=== PATIENT | male | born 1930 | race Caucasian/White ===

== ENCOUNTER 2017-03-29 06:07 | Inpatient (IN) | payer OTHER ==
--- NOTE | 2017-03-29 06:37 | PDOC ---
History of Present Illness - General History Source: Patient Exam Limitations: No Limitations - History of Present Illness Initial Comments: 03/29/17 06:44 The patient is an 87 year old male, with a significant past medical history of chest pain, coronary artery disease, hypertension, and hyperlipidemia, who presents to the emergency department with, intermittent chest pain that began yesterday morning. Patient reports the chest pain had mostly resolved on its own. However, patient reports the chest pain returned at approx. 8 pm last night and again two hours prior to presentation. Patient reports that currently he is experiencing chest pain but describes the chest pain as more of a discomfort. Patient reports the chest pain radiates down the left arm. Patient reports associated symptoms of slight shortness of breath. Patient reports he takes 81 mg of aspirin daily and is compliant with his medications. He denies any recent fevers, chills, headache or dizziness. He denies any recent nausea, vomit, diarrhea or constipation. Allergies: NKA Primary Care Physician: Dr. Olea Doorperson Or Luggage Porter: Dr. Handley <Fortino Jean - Last Filed: 03/29/17 06:50> - General History Source: Patient <AntoniToney william - Last Filed: 03/29/17 19:21> - General Chief Complaint: Chest Pain Stated Complaint: PAIN,LT ARM/CHEST PRESSURE Time Seen by Provider: 03/29/17 06:37 Past History <Fortino Jean - Last Filed: 03/29/17 06:50> - Past Medical History Cardiac Disorders: Yes - Surgical History Cardiac Surgery: Yes - Suicide/Smoking/Psychosocial Hx Smoking History: Never smoked Have you smoked in the past 12 months: No Information on smoking cessation initiated: No Hx Alcohol Use: No Drug/Substance Use Hx: No Substance Use Type: None <Toney Chaudhry - Last Filed: 03/29/17 19:21> - Past Medical History Allergies/Adverse Reactions: Allergies Allergy/AdvReac Type Severity Reaction Status Date / Time No Known Allergies Allergy Verified 03/29/17 06:24 Home Medications: Ambulatory Orders Fenofibrate 150 mg PO DAILY 03/29/17 Isosorbide Mononitrate [Isosorbide Mononitrate ER] 60 mg PO DAILY 03/29/17 Metoprolol Tartrate 100 mg PO DAILY 03/29/17 Rosuvastatin [Crestor -] 10 mg PO DAILY 03/29/17 Review of Systems - Review of Systems Comments:: 03/29/17 06:45 CONSTITUTIONAL: Absent: fever, no chills, no fatigue EYES: Absent: visual changes ENT: Absent: ear pain, no sore throat CARDIOVASCULAR: Present: +Chest pain Absent: no palpitations RESPIRATORY: Present: +Shortness of breath Absent: cough, GI: Absent: abdominal pain, no nausea, no vomiting, no constipation, no diarrhea GENITOURINARY: Absent: dysuria, no frequency, no hematuria MUSKULOSKELETAL: Absent: back pain, no arthralgia, no myalgia SKIN: Absent: rash NEURO: Absent: headache <Charanjit Jeanian - Last Filed: 03/29/17 06:50> *Physical Exam - Vital Signs Last Vital Signs Temp Pulse Resp BP Pulse Ox 86 14 158/70 95 03/29/17 06:24 03/29/17 06:24 03/29/17 06:24 03/29/17 06:24 - Physical Exam Comments: 03/29/17 06:46 GENERAL: Well developed, well nourished. Awake and alert. No acute distress. HEENT: Normocephalic, atraumatic. PERRLA, EOMI. No conjunctival pallor. Sclera are non- icteric. Moist mucous membranes. Oropharynx is clear. NECK: Supple. Full ROM. No JVD. Carotid pulses 2+ and symmetric, without bruits. No thyromegaly. No lymphadenopathy. CARDIOVASCULAR: Regular rate and rhythm. No murmurs, rubs, or gallops. Distal pulses are 2+ and symmetric. PULMONARY: No evidence of respiratory distress. Lungs clear to auscultation bilaterally. No wheezing, rales or rhonchi. ABDOMINAL: Soft. Non-tender. Non-distended. No rebound or guarding. No organomegaly. Normoactive bowel sounds. MUSCULOSKELETAL Normal range of motion at all joints. No bony deformities or tenderness. No CVA tenderness. EXTREMITIES: No cyanosis. No clubbing. No edema. No calf tenderness. SKIN: Warm and dry. Normal capillary refill. No rashes. No jaundice. NEUROLOGICAL: Alert, awake, appropriate. Cranial nerves 2-12 intact. No deficits to light touch and temperature in face, upper extremities and lower extremities. No motor deficits in the in face, upper extremities and lower extremities. Normoreflexic in the upper and lower extremities. Normal speech. Toes are down- going bilaterally. PSYCHIATRIC: Cooperative. Good eye contact. Appropriate mood and affect. <Fortino Jean - Last Filed: 03/29/17 06:50> - Vital Signs Last Vital Signs Temp Pulse Resp BP Pulse Ox 86 14 158/70 95 03/29/17 06:24 03/29/17 06:24 03/29/17 06:24 03/29/17 06:24 <Toney Chaudhry - Last Filed: 03/29/17 19:21> Heart Score/ECG Review #1 03/29/17 06:46 Normal Sinus Rhythm at 80 bpm QT/QTc 352/405 ms <Fortino Jean - Last Filed: 03/29/17 06:50> ED Treatment Course - Medications Given in the ED: ED Medications Discontinued Medications Generic Name Dose Route Start Last Admin Trade Name Freq PRN Reason Stop Dose Admin Aspirin 81 mg 03/29/17 06:38 03/29/17 06:42 Asa - PO 03/29/17 06:39 81 mg ONCE ONE Administration <Fortino Jean - Last Filed: 03/29/17 06:50> - LABORATORY CBC & Chemistry Diagram: 03/29/17 07:00 03/29/17 07:00 <Toney Chaudhry - Last Filed: 03/29/17 19:21> Medical Decision Making - Medical Decision Making 03/29/17 19:21 Dr. Chaudhry: The scribe's documentation has been prepared under my direction and personally reviewed by me in its entirery. I confirm that the note above accurately reflects all work, treatment, procedures, and medical decision making performed by me. <Toney Chaudhry - Last Filed: 03/29/17 19:21> *DC/Admit/Observation/Transfer - Attestations Scribe Attestion: 03/29/17 06:47 Documentation prepared by Fortino Jean, acting as certified medical transcriptionist for Toney Chaudhry MD. <Fortino Jean - Last Filed: 03/29/17 06:50> <Toney Chaudhry - Last Filed: 03/29/17 19:21> Diagnosis at time of Disposition: Urinary tract infection Qualifiers: Urinary tract infection type: acute cystitis Hematuria presence: without hematuria Qualified Code(s): N30.00 - Acute cystitis without hematuria Chest pain Qualifiers: Chest pain type: unspecified Qualified Code(s): R07.9 - Chest pain, unspecified - Discharge Dispostion Condition at time of disposition: Fair
[2017-03-29] MEDS ORDERED: ASPIRIN 81 MG CHEWABLE TABLETS PO ONE (06:38)
[2017-03-29] MEDS ORDERED: ASPIRIN 81 MG CHEWABLE TABLETS ONE (06:42)
[2017-03-29 07:16] LABS: BASO % 0.4 % (0-2.0); EOS % 0.2 % (0-4.5); HEMATOCRIT 47.4 % (35.4-49); HEMOGLOBIN 15.7 GM/dL (11.7-16.9); LYMPH % 15.7 % (8-40); MCH 31.1 pg (25.7-33.7); MEAN CELL VOLUME 94.2 fl (80-96); MEAN PLT VOLUME 9.3 fl (7.5-11.1); MONO % 10.2 % (3.8-10.2); NEUT % 73.5 % (42.8-82.8); PLATELET COUNT 203 K/MM3 (134-434); RBC 5.03 M/mm3 (4.00-5.60); RDW 14.6 % (11.9-15.9)
[2017-03-29 07:29] LABS: INR 1.17 (0.82-1.09); PROTHROMBIN TIME (PATIENT) 13.2 SEC (9.98-11.88)
[2017-03-29 07:48] LABS: ALBUMIN 3.4 g/dl (3.4-5.0); ANION GAP 9 (8-16); BILIRUBIN,TOTAL 0.8 mg/dL (0.2-1.0); BLOOD UREA NITROGEN 22 mg/dL (7-18); CALCIUM 9.2 mg/dL (8.5-10.1); CHLORIDE 106 mmol/L (98-107); CO2 23 mmol/L (21-32); CREATININE 1.6 mg/dL (0.7-1.3); GLUCOSE,RANDOM 121 mg/dL (74-106); SGPT/ALT 24 U/L (12-78); SODIUM 138 mmol/L (136-145); TOT PROT 6.7 g/dl (6.4-8.2)
[2017-03-29 07:51] LABS: ALK PHOS 57 U/L (45-117)
[2017-03-29 07:55] LABS: POTASSIUM 4.3 mmol/L (3.5-5.1)
[2017-03-29 07:56] LABS: MAGNESIUM 1.9 mg/dL (1.8-2.4); SGOT/AST 29 U/L (15-37)
[2017-03-29] MEDS ORDERED: ACETAMINOPHEN 325 MG TABLET (FP) PO ONE (09:13)
[2017-03-29] MEDS ORDERED: ACETAMINOPHEN 325 MG TABLET (FP) ONE (09:31)
--- NOTE | 2017-03-29 09:37 | EKG ---
Test Reason : Blood Pressure : / mmHG Vent. Rate : 080 BPM Atrial Rate : 080 BPM P-R Int : 182 ms QRS Dur : 090 ms QT Int : 352 ms P-R-T Axes : 036 015 038 degrees QTc Int : 405 ms NORMAL SINUS RHYTHM NORMAL ECG WHEN COMPARED WITH ECG OF 19-JUN-2015 10:13, NO SIGNIFICANT CHANGE WAS FOUND Confirmed by KALI GRAVES MD ([id number]) on 03/29/2017 9:37:28 AM Referred By: Confirmed By:KALI GRAVES MD
[2017-03-29 10:12] LABS: URINE APPEARANCE CLOUDY; URINE BILIRUBIN NEGATIVE (NEGATIVE); URINE BLOOD 2+ (NEGATIVE); URINE COLOR YELLOW; URINE GLUCOSE (UA) NEGATIVE (NEGATIVE); URINE KETONE NEGATIVE (NEGATIVE); URINE NITRITE POSITIVE (NEGATIVE); URINE UROBILINOGEN NEGATIVE mg/dL (0.2-1.0)
[2017-03-29 10:18] LABS: URINE LEUK ESTERASE 2+ (NEGATIVE); URINE PROTEIN 1+ (NEGATIVE)
[2017-03-29 10:46] LABS: URINE BACTERIA MANY /hpf (NONE SEEN)
[2017-03-29] MEDS ORDERED: CEFTRIAXONE 1 GM in DEXTROSE 5%-WATER - 50 ML IVPB ONE (11:08)
[2017-03-29] MEDS ORDERED: CEFTRIAXONE 1 GM/50 ML BAG ONE (12:12)
[2017-03-29] MEDS ORDERED: ACETAMINOPHEN 325 MG TABLET (FP) PO PRN (15:31)
--- NOTE | 2017-03-29 15:31 | PDOC ---
*Physical Exam - Vital Signs Last Vital Signs Temp Pulse Resp BP Pulse Ox 98.6 F 66 20 165/86 96 03/29/17 15:26 03/29/17 15:26 03/29/17 15:26 03/29/17 15:26 03/29/17 15:26 - Physical Exam Comments: 03/29/17 15:29 Patient is an 87-year-old male who presented with atraumatic left-sided chest pain. Patient reported shaking chills, lower abdominal pain and dysuria. Urinalysis reveals numerous WBCs per high-power field, CT that and pelvis reveals no evidence of acute pathology, blood and urine cultures were obtained patient was found to be febrile to 101 Fahrenheit rectally. Tylenol as well as ceftriaxone as well as IV fluids were administered. Will admit to telemetry for cardiac evaluation and continuous IV antibiotic therapy. ED Treatment Course - LABORATORY CBC & Chemistry Diagram: 03/29/17 07:00 03/29/17 07:00 - ADDITIONAL ORDERS Additional order review: Laboratory Results 03/29/17 03/29/17 03/29/17 09:56 07:00 07:00 PT with INR 13.20 H INR 1.17 H Sodium 138 Potassium 4.3 Chloride 106 Carbon Dioxide 23 Anion Gap 9 BUN 22 H Creatinine 1.6 H Creat Clearance w eGFR 40.90 Random Glucose 121 H D Calcium 9.2 Magnesium 1.9 Total Bilirubin 0.8 D AST 29 ALT 24 D Alkaline Phosphatase 57 Creatine Kinase 81 Troponin I < 0.02 Total Protein 6.7 Albumin 3.4 Urine Color Yellow Urine Appearance Cloudy Urine pH 5.0 Ur Specific [place] 1.013 Urine Protein 1+ H Urine Glucose (UA) Negative Urine Ketones Negative Urine Blood 2+ H Urine Nitrite Positive Urine Bilirubin Negative Urine Urobilinogen Negative Ur Leukocyte Esterase 2+ H Urine WBC (Auto) 748 Urine RBC (Auto) 9 Urine Bacteria Many 03/29/17 09:46 Influenza Types A,B Antigen (MICHELLE) - Final Nasopharyngeal Swab - Final 03/29/17 07:00 RBC 5.03 MCV 94.2 MCHC 33.0 RDW 14.6 MPV 9.3 Neutrophils % 73.5 D Lymphocytes % 15.7 D Monocytes % 10.2 Eosinophils % 0.2 D Basophils % 0.4 - RADIOLOGY Radiology Studies Ordered: Category Date Time Status ABDOMEN & PELVIS CT W/O CONTR [CT] Stat CT Scan 03/29/17 09:13 Completed - Medications Given in the ED: ED Medications Discontinued Medications Generic Name Dose Route Start Last Admin Trade Name Nicole PRN Reason Stop Dose Admin Acetaminophen 650 mg 03/29/17 09:13 03/29/17 09:40 Tylenol - PO 03/29/17 09:14 650 mg ONCE ONE Administration Aspirin 81 mg 03/29/17 06:38 03/29/17 06:42 Asa - PO 03/29/17 06:39 81 mg ONCE ONE Administration Ceftriaxone Sodium 1 gm/ 50 mls @ 100 mls/hr 03/29/17 11:08 03/29/17 12:12 Dextrose IVPB 03/29/17 11:37 100 mls/hr ONCE ONE Administration *DC/Admit/Observation/Transfer Diagnosis at time of Disposition: Chest pain Qualifiers: Chest pain type: unspecified Qualified Code(s): R07.9 - Chest pain, unspecified Urinary tract infection Qualifiers: Urinary tract infection type: acute cystitis Hematuria presence: without hematuria Qualified Code(s): N30.00 - Acute cystitis without hematuria - Discharge Dispostion Condition at time of disposition: Fair Admit: Yes - Referrals Referrals: Edgar Loza MD [Primary Care Provider] - - Patient Instructions - Post Discharge Activity
--- NOTE | 2017-03-29 15:32 | HP ---
CHIEF COMPLAINT: left sided chest pain, suprapubic pain, difficulty urinating PCP: Dr. Loza HISTORY OF PRESENT ILLNESS: This is an 87 year old male with PMHx of HTN, CAD, dyslipidemia, CKD stage 3, gout, osteoarthritis, CABG, who presented to the ED with suprapubic pain, difficulty urinating, and left chest pain radiating to his left shoulder. The patient reports he has had pain with urination for months now and it has worsened over the past 1.5 days. He also reports it takes him longer to urinate recently. He also reports left sided chest pain that began this morning and radiated to his left arm. He reports the chest pain has subsided. He does state that yesterday he experienced chills. He denies any shortness of breath, diarrhea, nausea, vomiting, dizziness, syncope, lower extremity swelling, hematuria. Off note: cardiac cath 02/05/15: 3 vessel CAD with mid LAD ISR SUPERVISOR/PORT DIRECTOR, LCx OM SUPERVISOR/PORT DIRECTOR and 80-90% ostial RPDA distal vessel medium size ER course was notable for: (1) Temp 101, HR 68, BP 115/62, resp 18, O2 96% on RA (2) WBC 15, Cr 1.6 (3) Chest X-ray with no acute pathology (4) CTAP: colonic diverticulosis is noted without definite evidence of acute diverticulitis. 6mm nonobstructing right renal calculus. Probable diffuse hepatic steatosis Recent Travel: denies PAST MEDICAL HISTORY: as above PAST SURGICAL HISTORY: as above Social History: Smoking: denies Alcohol: occasion glass of wine, not daily Drugs: denies Family History: Allergies No Known Allergies Allergy (Verified 03/29/17 06:24) HOME MEDICATIONS: Home Medications Medication Instructions Recorded Fenofibrate 150 mg PO DAILY 03/29/17 Isosorbide Mononitrate [Isosorbide 60 mg PO DAILY 03/29/17 Mononitrate ER] Metoprolol Tartrate 100 mg PO DAILY 03/29/17 Rosuvastatin [Crestor -] 10 mg PO DAILY 03/29/17 REVIEW OF SYSTEMS CONSTITUTIONAL: Chills that began yesterday. Absent: fever, diaphoresis, generalized weakness, malaise, loss of appetite, weight change HEENT: Absent: rhinorrhea, nasal congestion, throat pain, throat swelling, difficulty swallowing, mouth swelling, ear pain, eye pain, visual changes CARDIOVASCULAR: Left chest pain radiating to the left shoulder which has resolved since coming to the ED. Absent: syncope, palpitations, irregular heart rate, lightheadedness, peripheral edema RESPIRATORY: Absent: cough, shortness of breath, dyspnea with exertion, orthopnea, wheezing, stridor, hemoptysis GASTROINTESTINAL:Absent: abdominal distension, nausea, vomiting, diarrhea, constipation, melena, hematochezia GENITOURINARY: Suprapubic pain, painful urination, hesitancy that began 2 months ago and worsened over the past 1.5 days. Absent: frequency, hematuria, flank pain, genital pain MUSCULOSKELETAL: Absent: myalgia, arthralgia, joint swelling, back pain, neck pain SKIN: Absent: rash, itching, pallor HEMATOLOGIC/IMMUNOLOGIC: Absent: easy bleeding, easy bruising, lymphadenopathy, frequent infections ENDOCRINE:Absent: unexplained weight gain, unexplained weight loss, heat intolerance, cold intolerance NEUROLOGIC: Absent: headache, focal weakness or paresthesias, dizziness, unsteady gait, seizure, mental status changes, bladder or bowel incontinence PSYCHIATRIC: Absent: anxiety, depression, suicidal or homicidal ideation, hallucinations. PHYSICAL EXAMINATION Vital Signs - 24 hr 03/29/17 03/29/17 03/29/17 06:24 08:50 09:13 Temperature 101 F H Pulse Rate 86 Pulse Rate [ Right] Respiratory 14 Rate Blood Pressure 158/70 Blood Pressure [Right Arm] O2 Sat by Pulse 95 99 Oximetry (%) 03/29/17 03/29/17 10:58 15:26 Temperature 98.4 F 98.6 F Pulse Rate Pulse Rate [ 68 66 Right] Respiratory 18 20 Rate Blood Pressure Blood Pressure 115/62 165/86 [Right Arm] O2 Sat by Pulse 96 96 Oximetry (%) GENERAL: Awake, alert, and fully oriented, in no acute distress. HEAD: Normal with no signs of trauma. EYES: Pupils equal, round and reactive to light, extraocular movements intact, sclera anicteric, conjunctiva clear. No lid lag. EARS, NOSE, THROAT: Ears normal, nares patent, oropharynx clear without exudates. Moist mucous membranes. NECK: Normal range of motion, supple without lymphadenopathy, JVD, or masses. LUNGS: Breath sounds equal, clear to auscultation bilaterally. No wheezes, and no crackles. No accessory muscle use. HEART: Regular rate and rhythm, normal S1 and S2 without murmur, rub or gallop. ABDOMEN: Soft, nontender, not distended, normoactive bowel sounds, no guarding, no rebound, no masses. No hepatomegaly or splenomegaly. MUSCULOSKELETAL: Normal range of motion at all joints. No bony deformities or tenderness. No CVA tenderness. UPPER EXTREMITIES: 2+ pulses, warm, well-perfused. No cyanosis. No clubbing. No peripheral edema. LOWER EXTREMITIES: 2+ pulses, warm, well-perfused. No calf tenderness. No peripheral edema. NEUROLOGICAL: Cranial nerves II-XII intact. Normal speech. Normal gait. PSYCHIATRIC: Cooperative. Good eye contact. Appropriate mood and affect. SKIN: Warm, dry, normal turgor, no rashes or lesions noted, normal capillary refill. Laboratory Results - last 24 hr 03/29/17 03/29/17 03/29/17 07:00 07:00 07:00 WBC 15.0 H D RBC 5.03 Hgb 15.7 Hct 47.4 MCV 94.2 MCH 31.1 MCHC 33.0 RDW 14.6 Plt Count 203 MPV 9.3 Neutrophils % 73.5 D Lymphocytes % 15.7 D Monocytes % 10.2 Eosinophils % 0.2 D Basophils % 0.4 PT with INR 13.20 H INR 1.17 H Sodium 138 Potassium 4.3 Chloride 106 Carbon Dioxide 23 Anion Gap 9 BUN 22 H Creatinine 1.6 H Creat Clearance w eGFR 40.90 Random Glucose 121 H D Calcium 9.2 Magnesium 1.9 Total Bilirubin 0.8 D AST 29 ALT 24 D Alkaline Phosphatase 57 Creatine Kinase 81 Troponin I < 0.02 Total Protein 6.7 Albumin 3.4 Urine Color Urine Appearance Urine pH Ur Specific [place] Urine Protein Urine Glucose (UA) Urine Ketones Urine Blood Urine Nitrite Urine Bilirubin Urine Urobilinogen Ur Leukocyte Esterase Urine WBC (Auto) Urine RBC (Auto) Urine Bacteria 03/29/17 09:56 WBC RBC Hgb Hct MCV MCH MCHC RDW Plt Count MPV Neutrophils % Lymphocytes % Monocytes % Eosinophils % Basophils % PT with INR INR Sodium Potassium Chloride Carbon Dioxide Anion Gap BUN Creatinine Creat Clearance w eGFR Random Glucose Calcium Magnesium Total Bilirubin AST ALT Alkaline Phosphatase Creatine Kinase Troponin I Total Protein Albumin Urine Color Yellow Urine Appearance Cloudy Urine pH 5.0 Ur Specific [place] 1.013 Urine Protein 1+ H Urine Glucose (UA) Negative Urine Ketones Negative Urine Blood 2+ H Urine Nitrite Positive Urine Bilirubin Negative Urine Urobilinogen Negative Ur Leukocyte Esterase 2+ H Urine WBC (Auto) 748 Urine RBC (Auto) 9 Urine Bacteria Many Assessment: This is an 87 year old male with PMHx of HTN, CAD, dyslipidemia, CKD stage 3, gout, osteoarthritis, CABG, who presented to the ED with suprapubic pain, difficulty urinating, and left chest pain radiating to his left shoulder. Plan: 1) Sepsis 2/2 UTI - Start Ceftriaxone - F/u urine culture - Monitor WBC - Monitor for fever - Lactic acid wnl 2) Chest pain - First trop negative, continue to trend - F/u ECHO - ASA 81mg po daily - EKG NSR - Cardiac monitoring - F/u TSH, HgbA1c, lipid profile - F/u cardiology consult 3) CAD - Hx of cardiac cath 2014 - Continue ASA - Continue statin - Continue Imdur - Continue Lopressor 4) Hypertriglyeridemia - Continue Trilipix 5) CKD stage 3 - Cr at baseline - Continue to monitor 6) F/E/N: - Sodium controlled diet - Monitor electrolytes 7) Prophylaxis: - OOB ambulating - Heparin 5,000u sq bid 8) Dispo: - Requires continued inpatient care CODE STATUS: FULL CODE Visit type - Emergency Visit Emergency Visit: Yes Care time: The patient presented to the Emergency Department on the above date and was hospitalized for further evaluation of their emergent condition. - New Patient This patient is new to me today: Yes Date on this admission: 03/29/17 - Critical Care Critical Care patient: No
--- NOTE | 2017-03-29 20:06 | CONS ---
DATE OF CONSULTATION: 03/29/2017 REQUESTING PHYSICIAN: Cody Jordan M.D. REASON FOR CONSULTATION: Cardiology consultation. CHIEF COMPLAINT: 1. Rigors and chills. 2. Chest pain. 3. Burning on micturition and poor stream. HISTORY OF PRESENT ILLNESS: The patient is an 87-year-old [place] gentleman with longstanding history of coronary artery disease, status post coronary artery bypass grafting, angina pectoris, hypertension, hypertensive cardiovascular disease, hypercholesterolemia, history of gout, and generalized osteoarthritis. Patient says that last evening he started to experience chills, rigors, and was also complaining of dysuria, poor urinary stream, and pain involving the hypogastrium. During this episode, he started to experience right anterior chest pain described as pressure with radiation to the left arm. Symptoms persisted during the night, and was unable to sleep because of ongoing chills and rigors associated with chest pain. This morning, he had recurrence of chest pain and continued to have the above mentioned symptoms and decided to come to the hospital. There is no history of dyspnea either at rest or with exertion, no paroxysmal nocturnal dyspnea or orthopnea reported. There is no history of palpitations, lightheadedness, dizziness, recent syncope. No history of diabetes mellitus. PAST HISTORY: As mentioned in the history of present illness. History of vertigo, currently in remission. SURGICAL HISTORY: History of prostate surgery. SOCIAL HISTORY: He is a , , has 2 sons and a daughter who are healthy. He is a nonsmoker and on rare occasions has a glass of wine. FAMILY HISTORY: Father at the age of 77 of sudden . He had history of gout. Mother at age 84 of unknown causes. He had 3 brothers and 1 sister, all of them are . Cause of is not known. ALLERGIES: None known. CURRENT MEDICATIONS: Are as follows: 1. Tylenol 650 mg p.o. q.6 h. p.r.n. 2. Heparin 5000 units subcutaneous b.i.d. 3. Metoprolol tartrate 100 mg p.o. daily. 4. Ceftriaxone 1 g IV daily. 5. Fenofibrate 135 mg p.o. daily. 6. Crestor 10 mg p.o. daily. 7. Isosorbide mononitrate 60 mg p.o. daily. 8. Aspirin 81 mg p.o. daily. 9. Prior to hospitalization, he was also on allopurinol 100 mg p.o. daily. 10. Vitamin D3, 2000 international units p.o. daily. 11. Losartan 50 mg p.o. daily. ALLERGIES: None reported. REVIEW OF SYSTEMS: Constitutional: History of chills, fever, no history of night sweats. No history of unintentional weight loss. HEENT: No history of headaches, diplopia, blurred vision reported. No history of epistaxis, hoarseness, denies having recent tinnitus, or deafness. Cardiovascular: See history of present illness. Respiratory: No history of cough, expectoration or hemoptysis. Gastrointestinal: No history of nausea, vomiting, melena or hematemesis. No history of abdominal pain or discomfort, no history of change in bowel habits. SLAG EXPANDER: No history of lightheadedness, dizziness, presyncope, or syncope. No history of focal weakness. No history of seizures. Genitourinary: See history of present illness. Endocrine: No history of polyuria, polydipsia. No history of intolerance to cold or warm weather. Musculoskeletal: History of generalized osteoarthritis with pain especially involving the left hip and knee. Hematological: No history of ecchymosis, bleeding, or anemia. PHYSICAL EXAMINATION: General: An 87-year-old obese gentleman was alert in no acute distress, no pallor, cyanosis, clubbing, or jaundice. Vital signs: Weight not recorded. Blood pressure 165/86 mmHg. Pulse 66 beats per minute and regular. Respirations 20 per minute. A 9:30 a.m., he was febrile at 101 degrees Fahrenheit. Current temperature is 98.6 degrees Fahrenheit. Neck: Supple. No jugulovenous distention, hepatojugular reflex was negative, carotids were 2+, upstrokes were normal, no bruits were heard, and no thyromegaly was present. Heart: PMI was in the 5th intercostal space, no heaves or thrills. S1 and S2 were normal. Ejection systolic murmur grade 2/6 was heard at the 2nd right intercostal space ending in early to mid systole. No diastolic murmur or gallops were heard. Lungs: Clear on auscultation. Abdomen: Obese, soft and nontender. No hepatosplenomegaly or palpable masses were felt. Bowel sounds were present. No bruits were heard. Extremities: No calf tenderness or dependent edema, femoral pulses were 2+, dorsalis pedis pulses were 1+. Posterior tibial pulses were not palpable. LABORATORY DATA: CBC: WBC count 15,000, hemoglobin 15.7 g/dL, platelets 203,000 with slight left shift. Chemistry: sodium 138, potassium 4.3, chloride 106, CO2 of 23 mmol/L. BUN 22, creatinine 1.6 mg/dL. Random glucose 121 mg/dL. Normal liver function test. CK 81 and 84. Troponins were less than 0.02. Urinalysis reveals 1+ protein. There was 2+ blood. Leukocyte esterase was 2+. WBC was 748. A urine revealed many bacterias. There were 9 RBCs. X-ray chest, impression: no acute pathology, no significant change since February 02, 2015. ECG: March 29, 2017, sinus rhythm with borderline first-degree AV block, intraatrial conduction abnormality, slow R wave progression V1 to V3, no unspecific ST and T wave abnormalities. IMPRESSION: 1. Coronary artery disease, status post coronary artery bypass grafting. Clinical presentation is consistent with recurrence of angina pectoris, most likely precipitated by sepsis. 2. Urinary tract infection, sepsis needs to be excluded. 3. Hypertension, hypertensive cardiovascular disease. 4. Dyslipidemia. 5. Hyperuricemia. 6. Chronic kidney disease. 7. History of vitamin D deficiency. 8. Exogenous obesity. RECOMMENDATION: 1. This patient has recurrence of chest pain, may require IV nitroglycerin. 2. Serial EKGs and enzymes. 3. Risk modification. 4. Lipid profile. 5. Further suggestion will depend upon response to therapy. Prognosis critical. Thank you for your referral. Yours Sincerely, MANDEEP ALLISON M.D. [id number]
[2017-03-29] MEDS ORDERED: HEPARIN NA (PORCINE) 5,000 UNITS/ML 1ML VIAL ONE (21:51)
[2017-03-29] MEDS: ROSUVASTATIN CA 10 MG TABLET (FP) PO SCH (22:28)
[2017-03-29] MEDS: HEPARIN NA (PORCINE) 5,000 UNITS/ML 1ML VIAL SQ SCH (22:28)
[2017-03-30 05:07] VITALS: BMI 32.1
[2017-03-30 08:20] LABS: BASO % 0.4 % (0-2.0); EOS % 0.4 % (0-4.5); HEMATOCRIT 48.9 % (35.4-49); HEMOGLOBIN 15.8 GM/dL (11.7-16.9); LYMPH % 22.8 % (8-40); MCH 30.7 pg (25.7-33.7); MCHC 32.3 g/dl (32.0-35.9); MEAN CELL VOLUME 95.3 fl (80-96); MEAN PLT VOLUME 9.5 fl (7.5-11.1); MONO % 12.1 % (3.8-10.2); NEUT % 64.3 % (42.8-82.8); PLATELET COUNT 211 K/MM3 (134-434); RBC 5.14 M/mm3 (4.00-5.60); RDW 14.8 % (11.9-15.9); WHITE BLOOD COUNT 13.1 K/mm3 (4.0-10.0)
[2017-03-30 08:45] LABS: CHLORIDE 104 mmol/L (98-107); SODIUM 138 mmol/L (136-145)
[2017-03-30 08:56] LABS: ALBUMIN 3.2 g/dl (3.4-5.0); ALK PHOS 58 U/L (45-117); ANION GAP 10 (8-16); BLOOD UREA NITROGEN 24 mg/dL (7-18); CO2 24 mmol/L (21-32); CREATININE 1.5 mg/dL (0.7-1.3); GLUCOSE,RANDOM 108 mg/dL (74-106); MAGNESIUM 2.1 mg/dL (1.8-2.4); SGOT/AST 35 U/L (15-37); SGPT/ALT 31 U/L (12-78); TOT PROT 6.7 g/dl (6.4-8.2)
[2017-03-30] MEDS: HEPARIN NA (PORCINE) 5,000 UNITS/ML 1ML VIAL SQ SCH ×2 (09:01→22:31)
[2017-03-30] MEDS: CEFTRIAXONE 1 G/50 ML PREMIX 50 ML IVPB SCH (09:01)
[2017-03-30] MEDS: ASPIRIN 81 MG CHEWABLE TABLETS PO SCH (09:01)
[2017-03-30] MEDS: FENOFIBRIC ACID 135 MG CAP PO SCH (09:01)
[2017-03-30] MEDS: ISOSORBIDE MONONITRATE 60 MG TAB.SR.24H (FP) PO SCH (09:01)
[2017-03-30 09:58] LABS: CHOLESTEROL 167 mg/dL (50-200); HDL CHOLESTEROL 26 mg/dL (40-60); LDL CHOLESTEROL (ONLY SJRH) 109 mg/dL (5-100)
[2017-03-30] MEDS ORDERED: METOPROLOL TARTRATE 50 MG TABLET (FP) PO SCH (10:00)
[2017-03-30] MEDS ORDERED: ROSUVASTATIN CA 10 MG TABLET (FP) PO SCH (10:00)
[2017-03-30] MEDS ORDERED: PATIENT'S OWN MEDICATION (NON-FORMULARY) (Metoprolol Tartrate [Metoprolol Tartrate] 100 MG PO SCH (10:00)
[2017-03-30] MEDS ORDERED: FENOFIBRATE 150 MG PO SCH (10:00)
[2017-03-30] MEDS ORDERED: CEFTRIAXONE 1 GM in DEXTROSE 5%-WATER - 50 ML IVPB SCH (10:00)
[2017-03-30 10:05] LABS: TRIGLYCERIDES 225 mg/dL (35-160)
--- NOTE | 2017-03-30 10:29 | PN ---
Progress Note (short form) - Note Progress Note: 87 year old male admitted with with chills, rigors and fever associated with recurring chest pains. Diagnosed to have aUTI, and progressive angina ppted by septic symptom. Known case of CAD,s/p CABG, angina pectoris, hypertension, gout , arthritis and hypercholestrolemia. Feels better since on antibiotics, afebrile and no further chest pain. Active Medications Generic Name Dose Route Start Last Admin Trade Name Freq PRN Reason Stop Dose Admin Acetaminophen 650 mg 03/29/17 15:31 Tylenol - PO Q6H PRN FEVER Aspirin 81 mg 03/30/17 10:00 03/30/17 09:01 Asa - PO 81 mg DAILY MERLIN Administration Fenofibric Acid 135 mg 03/30/17 10:00 03/30/17 09:01 Trilipix - PO 135 mg DAILY MERLIN Administration Heparin Sodium (Porcine) 5,000 unit 03/29/17 22:00 03/30/17 09:01 Heparin - SQ 5,000 unit BID MERLIN Administration CEFTRIAXONE 1 G/50 ML PREMIX 50 mls @ 100 mls/hr 03/30/17 10:00 03/30/17 09: 01 Ceftriaxone 1 Gm-D5w Bag IVPB 100 mls/hr DAILY MERLIN Administration Isosorbide Mononitrate 60 mg 03/30/17 10:00 03/30/17 09:01 Imdur - PO 60 mg DAILY MERLIN Administration Metoprolol Tartrate 100 mg 03/30/17 10:00 03/30/17 09:01 Lopressor - PO 100 mg DAILY MERLIN Administration Rosuvastatin Calcium 10 mg 03/29/17 22:00 03/29/17 22:28 Crestor - PO 10 mg HS MERLIN Administration O: 87 year alert humera in no distress, no pallor, cyanosis, clubbing or jaundice. Last Vital Signs Temp Pulse Resp BP Pulse Ox 98 F 89 20 150/63 97 03/30/17 09:00 03/30/17 09:00 03/30/17 09:00 03/30/17 09:00 03/30/17 09:00 NECK: Supple, carotids equal, no bruits. HEART: PMI in the 5th ICS, no heaves or thrills, S1 and S2 are normal, AKYLEY II/ , 2nd rt. ICS. No diastolic murmur or gallops heard. LUNGS: Clear on auscultation. ABDOMEN: Soft nontender, on organomegalt or palpable masses. EXTREMITIES: NO calf tenderness or deprndent edema. CBC, BMP 03/30/17 07:09 03/30/17 07:09 IMPRESSION: 1. CAD/CABG, recurrence of angina pectoris, ppted bt UTI, sepsis. 2. Hypertension. 3. Hypercholesterolemia. 4. UTI. 5.CKD. RECOMMENDATIONS: 1. Current therapy. 2. F/u EKG and enzymes.
--- NOTE | 2017-03-30 19:59 | PN ---
Physical Exam: SUBJECTIVE: Patient seen and examined at bedside. Son present. Suprapubic pain is mostly resolved. Left chest pain completely resolved. Patient reports he has had problems with his prostate and with urination for years. He was hospitalized in [facility] in September 2016 for 8 days with a UTI and difficulty urinating. PCP: Dr. Loza Cardiology: Dr. Hull OBJECTIVE: Vital Signs Period Temp Pulse Resp BP Sys/Balderas Pulse Ox Last 24 Hr 98 F-99.1 F 60-89 18-20 117-150/60-82 95-100 GENERAL: The patient is awake, alert, and fully oriented, in no acute distress. LUNGS: Breath sounds equal, clear to auscultation bilaterally, no wheezes, no crackles, no accessory muscle use. HEART: Regular rate and rhythm, S1, S2 ABDOMEN: Soft, mildly distended, diffusely tender, normoactive bowel sounds, no guarding, no rebound EXTREMITIES: 2+ pulses, warm, well-perfused, no edema. NEUROLOGICAL: Cranial nerves II through XII grossly intact. Normal speech, gait not observed. Laboratory Results - last 24 hr 03/29/17 03/29/17 03/30/17 18:45 21:30 07:09 WBC 13.1 H RBC 5.14 Hgb 15.8 Hct 48.9 MCV 95.3 MCH 30.7 MCHC 32.3 RDW 14.8 Plt Count 211 MPV 9.5 Neutrophils % 64.3 Lymphocytes % 22.8 D Monocytes % 12.1 H Eosinophils % 0.4 D Basophils % 0.4 Sodium Potassium Chloride Carbon Dioxide Anion Gap BUN Creatinine Creat Clearance w eGFR Random Glucose Hemoglobin A1c % 6.3 H Calcium Magnesium Total Bilirubin AST ALT Alkaline Phosphatase Creatine Kinase 89 Troponin I 0.02 Total Protein Albumin Triglycerides Cholesterol Total LDL Cholesterol HDL Cholesterol TSH 03/30/17 03/30/17 07:09 09:27 WBC RBC Hgb Hct MCV MCH MCHC RDW Plt Count MPV Neutrophils % Lymphocytes % Monocytes % Eosinophils % Basophils % Sodium 138 Potassium 4.0 Chloride 104 Carbon Dioxide 24 Anion Gap 10 BUN 24 H Creatinine 1.5 H Creat Clearance w eGFR 44.07 Random Glucose 108 H Hemoglobin A1c % Calcium 9.0 Magnesium 2.1 Total Bilirubin 1.0 D AST 35 D ALT 31 D Alkaline Phosphatase 58 Creatine Kinase Troponin I Total Protein 6.7 Albumin 3.2 L Triglycerides 225 H Cancelled Cholesterol 167 Cancelled Total LDL Cholesterol 109 H Cancelled HDL Cholesterol 26 L Cancelled TSH 1.84 D Cancelled Active Medications Generic Name Dose Route Start Last Admin Trade Name Nicole PRN Reason Stop Dose Admin Acetaminophen 650 mg 03/29/17 15:31 Tylenol - PO Q6H PRN FEVER Aspirin 81 mg 03/30/17 10:00 03/30/17 09:01 Asa - PO 81 mg DAILY MERLIN Administration Fenofibric Acid 135 mg 03/30/17 10:00 03/30/17 09:01 Trilipix - PO 135 mg DAILY MERLIN Administration Heparin Sodium (Porcine) 5,000 unit 03/29/17 22:00 03/30/17 09:01 Heparin - SQ 5,000 unit BID MERLIN Administration CEFTRIAXONE 1 G/50 ML PREMIX 50 mls @ 100 mls/hr 03/30/17 10:00 03/30/17 09: 01 Ceftriaxone 1 Gm-D5w Bag IVPB 100 mls/hr DAILY MERLIN Administration Isosorbide Mononitrate 60 mg 03/30/17 10:00 03/30/17 09:01 Imdur - PO 60 mg DAILY MERLIN Administration Metoprolol Tartrate 100 mg 03/30/17 10:00 03/30/17 09:01 Lopressor - PO 100 mg DAILY MERLIN Administration Rosuvastatin Calcium 10 mg 03/29/17 22:00 03/29/17 22:28 Crestor - PO 10 mg HS MERLIN Administration Tamsulosin HCl 0.4 mg 03/31/17 08:30 Flomax - PO DAILY@0830 [facility] ASSESSMENT/PLAN 87 year-old male with a PMH significant for HTN, HLD, CAD s/p CABG, CKD, OA, and gout. Admitted for suprapubic pain, difficulty urinating, and left-sided chest pain. Sepsis secondary to gram negative UTI --febrile to 101, WBC 15.0k on admission --pyuria: 748 WBCs --NLFGNB --empiric ceftriaxone (day #2); await sensitivities BPH --patient reports symptoms of hesitancy, poor stream, incomplete emptying --no hydronephrosis, no significant post void residual seen on US --start flomax Left-sided chest pain --troponins negative x 3 --ECG not suggestive of ischemic event --CXR unremarkable --03/30 Echo: LV mildly dilated, LV function normal; RV normal; mild MR; mild TR; mild AI; trace PI --no events on telemetry --seen and evaluated by cardiology, no further testing ordered Hypertension --continue metoprolol Hyperlipidemia --continue Crestor Coronary artery disease s/p CABG --continue metoprolol, Crestor, ASA, isosorbide Chronic kidney disease --Cr 1.5 which is baseline Osteoarthritis --no acute issues Gout --no acute issues FEN Fluids: PO intake adequate Electrolytes: replete as indicated Nutrition: low sodium DVT prophylaxis: subq heparin Physical therapy evaluation Dispo: continues to require inpatient care. Full code. Visit type - Emergency Visit Emergency Visit: Yes ED Registration Date: 03/29/17 Care time: The patient presented to the Emergency Department on the above date and was hospitalized for further evaluation of their emergent condition. - New Patient This patient is new to me today: Yes Date on this admission: 03/31/17 - Critical Care Critical Care patient: No
[2017-03-30] MEDS: ROSUVASTATIN CA 10 MG TABLET (FP) PO SCH (22:31)
[2017-03-31 06:26] VITALS: TEMP 97.8
--- NOTE | 2017-03-31 07:51 | PN ---
Physical Exam: SUBJECTIVE: Patient seen and examined OBJECTIVE: Vital Signs Period Temp Pulse Resp BP Sys/Balderas Pulse Ox Last 24 Hr 97.8 F-98.9 F 55-89 18-20 117-150/59-72 94-97 GENERAL: The patient is awake, alert, and fully oriented, in no acute distress. LUNGS: Breath sounds equal, clear to auscultation bilaterally, no wheezes, no crackles, no accessory muscle use. HEART: Regular rate and rhythm, S1, S2 ABDOMEN: Soft, mildly distended, diffusely tender, normoactive bowel sounds, no guarding, no rebound EXTREMITIES: 2+ pulses, warm, well-perfused, no edema. NEUROLOGICAL: Cranial nerves II through XII grossly intact. Normal speech, gait not observed. Laboratory Results - last 24 hr 03/29/17 03/30/17 03/30/17 18:45 07:09 07:09 WBC 13.1 H RBC 5.14 Hgb 15.8 Hct 48.9 MCV 95.3 MCH 30.7 MCHC 32.3 RDW 14.8 Plt Count 211 MPV 9.5 Neutrophils % 64.3 Lymphocytes % 22.8 D Monocytes % 12.1 H Eosinophils % 0.4 D Basophils % 0.4 Sodium 138 Potassium 4.0 Chloride 104 Carbon Dioxide 24 Anion Gap 10 BUN 24 H Creatinine 1.5 H Creat Clearance w eGFR 44.07 Random Glucose 108 H Hemoglobin A1c % 6.3 H Calcium 9.0 Magnesium 2.1 Total Bilirubin 1.0 D AST 35 D ALT 31 D Alkaline Phosphatase 58 Total Protein 6.7 Albumin 3.2 L Triglycerides 225 H Cholesterol 167 Total LDL Cholesterol 109 H HDL Cholesterol 26 L TSH 1.84 D 03/30/17 09:27 WBC RBC Hgb Hct MCV MCH MCHC RDW Plt Count MPV Neutrophils % Lymphocytes % Monocytes % Eosinophils % Basophils % Sodium Potassium Chloride Carbon Dioxide Anion Gap BUN Creatinine Creat Clearance w eGFR Random Glucose Hemoglobin A1c % Calcium Magnesium Total Bilirubin AST ALT Alkaline Phosphatase Total Protein Albumin Triglycerides Cancelled Cholesterol Cancelled Total LDL Cholesterol Cancelled HDL Cholesterol Cancelled TSH Cancelled Active Medications Generic Name Dose Route Start Last Admin Trade Name Freq PRN Reason Stop Dose Admin Acetaminophen 650 mg 03/29/17 15:31 Tylenol - PO Q6H PRN FEVER Aspirin 81 mg 03/30/17 10:00 03/30/17 09:01 Asa - PO 81 mg DAILY MERLIN Administration Fenofibric Acid 135 mg 03/30/17 10:00 03/30/17 09:01 Trilipix - PO 135 mg DAILY MERLIN Administration Heparin Sodium (Porcine) 5,000 unit 03/29/17 22:00 03/30/17 22:31 Heparin - SQ 5,000 unit BID MERLIN Administration CEFTRIAXONE 1 G/50 ML PREMIX 50 mls @ 100 mls/hr 03/30/17 10:00 03/30/17 09: 01 Ceftriaxone 1 Gm-D5w Bag IVPB 100 mls/hr DAILY MERLIN Administration Isosorbide Mononitrate 60 mg 03/30/17 10:00 03/30/17 09:01 Imdur - PO 60 mg DAILY MERLIN Administration Metoprolol Tartrate 100 mg 03/30/17 10:00 03/30/17 09:01 Lopressor - PO 100 mg DAILY MERLIN Administration Rosuvastatin Calcium 10 mg 03/29/17 22:00 03/30/17 22:31 Crestor - PO 10 mg HS MERLIN Administration Tamsulosin HCl 0.4 mg 03/31/17 08:30 03/31/17 07:49 Flomax - PO 0.4 mg DAILY@0830 MERLIN Administration ASSESSMENT/PLAN: 87 year-old male with a PMH significant for HTN, HLD, CAD s/p CABG, CKD, OA, and gout. Admitted for suprapubic pain, difficulty urinating, and left-sided chest pain. Sepsis secondary to gram negative UTI --febrile to 101, WBC 15.0k on admission --pyuria: 748 WBCs --NLFGNB --empiric ceftriaxone (day #2); await sensitivities BPH --patient reports symptoms of hesitancy, poor stream, incomplete emptying --no hydronephrosis, no significant post void residual seen on US --continue flomax Left-sided chest pain --troponins negative x 3 --ECG not suggestive of ischemic event --CXR unremarkable --03/30 Echo: LV mildly dilated, LV function normal; RV normal; mild MR; mild TR; mild AI; trace PI --no events on telemetry --seen and evaluated by cardiology, no further testing ordered Hypertension --HR in 50's; change metoprolol 100mg daily to Toprol XL 50mg daily Hyperlipidemia --continue Crestor Coronary artery disease s/p CABG --continue metoprolol, Crestor, ASA, isosorbide Chronic kidney disease --Cr 1.5 which is baseline Osteoarthritis --no acute issues Gout --no acute issues FEN Fluids: PO intake adequate Electrolytes: replete as indicated Nutrition: low sodium DVT prophylaxis: subq heparin Physical therapy evaluation Dispo: continues to require inpatient care. Full code.
[2017-03-31] MEDS ORDERED: METOPROLOL SUCCINATE 50 MG TAB.SR.24H (FP) PO ONE (08:30)
[2017-03-31] MEDS ORDERED: TAMSULOSIN HCL 0.4 MG CAP.ER.24H (FP) PO SCH (08:30)
[2017-03-31 08:38] VITALS: BP 139/68; PULSE 54
[2017-03-31 08:47] LABS: BASO % 0.8 % (0-2.0); HEMATOCRIT 47.5 % (35.4-49); HEMOGLOBIN 15.7 GM/dL (11.7-16.9); MCH 31.3 pg (25.7-33.7); MEAN CELL VOLUME 94.9 fl (80-96); MEAN PLT VOLUME 9.3 fl (7.5-11.1); NEUT % 54.2 % (42.8-82.8); PLATELET COUNT 226 K/MM3 (134-434); RBC 5.01 M/mm3 (4.00-5.60); RDW 14.9 % (11.9-15.9); WHITE BLOOD COUNT 9.7 K/mm3 (4.0-10.0)
[2017-03-31 09:12] LABS: ALBUMIN 3.2 g/dl (3.4-5.0); ALK PHOS 57 U/L (45-117); ANION GAP 8 (8-16); BILIRUBIN,TOTAL 0.5 mg/dL (0.2-1.0); BLOOD UREA NITROGEN 30 mg/dL (7-18); CHLORIDE 105 mmol/L (98-107); CO2 26 mmol/L (21-32); CREATININE 1.5 mg/dL (0.7-1.3); GLUCOSE,RANDOM 145 mg/dL (74-106); MAGNESIUM 2.2 mg/dL (1.8-2.4); PHOSPHOROUS 2.8 mg/dL (2.5-4.9); POTASSIUM 4.1 mmol/L (3.5-5.1); SGOT/AST 39 U/L (15-37); SGPT/ALT 37 U/L (12-78); SODIUM 139 mmol/L (136-145); TOT PROT 6.8 g/dl (6.4-8.2)
[2017-03-31] MEDS ORDERED: METOPROLOL SUCCINATE 50 MG TAB.SR.24H (FP) ONE (09:13)
[2017-03-31] MEDS: ASPIRIN 81 MG CHEWABLE TABLETS PO SCH (09:15)
[2017-03-31] MEDS: ISOSORBIDE MONONITRATE 60 MG TAB.SR.24H (FP) PO SCH (09:15)
[2017-03-31] MEDS: HEPARIN NA (PORCINE) 5,000 UNITS/ML 1ML VIAL SQ SCH (09:15)
[2017-03-31] MEDS: FENOFIBRIC ACID 135 MG CAP PO SCH (09:16)
[2017-03-31] MEDS: CEFTRIAXONE 1 G/50 ML PREMIX 50 ML IVPB SCH (09:16)
--- NOTE | 2017-03-31 12:18 | DS ---
Physical Exam: SUBJECTIVE: Patient seen and examined OBJECTIVE: Vital Signs Period Temp Pulse Resp BP Sys/Balderas Pulse Ox Last 24 Hr 97.8 F-98.9 F 54-64 18-20 117-139/59-72 94 PHYSICAL EXAM GENERAL: The patient is awake, alert, and fully oriented, in no acute distress. HEAD: Normal with no signs of trauma. EYES: PERRL, extraocular movements intact, sclera anicteric, conjunctiva clear. ENT: Ears normal, nares patent, oropharynx clear without exudates, moist mucous membranes. NECK: Trachea midline, full range of motion, supple. LUNGS: Breath sounds equal, clear to auscultation bilaterally, no wheezes, no crackles, no accessory muscle use. HEART: Regular rate and rhythm, S1, S2 without murmur, rub or gallop. ABDOMEN: Soft, nontender, nondistended, normoactive bowel sounds, no guarding, no rebound, no hepatosplenomegaly, no masses. EXTREMITIES: 2+ pulses, warm, well-perfused, no edema. NEUROLOGICAL: Cranial nerves II through XII grossly intact. Normal speech, gait not observed. PSYCH: Normal mood, normal affect. SKIN: Warm, dry, normal turgor, no rashes or lesions noted. LABS Laboratory Results - last 24 hr 03/29/17 03/31/17 03/31/17 18:45 08:39 08:39 WBC 9.7 RBC 5.01 Hgb 15.7 Hct 47.5 MCV 94.9 MCH 31.3 MCHC 33.0 RDW 14.9 Plt Count 226 MPV 9.3 Neutrophils % 54.2 Lymphocytes % 33.0 D Monocytes % 10.0 Eosinophils % 2.0 D Basophils % 0.8 Sodium 139 Potassium 4.1 Chloride 105 Carbon Dioxide 26 Anion Gap 8 BUN 30 H D Creatinine 1.5 H Creat Clearance w eGFR 44.07 Random Glucose 145 H D Hemoglobin A1c % 6.3 H Calcium 9.0 Phosphorus 2.8 Magnesium 2.2 Total Bilirubin 0.5 D AST 39 H ALT 37 Alkaline Phosphatase 57 Total Protein 6.8 Albumin 3.2 L HOSPITAL COURSE: Date of Admission:03/29/17 Date of Discharge: 03/31/17 Discharge Summary Reason For Visit: CHEST PAIN, UTI Current Active Problems Chest pain (Acute) Urinary tract infection (Acute) Condition: Improved - Instructions Referrals: Edgar Loza MD [Primary Care Provider] - 1 Week Disposition: HOME - Home Medications Comprehensive Discharge Medication List: Ambulatory Orders Fenofibrate 150 mg PO DAILY 03/29/17 Isosorbide Mononitrate [Isosorbide Mononitrate ER] 60 mg PO DAILY 03/29/17 Metoprolol Tartrate 100 mg PO DAILY 03/29/17 Rosuvastatin [Crestor -] 10 mg PO DAILY 03/29/17
== END 2017-03-31 14:06 | disposition home or self-care (01) | DRG 872 ==
LOC: JER 06:07 → JERBED 16:41 → J4W 03-30 04:23
PROVIDERS: ADMIT Internal Medicine; ATTEND Nurse Practitioner Acute Care
DX: A41.51 Sepsis due to Escherichia coli [E. coli] (principal); N39.0 Urinary tract infection, site not specified; R07.9 Chest pain, unspecified; I12.9 Hypertensive chronic kidney disease with stage 1 through stage 4 chronic kidney disease, or unspecified chronic kidney disease; N18.3 Chronic kidney disease, stage 3 (moderate); I25.119 Atherosclerotic heart disease of native coronary artery with unspecified angina pectoris; M10.9 Gout, unspecified; K57.30 Diverticulosis of large intestine without perforation or abscess without bleeding; N20.0 Calculus of kidney; Z95.1 Presence of aortocoronary bypass graft; M19.90 Unspecified osteoarthritis, unspecified site; E78.1 Pure hyperglyceridemia; N40.0 Benign prostatic hyperplasia without lower urinary tract symptoms
CPT/HCPCS: 36415; 71045-TC; 74176-TC; 76775-TC; 76856-TC; 80048; 80053; 80061; 81003; 81015; 82550; 83036; 83605; 83721; 83735; 84100; 84443; 84484; 85025; 85610; 87040; 87086; 87186; 87804; 93005; 93010; 93306-TC; 97116-GP; 97161-GP; 99285-25; J1644

== ENCOUNTER 2017-09-06 16:35 | Inpatient (IN) | payer OTHER ==
[2017-09-06] MEDS ORDERED: SODIUM CHLORIDE 1,000 ML IV STA ×2 (16:49→19:20)
[2017-09-06] MEDS ORDERED: ACETAMINOPHEN 1000 MG/100 ML VIAL (NON FORMULARY) IVPB ONE (16:50)
--- NOTE | 2017-09-06 16:50 | PDOC ---
Rapid Medical Evaluation Chief Complaint: SIRS, Suspected/Possible Time Seen by Provider: 09/06/17 16:47 Medical Evaluation: Allergies Allergy/AdvReac Type Severity Reaction Status Date / Time No Known Allergies Allergy Verified 09/06/17 16:45 I have performed a brief in-person evaluation of this patient. The patient presents with a chief complaint of: shaking chills, decreased urination since Monday. Pertinent physical exam findings: febrile, rigors I have ordered the following: sepsis work up, 975mg tylenol The patient will proceed to the ED for further evaluation. Discharge Disposition - Diagnosis Fever - Referrals Referrals: Edgar Loza MD [Primary Care Provider] - - Patient Instructions - Post Discharge Activity
[2017-09-06] MEDS ORDERED: ACETAMINOPHEN 325 MG TABLET (FP) PO ONE (16:53)
[2017-09-06 17:33] LABS: BASO % 0.4 % (0-2.0); EOS % 0.6 % (0-4.5); HEMATOCRIT 48.5 % (35.4-49); HEMOGLOBIN 16.2 GM/dL (11.7-16.9); MCH 31.7 pg (25.7-33.7); MCHC 33.5 g/dl (32.0-35.9); MEAN CELL VOLUME 94.5 fl (80-96); MEAN PLT VOLUME 9.6 fl (7.5-11.1); MONO % 8.6 % (3.8-10.2); NEUT % 73.4 % (42.8-82.8); PLATELET COUNT 181 K/MM3 (134-434); RBC 5.13 M/mm3 (4.00-5.60); RDW 15.2 % (11.9-15.9); WHITE BLOOD COUNT 9.6 K/mm3 (4.0-10.0)
[2017-09-06 17:57] LABS: ALBUMIN 3.8 g/dl (3.4-5.0); ALK PHOS 53 U/L (45-117); ANION GAP 10 (8-16); BILIRUBIN,TOTAL 0.5 mg/dL (0.2-1.0); BLOOD UREA NITROGEN 19 mg/dL (7-18); CALCIUM 9.2 mg/dL (8.5-10.1); CHLORIDE 108 mmol/L (98-107); CO2 22 mmol/L (21-32); GLUCOSE,RANDOM 147 mg/dL (74-106); POTASSIUM 4.3 mmol/L (3.5-5.1); SGOT/AST 47 U/L (15-37); SGPT/ALT 30 U/L (12-78); SODIUM 140 mmol/L (136-145); TOT PROT 7.2 g/dl (6.4-8.2)
[2017-09-06 18:03] LABS: INR 1.09 (0.82-1.09); PROTHROMBIN TIME (PATIENT) 12.3 SEC (9.7-13.0)
[2017-09-06 18:05] LABS: ACTIVATED PTT 25.4 SECONDS (25.2-36.5)
[2017-09-06 19:05] LABS: URINE APPEARANCE CLEAR; URINE BILIRUBIN NEGATIVE (<2.0 mg/dL); URINE COLOR YELLOW; URINE GLUCOSE (UA) 1+ (NEGATIVE); URINE KETONE NEGATIVE (NEGATIVE); URINE LEUK ESTERASE NEGATIVE (NEGATIVE); URINE NITRITE NEGATIVE (NEGATIVE); URINE PROTEIN NEGATIVE (NEGATIVE); URINE UROBILINOGEN 4.0 E.U/dl mg/dL (0.2-1.0)
--- NOTE | 2017-09-06 19:42 | PDOC ---
Attending Attestation - Resident Resident Name: Ulysses Oh - ED Attending Attestation I have performed the following: I have examined & evaluated the patient, The case was reviewed & discussed with the resident, I agree w/resident's findings & plan, Exceptions are as noted <Toney Chaudhry - Last Filed: 09/06/17 19:42> - HPI HPI: 09/06/17 19:53 The patient is an 87 year old male with a past medical history of hypertension, hyperlipidemia, and CAD s/p CABG who presents to the Emergency Department with urinary retention for 3 days. The patient reports that he has a cystoscopy on Monday but symptoms persisted. He reports associated fever, left flank pain and abdominal pain. - Physicial Exam PE: 09/06/17 19:54 GENERAL: Well-appearing, well-nourished. No apparent distress. HEENT: Normocephalic, atraumatic. PERRL, EOM intact. CARDIOVASCULAR: Normal S1, S2. Regular rate and rhythm. PULMONARY: Clear to auscultation bilaterally. ABDOMEN: (+) Right lower quadrant and suprapubic pain on palpation. Soft, non- distended. EXTREMITIES: Normal ROM in all four extremities. No gross deformities. SKIN: Warm, dry. No rash NEUROLOGICAL: No focal neurological deficits. - Medical Decision Making 09/06/17 19:54 Documentation prepared by Sebastián Stanford, acting as medical charge entry specialist for Toney Chaudhry DO. <Sebastián Stanford - Last Filed: 09/06/17 19:54>
[2017-09-06] MEDS ORDERED: AZITHROMYCIN IVPB 500 MG in DEXTROSE 5%-WATER - 250 ML IVPB ONE (19:52)
[2017-09-06] MEDS ORDERED: CEFTRIAXONE 1,000 MG in DEXTROSE 5%-WATER - 50 ML IVPB ONE (19:52)
[2017-09-06] MEDS ORDERED: oxyCODONE HCL 5 MG TABLET PO ONE (20:06)
--- NOTE | 2017-09-06 20:27 | PDOC ---
History of Present Illness - General Chief Complaint: SIRS, Suspected/Possible Stated Complaint: Tremors Time Seen by Provider: 09/06/17 16:47 History Source: Patient - History of Present Illness Initial Comments: 09/06/17 20:22 Patient is an 87M with history of BPH, HLD, HTN, CABG ~15 years ago here today complaining of rigors and urinary retention. Patient states that he has not been able to urinate since having cystoscopy done 2 days ago. Endorses fever, chills, rigors. Denies cough and shortness of breath, but does complain of some pain in his left flank. Denies nausea, vomiting. Denies pain with urination. Patient complains of chronic pain in hips secondary to arthritis. Son: Brennan Flores - [phone] PCP: Lefty Urologist: Korin Past History - Past Medical History Allergies/Adverse Reactions: Allergies Allergy/AdvReac Type Severity Reaction Status Date / Time No Known Allergies Allergy Verified 09/06/17 16:45 Home Medications: Ambulatory Orders Fenofibrate 150 mg PO DAILY 03/29/17 Isosorbide Mononitrate [Isosorbide Mononitrate ER] 60 mg PO DAILY 03/29/17 Metoprolol Tartrate 100 mg PO DAILY 03/29/17 Rosuvastatin [Crestor -] 10 mg PO DAILY 03/29/17 Ciprofloxacin [Cipro -] 500 mg PO BID #20 tablet 03/31/17 Cardiac Disorders: Yes COPD: No HTN: Yes Hypercholesterolemia: Yes - Surgical History Cardiac Surgery: Yes (CABG, CARD STENTS) Orthopedic Surgery: Yes (KNEE) - Immunization History Immunization Up to Date: Yes - Suicide/Smoking/Psychosocial Hx Smoking History: Never smoked Have you smoked in the past 12 months: No Information on smoking cessation initiated: No Hx Alcohol Use: No Drug/Substance Use Hx: No Substance Use Type: None Hx Substance Use Treatment: No Review of Systems - Review of Systems Able to Perform ROS?: Yes Comments:: 09/06/17 20:25 GENERAL/CONSTITUTIONAL: Positive for fever and chills. +weakness. HEAD, EYES, EARS, NOSE AND THROAT: No change in vision. No sore throat. CARDIOVASCULAR: No chest pain or shortness of breath RESPIRATORY: No cough, wheezing, or hemoptysis. GASTROINTESTINAL: No nausea, vomiting, diarrhea or constipation. GENITOURINARY: Positive for dysuria and retention MUSCULOSKELETAL: No joint or muscle swelling or pain. No neck or back pain. SKIN: No rash NEUROLOGIC: No headache, vertigo, loss of consciousness, or change in strength/ sensation. HEMATOLOGIC/LYMPHATIC: No anemia, easy bleeding, or history of blood clots. ALLERGIC/IMMUNOLOGIC: No hives or skin allergy. *Physical Exam - Vital Signs Last Vital Signs Temp Pulse Resp BP Pulse Ox 100.2 F H 80 18 182/97 100 09/06/17 16:47 09/06/17 16:47 09/06/17 16:47 09/06/17 16:47 09/06/17 16:47 - Physical Exam Comments: 09/06/17 20:26 GENERAL: Awake, alert, and fully oriented, in no acute distress HEAD: No signs of trauma, normocephalic, atraumatic EYES: PERRLA, EOMI, sclera anicteric, conjunctiva clear ENT: Auricles normal inspection, hearing grossly normal, nares patent, oropharynx clear without exudates. Moist mucosa NECK: Normal ROM, supple, no lymphadenopathy, JVD, or masses LUNGS: No distress, speaks full sentences, clear to auscultation bilaterally HEART: Regular rate and rhythm, normal S1 and S2, no murmurs, rubs or gallops, peripheral pulses normal and equal bilaterally. ABDOMEN: Tender in RLQ, no guarding, no rebound. No CVA tenderness, no suprapubic tenderness. EXTREMITIES: Normal inspection, Normal range of motion, no edema. No clubbing or cyanosis. NEUROLOGICAL: Cranial nerves II through XII grossly intact. Normal speech, normal gait, no focal sensorimotor deficits SKIN: Warm, Dry, normal turgor, no rashes or lesions noted. ED Treatment Course - LABORATORY CBC & Chemistry Diagram: 09/06/17 17:20 09/06/17 17:20 - ADDITIONAL ORDERS Additional order review: Laboratory Results 09/06/17 09/06/17 09/06/17 18:51 17:20 17:20 PT with INR INR PTT (Actin FS) Sodium Potassium Chloride Carbon Dioxide Anion Gap BUN Creatinine Creat Clearance w eGFR Random Glucose Lactic Acid 2.3 H* Calcium Total Bilirubin AST ALT Alkaline Phosphatase Troponin I < 0.02 Total Protein Albumin Urine Color Yellow Urine Appearance Clear Urine pH 6.0 Ur Specific [place] 1.014 Urine Protein Negative Urine Glucose (UA) 1+ H Urine Ketones Negative Urine Blood 2+ H Urine Nitrite Negative Urine Bilirubin Negative Urine Urobilinogen 4.0 e.u/dl Ur Leukocyte Esterase Negative Urine WBC (Auto) 6 Urine RBC (Auto) 10 09/06/17 09/06/17 17:20 17:20 PT with INR 12.30 INR 1.09 PTT (Actin FS) 25.4 L Sodium 140 Potassium 4.3 Chloride 108 H Carbon Dioxide 22 Anion Gap 10 BUN 19 H D Creatinine 2.0 H D Creat Clearance w eGFR 31.62 Random Glucose 147 H Lactic Acid Calcium 9.2 Total Bilirubin 0.5 AST 47 H D ALT 30 Alkaline Phosphatase 53 Troponin I Total Protein 7.2 Albumin 3.8 Urine Color Urine Appearance Urine pH Ur Specific [place] Urine Protein Urine Glucose (UA) Urine Ketones Urine Blood Urine Nitrite Urine Bilirubin Urine Urobilinogen Ur Leukocyte Esterase Urine WBC (Auto) Urine RBC (Auto) 09/06/17 17:20 RBC 5.13 MCV 94.5 MCHC 33.5 RDW 15.2 MPV 9.6 Neutrophils % 73.4 D Lymphocytes % 17.0 D Monocytes % 8.6 Eosinophils % 0.6 Basophils % 0.4 - RADIOLOGY Radiology Studies Ordered: Category Date Time Status ABDOMEN & PELVIS CT W/O CONTR [CT] Stat CT Scan 09/06/17 19:24 Ordered - Medications Given in the ED: ED Medications Discontinued Medications Generic Name Dose Route Start Last Admin Trade Name Freq PRN Reason Stop Dose Admin Acetaminophen 975 mg 09/06/17 16:53 09/06/17 16:53 Tylenol - PO 09/06/17 16:54 975 mg ONCE ONE Administration Medical Decision Making - Medical Decision Making 09/06/17 20:26 Patient is 87M with history of BPH, arthritis, HLD, HTN and CABG here today complaining of rigors. Vital signs notable for temp of 100.2 orally. Septic workup initiated by RME, but patient does not meet SIRS criteria. Cortez placed for retention. 300mL noted at bedside. DDx weighted towards UTI, PNA, intra- abdominal source. Added CT abd/pelvis due to abdominal pain on exam. 09/06/17 20:30 Laboratory Tests 09/06/17 09/06/17 09/06/17 17:20 17:20 17:20 WBC 9.6 Hgb 16.2 Plt Count 181 BUN 19 H D Creatinine 2.0 H D Lactic Acid 2.3 H* Troponin I Urine Nitrite Ur Leukocyte Esterase Urine WBC (Auto) 09/06/17 09/06/17 17:20 18:51 WBC Hgb Plt Count BUN Creatinine Lactic Acid Troponin I < 0.02 Urine Nitrite Negative Ur Leukocyte Esterase Negative Urine WBC (Auto) 6 CBC normal. CMP shows CALE. Lactic acid indeterminant. UA shows no clear infection. Troponin negative. CXR shows LLL pneumonia with effusion. Given 1L fluids, ceftriaxone, azithromycin. Given oxycodone for hip pain. Patient give 975 tylenol by E for fever. Will admit after CT and EKG. 09/06/17 23:59 EKG shows normal sinus rhythm with rate of 72. No st elevations/depressions. Normal intervals. Normal axis. 09/07/17 01:54 Admitted to hospitalist. *DC/Admit/Observation/Transfer Diagnosis at time of Disposition: Pneumonia - Discharge Dispostion Condition at time of disposition: Stable Decision to Admit order: Yes - Referrals Referrals: Edgar Loza MD [Primary Care Provider] - - Patient Instructions - Post Discharge Activity
[2017-09-06] MEDS ORDERED: oxyCODONE HCL 5 MG TABLET ONE (20:29)
[2017-09-06] MEDS ORDERED: ACETAMINOPHEN INJECTION 100 ML IVPB ONE (20:29)
[2017-09-06] MEDS ORDERED: AZITHROMYCIN IVPB 250 ML IVPB ONE (20:30)
[2017-09-06] MEDS ORDERED: CEFTRIAXONE 1 GM/50 ML BAG ONE (20:30)
[2017-09-07] MEDS ORDERED: oxyCODONE HCL 5 MG TABLET PO ONE (00:02)
[2017-09-07] MEDS ORDERED: oxyCODONE HCL 5 MG TABLET ONE ×2 (00:46→07:46)
[2017-09-07] MEDS ORDERED: SODIUM CHLORIDE 1,000 ML IV SCH (04:00)
--- NOTE | 2017-09-07 04:23 | HP ---
CHIEF COMPLAINT: weakness, chills PCP: Lefty HISTORY OF PRESENT ILLNESS: The patient is 87 year old male with a significant PMH of CABG 15 years ago, HTN , BPH, CKD, OA that presented to the hospital complaining of weakness, chills and dysuria. History is taken partially from medical records and from the patient. When I saw him, he was in severe pain localized to his left hip, 12/27 that is present for long time but worse tonight. In the past he was told that he needs hip replacement but is not a surgical candidate. The patient also reports chills and weakness. He had cystoscopy 2 days ago and since then he has been complaining of difficulty urinating. He also reports chills but doesn't know how long. He denies cough, chest pain, SOB, recent trauma, fall. He denies nausea, vomiting, diarrhea, hematuria. ER course was notable for: (1)temp; 100.2, LA 2.3 (2)CXR, CT abdomen (3)Ceftriaxone, AZT, NS PAST MEDICAL HISTORY: as above PAST SURGICAL HISTORY: CABG, stents, knee surgery Social History: Smoking:denies, never smoker Alcohol:denies Drugs: denies Lives with his son, has 5 children, worked as [employer], uses cane to ambulate. Family History: Mother; N/A Father: gout, smoker Allergies No Known Allergies Allergy (Verified 09/06/17 16:45) HOME MEDICATIONS: Home Medications Medication Instructions Recorded Fenofibrate 150 mg PO DAILY 03/29/17 Isosorbide Mononitrate [Isosorbide 60 mg PO DAILY 03/29/17 Mononitrate ER] Metoprolol Tartrate 100 mg PO DAILY 03/29/17 Rosuvastatin [Crestor -] 10 mg PO DAILY 03/29/17 Ciprofloxacin [Cipro -] 500 mg PO BID #20 tablet 03/31/17 REVIEW OF SYSTEMS CONSTITUTIONAL: generalized weakness, chills, Absent: fever, diaphoresis,, malaise, loss of appetite, weight change HEENT: Absent: rhinorrhea, nasal congestion, throat pain, throat swelling, difficulty swallowing, mouth swelling, visual changes CARDIOVASCULAR: Absent: chest pain, syncope, palpitations, irregular heart rate, lightheadedness , peripheral edema RESPIRATORY: Absent: cough, shortness of breath, dyspnea with exertion, orthopnea, wheezing, stridor, hemoptysis GASTROINTESTINAL: Absent: abdominal pain, abdominal distension, nausea, vomiting, diarrhea, constipation, melena, hematochezia GENITOURINARY: dysuria, Absent: frequency, urgency, hesitancy, hematuria, flank pain, genital pain MUSCULOSKELETAL: left hip pain Absent: myalgia, joint swelling, back pain, neck pain SKIN: Absent: rash, itching, pallor HEMATOLOGIC/IMMUNOLOGIC: Absent: easy bleeding, easy bruising, lymphadenopathy, frequent infections ENDOCRINE: Absent: unexplained weight gain, unexplained weight loss, heat intolerance, cold intolerance NEUROLOGIC: Absent: headache, focal weakness or paresthesias, dizziness, unsteady gait, seizure, mental status changes, bladder or bowel incontinence PSYCHIATRIC: Absent: anxiety, depression PHYSICAL EXAMINATION Vital Signs - 24 hr 09/06/17 09/07/17 16:47 03:53 Temperature 100.2 F H 100.0 F H Pulse Rate 80 Pulse Rate [ 86 Apical] Respiratory 18 18 Rate Blood Pressure 182/97 Blood Pressure 144/64 [Left Arm] O2 Sat by Pulse 100 98 Oximetry (%) GENERAL: Awake, alert, and fully oriented, in moderate distress, lying on left side. HEAD: Normal with no signs of trauma. EYES: Pupils equal, round and reactive to light, extraocular movements intact, sclera anicteric, conjunctiva clear. EARS, NOSE, THROAT: Ears normal, nares patent, oropharynx clear without exudates. Moist mucous membranes. NECK: Normal range of motion, supple without lymphadenopathy, JVD, or masses. LUNGS: Breath sounds equal, clear to auscultation bilaterally. No wheezes, and no crackles. No accessory muscle use. HEART: Regular rate and rhythm, normal S1 and S2 without murmur, rub or gallop. ABDOMEN: Obese, soft, nontender, not distended, normoactive bowel sounds, no guarding, no rebound, no masses. MUSCULOSKELETAL: Normal range of motion at all joints. No bony deformities or tenderness. UPPER EXTREMITIES: No peripheral edema. LOWER EXTREMITIES: 2+ pulses, warm, well-perfused. No calf tenderness. No peripheral edema. not able to assess ROM due to pain, pint tenderness in left buttock. NEUROLOGICAL: No facial asymmetr, no slurred speech, gait not observed, motor in upper extemities 5/5, not able to check in LEs. PSYCHIATRIC: Cooperative. Good eye contact. Appropriate mood and affect. SKIN: Warm, dry, normal turgor, no rashes or lesions noted. Laboratory Results - last 24 hr 09/06/1718 18 17:20 17:20 17:20 WBC 9.6 RBC 5.13 Hgb 16.2 Hct 48.5 MCV 94.5 MCH 31.7 MCHC 33.5 RDW 15.2 Plt Count 181 MPV 9.6 Absolute Neuts (auto) 7.0 Neutrophils % 73.4 D Lymphocytes % 17.0 D Monocytes % 8.6 Eosinophils % 0.6 Basophils % 0.4 Nucleated RBC % 0 PT with INR 12.30 INR 1.09 PTT (Actin FS) 25.4 L Sodium 140 Potassium 4.3 Chloride 108 H Carbon Dioxide 22 Anion Gap 10 BUN 19 H D Creatinine 2.0 H D Creat Clearance w eGFR 31.62 Random Glucose 147 H Lactic Acid Calcium 9.2 Total Bilirubin 0.5 AST 47 H D ALT 30 Alkaline Phosphatase 53 Troponin I Total Protein 7.2 Albumin 3.8 Urine Color Urine Appearance Urine pH Ur Specific [place] Urine Protein Urine Glucose (UA) Urine Ketones Urine Blood Urine Nitrite Urine Bilirubin Urine Urobilinogen Ur Leukocyte Esterase Urine WBC (Auto) Urine RBC (Auto) 09/06/17 09/06/17 09/06/17 17:20 17:20 18:51 WBC RBC Hgb Hct MCV MCH MCHC RDW Plt Count MPV Absolute Neuts (auto) Neutrophils % Lymphocytes % Monocytes % Eosinophils % Basophils % Nucleated RBC % PT with INR INR PTT (Actin FS) Sodium Potassium Chloride Carbon Dioxide Anion Gap BUN Creatinine Creat Clearance w eGFR Random Glucose Lactic Acid 2.3 H* Calcium Total Bilirubin AST ALT Alkaline Phosphatase Troponin I < 0.02 Total Protein Albumin Urine Color Yellow Urine Appearance Clear Urine pH 6.0 Ur Specific [place] 1.014 Urine Protein Negative Urine Glucose (UA) 1+ H Urine Ketones Negative Urine Blood 2+ H Urine Nitrite Negative Urine Bilirubin Negative Urine Urobilinogen 4.0 e.u/dl Ur Leukocyte Esterase Negative Urine WBC (Auto) 6 Urine RBC (Auto) 10 ASSESSMENT/PLAN: The patient is 87 year old male with a significant PMH of CABG 15 years ago, HTN , BPH, CKD, OA that presented to the hospital complaining of weakness, chills and dysuria. He is admitted for pneumonia. Community acquired pneumonia: -the patient presented with weakness, fever, chills, found to have infiltrate on CXR -started on IV Ceftriaxone and Azithromycin, will continue the same -LA 2.3 on admission, will repeat in AM -continue gentle hydration -legionella urine ag -Tylenol for fever Left hip pain: -the patient states that it is chronic but worse today, possibly OA -will continue pain control Oxycodone 5 mg q6h -CT hip -ortho consultation Dyruria/urinary retention: -the patient has cystoscopy done 2 days ago for unknown reason -Cortez inserted in ED with 300 ml output -UA neg for infection 1+glu, 2+blood -urology consulted HTN: -resume home medications, Metoprolol 100 mg qd -elevated BP in ED possibly related to pain CKD: -Cr today 2.0, baseline 1.5, BUN elevated to 19 -continue gentle hydration -avoid nephrotoxins -UA negative for infection CAD: -continue isosorbite mononitrate HLD: continue Crestor 10 mg continue Fenofibrate 60 mg DVT PPX: Heparin sq scds F/E/N: NS/no changes/Low Na Disposition: med surg Discussed with Dr Venegas Problem List - Problem (1) Pneumonia Code(s): J18.9 - PNEUMONIA, UNSPECIFIED ORGANISM (2) Pneumonia Code(s): J18.9 - PNEUMONIA, UNSPECIFIED ORGANISM (3) CAD (coronary artery disease) Code(s): I25.10 - ATHSCL HEART DISEASE OF [place] CORONARY ARTERY W/O ANG PCTRS Qualifiers: Coronary Disease-Associated Artery/Lesion type: [place] artery [place] vs. transplanted heart: [place] heart Associated angina: angina presence unspecified Qualified Code(s): I25.10 - Atherosclerotic heart disease of [place] coronary artery without angina pectoris (4) History of coronary artery bypass graft Code(s): Z95.1 - PRESENCE OF AORTOCORONARY BYPASS GRAFT (5) Hypercholesteremia Code(s): E78.0 - PURE HYPERCHOLESTEROLEMIA * DO NOT USE * (6) Hypertension Code(s): I10 - ESSENTIAL (PRIMARY) HYPERTENSION Qualifiers: Hypertension type: essential hypertension Qualified Code(s): I10 - Essential (primary) hypertension (7) Stage III chronic kidney disease Code(s): N18.3 - CHRONIC KIDNEY DISEASE, STAGE 3 (MODERATE) Visit type - Emergency Visit Emergency Visit: Yes ED Registration Date: 09/07/17 Care time: The patient presented to the Emergency Department on the above date and was hospitalized for further evaluation of their emergent condition. - New Patient This patient is new to me today: Yes Date on this admission: 09/07/17 - Critical Care Critical Care patient: No Hospitalist Screening - Colonoscopy Questionnaire Colonoscopy Questionnaire: Colonoscopy Questionnaire - Patient: 50 - 75 years old and never had a screening colonoscopy: Unknown History of colon or rectal polyps, or CA: Unknown History of IBD, Crohn's disease or UC: Unknown History of abdominal radiation therapy as a child: Unknown - Relative: 1 with colon or rectal CA, or polyps at age 60 or younger: Unknown Colon or rectal CA diagnosed at age 45 or younger: Unknown Multiple relatives with colon or rectal CA: Unknown - Outcome: Screening Result: Negative Screen
--- NOTE | 2017-09-07 04:49 | PN ---
Teaching Attending Note Name of Resident: Rosa Blair ATTENDING PHYSICIAN STATEMENT I saw and evaluated the patient. I reviewed the resident's note and discussed the case with the resident. I agree with the resident's findings and plan as documented. SUBJECTIVE: Patient is an 87 year old man with history of BPH, HLD, HTN, CABG ~15 years ago here today complaining of rigors and urinary retention. Patient states that he has not been able to urinate since having cystoscopy done 2 days ago. He had fever, chills, rigors. Denies cough and shortness of breath, but does complain of some pain in his left flank and worsening of left hip pain. Denies nausea, vomiting or dysuria. Says he has chronic pain in hips secondary to arthritis. CXR shows evidence of possible LLL pneumonia. OBJECTIVE: Alert but distressed due to left hip pain. Vital Signs Period Temp Pulse Resp BP Sys/Balderas Pulse Ox Last 24 Hr 100.0 F-100.2 F 80-86 18-18 144-182/64-97 98-100 HEENT: No Jaundice, eye redness or discharge, PERRLA, EOMI. Normocephalic, atraumatic. External ears are normal and hearing is grossly intact. No nasal discharge. Neck: Supple, nontender. No palpable adenopathy or thyromegaly. No JVD Chest: Good effort. Diminished breath sounds in left base. Heart: Regular. No S3, rub or murmur Abdomen: Not distended, soft, nontender and no HSM. No rebound or guarding. Normoactive bowel sounds. Ext: Peripheral pulses intact. No leg edema. Cortez in place. Skin: Warm and dry. No petechiae, rash or ecchymosis. Neuro: Alert. Oriented to person and place. CN 2-12 grossly intact. Sensation grossly intact in all four extremities and DTR are symmetric. Current Medications Generic Name Dose Route Start Last Admin Trade Name Freq PRN Reason Stop Dose Admin Acetaminophen 650 mg 09/07/17 03:52 Tylenol - PO Q6H PRN FEVER Fenofibric Acid 135 mg 09/07/17 10:00 Trilipix - PO DAILY [facility]LIN Heparin Sodium (Porcine) 5,000 unit 09/07/17 06:00 Heparin - SQ TID [facility]LIN Sodium Chloride 1,000 mls @ 42 mls/hr 09/07/17 04:00 Normal Saline - IV ASDIR [facility] Azithromycin 250 mg/ Dextrose 250 mls @ 250 mls/hr 09/07/17 10:00 IVPB DAILY [facility] Ceftriaxone Sodium 1 gm/ 50 mls @ 100 mls/hr 09/07/17 10:00 Dextrose IVPB DAILY [facility] Isosorbide Mononitrate 60 mg 09/07/17 10:00 Imdur - PO DAILY [facility] Metoprolol Tartrate 100 mg 09/07/17 10:00 Lopressor - PO DAILY [facility] Oxycodone HCl 5 mg 09/07/17 03:51 Roxicodone - PO Q6H PRN PAIN LEVEL 6-10 Rosuvastatin Calcium 10 mg 09/07/17 10:00 Crestor - PO DAILY [facility] Home Medications Medication Instructions Recorded Fenofibrate 150 mg PO DAILY 03/29/17 Isosorbide Mononitrate [Isosorbide 60 mg PO DAILY 03/29/17 Mononitrate ER] Metoprolol Tartrate 100 mg PO DAILY 03/29/17 Rosuvastatin [Crestor -] 10 mg PO DAILY 03/29/17 Ciprofloxacin [Cipro -] 500 mg PO BID #20 tablet 03/31/17 Abnormal Lab Results 09/06/17 09/06/17 09/06/17 17:20 17:20 17:20 PTT (Actin FS) 25.4 L Chloride 108 H BUN 19 H D Creatinine 2.0 H D Random Glucose 147 H Lactic Acid 2.3 H* AST 47 H D Urine Glucose (UA) Urine Blood 09/06/17 18:51 PTT (Actin FS) Chloride BUN Creatinine Random Glucose Lactic Acid AST Urine Glucose (UA) 1+ H Urine Blood 2+ H ASSESSMENT AND PLAN: 1. Pneumonia - LLL infiltrate on CXR. Will continue IV rocephin and azithromycin. Got bolus NS and will continue maintenance at 75 cc/hour and repeat lactic acid level. 2. Urinary retention - Abdominal/pelvic CT is unrevealing except for nonobstructing stone. CALE likely due to obstruction. Will repeat BMP in am. Avoid nephrotoxins. No evidence of UTI. Will consult urology and treat with flomax. 3. Left hip pain - Likely due to chronic arthritis, but will get CT scan to rule out acute pathology. Pain control with oxycodone and senna for constipation prophylaxis. 4. Uncontrolled hypertension - May be due to acute pain. Will repeat once pain control improves and treat accordingly. restart his home medications. 5. DVT prophylaxis - Heparin 5000u sq tid. 6. Advance directives - Full code
[2017-09-07] MEDS ORDERED: HEPARIN NA (PORCINE) 5,000 UNITS/ML 1ML VIAL ONE (06:32)
[2017-09-07] MEDS: HEPARIN NA (PORCINE) 5,000 UNITS/ML 1ML VIAL SQ SCH ×3 (06:39→21:32)
[2017-09-07 07:06] LABS: HEMATOCRIT 48.6 % (35.4-49); HEMOGLOBIN 16.6 GM/dL (11.7-16.9); MCHC 34.1 g/dl (32.0-35.9); MEAN CELL VOLUME 93.9 fl (80-96); MEAN PLT VOLUME 9.8 fl (7.5-11.1); PLATELET COUNT 165 K/MM3 (134-434); RBC 5.18 M/mm3 (4.00-5.60); WHITE BLOOD COUNT 21.6 K/mm3 (4.0-10.0)
[2017-09-07 07:38] LABS: ALBUMIN 3.6 g/dl (3.4-5.0); ANION GAP 15 (8-16); BLOOD UREA NITROGEN 17 mg/dL (7-18); CALCIUM 9.1 mg/dL (8.5-10.1); CHLORIDE 107 mmol/L (98-107); CO2 21 mmol/L (21-32); CREATININE 1.6 mg/dL (0.7-1.3); GLUCOSE,RANDOM 102 mg/dL (74-106); POTASSIUM 3.5 mmol/L (3.5-5.1); SGOT/AST 38 U/L (15-37); SGPT/ALT 28 U/L (12-78); SODIUM 143 mmol/L (136-145)
[2017-09-07 07:39] LABS: ALK PHOS 52 U/L (45-117)
[2017-09-07] MEDS: oxyCODONE HCL 5 MG TABLET PO PRN ×3 (07:49→16:38)
[2017-09-07] MEDS ORDERED: ACETAMINOPHEN 325 MG TABLET (FP) ONE (07:56)
[2017-09-07] MEDS: ACETAMINOPHEN 325 MG TABLET (FP) PO PRN ×2 (07:56→13:40)
[2017-09-07] MEDS ORDERED: AZITHROMYCIN IVPB 250 MG in DEXTROSE 5%-WATER - 250 ML IVPB SCH (10:00)
[2017-09-07] MEDS ORDERED: CEFTRIAXONE 1 GM in DEXTROSE 5%-WATER - 50 ML IVPB SCH (10:00)
[2017-09-07] MEDS ORDERED: CEFTRIAXONE 1 GM in DEXTROSE 5%-WATER - 50 ML IVPB ONE (10:03)
[2017-09-07] MEDS: FENOFIBRIC ACID 135 MG CAP PO SCH (10:06)
[2017-09-07] MEDS: METOPROLOL TARTRATE 50 MG TABLET (FP) PO SCH (10:06)
[2017-09-07] MEDS: ISOSORBIDE MONONITRATE 60 MG TAB.SR.24H (FP) PO SCH (10:06)
[2017-09-07] MEDS: ROSUVASTATIN CA 10 MG TABLET (FP) PO SCH (10:06)
--- NOTE | 2017-09-07 11:53 | EKG ---
Test Reason : Blood Pressure : / mmHG Vent. Rate : 072 BPM Atrial Rate : 072 BPM P-R Int : 184 ms QRS Dur : 098 ms QT Int : 396 ms P-R-T Axes : 045 -02 020 degrees QTc Int : 433 ms NORMAL SINUS RHYTHM NORMAL ECG WHEN COMPARED WITH ECG OF 29-MAR-2017 06:21, NO SIGNIFICANT CHANGE WAS FOUND Confirmed by HELENA TREVIÑO MD ([id number]) on 09/07/2017 11:53:00 AM Referred By: Confirmed By:HELENA TREVIÑO MD
[2017-09-07 13:00] LABS: HEMATOCRIT 48.5 % (35.4-49); HEMOGLOBIN 16.2 GM/dL (11.7-16.9); MCH 31.6 pg (25.7-33.7); MCHC 33.4 g/dl (32.0-35.9); MEAN CELL VOLUME 94.6 fl (80-96); MEAN PLT VOLUME 9.5 fl (7.5-11.1); PLATELET COUNT 177 K/MM3 (134-434); RBC 5.12 M/mm3 (4.00-5.60); RDW 14.6 % (11.9-15.9); WHITE BLOOD COUNT 25.1 K/mm3 (4.0-10.0)
--- NOTE | 2017-09-07 14:33 | PN ---
<Beau Herrera - Last Filed: 09/07/17 18:22> Physical Exam: SUBJECTIVE: Briefly, 87yo American M who presented due to fevers, chills, and overall malaise. Pt was brought in by [id number] who reported the pt has been retaining urine for the past couple of days. The pt and family members report the pt received a cystoscopy about 2 days ago and now recently developing increased LLExt pain within the past 2 days. Pt denies any shortness of breath, cough (productive and nonproductive), CP/discomfort, abdominal pain, diarrhea, n/v. Pt endorses constipation and reportedly hasn't defecated in the past 6-7 days. OBJECTIVE: Vital Signs Period Temp Pulse Resp BP Sys/Balderas Pulse Ox Last 24 Hr 98 F-100.8 F 63-89 16-18 132-182/59-97 96-100 GENERAL: NAD, awake, alert, and orientedx3 HEENT: NC/AT, RICCO, sclera anicteric, moist-mucosa NECK: No JVD, no lymphadenopathy LUNGS: Diminished L sided compared to R sided breath sounds. No overt rhonchi appreciated. No accessory muscle use. 97% RA HEART: RRR, S1, S2 without murmur ABDOMEN: Soft, obese, nontender, nondistended, normoactive bowel sounds, no guarding, no rebound, no hepatosplenomegaly, negative Rao's sign, no suprapubic tenderness EXTREMITIES: 2+ DP pulses, warm, well-perfused, no edema. MSK: L trochanteric leg pain with palpation. Pt cannot move limb due to pain with both passive and active movement. No erythema of overlying skin. No joint effusion appreciated. PSYCH: Normal mood, normal affect. SKIN: Warm, dry, no rashes or lesions noted Laboratory Results - last 24 hr 09/06/17 09/06/17 09/06/17 17:20 17:20 17:20 WBC 9.6 RBC 5.13 Hgb 16.2 Hct 48.5 MCV 94.5 MCH 31.7 MCHC 33.5 RDW 15.2 Plt Count 181 MPV 9.6 Absolute Neuts (auto) 7.0 Neutrophils % 73.4 D Lymphocytes % 17.0 D Monocytes % 8.6 Eosinophils % 0.6 Basophils % 0.4 Nucleated RBC % 0 PT with INR 12.30 INR 1.09 PTT (Actin FS) 25.4 L Sodium 140 Potassium 4.3 Chloride 108 H Carbon Dioxide 22 Anion Gap 10 BUN 19 H D Creatinine 2.0 H D Creat Clearance w eGFR 31.62 Random Glucose 147 H Lactic Acid Calcium 9.2 Total Bilirubin 0.5 AST 47 H D ALT 30 Alkaline Phosphatase 53 Troponin I Total Protein 7.2 Albumin 3.8 Urine Color Urine Appearance Urine pH Ur Specific [place] Urine Protein Urine Glucose (UA) Urine Ketones Urine Blood Urine Nitrite Urine Bilirubin Urine Urobilinogen Ur Leukocyte Esterase Urine WBC (Auto) Urine RBC (Auto) 09/06/17 09/06/17 09/06/17 17:20 17:20 18:51 WBC RBC Hgb Hct MCV MCH MCHC RDW Plt Count MPV Absolute Neuts (auto) Neutrophils % Lymphocytes % Monocytes % Eosinophils % Basophils % Nucleated RBC % PT with INR INR PTT (Actin FS) Sodium Potassium Chloride Carbon Dioxide Anion Gap BUN Creatinine Creat Clearance w eGFR Random Glucose Lactic Acid 2.3 H* Calcium Total Bilirubin AST ALT Alkaline Phosphatase Troponin I < 0.02 Total Protein Albumin Urine Color Yellow Urine Appearance Clear Urine pH 6.0 Ur Specific [place] 1.014 Urine Protein Negative Urine Glucose (UA) 1+ H Urine Ketones Negative Urine Blood 2+ H Urine Nitrite Negative Urine Bilirubin Negative Urine Urobilinogen 4.0 e.u/dl Ur Leukocyte Esterase Negative Urine WBC (Auto) 6 Urine RBC (Auto) 10 09/07/17 09/07/17 09/07/17 06:00 06:00 06:00 WBC 21.6 H D RBC 5.18 Hgb 16.6 Hct 48.6 MCV 93.9 MCH 32.0 MCHC 34.1 RDW 15.0 Plt Count 165 MPV 9.8 Absolute Neuts (auto) Neutrophils % Lymphocytes % Monocytes % Eosinophils % Basophils % Nucleated RBC % PT with INR INR PTT (Actin FS) Sodium 143 Potassium 3.5 Chloride 107 Carbon Dioxide 21 Anion Gap 15 BUN 17 Creatinine 1.6 H Creat Clearance w eGFR 40.90 Random Glucose 102 D Lactic Acid 1.6 Calcium 9.1 Total Bilirubin 1.0 D AST 38 H ALT 28 Alkaline Phosphatase 52 Troponin I Total Protein 7.0 Albumin 3.6 Urine Color Urine Appearance Urine pH Ur Specific [place] Urine Protein Urine Glucose (UA) Urine Ketones Urine Blood Urine Nitrite Urine Bilirubin Urine Urobilinogen Ur Leukocyte Esterase Urine WBC (Auto) Urine RBC (Auto) 09/07/17 12:44 WBC 25.1 H RBC 5.12 Hgb 16.2 Hct 48.5 MCV 94.6 MCH 31.6 MCHC 33.4 RDW 14.6 Plt Count 177 MPV 9.5 Absolute Neuts (auto) Neutrophils % Lymphocytes % Monocytes % Eosinophils % Basophils % Nucleated RBC % PT with INR INR PTT (Actin FS) Sodium Potassium Chloride Carbon Dioxide Anion Gap BUN Creatinine Creat Clearance w eGFR Random Glucose Lactic Acid Calcium Total Bilirubin AST ALT Alkaline Phosphatase Troponin I Total Protein Albumin Urine Color Urine Appearance Urine pH Ur Specific [place] Urine Protein Urine Glucose (UA) Urine Ketones Urine Blood Urine Nitrite Urine Bilirubin Urine Urobilinogen Ur Leukocyte Esterase Urine WBC (Auto) Urine RBC (Auto) Active Medications Generic Name Dose Route Start Last Admin Trade Name Freq PRN Reason Stop Dose Admin Acetaminophen 650 mg 09/07/17 03:52 09/07/17 13:40 Tylenol - PO 650 mg Q6H PRN Administration FEVER Fenofibric Acid 135 mg 09/07/17 10:00 09/07/17 10:06 Trilipix - PO 135 mg DAILY [facility]LIN Administration Heparin Sodium (Porcine) 5,000 unit 09/07/17 06:00 09/07/17 06:39 Heparin - SQ 5,000 unit TID [facility]LIN Administration Sodium Chloride 1,000 mls @ 42 mls/hr 09/07/17 04:00 09/07/17 06:39 Normal Saline - IV 42 mls/hr ASDIR [facility] Administration Azithromycin 250 mg/ Dextrose 250 mls @ 250 mls/hr 09/07/17 10:00 09/07/17 11 :06 IVPB 250 mls/hr DAILY [facility] Administration Ceftriaxone Sodium 2 gm/ 100 mls @ 200 mls/hr 09/08/17 10:00 Dextrose IVPB DAILY [facility] Isosorbide Mononitrate 60 mg 09/07/17 10:00 09/07/17 10:06 Imdur - PO 60 mg DAILY [facility] Administration Metoprolol Tartrate 100 mg 09/07/17 10:00 09/07/17 10:06 Lopressor - PO 100 mg DAILY [facility] Administration Oxycodone HCl 5 mg 09/07/17 03:51 09/07/17 13:40 Roxicodone - PO 5 mg Q6H PRN Administration PAIN LEVEL 6-10 Rosuvastatin Calcium 10 mg 09/07/17 10:00 09/07/17 10:06 Crestor - PO 10 mg DAILY [facility] Administration Senna 1 tab 09/07/17 22:00 Senna - PO HS [facility] ASSESSMENT/PLAN: 1) Leukocytosis: --WBC 25,000 on repeat --Low grade fever this morning --Infectious symptology however NO PNEUMONIA --> Please see CT scan --CXR most likely shadowing from atelectasis and cardiac silhouetted --UA without evidence of UTI --UCx pending --BCx negative 24hrs --Could be due to recent procedure vs. pyelonephritis w/o urethritis and cystitis? --Continue Rocephin 2gm IVPB qDaily --Might discontinue Zithromax in future --If worsens will consult ID to offer recommendations 2) Lactic Acidosis --Downtrending --No need to trend further 3) L Hip Pain --Most likely osteoarthritis --Discussed with Dr. Fox who upon his examination pt's pain was posteriorly radiating like a sciatica picture --Possible trial of Gabapentin TID 4) Constipation --Senna increased to 2tabs HS --Lactulose VT once --Glycerin suppository ordered 5) CALE on CKD --2/2 to retention possibly from recent procedure --Monitor Cr --Continue chino mgmt --Urology consulted 6) Renal Cysts --Incidentally found on CT scan of abdomen --Most likely benign, however would recommend outpt f/u 7) Distended GB --Incidentally found on CT scan --No cholelithiasis --No evidence of cholecystitis seen --Liver enzymes WNL FEN: Fluids: Increase NS to 100cc/hr Electrolyte abnormalities: None currently Nutrition: PPX: DVT - Heparin SQ Dispo: continue monitoring; awaiting UCx Case discussed with Dr. Case Herrera, DO - IM PGY-1 Visit type - Emergency Visit Emergency Visit: No - New Patient This patient is new to me today: Yes Date on this admission: 09/07/17 - Critical Care Critical Care patient: No <Gricelda Willoughby - Last Filed: 09/07/17 19:23> Physical Exam: Agree with the resident's note. continue current treatment.
[2017-09-07 14:45] LABS: ERYTHROCYTE SEDIMENTATION RATE 3 mm/hr (0-20)
[2017-09-07] MEDS ORDERED: LACTULOSE 20 GM/30 ML UDC (FOR ORAL USE ONLY) PO PRN (16:12)
[2017-09-07] MEDS ORDERED: oxyCODONE HCL 5 MG TABLET PO PRN (16:12)
--- NOTE | 2017-09-07 16:21 | CON.GU ---
Consult Consult Specialty:: Referred by:: Rubi Reason for Consultation:: urinary retention - History of Present Illness History of Present Illness: 87 year old male with a significant PMH of CABG 15 years ago, HTN, BPH, CKD, OA that presented to the hospital complaining of weakness, chills and dysuria. History is taken partially from medical records and from the patient. When I saw him, he was in severe pain localized to his left hip, 12/27 that is present for long time but worse tonight. In the past he was told that he needs hip replacement but is not a surgical candidate. The patient also reports chills and weakness. He had cystoscopy 2 days ago and since then he has been complaining of difficulty urinating. He also reports chills but doesn't know how long. He denies cough, chest pain, SOB, recent trauma, fall. He denies nausea, vomiting, diarrhea, hematuria. He was found to have distended bladder and cons req. ER course was notable for: (1)temp; 100.2, LA 2.3 (2)CXR, CT abdomen (3)Ceftriaxone, AZT, NS - History Source History Provided By: Medical Record - Past Medical History Cardio/Vascular: Yes: CAD, HTN, Hyperlipdemia Renal/: Yes: Renal Inusuff (Stage 3), BPH Musculoskeletal: Yes: Osteoarthritis Rheumatology: Yes: Gout - Past Surgical History Past Surgical History: Yes: CABG - Alcohol/Substance Use Hx Alcohol Use: No History of Substance Use: reports: None - Smoking History Smoking history: Never smoked Have you smoked in the past 12 months: No - Social History ADL: Independent History of Recent Travel: No Home Medications - Allergies Allergies/Adverse Reactions: Allergies Allergy/AdvReac Type Severity Reaction Status Date / Time No Known Allergies Allergy Verified 09/06/17 16:45 - Home Medications Home Medications: Ambulatory Orders Fenofibrate 150 mg PO DAILY 03/29/17 Isosorbide Mononitrate [Isosorbide Mononitrate ER] 60 mg PO DAILY 03/29/17 Metoprolol Tartrate 100 mg PO DAILY 03/29/17 Rosuvastatin [Crestor -] 10 mg PO DAILY 03/29/17 Ciprofloxacin [Cipro -] 500 mg PO BID #20 tablet 03/31/17 Review of Systems - Review of Systems Genitourinary: reports: Dysuria Physical Exam- Vital Signs: Vital Signs Temperature 98.8 F 09/07/17 15:34 Pulse Rate 68 09/07/17 15:34 Respiratory Rate 18 09/07/17 15:34 Blood Pressure 148/68 09/07/17 15:34 O2 Sat by Pulse Oximetry (%) 96 09/07/17 06:36 Renal/: Yes: [place] Present Prostate Exam: Yes: Swollen Labs: CBC, BMP 09/07/17 12:44 09/07/17 06:00 Imaging - Results Cat Scan: Report Reviewed Problem List - Problems (1) Urinary retention Assessment/Plan: cont chino, abxs and flomax, await urine cx. Code(s): R33.9 - RETENTION OF URINE, UNSPECIFIED (2) Pneumonia Code(s): J18.9 - PNEUMONIA, UNSPECIFIED ORGANISM (3) Stage III chronic kidney disease Code(s): N18.3 - CHRONIC KIDNEY DISEASE, STAGE 3 (MODERATE) (4) Renal calculi Assessment/Plan: F/U after disch for ESWL Code(s): N20.0 - CALCULUS OF KIDNEY
[2017-09-07] MEDS ORDERED: GLYCERIN 1 RECTAL SUPPOSITORY, ADULT RC ONE (16:30)
[2017-09-07] MEDS: SODIUM CHLORIDE 1,000 ML IV SCH (16:35)
[2017-09-07] MEDS: LIDOCAINE 5% TOPICAL PATCH TP SCH (16:39)
[2017-09-07] MEDS: LACTULOSE 20 GM/30 ML UDC (FOR ORAL USE ONLY) PO SCH ×2 (18:41→21:06)
--- NOTE | 2017-09-07 19:06 | CON.ORTH ---
Consult Consult Specialty:: ortho - History of Present Illness History of Present Illness: 87y M with LLE pain -initially pain was anterior -now reports pain is mostly posterior -starts in the buttock and shoots down the leg to the calf -no numbness or tingling -still has some pain in the groin -cannot find a comfortable position -notes pain is different from his usual - Past Medical History Cardio/Vascular: Yes: CAD, HTN, Hyperlipdemia Renal/: Yes: Renal Inusuff (Stage 3), BPH Musculoskeletal: Yes: Osteoarthritis Rheumatology: Yes: Gout - Past Surgical History Past Surgical History: Yes: CABG - Alcohol/Substance Use Hx Alcohol Use: No History of Substance Use: reports: None - Smoking History Smoking history: Never smoked Have you smoked in the past 12 months: No - Social History ADL: Independent History of Recent Travel: No Home Medications - Allergies Allergies/Adverse Reactions: Allergies Allergy/AdvReac Type Severity Reaction Status Date / Time No Known Allergies Allergy Verified 09/06/17 16:45 - Home Medications Home Medications: Ambulatory Orders Fenofibrate 150 mg PO DAILY 03/29/17 Isosorbide Mononitrate [Isosorbide Mononitrate ER] 60 mg PO DAILY 03/29/17 Metoprolol Tartrate 100 mg PO DAILY 03/29/17 Rosuvastatin [Crestor -] 10 mg PO DAILY 03/29/17 Ciprofloxacin [Cipro -] 500 mg PO BID #20 tablet 03/31/17 Physical Exam for Ortho Vital Signs: Vital Signs Temperature 98.5 F 09/07/17 18:37 Pulse Rate 62 09/07/17 18:37 Respiratory Rate 18 09/07/17 18:37 Blood Pressure 120/57 09/07/17 18:37 O2 Sat by Pulse Oximetry (%) 96 09/07/17 06:36 Constitutional: Yes: Well Nourished, Calm Extremities: Yes: Other (L spine shows mild left sided tenderness. Nontender greater trochanter. Pain with IR/ER of hip and significant limitation to motion. SLR not possible due to pt pain. Distal sensation intact to LT. 2+ DP. EHL FHL TA G S intact.) Labs: CBC, BMP 09/07/17 12:44 09/07/17 06:00 INR, PTT INR 1.09 (0.82-1.09) 09/06/17 17:20 Imaging - Results Cat Scan: Report Reviewed, Image Reviewed (CT shows diffuse moderate severe lumbar DJD. Also severe L hip DJD.) Problem List - Problems (1) Left hip pain Assessment/Plan: I reviewed today's findings with Aniket and also spoke with Dr. Herrera from the medical team. Aniket is having symptoms which are both customer engagement representative of hip osteoarthritis as well as some customer engagement representative of sciatica. Given his lack of other infectious symptoms, the chance of septic hip is quite low. CT scan also shows no effusion which is inconsistent with infection of the hip joint. For treatment, I'm recommending some type of anti-inflammatory agent. While steroids would probably be the most effective, it is not clear whether this is appropriate in the setting of his other medical issues. Using a nerve directed medication such as Neurontin could be helpful. If not improving, we could consider pain management consultation. I recommend PT to help mobilize and he may WBAT. Please reconsult if any further concerns. Code(s): M25.552 - PAIN IN LEFT HIP
[2017-09-07] MEDS: SENNOSIDES 8.6MG TABLET (FP) PO SCH (21:30)
[2017-09-07] MEDS: LIDOCAINE PATCH REMOVAL MC SCH (21:32)
[2017-09-07] MEDS ORDERED: SENNOSIDES 8.6MG TABLET (FP) PO SCH (22:00)
[2017-09-08] MEDS: ACETAMINOPHEN 325 MG TABLET (FP) PO PRN ×4 (01:19→21:42)
[2017-09-08] MEDS: SODIUM CHLORIDE 1,000 ML IV SCH ×2 (05:10→18:32)
[2017-09-08] MEDS: HEPARIN NA (PORCINE) 5,000 UNITS/ML 1ML VIAL SQ SCH ×3 (05:55→21:54)
[2017-09-08] MEDS: LACTULOSE 20 GM/30 ML UDC (FOR ORAL USE ONLY) PO SCH ×3 (05:55→21:35)
[2017-09-08] MEDS: oxyCODONE HCL 5 MG TABLET PO PRN ×3 (05:58→21:42)
[2017-09-08 07:13] LABS: HEMATOCRIT 48.2 % (35.4-49); HEMOGLOBIN 16.3 GM/dL (11.7-16.9); MCH 31.9 pg (25.7-33.7); MCHC 33.7 g/dl (32.0-35.9); MEAN CELL VOLUME 94.5 fl (80-96); MEAN PLT VOLUME 10.3 fl (7.5-11.1); PLATELET COUNT 156 K/MM3 (134-434); RDW 15.5 % (11.9-15.9); WHITE BLOOD COUNT 20.4 K/mm3 (4.0-10.0)
[2017-09-08 07:28] LABS: ANION GAP 10 (8-16); BLOOD UREA NITROGEN 16 mg/dL (7-18); CALCIUM 8.5 mg/dL (8.5-10.1); CHLORIDE 105 mmol/L (98-107); CO2 24 mmol/L (21-32); CREATININE 1.5 mg/dL (0.7-1.3); GLUCOSE,RANDOM 108 mg/dL (74-106); MAGNESIUM 1.5 mg/dL (1.8-2.4); PHOSPHOROUS 2.6 mg/dL (2.5-4.9); POTASSIUM 3.8 mmol/L (3.5-5.1); SGOT/AST 33 U/L (15-37); SGPT/ALT 25 U/L (12-78); SODIUM 139 mmol/L (136-145)
[2017-09-08 07:30] LABS: ALK PHOS 50 U/L (45-117); BILIRUBIN,TOTAL 1.1 mg/dL (0.2-1.0); TOT PROT 6.2 g/dl (6.4-8.2)
[2017-09-08] MEDS ORDERED: MAGNESIUM OXIDE 400 MG TABLET (FP) PO ONE ×2 (09:30→12:45)
[2017-09-08] MEDS ORDERED: CEFTRIAXONE 2 GM-D5W BAG 2 GM/50 ML BAG IVPB SCH (10:00)
[2017-09-08] MEDS ORDERED: GLYCERIN 1 RECTAL SUPPOSITORY, ADULT PR PRN (10:12)
[2017-09-08] MEDS ORDERED: DEXTROSE 5%-WATER 100 ML IVPB ONE (11:58)
[2017-09-08] MEDS: CEFTRIAXONE 2 GM in DEXTROSE 5%-WATER 100 ML IVPB SCH (12:04)
[2017-09-08] MEDS: LIDOCAINE 5% TOPICAL PATCH TP SCH (12:05)
[2017-09-08] MEDS: ISOSORBIDE MONONITRATE 60 MG TAB.SR.24H (FP) PO SCH (12:05)
[2017-09-08] MEDS: METOPROLOL TARTRATE 50 MG TABLET (FP) PO SCH (12:05)
[2017-09-08] MEDS: ROSUVASTATIN CA 10 MG TABLET (FP) PO SCH (12:05)
[2017-09-08] MEDS ORDERED: PT OWN MED DRAWER 7, Y5N ONE (12:19)
[2017-09-08] MEDS: FENOFIBRIC ACID 135 MG CAP PO SCH (15:33)
[2017-09-08] MEDS: DOCUSATE SODIUM 100 MG CAPSULE (FP) PO SCH ×2 (15:34→21:35)
--- NOTE | 2017-09-08 19:51 | PN ---
Teaching Attending Note Name of Resident: Beau Herrera ATTENDING PHYSICIAN STATEMENT I saw and evaluated the patient. I reviewed the resident's note and discussed the case with the resident. I agree with the resident's findings and plan as documented. SUBJECTIVE: Patient is comfortable with no acute distress. No nausea or vomiting. OBJECTIVE: Vital Signs Temperature 98.4 F 09/08/17 17:08 Pulse Rate 66 09/08/17 17:08 Respiratory Rate 20 09/08/17 17:08 Blood Pressure 110/53 09/08/17 17:08 O2 Sat by Pulse Oximetry (%) 94 L 09/07/17 21:00 GENERAL: NAD, awake, alert, and orientedx3 HEENT: NC/AT, PERRLA, sclera anicteric, MMM NECK: No JVD, no lymphadenopathy LUNGS: Diminished L sided compared to R sided breath sounds. 97% RA HEART: RRR, S1, S2 without murmur ABDOMEN: Soft, obese, nontender, nondistended, normoactive bowel sounds, no guarding, no rebound, no suprapubic tenderness EXTREMITIES: 2+ DP pulses, warm, well-perfused, no edema. MSK: L trochanteric leg pain with palpation. Pt cannot move limb due to pain with both passive and active movement. No erythema or effusion noted. PSYCH: Normal mood, normal affect. SKIN: Warm, dry, no rashes or lesions noted CBCD WBC 20.4 K/mm3 (4.0-10.0) H 09/08/17 06:40 RBC 5.10 M/mm3 (4.00-5.60) 09/08/17 06:40 Hgb 16.3 GM/dL (11.7-16.9) 09/08/17 06:40 Hct 48.2 % (35.4-49) 09/08/17 06:40 MCV 94.5 fl (80-96) 09/08/17 06:40 MCHC 33.7 g/dl (32.0-35.9) 09/08/17 06:40 RDW 15.5 % (11.9-15.9) 09/08/17 06:40 Plt Count 156 K/MM3 (134-434) 09/08/17 06:40 MPV 10.3 fl (7.5-11.1) 09/08/17 06:40 CMP Sodium 139 mmol/L (136-145) 09/08/17 06:30 Potassium 3.8 mmol/L (3.5-5.1) 09/08/17 06:30 Chloride 105 mmol/L (98-107) 09/08/17 06:30 Carbon Dioxide 24 mmol/L (21-32) 09/08/17 06:30 Anion Gap 10 (8-16) 09/08/17 06:30 BUN 16 mg/dL (7-18) 09/08/17 06:30 Creatinine 1.5 mg/dL (0.7-1.3) H 09/08/17 06:30 Creat Clearance w eGFR 44.07 (>60) 09/08/17 06:30 Random Glucose 108 mg/dL (74-106) H 09/08/17 06:30 Calcium 8.5 mg/dL (8.5-10.1) 09/08/17 06:30 Total Bilirubin 1.1 mg/dL (0.2-1.0) H 09/08/17 06:30 AST 33 U/L (15-37) 09/08/17 06:30 ALT 25 U/L (12-78) 09/08/17 06:30 Alkaline Phosphatase 50 U/L (45-117) 09/08/17 06:30 Total Protein 6.2 g/dl (6.4-8.2) L 09/08/17 06:30 Albumin 3.0 g/dl (3.4-5.0) L 09/08/17 06:30 CARDIAC ENZYMES Troponin I < 0.02 ng/ml (0.00-0.05) 09/06/17 17:20 Current Medications Generic Name Dose Route Start Last Admin Trade Name Freq PRN Reason Stop Dose Admin Acetaminophen 650 mg 09/07/17 03:52 09/08/17 12:58 Tylenol - PO 650 mg Q6H PRN Administration FEVER Docusate Sodium 100 mg 09/08/17 14:00 09/08/17 15:34 Colace - PO 100 mg TID MERLIN Administration Fenofibric Acid 135 mg 09/07/17 10:00 09/08/17 15:33 Trilipix - PO 135 mg DAILY MERLIN Administration Glycerin 1 each 09/08/17 10:12 09/08/17 18:34 Glycerin Suppository Adult - [place] 1 each DAILY PRN Administration CONSTIPATION Heparin Sodium (Porcine) 5,000 unit 09/07/17 06:00 09/08/17 15:35 Heparin - SQ 5,000 unit TID MERLIN Administration Ceftriaxone Sodium 2 gm/ 100 mls @ 200 mls/hr 09/08/17 10:00 09/08/17 12:04 Dextrose IVPB 200 mls/hr DAILY MERLIN Administration Sodium Chloride 1,000 mls @ 100 mls/hr 09/07/17 16:30 09/08/17 18:32 Normal Saline - IV 100 mls/hr ASDIR MERLIN Administration Isosorbide Mononitrate 60 mg 09/07/17 10:00 09/08/17 12:05 Imdur - PO 60 mg DAILY MERLIN Administration Lactulose 20 gm 09/07/17 18:15 09/08/17 15:34 Cephulac (Oral Use) PO 20 gm TID MERLIN Administration Lidocaine 1 patch 09/07/17 16:15 09/08/17 12:05 Lidoderm Patch - TP 1 patch DAILY MERLIN Administration Metoprolol Tartrate 100 mg 09/07/17 10:00 09/08/17 12:05 Lopressor - PO 100 mg DAILY MERLIN Administration Miscellaneous 1 each 09/07/17 22:00 09/07/17 21:32 Lidoderm Patch Removal MC 1 each DAILY@2200 MERLIN Administration Oxycodone HCl 5 mg 09/07/17 16:09 09/08/17 12:59 Roxicodone - PO 5 mg Q6H PRN Administration Pain 4-6 Oxycodone HCl 10 mg 09/07/17 16:12 09/07/17 21:31 Roxicodone - PO 10 mg Q6H PRN Administration PAIN LEVEL 6-10 Rosuvastatin Calcium 10 mg 09/07/17 10:00 09/08/17 12:05 Crestor - PO 10 mg DAILY MERLIN Administration Senna 2 tab 09/07/17 22:00 09/07/17 21:30 Senna - PO 2 tab HS MERLIN Administration Home Medications Medication Instructions Recorded Fenofibrate 150 mg PO DAILY 03/29/17 Isosorbide Mononitrate [Isosorbide 60 mg PO DAILY 03/29/17 Mononitrate ER] Metoprolol Tartrate 100 mg PO DAILY 03/29/17 Rosuvastatin [Crestor -] 10 mg PO DAILY 03/29/17 Ciprofloxacin [Cipro -] 500 mg PO BID #20 tablet 03/31/17 ASSESSMENT AND PLAN: Patient is a 87yo Armenian Male who presented with fevers, chills, and overall malaise. And was found to have Pylonephritis/UTI. # Acute UTI/ pyelonephritis , Skinner culture started on Rocephin 2gm IV, Panculture was ordered. #Lactic Acidosis downtrending # L Hip Pain due to OA , consult appreciated , added trial of Gabapentin TID # Acute Constipation on Senna/Lactulose and glycerin supp. # CALE on CKD continue chino, since patient is retaining Urine # Incidental finding of Renal Cysts on CT abdomen outpt f/u # Distended GB incidentally found on CT scan, LFTs WNL DVT Px: Heparin SQ
[2017-09-08] MEDS: SENNOSIDES 8.6MG TABLET (FP) PO SCH (21:35)
[2017-09-08] MEDS: LIDOCAINE PATCH REMOVAL MC SCH (21:35)
[2017-09-09] MEDS: oxyCODONE HCL 5 MG TABLET PO PRN ×3 (03:48→18:23)
[2017-09-09] MEDS: ACETAMINOPHEN 325 MG TABLET (FP) PO PRN ×2 (03:49→14:17)
[2017-09-09] MEDS: SODIUM CHLORIDE 1,000 ML IV SCH ×2 (05:17→16:38)
[2017-09-09] MEDS: LACTULOSE 20 GM/30 ML UDC (FOR ORAL USE ONLY) PO SCH ×3 (05:18→22:37)
[2017-09-09] MEDS: HEPARIN NA (PORCINE) 5,000 UNITS/ML 1ML VIAL SQ SCH ×3 (05:19→22:37)
[2017-09-09] MEDS: DOCUSATE SODIUM 100 MG CAPSULE (FP) PO SCH ×3 (05:19→22:37)
[2017-09-09 07:39] LABS: BASO % 0.4 % (0-2.0); EOS % 0.3 % (0-4.5); HEMATOCRIT 44.3 % (35.4-49); HEMOGLOBIN 14.9 GM/dL (11.7-16.9); LYMPH % 14.2 % (8-40); MCH 31.9 pg (25.7-33.7); MCHC 33.7 g/dl (32.0-35.9); MEAN CELL VOLUME 94.8 fl (80-96); MEAN PLT VOLUME 10.4 fl (7.5-11.1); MONO % 7.8 % (3.8-10.2); NEUT % 77.3 % (42.8-82.8); PLATELET COUNT 171 K/MM3 (134-434); RBC 4.68 M/mm3 (4.00-5.60); RDW 15.3 % (11.9-15.9); WHITE BLOOD COUNT 16.9 K/mm3 (4.0-10.0)
[2017-09-09 08:11] LABS: CHLORIDE 106 mmol/L (98-107); POTASSIUM 3.8 mmol/L (3.5-5.1); SODIUM 139 mmol/L (136-145)
[2017-09-09 08:20] LABS: ALBUMIN 2.5 g/dl (3.4-5.0); ALK PHOS 60 U/L (45-117); ANION GAP 9 (8-16); BILIRUBIN,TOTAL 0.8 mg/dL (0.2-1.0); BLOOD UREA NITROGEN 18 mg/dL (7-18); CALCIUM 8.4 mg/dL (8.5-10.1); CO2 24 mmol/L (21-32); CREATININE 1.4 mg/dL (0.7-1.3); GLUCOSE,RANDOM 107 mg/dL (74-106); MAGNESIUM 1.8 mg/dL (1.8-2.4); PHOSPHOROUS 1.8 mg/dL (2.5-4.9); SGOT/AST 36 U/L (15-37); SGPT/ALT 26 U/L (12-78); TOT PROT 5.7 g/dl (6.4-8.2)
[2017-09-09] MEDS ORDERED: DEXTROSE 5%-WATER 100 ML IVPB ONE (09:29)
[2017-09-09] MEDS: ROSUVASTATIN CA 10 MG TABLET (FP) PO SCH (09:50)
[2017-09-09] MEDS: CEFTRIAXONE 2 GM in DEXTROSE 5%-WATER 100 ML IVPB SCH (09:51)
[2017-09-09] MEDS: ISOSORBIDE MONONITRATE 60 MG TAB.SR.24H (FP) PO SCH (09:51)
[2017-09-09] MEDS: METOPROLOL TARTRATE 50 MG TABLET (FP) PO SCH (09:51)
[2017-09-09] MEDS: LIDOCAINE 5% TOPICAL PATCH TP SCH (09:52)
[2017-09-09] MEDS: FENOFIBRIC ACID 135 MG CAP PO SCH (09:57)
--- NOTE | 2017-09-09 10:29 | PN ---
Physical Exam: SUBJECTIVE: Patient seen and examined Patient continues to complain LLE pain on ROM. OBJECTIVE: Vital Signs Temperature 98.7 F 09/09/17 06:29 Pulse Rate 71 09/09/17 06:29 Respiratory Rate 20 09/09/17 06:29 Blood Pressure 144/74 09/09/17 06:29 O2 Sat by Pulse Oximetry (%) 94 L 09/08/17 20:19 GENERAL: NAD, awake, alert, and orientedx3 HEENT: NC/AT, PERRLA, sclera anicteric, MMM NECK: No JVD, no lymphadenopathy LUNGS: Diminished L sided compared to R sided breath sounds. HEART: RRR, S1, S2 without murmur ABDOMEN: Soft, obese, nontender, nondistended, normoactive bowel sounds, no guarding, no rebound, no suprapubic tenderness EXTREMITIES: 2+ DP pulses, warm, well perfused, no edema. MSK: L trochanteric leg pain with palpation. with decreased ROM of LLE . No erythema or effusion noted. PSYCH: Normal mood, normal affect. SKIN: Warm, dry, no rashes or lesions noted WBC 16.9 K/mm3 (4.0-10.0) H 09/09/17 06:00 RBC 4.68 M/mm3 (4.00-5.60) 09/09/17 06:00 Hgb 14.9 GM/dL (11.7-16.9) 09/09/17 06:00 Hct 44.3 % (35.4-49) 09/09/17 06:00 MCV 94.8 fl (80-96) 09/09/17 06:00 MCHC 33.7 g/dl (32.0-35.9) 09/09/17 06:00 RDW 15.3 % (11.9-15.9) 09/09/17 06:00 Plt Count 171 K/MM3 (134-434) 09/09/17 06:00 MPV 10.4 fl (7.5-11.1) 09/09/17 06:00 CMP Sodium 139 mmol/L (136-145) 09/09/17 06:00 Potassium 3.8 mmol/L (3.5-5.1) 09/09/17 06:00 Chloride 106 mmol/L (98-107) 09/09/17 06:00 Carbon Dioxide 24 mmol/L (21-32) 09/09/17 06:00 Anion Gap 9 (8-16) 09/09/17 06:00 BUN 18 mg/dL (7-18) 09/09/17 06:00 Creatinine 1.4 mg/dL (0.7-1.3) H 09/09/17 06:00 Creat Clearance w eGFR 47.72 (>60) 09/09/17 06:00 Random Glucose 107 mg/dL (74-106) H 09/09/17 06:00 Calcium 8.4 mg/dL (8.5-10.1) L 09/09/17 06:00 Total Bilirubin 0.8 mg/dL (0.2-1.0) 09/09/17 06:00 AST 36 U/L (15-37) 09/09/17 06:00 ALT 26 U/L (12-78) 09/09/17 06:00 Alkaline Phosphatase 60 U/L (45-117) D 09/09/17 06:00 Total Protein 5.7 g/dl (6.4-8.2) L 09/09/17 06:00 Albumin 2.5 g/dl (3.4-5.0) L 09/09/17 06:00 CARDIAC ENZYMES Troponin I < 0.02 ng/ml (0.00-0.05) 09/06/17 17:20 Current Medications Generic Name Dose Route Start Last Admin Trade Name Freq PRN Reason Stop Dose Admin Acetaminophen 650 mg 09/07/17 03:52 09/09/17 03:49 Tylenol - PO 650 mg Q6H PRN Administration FEVER Docusate Sodium 100 mg 09/08/17 14:00 09/09/17 05:19 Colace - PO 100 mg TID MERLIN Administration Fenofibric Acid 135 mg 09/07/17 10:00 09/09/17 09:57 Trilipix - PO 135 mg DAILY MERLIN Administration Glycerin 1 each 09/08/17 10:12 09/08/17 18:34 Glycerin Suppository Adult - CT 1 each DAILY PRN Administration CONSTIPATION Heparin Sodium (Porcine) 5,000 unit 09/07/17 06:00 09/09/17 05:19 Heparin - SQ 5,000 unit TID MERLIN Administration Ceftriaxone Sodium 2 gm/ 100 mls @ 200 mls/hr 09/08/17 10:00 09/09/17 09:51 Dextrose IVPB 200 mls/hr DAILY MERLIN Administration Sodium Chloride 1,000 mls @ 100 mls/hr 09/07/17 16:30 09/09/17 05:17 Normal Saline - IV 100 mls/hr ASDIR MERLIN Administration Isosorbide Mononitrate 60 mg 09/07/17 10:00 09/09/17 09:51 Imdur - PO 60 mg DAILY MERLIN Administration Lactulose 20 gm 09/07/17 18:15 09/09/17 05:18 Cephulac (Oral Use) PO 20 gm TID MERLIN Administration Lidocaine 1 patch 09/07/17 16:15 09/09/17 09:52 Lidoderm Patch - TP 1 patch DAILY MERLIN Administration Metoprolol Tartrate 100 mg 09/07/17 10:00 09/09/17 09:51 Lopressor - PO 100 mg DAILY MERLIN Administration Miscellaneous 1 each 09/07/17 22:00 09/08/17 21:35 Lidoderm Patch Removal MC 1 each DAILY@2200 MERLIN Administration Oxycodone HCl 5 mg 09/07/17 16:09 09/09/17 09:49 Roxicodone - PO 5 mg Q6H PRN Administration Pain 4-6 Oxycodone HCl 10 mg 09/07/17 16:12 09/07/17 21:31 Roxicodone - PO 10 mg Q6H PRN Administration PAIN LEVEL 6-10 Rosuvastatin Calcium 10 mg 09/07/17 10:00 09/09/17 09:50 Crestor - PO 10 mg DAILY MERLIN Administration Senna 2 tab 09/07/17 22:00 09/08/17 21:35 Senna - PO 2 tab HS MERLIN Administration Home Medications Medication Instructions Recorded Fenofibrate 150 mg PO DAILY 03/29/17 Isosorbide Mononitrate [Isosorbide 60 mg PO DAILY 03/29/17 Mononitrate ER] Metoprolol Tartrate 100 mg PO DAILY 03/29/17 Rosuvastatin [Crestor -] 10 mg PO DAILY 03/29/17 Microbiology 09/09/17 17:45 Blood Culture - Preliminary Blood - Peripheral Venous Group D Strep Or Entero Coccus 09/09/17 17:35 Blood Culture - Preliminary Blood - Peripheral Venous Group D Strep Or Entero Coccus 09/10/17 10:55 Urine Culture - Final Urine - Urine Chino NO GROWTH OBTAINED 09/10/17 00:10 Urine Culture - Final Urine - Urine Clean Catch NO GROWTH OBTAINED 09/06/17 17:10 Blood Culture - Preliminary Blood - Peripheral Venous NO GROWTH OBTAINED AFTER 96 HOURS, INCUBATION TO CONTINUE FOR 1 DAYS. 09/06/17 17:20 Blood Culture - Preliminary Blood - Peripheral Venous NO GROWTH OBTAINED AFTER 96 HOURS, INCUBATION TO CONTINUE FOR 1 DAYS. A/P: Patient is a 87yo Kuwaiti Male who presented with fevers, chills, and lethargy and was found to have Pylonephritis/UTI. # Acute Leukocytosis due to acute pylenephritis improving 25K-->16K on IV antibiotic 2gm Rocephin continue # Acute UTI/ pyelonephritis , Skinner culture started on Rocephin 2gm IV, Panculture was ordered. # Acute L Hip Pain/ trochanteric bursitis ; consult appreciated, added Gabapentin # Acute Constipation on Senna/Lactulose and glycerin supp. # CALE on CKD continue chino, since patient is retaining Urine improving # Incidental finding of Renal Cysts on CT abdomen outpt f/u # Distended GB incidentally found on CT scan, LFTs WNL DVT Px: Heparin SQ Visit type - Emergency Visit Emergency Visit: Yes ED Registration Date: 09/07/17 Care time: The patient presented to the Emergency Department on the above date and was hospitalized for further evaluation of their emergent condition. - New Patient This patient is new to me today: No - Critical Care Critical Care patient: No - Discharge Referral Referred to [facility] Med P.C.: No
[2017-09-09] MEDS ORDERED: ACETAMINOPHEN 325 MG TABLET (FP) PO ONE (16:45)
[2017-09-09] MEDS: LIDOCAINE PATCH REMOVAL MC SCH (22:37)
[2017-09-09] MEDS: SENNOSIDES 8.6MG TABLET (FP) PO SCH (22:37)
[2017-09-10] MEDS: oxyCODONE HCL 5 MG TABLET PO PRN ×2 (00:06→15:24)
[2017-09-10] MEDS: ACETAMINOPHEN 325 MG TABLET (FP) PO PRN ×2 (00:06→15:24)
[2017-09-10] MEDS ORDERED: METOPROLOL TARTRATE 50 MG TABLET (FP) PO ONE (01:11)
[2017-09-10 01:22] LABS: URINE APPEARANCE CLEAR; URINE BILIRUBIN NEGATIVE (<2.0 mg/dL); URINE COLOR YELLOW; URINE GLUCOSE (UA) NEGATIVE (NEGATIVE); URINE KETONE NEGATIVE (NEGATIVE); URINE LEUK ESTERASE NEGATIVE (NEGATIVE); URINE NITRITE NEGATIVE (NEGATIVE); URINE UROBILINOGEN NEGATIVE mg/dL (0.2-1.0)
[2017-09-10 01:31] LABS: URINE PROTEIN 1+ (NEGATIVE)
[2017-09-10 02:00] LABS: URINE MUCUS RARE
[2017-09-10] MEDS: SODIUM CHLORIDE 1,000 ML IV SCH ×3 (02:10→16:57)
[2017-09-10] MEDS: LACTULOSE 20 GM/30 ML UDC (FOR ORAL USE ONLY) PO SCH ×4 (07:01→22:57)
[2017-09-10] MEDS: DOCUSATE SODIUM 100 MG CAPSULE (FP) PO SCH ×3 (07:01→22:56)
[2017-09-10] MEDS: HEPARIN NA (PORCINE) 5,000 UNITS/ML 1ML VIAL SQ SCH ×3 (07:01→22:57)
[2017-09-10] MEDS ORDERED: DEXTROSE 5%-WATER 100 ML IVPB ONE (09:11)
[2017-09-10] MEDS: LIDOCAINE 5% TOPICAL PATCH TP SCH (09:30)
[2017-09-10] MEDS: METOPROLOL TARTRATE 50 MG TABLET (FP) PO SCH (09:30)
[2017-09-10] MEDS: ISOSORBIDE MONONITRATE 60 MG TAB.SR.24H (FP) PO SCH (09:30)
[2017-09-10] MEDS: CEFTRIAXONE 2 GM in DEXTROSE 5%-WATER 100 ML IVPB SCH (09:30)
[2017-09-10] MEDS: ROSUVASTATIN CA 10 MG TABLET (FP) PO SCH (09:31)
[2017-09-10] MEDS: FENOFIBRIC ACID 135 MG CAP PO SCH (09:31)
--- NOTE | 2017-09-10 10:38 | PN ---
Progress Note (short form) - Note Progress Note: ID Consult dictated Enterococcal UTI ? Pyelonephritis Substitute ampicillin 2gm q6h
[2017-09-10] MEDS ORDERED: amLODIPine BESYLATE 5 MG TABLET (FP) PO SCH ×3 (10:43→14:00)
[2017-09-10] MEDS ORDERED: ALBUTEROL SO4 2.5/IPRATROPIUM 0.5 INH SOL 3 ML VIAL.NEB. NEB ONE (11:00)
[2017-09-10] MEDS ORDERED: GABAPENTIN 100 MG CAPSULE (FP) PO SCH ×2 (11:00→22:00)
[2017-09-10] MEDS: amLODIPine BESYLATE 5 MG TABLET (FP) PO SCH (11:09)
--- NOTE | 2017-09-10 12:10 | CONS ---
DATE OF CONSULTATION: DATE OF DICTATION: 09/10/2017 The patient is an 87-year-old male who is evaluated for urinary tract infection, possible pyelonephritis. He was admitted to the hospital on September 06, 2017, with complaints of urinary retention, fever and chills. He had undergone a cystoscopy as an outpatient on September 04, 2017. Post procedure, his course was complicated by acute urinary retention, fever, and chills. He presented to the emergency room, where a chest x-ray showed a left lower lobe infiltrate. He was empirically treated with Zithromax and ceftriaxone for possible pneumonia. His course was complicated by a white blood cell count of 25,000, and pyuria. Urine culture grew enterococcus. The patient is awake and alert. He complains of left flank pain as well as bilateral hip and knee pain. He denies any recurrent fever or chills. PAST MEDICAL HISTORY: Positive for BPH, hypertension, hyperlipidemia, coronary artery disease. PAST SURGICAL HISTORY: Status post coronary artery bypass. No known allergies. Medications include Lidoderm patch, lactulose, Tylenol, heparin, ceftriaxone, Lidoderm, Lopressor, Norvasc, Crestor, Imdur. SOCIAL HISTORY: He resides at home in the community. He is a nonsmoker, normal sinus rhythm. SYSTEMS REVIEW: Neurologic: No loss of consciousness, seizure activity, or focal weakness. Cardiac: Negative chest pain or palpitations. Respiratory: Negative cough or sputum production. Gastrointestinal: Negative vomiting or diarrhea. Genitourinary: As per HPI. LABORATORY DATA: White count on admission 25,000, presently 16,000. Hematocrit 44.3, platelet count 171. BUN 18, creatinine 1.4. Urinalysis: 62 white cells. Urine culture: Enterococcus. Blood cultures are negative. PHYSICAL EXAMINATION: General: He is awake and alert, he is in no acute distress. Vital Signs: Temperature 100.0. Blood pressure 171/82. Pulse 81, regular. Respirations 20 per minute. Eyes: Sclerae anicteric. Heart Sounds: S1, S2. Lungs: Clear. Abdomen: Soft. No tenderness elicited. Obese. No suprapubic tenderness. Extremities: Positive for edema. Genitourinary: Cortez catheter is in place. Urine is concentrated, not grossly purulent. IMPRESSION: 1. Enterococcal urinary tract infection. 2. Possible pyelonephritis. 3. Leukocytosis, improved. 4. Fever. Repeat blood cultures have been obtained for persistent fever. Will substitute ampicillin 2 g IV piggyback every 6 hours for treatment of enterococcal urinary tract infection and possible pyelonephritis. Await culture results. Will follow. Thank you for the kind referral. PORTIA ARREAGA M.D. [id number]
[2017-09-10] MEDS ORDERED: INSULIN (NOVOLOG) ASPART 100 UNITS/ML 10ML VIAL ONE (12:11)
[2017-09-10 12:28] LABS: BASO % 0.5 % (0-2.0); EOS % 0.4 % (0-4.5); HEMATOCRIT 42.9 % (35.4-49); HEMOGLOBIN 14.3 GM/dL (11.7-16.9); LYMPH % 16.1 % (8-40); MCH 31.2 pg (25.7-33.7); MCHC 33.3 g/dl (32.0-35.9); MEAN CELL VOLUME 93.8 fl (80-96); MEAN PLT VOLUME 9.6 fl (7.5-11.1); MONO % 8.1 % (3.8-10.2); NEUT % 74.9 % (42.8-82.8); PLATELET COUNT 199 K/MM3 (134-434); RBC 4.57 M/mm3 (4.00-5.60); RDW 15.5 % (11.9-15.9); WHITE BLOOD COUNT 12.4 K/mm3 (4.0-10.0)
[2017-09-10 13:21] LABS: ANION GAP 8 (8-16); BLOOD UREA NITROGEN 15 mg/dL (7-18); CALCIUM 8.2 mg/dL (8.5-10.1); CHLORIDE 109 mmol/L (98-107); CO2 25 mmol/L (21-32); CREATININE 1.2 mg/dL (0.7-1.3); GLUCOSE,RANDOM 116 mg/dL (74-106); POTASSIUM 3.7 mmol/L (3.5-5.1); SODIUM 142 mmol/L (136-145)
--- NOTE | 2017-09-10 14:47 | PN ---
Teaching Attending Note Name of Resident: Obdulio Ward ATTENDING PHYSICIAN STATEMENT I saw and evaluated the patient. I reviewed the resident's note and discussed the case with the resident. I agree with the resident's findings and plan as documented. SUBJECTIVE: OBJECTIVE: Vital Signs Temperature 99.5 F 09/10/17 14:08 Pulse Rate 71 09/10/17 14:08 Respiratory Rate 20 09/10/17 14:08 Blood Pressure 154/81 09/10/17 14:08 O2 Sat by Pulse Oximetry (%) 93 L 09/10/17 09:00 CBCD WBC 12.4 K/mm3 (4.0-10.0) H 09/10/17 12:15 RBC 4.57 M/mm3 (4.00-5.60) 09/10/17 12:15 Hgb 14.3 GM/dL (11.7-16.9) 09/10/17 12:15 Hct 42.9 % (35.4-49) 09/10/17 12:15 MCV 93.8 fl (80-96) 09/10/17 12:15 MCHC 33.3 g/dl (32.0-35.9) 09/10/17 12:15 RDW 15.5 % (11.9-15.9) 09/10/17 12:15 Plt Count 199 K/MM3 (134-434) 09/10/17 12:15 MPV 9.6 fl (7.5-11.1) 09/10/17 12:15 CMP Sodium 142 mmol/L (136-145) 09/10/17 12:15 Potassium 3.7 mmol/L (3.5-5.1) 09/10/17 12:15 Chloride 109 mmol/L (98-107) H 09/10/17 12:15 Carbon Dioxide 25 mmol/L (21-32) 09/10/17 12:15 Anion Gap 8 (8-16) 09/10/17 12:15 BUN 15 mg/dL (7-18) 09/10/17 12:15 Creatinine 1.2 mg/dL (0.7-1.3) 09/10/17 12:15 Creat Clearance w eGFR 57.01 (>60) 09/10/17 12:15 Random Glucose 116 mg/dL (74-106) H 09/10/17 12:15 Calcium 8.2 mg/dL (8.5-10.1) L 09/10/17 12:15 Total Bilirubin 0.8 mg/dL (0.2-1.0) 09/09/17 06:00 AST 36 U/L (15-37) 09/09/17 06:00 ALT 26 U/L (12-78) 09/09/17 06:00 Alkaline Phosphatase 60 U/L (45-117) D 09/09/17 06:00 Total Protein 5.7 g/dl (6.4-8.2) L 09/09/17 06:00 Albumin 2.5 g/dl (3.4-5.0) L 09/09/17 06:00 CARDIAC ENZYMES Troponin I < 0.02 ng/ml (0.00-0.05) 09/06/17 17:20 Current Medications Generic Name Dose Route Start Last Admin Trade Name Freq PRN Reason Stop Dose Admin Acetaminophen 650 mg 09/07/17 03:52 09/10/17 00:06 Tylenol - PO 650 mg Q6H PRN Administration FEVER Amlodipine Besylate 5 mg 09/10/17 11:04 09/10/17 11:09 Norvasc - PO 5 mg DAILY MERLIN Administration Docusate Sodium 100 mg 09/08/17 14:00 09/10/17 14:09 Colace - PO 100 mg TID MERLIN Administration Fenofibric Acid 135 mg 09/07/17 10:00 09/10/17 09:31 Trilipix - PO 135 mg DAILY MERLIN Administration Gabapentin 100 mg 09/10/17 11:00 09/10/17 11:09 Neurontin - PO 100 mg DAILY MERLIN Administration Heparin Sodium (Porcine) 5,000 unit 09/07/17 06:00 09/10/17 14:08 Heparin - SQ 5,000 unit TID MERLIN Administration Sodium Chloride 1,000 mls @ 100 mls/hr 09/07/17 16:30 09/10/17 02:10 Normal Saline - IV 100 mls/hr ASDIR MERLIN Administration Ampicillin Sodium 2 gm/ Sodium 100 mls @ 200 mls/hr 09/10/17 10:45 Chloride IVPB Q6H-IV MERLIN Protocol Isosorbide Mononitrate 60 mg 09/07/17 10:00 09/10/17 09:30 Imdur - PO 60 mg DAILY MERLIN Administration Lactulose 20 gm 09/07/17 18:15 09/10/17 14:08 Cephulac (Oral Use) PO 20 gm TID MERLIN Administration Lidocaine 1 patch 09/07/17 16:15 09/10/17 09:30 Lidoderm Patch - TP 1 patch DAILY MERLIN Administration Metoprolol Tartrate 100 mg 09/07/17 10:00 09/10/17 09:30 Lopressor - PO 100 mg DAILY MERLIN Administration Miscellaneous 1 each 09/07/17 22:00 09/09/17 22:37 Lidoderm Patch Removal MC 1 each DAILY@2200 MERLIN Administration Oxycodone HCl 5 mg 09/07/17 16:09 09/10/17 00:06 Roxicodone - PO 5 mg Q6H PRN Administration Pain 4-6 Rosuvastatin Calcium 10 mg 09/07/17 10:00 09/10/17 09:31 Crestor - PO 10 mg DAILY MERLIN Administration Senna 2 tab 09/07/17 22:00 09/09/17 22:37 Senna - PO 2 tab HS MERLIN Administration Home Medications Medication Instructions Recorded Fenofibrate 150 mg PO DAILY 03/29/17 Isosorbide Mononitrate [Isosorbide 60 mg PO DAILY 03/29/17 Mononitrate ER] Metoprolol Tartrate 100 mg PO DAILY 03/29/17 Rosuvastatin [Crestor -] 10 mg PO DAILY 03/29/17 ASSESSMENT AND PLAN: # Acute Leukocytosis due to acute pylenephritis improving 25K-->16K on IV antibiotic 2gm Rocephin continue # Acute UTI?PYlenephritis continue iV antibiotic # Lactic Acidosis trending down # Acute L Hip Pain/ trochanteric bursitis ; consult appreciated # Constipation : continue meds #CALE on CKD improving #Renal Cysts incidental findings # Distended GB incidental finding on CT DVT Px: Heparin SQ
--- NOTE | 2017-09-10 14:50 | PN ---
<Ward,Obdulio - Last Filed: 09/10/17 18:24> Physical Exam: SUBJECTIVE: Patient seen and examined complaing of pain in leg. had one episode of fever 100.6 in night. get new urine culture, culture from last night was sent from urinal. OBJECTIVE: Vital Signs Period Temp Pulse Resp BP Sys/Balderas Pulse Ox Last 24 Hr 98.9 F-101 F 65-86 20-22 132-188/71-99 93-94 GENERAL: awake, alert, and orientedx3 HEENT: moist-mucosa LUNGS: b/l air entry present, mild wheezing b/l no crackels, HEART: RRR, S1, S2 without murmur ABDOMEN: Soft, obese, nontender, nondistended, normoactive bowel sounds, no guarding, no rebound, no cva tenderness, mild suprapubic tenderness on deep palpation EXTREMITIES: warm, well-perfused, no edema. MSK:. Pt cannot move limb due to pain with both passive and active movement.. PSYCH: Normal mood, normal affect. SKIN: Warm, dry, Laboratory Results - last 24 hr 09/10/17 09/10/17 09/10/17 00:10 12:15 12:15 WBC 12.4 H RBC 4.57 Hgb 14.3 Hct 42.9 MCV 93.8 MCH 31.2 MCHC 33.3 RDW 15.5 Plt Count 199 MPV 9.6 Absolute Neuts (auto) 9.3 Neutrophils % 74.9 Lymphocytes % 16.1 Monocytes % 8.1 Eosinophils % 0.4 Basophils % 0.5 Nucleated RBC % 0 Sodium 142 Potassium 3.7 Chloride 109 H Carbon Dioxide 25 Anion Gap 8 BUN 15 Creatinine 1.2 Creat Clearance w eGFR 57.01 Random Glucose 116 H Calcium 8.2 L Urine Color Yellow Urine Appearance Clear Urine pH 5.0 Ur Specific [place] 1.012 Urine Protein 1+ H Urine Glucose (UA) Negative Urine Ketones Negative Urine Blood 3+ H Urine Nitrite Negative Urine Bilirubin Negative Urine Urobilinogen Negative Ur Leukocyte Esterase Negative Urine WBC (Auto) 62 Urine RBC (Auto) 407 Urine Mucus Rare Active Medications Generic Name Dose Route Start Last Admin Trade Name Freq PRN Reason Stop Dose Admin Acetaminophen 650 mg 09/07/17 03:52 09/10/17 00:06 Tylenol - PO 650 mg Q6H PRN Administration FEVER Amlodipine Besylate 5 mg 09/10/17 11:04 09/10/17 11:09 Norvasc - PO 5 mg DAILY [facility] Administration Docusate Sodium 100 mg 09/08/17 14:00 09/10/17 14:09 Colace - PO 100 mg TID [facility] Administration Fenofibric Acid 135 mg 09/07/17 10:00 09/10/17 09:31 Trilipix - PO 135 mg DAILY [facility] Administration Gabapentin 100 mg 09/10/17 11:00 09/10/17 11:09 Neurontin - PO 100 mg DAILY [facility] Administration Heparin Sodium (Porcine) 5,000 unit 09/07/17 06:00 09/10/17 14:08 Heparin - SQ 5,000 unit TID [facility] Administration Sodium Chloride 1,000 mls @ 100 mls/hr 09/07/17 16:30 09/10/17 02:10 Normal Saline - IV 100 mls/hr ASDIR [facility] Administration Ampicillin Sodium 2 gm/ Sodium 100 mls @ 200 mls/hr 09/10/17 10:45 Chloride IVPB Q6H-IV [facility] Protocol Isosorbide Mononitrate 60 mg 09/07/17 10:00 09/10/17 09:30 Imdur - PO 60 mg DAILY [facility] Administration Lactulose 20 gm 09/07/17 18:15 09/10/17 14:08 Cephulac (Oral Use) PO 20 gm TID [facility] Administration Lidocaine 1 patch 09/07/17 16:15 09/10/17 09:30 Lidoderm Patch - TP 1 patch DAILY [facility] Administration Metoprolol Tartrate 100 mg 09/07/17 10:00 09/10/17 09:30 Lopressor - PO 100 mg DAILY [facility] Administration Miscellaneous 1 each 09/07/17 22:00 09/09/17 22:37 Lidoderm Patch Removal MC 1 each DAILY@2200 [facility] Administration Oxycodone HCl 5 mg 09/07/17 16:09 09/10/17 00:06 Roxicodone - PO 5 mg Q6H PRN Administration Pain 4-6 Rosuvastatin Calcium 10 mg 09/07/17 10:00 09/10/17 09:31 Crestor - PO 10 mg DAILY [facility] Administration Senna 2 tab 09/07/17 22:00 09/09/17 22:37 Senna - PO 2 tab HS [facility] Administration ASSESSMENT/PLAN: 1) Pyelonephritis wbc improving, has mild fever in night. antibiotic as per ID changed to ampicillin follow urine cx monitor vitals 2) L Hip Pain -- patient has recent h/o cystoscopy which is done in lithotomy position, which can affect sciatic nerve. Likely patient have sciatic nerve pain. --started on gabapentin 3) CALE on CKD -- cr 1.2 --2/2 to retention possibly from recent procedure --Monitor Cr --Continue chino mgmt --Urology consulted 4) Renal Cysts --Incidentally found on CT scan of abdomen --Most likely benign, however would recommend outpt f/u 5) Distended GB --Incidentally found on CT scan --No cholelithiasis --No evidence of cholecystitis seen --Liver enzymes WNL 6) Constipation continue with meds. FEN: Fluids: Increase NS to 100cc/hr Electrolyte abnormalities: None currently Nutrition: PPX: DVT - Heparin SQ Dispo: continue monitoring; awaiting UCx Case discussed with Dr. Case Herrera, DO - IM PGY-1 Visit type - Emergency Visit Emergency Visit: Yes ED Registration Date: 09/07/17 Care time: The patient presented to the Emergency Department on the above date and was hospitalized for further evaluation of their emergent condition. - New Patient This patient is new to me today: No - Critical Care Critical Care patient: No <Gricelda Willoughby - Last Filed: 09/10/17 19:32> Physical Exam: Continue current management. agree with the resident' s note.
[2017-09-10] MEDS ORDERED: PT OWN MED DRAWER 7, Y5N ONE (15:15)
[2017-09-10] MEDS: AMPICILLIN - 2 GM in SODIUM CHLORIDE 100 ML IVPB SCH ×2 (15:17→15:18)
--- NOTE | 2017-09-10 18:22 | PN ---
Progress Note (short form) - Note Progress Note: milagros complains of swelling of tongue. Patient received two new meds today ampicillin and gabapentin. Denies difficulty is swallowing and breathing. Finished his dinner in front of me without difficulty. on exam tongue is slightly swollen and mild swelling of uvula present no elnogation of uvula B/l air entry present. no stridor cvs s1s2 normal BP 125/62 plan stop ampicillin and gabapentin IV benadryl 25mg stat. and pepcid re access after 30 min if swelling increases will give him solumedrol and epi.
[2017-09-10] MEDS ORDERED: FAMOTIDINE 20 MG/50 ML IVPB 20 MG/50 ML MG IVPB ONE (19:15)
[2017-09-10] MEDS: SENNOSIDES 8.6MG TABLET (FP) PO SCH (22:56)
[2017-09-10] MEDS: LIDOCAINE PATCH REMOVAL MC SCH (23:02)
[2017-09-11] MEDS: ACETAMINOPHEN 325 MG TABLET (FP) PO PRN ×2 (01:36→16:20)
[2017-09-11] MEDS: SODIUM CHLORIDE 1,000 ML IV SCH (05:10)
[2017-09-11] MEDS: LACTULOSE 20 GM/30 ML UDC (FOR ORAL USE ONLY) PO SCH ×2 (05:43→17:12)
[2017-09-11] MEDS: HEPARIN NA (PORCINE) 5,000 UNITS/ML 1ML VIAL SQ SCH ×3 (05:43→23:08)
[2017-09-11] MEDS: amLODIPine BESYLATE 5 MG TABLET (FP) PO SCH ×2 (05:43→11:08)
[2017-09-11] MEDS: DOCUSATE SODIUM 100 MG CAPSULE (FP) PO SCH ×3 (05:43→23:08)
[2017-09-11] MEDS ORDERED: ACETAMINOPHEN 325 MG TABLET (FP) PO ONE (06:15)
[2017-09-11 06:21] LABS: HEMATOCRIT 42.2 % (35.4-49); HEMOGLOBIN 14.4 GM/dL (11.7-16.9); MCH 31.8 pg (25.7-33.7); MEAN CELL VOLUME 93.5 fl (80-96); MEAN PLT VOLUME 9.1 fl (7.5-11.1); PLATELET COUNT 214 K/MM3 (134-434); RBC 4.52 M/mm3 (4.00-5.60); RDW 15.2 % (11.9-15.9); WHITE BLOOD COUNT 11.6 K/mm3 (4.0-10.0)
[2017-09-11 06:52] LABS: CHLORIDE 107 mmol/L (98-107); POTASSIUM 3.4 mmol/L (3.5-5.1); SODIUM 142 mmol/L (136-145)
[2017-09-11 06:59] LABS: ANION GAP 7 (8-16); BLOOD UREA NITROGEN 16 mg/dL (7-18); CALCIUM 8.2 mg/dL (8.5-10.1); CO2 28 mmol/L (21-32); CREATININE 1.2 mg/dL (0.7-1.3); GLUCOSE,RANDOM 102 mg/dL (74-106); MAGNESIUM 1.7 mg/dL (1.8-2.4); PHOSPHOROUS 1.4 mg/dL (2.5-4.9)
[2017-09-11] MEDS ORDERED: POTASSIUM CHLORIDE TABS 20 MEQ TABLET.ER (FP) PO ONE ×2 (07:30→09:00)
[2017-09-11] MEDS: oxyCODONE HCL 5 MG TABLET PO PRN ×3 (08:18→23:07)
[2017-09-11] MEDS ORDERED: MAGNESIUM OXIDE 400 MG TABLET (FP) PO ONE ×2 (09:00→15:45)
[2017-09-11] MEDS ORDERED: NAPH,MB-DB/K PH,MBDB POWDER PACKET PO ONE (09:00)
[2017-09-11] MEDS ORDERED: VANCOMYCIN 1,500 MG in DEXTROSE 5%-WATER - 250 ML IVPB ONE (09:25)
[2017-09-11 09:59] LABS: ACANTHOCYTES 0; ANISOCYTOSIS 0; HELMET CELLS 0; HOWELL-JOLLY BODIES 0; MACROCYTOSIS 0; OVALOCYTE 0; PLATELET ESTIMATE NORMAL; ROULEAU 0; SICKELED CELLS 0; TARGET CELLS 0; TEAR DROP CELLS 0; TOXIC GRANULATION 0
[2017-09-11] MEDS ORDERED: PT OWN MED DRAWER 7, Y5N ONE ×2 (10:45→11:11)
[2017-09-11] MEDS: METOPROLOL TARTRATE 50 MG TABLET (FP) PO SCH (11:07)
[2017-09-11] MEDS: ROSUVASTATIN CA 10 MG TABLET (FP) PO SCH (11:08)
[2017-09-11] MEDS: ISOSORBIDE MONONITRATE 60 MG TAB.SR.24H (FP) PO SCH (11:08)
[2017-09-11] MEDS: FENOFIBRIC ACID 135 MG CAP PO SCH (11:15)
[2017-09-11] MEDS: LIDOCAINE 5% TOPICAL PATCH TP SCH (11:18)
--- NOTE | 2017-09-11 13:07 | PN ---
Progress Note, Physician History of Present Illness: BC + Enterococcus Remains febrile Developed tongue swelling after ampicillin yesterday. C/O L abdo/flank/LE pain Repeat BC pending - Current Medication List Current Medications: Active Medications Acetaminophen (Tylenol -) 650 mg PO Q6H PRN PRN Reason: FEVER Last Admin: 09/11/17 01:36 Dose: 650 mg Amlodipine Besylate (Norvasc -) 5 mg PO DAILY [facility] Last Admin: 09/11/17 11:08 Dose: 5 mg Docusate Sodium (Colace -) 100 mg PO TID [facility] Last Admin: 09/11/17 05:43 Dose: 100 mg Fenofibric Acid (Trilipix -) 135 mg PO DAILY [facility] Last Admin: 09/11/17 11:15 Dose: 135 mg Heparin Sodium (Porcine) (Heparin -) 5,000 unit SQ TID [facility] Last Admin: 09/11/17 05:43 Dose: 5,000 unit Vancomycin HCl (Vancomycin 1 Gm Premix -) 1 gm in 200 mls @ 166.667 mls/hr IVPB BID@0000,1200 [facility]; Protocol Isosorbide Mononitrate (Imdur -) 60 mg PO DAILY [facility] Last Admin: 09/11/17 11:08 Dose: 60 mg Lactulose (Cephulac (Oral Use)) 20 gm PO TID [facility] Last Admin: 09/11/17 05:43 Dose: 20 gm Lidocaine (Lidoderm Patch -) 1 patch TP DAILY [facility] Last Admin: 09/11/17 11:18 Dose: 1 patch Metoprolol Tartrate (Lopressor -) 100 mg PO DAILY [facility] Last Admin: 09/11/17 11:07 Dose: 100 mg Miscellaneous (Lidoderm Patch Removal) 1 each MC DAILY@2200 [facility] Last Admin: 09/10/17 23:02 Dose: 1 each Oxycodone HCl (Roxicodone -) 5 mg PO Q6H PRN PRN Reason: Pain 4-6 Last Admin: 09/11/17 08:18 Dose: 5 mg Rosuvastatin Calcium (Crestor -) 10 mg PO DAILY [facility] Last Admin: 09/11/17 11:08 Dose: 10 mg Senna (Senna -) 2 tab PO HS [facility] Last Admin: 09/10/17 22:56 Dose: 2 tab - Objective Vital Signs: Vital Signs Temperature 100.1 F H 09/11/17 06:59 Pulse Rate 79 09/11/17 06:59 Respiratory Rate 18 09/11/17 06:59 Blood Pressure 155/78 09/11/17 06:59 O2 Sat by Pulse Oximetry (%) 95 09/10/17 21:00 Constitutional: Yes: No Distress Cardiovascular: Yes: Regular Rate and Rhythm, S1, S2 Respiratory: Yes: CTA Bilaterally Gastrointestinal: Yes: Normal Bowel Sounds, Soft, Other (no tenderness) Edema: Yes Labs: CBC, BMP 09/11/17 06:00 09/11/17 06:00 INR, PTT INR 1.09 (0.82-1.09) 09/06/17 17:20 Assessment/Plan Enterococcal bacteremia/ sepsis secondary to UTI Major PCN allergy Vancomycin started Await final identification of blood isolate Repeat BC Echo
--- NOTE | 2017-09-11 13:34 | PN ---
ANNETTE Duran Note History of Present Illness: pt w/o c/o, failed trial of void and now has chino again and + blood cx - Objective Vital Signs: Vital Signs Temperature 99.8 F H 09/11/17 13:20 Pulse Rate 64 09/11/17 13:20 Respiratory Rate 18 09/11/17 13:20 Blood Pressure 157/81 09/11/17 13:20 O2 Sat by Pulse Oximetry (%) 95 09/10/17 21:00 Labs/Additional Data: CBC, BMP 09/11/17 06:00 09/11/17 06:00 INR, PTT INR 1.09 (0.82-1.09) 09/06/17 17:20 Problem List - Problems (1) Urinary retention Assessment/Plan: cont chino, he will need cystoscopy, possible turp after uti resolved Code(s): R33.9 - RETENTION OF URINE, UNSPECIFIED (2) Pneumonia Code(s): J18.9 - PNEUMONIA, UNSPECIFIED ORGANISM (3) Stage III chronic kidney disease Code(s): N18.3 - CHRONIC KIDNEY DISEASE, STAGE 3 (MODERATE) (4) Renal calculi Code(s): N20.0 - CALCULUS OF KIDNEY
--- NOTE | 2017-09-11 14:51 | PN ---
Physical Exam: SUBJECTIVE: Over the weekend pt had a reaction to a pencillin with resulting tongue swelling. Pt had antibiotic discontinued and benadryl administered with improvement (allergies updated on EMR). Today pt had fevers with max of 102.5 orally overnight and with continued breakthrough low-grade fevers. Pt reports feeling warm. In addition he endorses his chronic leg pain, however he reports it is improved. He remains with limited mobility, however he can move his R leg when he could not on admission. Pt denies any chills, nausea, vomiting, shortness of breath, CP/discomfort, diarrhea, constipation, and abdominal pain. OBJECTIVE: Vital Signs Period Temp Pulse Resp BP Sys/Balderas Pulse Ox Last 24 Hr 98.8 F-102.5 F 64-83 18-22 125-176/62-88 95-95 GENERAL: NAD, awake, alert, and fully oriented, laying on back HEENT: NC/AT, RICCO, sclera anicteric, moist-mucosa, no tongue, tonsillar, or uvular edema noted NECK: No JVD, no lymphadenopathy LUNGS: CTA b/l. No overt rhonchi appreciated. No accessory muscle use. 97% RA HEART: RRR, S1, S2 without murmur ABDOMEN: Soft, obese, nontender, nondistended, normoactive bowel sounds, no guarding, no suprapubic tenderness BACK: No CVA tenderness EXTREMITIES: 2+ DP pulses, warm, well-perfused, no edema. MSK: L posteriorly radiating leg pain with passive and active movement. R leg mobile w/o pain PSYCH: Normal mood, normal affect. SKIN: Warm, dry, no rashes or lesions noted Laboratory Results - last 24 hr 09/11/17 09/11/17 06:00 06:00 WBC 11.6 H RBC 4.52 Hgb 14.4 Hct 42.2 MCV 93.5 MCH 31.8 MCHC 34.0 RDW 15.2 Plt Count 214 MPV 9.1 Absolute Neuts (auto) 7.9 Neutrophils % 68.0 Neutrophils % (Manual) 73.5 Band Neutrophils % 0.0 Lymphocytes % 20.0 D Lymphocytes % (Manual) 20.4 Monocytes % 9.0 Monocytes % (Manual) 5 Eosinophils % 2.0 D Eosinophils % (Manual) 1.0 Basophils % 1.0 Basophils % (Manual) 0.0 Myelocytes % (Man) 0 Promyelocytes % (Man) 0 Blast Cells % (Manual) 0 Nucleated RBC % 0 Metamyelocytes 0 Hypochromia 0 Toxic Granulation 0 Dohle Bodies 0 Platelet Estimate Normal Polychromasia 0 Poikilocytosis 0 Basophilic Stippling 0 Anisocytosis 0 Microcytosis 0 Macrocytosis 0 Spherocytes 0 Sickle Cells 0 Target Cells 0 Tear Drop Cells 0 Ovalocytes 0 Stomatocytes 0 Helmet Cells [address] [place] Bodies 0 [place] Rings 0 Colleen Cells 0 Acanthocytes (Spur) 0 Rouleaux 0 Fragmented RBCs 0 Schistocytes 0 Sodium 142 Potassium 3.4 L Chloride 107 Carbon Dioxide 28 Anion Gap 7 L BUN 16 Creatinine 1.2 Creat Clearance w eGFR 57.01 Random Glucose 102 Calcium 8.2 L Phosphorus 1.4 L D Magnesium 1.7 L Active Medications Generic Name Dose Route Start Last Admin Trade Name Freq PRN Reason Stop Dose Admin Acetaminophen 650 mg 09/07/17 03:52 09/11/17 01:36 Tylenol - PO 650 mg Q6H PRN Administration FEVER Amlodipine Besylate 5 mg 09/10/17 11:04 09/11/17 11:08 Norvasc - PO 5 mg DAILY [facility] Administration Docusate Sodium 100 mg 09/08/17 14:00 09/11/17 05:43 Colace - PO 100 mg TID [facility] Administration Fenofibric Acid 135 mg 09/07/17 10:00 09/11/17 11:15 Trilipix - PO 135 mg DAILY [facility] Administration Heparin Sodium (Porcine) 5,000 unit 09/07/17 06:00 09/11/17 05:43 Heparin - SQ 5,000 unit TID [facility] Administration Vancomycin HCl 1 gm in 200 mls @ 166.667 mls/hr 09/11/17 12:00 Vancomycin 1 Gm Premix - IVPB BID@0000,1200 [facility] Protocol Isosorbide Mononitrate 60 mg 09/07/17 10:00 09/11/17 11:08 Imdur - PO 60 mg DAILY [facility] Administration Lactulose 20 gm 09/07/17 18:15 09/11/17 05:43 Cephulac (Oral Use) PO 20 gm TID [facility] Administration Lidocaine 1 patch 09/07/17 16:15 09/11/17 11:18 Lidoderm Patch - TP 1 patch DAILY [facility] Administration Metoprolol Tartrate 100 mg 09/07/17 10:00 09/11/17 11:07 Lopressor - PO 100 mg DAILY [facility] Administration Miscellaneous 1 each 09/07/17 22:00 09/10/17 23:02 Lidoderm Patch Removal MC 1 each DAILY@2200 [facility] Administration Oxycodone HCl 5 mg 09/07/17 16:09 09/11/17 08:18 Roxicodone - PO 5 mg Q6H PRN Administration Pain 4-6 Rosuvastatin Calcium 10 mg 09/07/17 10:00 09/11/17 11:08 Crestor - PO 10 mg DAILY [facility] Administration Senna 2 tab 09/07/17 22:00 09/10/17 22:56 Senna - PO 2 tab HS [facility] Administration ASSESSMENT/PLAN: 1)Bacteremia: --WBC 11k --Continued spiking fevers --Blood cultures with resolving enterococcus x2 bottles --ID on board --Echocardiogram --Discontinue pencillin products --Start Vancomycin (1-time order Vancomycin 1500mg ordered until seen by ID; GFR 60.9) --Continue chino --F/u Urine cultures --Could be due to recent procedure vs. pyelonephritis w/o urethritis and cystitis? 2) L Hip Pain --Most likely osteoarthritis vs. sciatica --Dr. Fox previously seen --Due to lack of improvement will trial Gabapentin 300mg TID\ --Continue Lidoderm patch --OXycodone 5mg PRN pain 7-10 breakthrough 3) Urinary Retention --Urology on board --Maintain chino currently --Will trial off catheter once infection resolved --Will need Cystoscopy and possible TURP on outpatient basis once UTI/ infection resolved 4) CALE on CKD --2/2 to retention --Resolved --Back at baseline 1.2 5) Lactic Acidosis --Resolved 6) Renal Cysts --Incidentally found on CT scan of abdomen --Most likely benign, however would recommend outpt f/u FEN: Fluids: Discontinue fluids; euvolemic and tolerating PO Electrolyte abnormalities: Hypokalemia, hypoMg, hypoPhos (repleted with MagOx 800mg x1, KDur 40 x1, and Na-K Phos packet x1) Nutrition: Sodium controlled PPX: DVT - Heparin SQ Dispo: Continue M/S Case discussed with Dr. Case Herrera, DO - IM PGY-1 Visit type - Emergency Visit Emergency Visit: No - New Patient This patient is new to me today: No - Critical Care Critical Care patient: No
[2017-09-11] MEDS: GABAPENTIN 300 MG CAPSULE (FP) PO SCH ×2 (15:32→23:08)
--- NOTE | 2017-09-11 15:57 | PN ---
Teaching Attending Note Name of Resident: Beau Herrera ATTENDING PHYSICIAN STATEMENT I saw and evaluated the patient. I reviewed the resident's note and discussed the case with the resident. I agree with the resident's findings and plan as documented. SUBJECTIVE: Patient is feeling better, had fever earlier. OBJECTIVE: Vital Signs Temperature 99.8 F H 09/11/17 13:20 Pulse Rate 64 09/11/17 13:20 Respiratory Rate 18 09/11/17 13:20 Blood Pressure 157/81 09/11/17 13:20 O2 Sat by Pulse Oximetry (%) 95 09/11/17 09:00 CBCD WBC 11.6 K/mm3 (4.0-10.0) H 09/11/17 06:00 RBC 4.52 M/mm3 (4.00-5.60) 09/11/17 06:00 Hgb 14.4 GM/dL (11.7-16.9) 09/11/17 06:00 Hct 42.2 % (35.4-49) 09/11/17 06:00 MCV 93.5 fl (80-96) 09/11/17 06:00 MCHC 34.0 g/dl (32.0-35.9) 09/11/17 06:00 RDW 15.2 % (11.9-15.9) 09/11/17 06:00 Plt Count 214 K/MM3 (134-434) 09/11/17 06:00 MPV 9.1 fl (7.5-11.1) 09/11/17 06:00 CMP Sodium 142 mmol/L (136-145) 09/11/17 06:00 Potassium 3.4 mmol/L (3.5-5.1) L 09/11/17 06:00 Chloride 107 mmol/L (98-107) 09/11/17 06:00 Carbon Dioxide 28 mmol/L (21-32) 09/11/17 06:00 Anion Gap 7 (8-16) L 09/11/17 06:00 BUN 16 mg/dL (7-18) 09/11/17 06:00 Creatinine 1.2 mg/dL (0.7-1.3) 09/11/17 06:00 Creat Clearance w eGFR 57.01 (>60) 09/11/17 06:00 Random Glucose 102 mg/dL (74-106) 09/11/17 06:00 Calcium 8.2 mg/dL (8.5-10.1) L 09/11/17 06:00 Total Bilirubin 0.8 mg/dL (0.2-1.0) 09/09/17 06:00 AST 36 U/L (15-37) 09/09/17 06:00 ALT 26 U/L (12-78) 09/09/17 06:00 Alkaline Phosphatase 60 U/L (45-117) D 09/09/17 06:00 Total Protein 5.7 g/dl (6.4-8.2) L 09/09/17 06:00 Albumin 2.5 g/dl (3.4-5.0) L 09/09/17 06:00 CARDIAC ENZYMES Troponin I < 0.02 ng/ml (0.00-0.05) 09/06/17 17:20 Current Medications Generic Name Dose Route Start Last Admin Trade Name Freq PRN Reason Stop Dose Admin Acetaminophen 650 mg 09/07/17 03:52 09/11/17 01:36 Tylenol - PO 650 mg Q6H PRN Administration FEVER Amlodipine Besylate 5 mg 09/10/17 11:04 09/11/17 11:08 Norvasc - PO 5 mg DAILY [facility] Administration Docusate Sodium 100 mg 09/08/17 14:00 09/11/17 15:32 Colace - PO 100 mg TID [facility] Administration Fenofibric Acid 135 mg 09/07/17 10:00 09/11/17 11:15 Trilipix - PO 135 mg DAILY [facility] Administration Gabapentin 300 mg 09/11/17 15:15 09/11/17 15:32 Neurontin - PO 300 mg TID [facility] Administration Heparin Sodium (Porcine) 5,000 unit 09/07/17 06:00 09/11/17 15:32 Heparin - SQ 5,000 unit TID [facility] Administration Vancomycin HCl 1 gm in 200 mls @ 166.667 mls/hr 09/11/17 12:00 Vancomycin 1 Gm Premix - IVPB BID@0000,1200 [facility] Protocol Isosorbide Mononitrate 60 mg 09/07/17 10:00 09/11/17 11:08 Imdur - PO 60 mg DAILY [facility] Administration Lidocaine 1 patch 09/07/17 16:15 09/11/17 11:18 Lidoderm Patch - TP 1 patch DAILY [facility] Administration Metoprolol Tartrate 100 mg 09/07/17 10:00 09/11/17 11:07 Lopressor - PO 100 mg DAILY [facility] Administration Miscellaneous 1 each 09/07/17 22:00 09/10/17 23:02 Lidoderm Patch Removal MC 1 each DAILY@2200 [facility] Administration Oxycodone HCl 5 mg 09/11/17 15:19 09/11/17 15:32 Roxicodone - PO 5 mg Q6H PRN Administration Pain 6-10 Rosuvastatin Calcium 10 mg 09/07/17 10:00 09/11/17 11:08 Crestor - PO 10 mg DAILY [facility] Administration Senna 2 tab 09/07/17 22:00 09/10/17 22:56 Senna - PO 2 tab HS [facility] Administration Home Medications Medication Instructions Recorded Fenofibrate 150 mg PO DAILY 03/29/17 Isosorbide Mononitrate [Isosorbide 60 mg PO DAILY 03/29/17 Mononitrate ER] Metoprolol Tartrate 100 mg PO DAILY 03/29/17 Rosuvastatin [Crestor -] 10 mg PO DAILY 03/29/17 Microbiology 09/09/17 17:45 Blood - Peripheral Venous Blood Culture - Preliminary Group D Strep Or Entero Coccus 09/09/17 17:35 Blood - Peripheral Venous Blood Culture - Preliminary Group D Strep Or Entero Coccus 09/10/17 10:55 Urine - Urine Chino Urine Culture - Final NO GROWTH OBTAINED 09/10/17 00:10 Urine - Urine Clean Catch Urine Culture - Final NO GROWTH OBTAINED 09/06/17 17:10 Blood - Peripheral Venous Blood Culture - Preliminary NO GROWTH OBTAINED AFTER 96 HOURS, INCUBATION TO CONTINUE FOR 1 DAYS. 09/06/17 17:20 Blood - Peripheral Venous Blood Culture - Preliminary NO GROWTH OBTAINED AFTER 96 HOURS, INCUBATION TO CONTINUE FOR 1 DAYS. ASSESSMENT AND PLAN: Patient is a 87yo Syri[place] Male who presented with fevers, chills, and lethargy and was found to have Pylonephritis/UTI. # Enterococcal bacteremia/ sepsis secondary to UTI ; Patient was given Ampicillin developed swelling of the tongue without any compromise, stopped ampicillin and started on Vancomycin , echo ordered follow the result # Acute Leukocytosis due to acute pylonephritis improving 25K-->16K on IV antibiotic 2gm Rocephin continue # Acute UTI/ pyelonephritis , Skinner culture started on Rocephin 2gm IV, Panculture was ordered. # Acute L Hip Pain/ trochanteric bursitis ; consult appreciated, added Gabapentin # Acute Constipation on Senna/Lactulose and glycerin supp. # CALE on CKD continue chino, since patient is retaining Urine improving # Incidental finding of Renal Cysts on CT abdomen outpt f/u # Distended GB incidentally found on CT scan, LFTs WNL DVT Px: Heparin SQ
[2017-09-11] MEDS: VANCOMYCIN 1 GM PREMIX - 1 GM/200 ML BAG IVPB SCH (16:26)
--- NOTE | 2017-09-11 21:29 | PN ---
Physical Exam: SUBJECTIVE: Patient seen and examined OBJECTIVE: Vital Signs Period Temp Pulse Resp BP Sys/Balderas Pulse Ox Last 24 Hr 98.8 F-103 F 64-83 18-20 146-176/74-88 95 GENERAL: The patient is awake, alert, and fully oriented, in no acute distress. HEAD: Normal with no signs of trauma. EYES: PERRL, extraocular movements intact, sclera anicteric, conjunctiva clear. No ptosis. ENT: Ears normal, nares patent, oropharynx clear without exudates, moist mucous membranes. NECK: Trachea midline, full range of motion, supple. LUNGS: Breath sounds equal, clear to auscultation bilaterally, no wheezes, no crackles, no accessory muscle use. HEART: Regular rate and rhythm, S1, S2 without murmur, rub or gallop. ABDOMEN: Soft, nontender, nondistended, normoactive bowel sounds, no guarding, no rebound, no hepatosplenomegaly, no masses. EXTREMITIES: 2+ pulses, warm, well-perfused, no edema. NEUROLOGICAL: Cranial nerves II through XII grossly intact. Normal speech, gait not observed. PSYCH: Normal mood, normal affect. SKIN: Warm, dry, normal turgor, no rashes or lesions noted Laboratory Results - last 24 hr WBC 20.4 K/mm3 (4.0-10.0) H 09/08/17 06:40 RBC 5.10 M/mm3 (4.00-5.60) 09/08/17 06:40 Hgb 16.3 GM/dL (11.7-16.9) 09/08/17 06:40 Hct 48.2 % (35.4-49) 09/08/17 06:40 MCV 94.5 fl (80-96) 09/08/17 06:40 MCHC 33.7 g/dl (32.0-35.9) 09/08/17 06:40 RDW 15.5 % (11.9-15.9) 09/08/17 06:40 Plt Count 156 K/MM3 (134-434) 09/08/17 06:40 MPV 10.3 fl (7.5-11.1) 09/08/17 06:40 CMP Sodium 139 mmol/L (136-145) 09/08/17 06:30 Potassium 3.8 mmol/L (3.5-5.1) 09/08/17 06:30 Chloride 105 mmol/L (98-107) 09/08/17 06:30 Carbon Dioxide 24 mmol/L (21-32) 09/08/17 06:30 Anion Gap 10 (8-16) 09/08/17 06:30 BUN 16 mg/dL (7-18) 09/08/17 06:30 Creatinine 1.5 mg/dL (0.7-1.3) H 09/08/17 06:30 Creat Clearance w eGFR 44.07 (>60) 09/08/17 06:30 Random Glucose 108 mg/dL (74-106) H 09/08/17 06:30 Calcium 8.5 mg/dL (8.5-10.1) 09/08/17 06:30 Total Bilirubin 1.1 mg/dL (0.2-1.0) H 09/08/17 06:30 AST 33 U/L (15-37) 09/08/17 06:30 ALT 25 U/L (12-78) 09/08/17 06:30 Alkaline Phosphatase 50 U/L (45-117) 09/08/17 06:30 Total Protein 6.2 g/dl (6.4-8.2) L 09/08/17 06:30 Albumin 3.0 g/dl (3.4-5.0) L 09/08/17 06:30 CARDIAC ENZYMES Troponin I < 0.02 ng/ml (0.00-0.05) 09/06/17 17:20 ASSESSMENT/PLAN: 1) UTI/Pyelonephritis: --WBC 20,400 (downtrending) --Continues to spike fevers --Infectious symptology however NO PNEUMONIA --> Please see CT scan --UCx with pending organism --BCx negative 24hrs --Could be due to recent procedure vs. pyelonephritis w/o urethritis and cystitis? --Continue Rocephin 2gm IVPB qDaily --D/C Zithromax --ID consulted 2) Lactic Acidosis --Downtrending --No need to trend further 3) L Hip Pain --Most likely osteoarthritis --Discussed with Dr. Fox who upon his examination pt's pain was posteriorly radiating like a sciatica picture --Possible trial of Gabapentin TID --Lidoderm patch --Oxy 5mg for pain 4-6 --Oxycodone 10mg for pain 7-10 4) Constipation --Senna increased to 2tabs HS --Lactulose 20gm TID --Glycerin suppository ordered again --Possible enema if no efficacy on this regiment 5) CALE on CKD --2/2 to retention possibly from recent procedure --Monitor Cr --Continue chino mgmt --Urology consulted 6) Renal Cysts --Incidentally found on CT scan of abdomen --Most likely benign, however would recommend outpt f/u 7) Distended GB --Incidentally found on CT scan --No cholelithiasis --No evidence of cholecystitis seen --Liver enzymes WNL FEN: Fluids: NS to 100cc/hr Electrolyte abnormalities: None currently Nutrition: PPX: DVT - Heparin SQ Dispo: continue monitoring Case discussed with Dr. Case Herrera, DO - IM PGY-1 Visit type - Emergency Visit Emergency Visit: No - New Patient This patient is new to me today: No - Critical Care Critical Care patient: No
[2017-09-11] MEDS: LIDOCAINE PATCH REMOVAL MC SCH (23:09)
[2017-09-11] MEDS: SENNOSIDES 8.6MG TABLET (FP) PO SCH (23:09)
[2017-09-12] MEDS: VANCOMYCIN 1 GM PREMIX - 1 GM/200 ML BAG IVPB SCH ×3 (01:05→16:08)
[2017-09-12] MEDS: ACETAMINOPHEN 325 MG TABLET (FP) PO PRN ×2 (01:22→13:31)
[2017-09-12] MEDS: HEPARIN NA (PORCINE) 5,000 UNITS/ML 1ML VIAL SQ SCH ×3 (05:58→21:23)
[2017-09-12] MEDS: DOCUSATE SODIUM 100 MG CAPSULE (FP) PO SCH ×3 (05:58→21:24)
[2017-09-12] MEDS: GABAPENTIN 300 MG CAPSULE (FP) PO SCH ×3 (05:59→21:24)
[2017-09-12 07:44] LABS: HEMATOCRIT 43.1 % (35.4-49); MCH 32.4 pg (25.7-33.7); MCHC 34.7 g/dl (32.0-35.9); MEAN CELL VOLUME 93.4 fl (80-96); MEAN PLT VOLUME 8.9 fl (7.5-11.1); PLATELET COUNT 249 K/MM3 (134-434); RBC 4.62 M/mm3 (4.00-5.60); RDW 15.4 % (11.9-15.9); WHITE BLOOD COUNT 12.7 K/mm3 (4.0-10.0)
[2017-09-12] MEDS: oxyCODONE HCL 5 MG TABLET PO PRN ×2 (08:03→18:20)
[2017-09-12 08:05] LABS: ANION GAP 5 (8-16); BLOOD UREA NITROGEN 21 mg/dL (7-18); CALCIUM 8.7 mg/dL (8.5-10.1); CHLORIDE 105 mmol/L (98-107); CO2 31 mmol/L (21-32); CREATININE 1.3 mg/dL (0.7-1.3); GLUCOSE,RANDOM 106 mg/dL (74-106); MAGNESIUM 1.9 mg/dL (1.8-2.4); PHOSPHOROUS 1.6 mg/dL (2.5-4.9); POTASSIUM 4.3 mmol/L (3.5-5.1); SODIUM 141 mmol/L (136-145)
[2017-09-12] MEDS: ISOSORBIDE MONONITRATE 60 MG TAB.SR.24H (FP) PO SCH (09:27)
[2017-09-12] MEDS: ROSUVASTATIN CA 10 MG TABLET (FP) PO SCH (09:28)
[2017-09-12] MEDS: amLODIPine BESYLATE 5 MG TABLET (FP) PO SCH (09:29)
[2017-09-12] MEDS: METOPROLOL TARTRATE 50 MG TABLET (FP) PO SCH (09:29)
[2017-09-12] MEDS: LIDOCAINE 5% TOPICAL PATCH TP SCH (09:29)
[2017-09-12] MEDS: NAPH,MB-DB/K PH,MBDB POWDER PACKET PO SCH ×2 (09:29→21:23)
[2017-09-12] MEDS: FENOFIBRIC ACID 135 MG CAP PO SCH (09:30)
--- NOTE | 2017-09-12 20:25 | PN ---
Teaching Attending Note Name of Resident: Beau Herrera ATTENDING PHYSICIAN STATEMENT I saw and evaluated the patient. I reviewed the resident's note and discussed the case with the resident. I agree with the resident's findings and plan as documented. SUBJECTIVE: Patient keeps having fever, continues to c/o having left hip pain. OBJECTIVE: Vital Signs Temperature 99.7 F H 09/12/17 17:35 Pulse Rate 69 09/12/17 17:35 Respiratory Rate 18 09/12/17 17:35 Blood Pressure 128/64 09/12/17 17:35 O2 Sat by Pulse Oximetry (%) 95 09/12/17 09:00 CBCD WBC 12.7 K/mm3 (4.0-10.0) H 09/12/17 06:00 RBC 4.62 M/mm3 (4.00-5.60) 09/12/17 06:00 Hgb 15.0 GM/dL (11.7-16.9) 09/12/17 06:00 Hct 43.1 % (35.4-49) 09/12/17 06:00 MCV 93.4 fl (80-96) 09/12/17 06:00 MCHC 34.7 g/dl (32.0-35.9) 09/12/17 06:00 RDW 15.4 % (11.9-15.9) 09/12/17 06:00 Plt Count 249 K/MM3 (134-434) 09/12/17 06:00 MPV 8.9 fl (7.5-11.1) 09/12/17 06:00 CMP Sodium 141 mmol/L (136-145) 09/12/17 06:00 Potassium 4.3 mmol/L (3.5-5.1) D 09/12/17 06:00 Chloride 105 mmol/L (98-107) 09/12/17 06:00 Carbon Dioxide 31 mmol/L (21-32) 09/12/17 06:00 Anion Gap 5 (8-16) L 09/12/17 06:00 BUN 21 mg/dL (7-18) H 09/12/17 06:00 Creatinine 1.3 mg/dL (0.7-1.3) 09/12/17 06:00 Creat Clearance w eGFR 51.98 (>60) 09/12/17 06:00 Random Glucose 106 mg/dL (74-106) 09/12/17 06:00 Calcium 8.7 mg/dL (8.5-10.1) 09/12/17 06:00 Total Bilirubin 0.8 mg/dL (0.2-1.0) 09/09/17 06:00 AST 36 U/L (15-37) 09/09/17 06:00 ALT 26 U/L (12-78) 09/09/17 06:00 Alkaline Phosphatase 60 U/L (45-117) D 09/09/17 06:00 Total Protein 5.7 g/dl (6.4-8.2) L 09/09/17 06:00 Albumin 2.5 g/dl (3.4-5.0) L 09/09/17 06:00 CARDIAC ENZYMES Troponin I < 0.02 ng/ml (0.00-0.05) 09/06/17 17:20 Current Medications Generic Name Dose Route Start Last Admin Trade Name Freq PRN Reason Stop Dose Admin Acetaminophen 650 mg 09/07/17 03:52 09/12/17 13:31 Tylenol - PO 650 mg Q6H PRN Administration FEVER Amlodipine Besylate 5 mg 09/10/17 11:04 09/12/17 09:29 Norvasc - PO 5 mg DAILY [facility] Administration Docusate Sodium 100 mg 09/08/17 14:00 09/12/17 13:26 Colace - PO 100 mg TID [facility] Administration Fenofibric Acid 135 mg 09/07/17 10:00 09/12/17 09:30 Trilipix - PO 135 mg DAILY [facility] Administration Gabapentin 300 mg 09/11/17 15:15 09/12/17 13:27 Neurontin - PO 300 mg TID [facility] Administration Heparin Sodium (Porcine) 5,000 unit 09/07/17 06:00 09/12/17 13:26 Heparin - SQ 5,000 unit TID [facility] Administration Vancomycin HCl 1 gm in 200 mls @ 166.667 mls/hr 09/12/17 04:30 09/12/17 16:08 Vancomycin 1 Gm Premix - IVPB 166.667 mls/hr BID@0430,1630 [facility] Administration Protocol Isosorbide Mononitrate 60 mg 09/07/17 10:00 09/12/17 09:27 Imdur - PO 60 mg DAILY [facility] Administration Lidocaine 1 patch 09/07/17 16:15 09/12/17 09:29 Lidoderm Patch - TP 1 patch DAILY [facility] Administration Metoprolol Tartrate 100 mg 09/07/17 10:00 09/12/17 09:29 Lopressor - PO 100 mg DAILY [facility] Administration Miscellaneous 1 each 09/07/17 22:00 09/11/17 23:09 Lidoderm Patch Removal MC 1 each DAILY@2200 [facility] Administration Oxycodone HCl 5 mg 09/11/17 15:19 09/12/17 18:20 Roxicodone - PO 5 mg Q6H PRN Administration Pain 6-10 Potassium Phos/Sodium Phos 1 packet 09/12/17 10:00 09/12/17 09:29 Phos-Nak Packet - PO 09/12/17 22:01 1 packet BID [facility] Administration Rosuvastatin Calcium 10 mg 09/07/17 10:00 09/12/17 09:28 Crestor - PO 10 mg DAILY [facility] Administration Senna 2 tab 09/07/17 22:00 09/11/17 23:09 Senna - PO 2 tab HS [facility] Administration Home Medications Medication Instructions Recorded Fenofibrate 150 mg PO DAILY 03/29/17 Isosorbide Mononitrate [Isosorbide 60 mg PO DAILY 03/29/17 Mononitrate ER] Metoprolol Tartrate 100 mg PO DAILY 03/29/17 Rosuvastatin [Crestor -] 10 mg PO DAILY 03/29/17 Microbiology 09/09/17 17:45 Blood - Peripheral Venous Blood Culture - Final Group D Strep Or Entero Coccus 09/11/17 11:26 Blood - Peripheral Venous Blood Culture - Preliminary Pending Organism 09/11/17 10:30 Blood - Peripheral Venous Blood Culture - Preliminary Pending Organism 09/09/17 17:35 Blood - Peripheral Venous Blood Culture - Final Enterococcus Faecalis 09/06/17 17:10 Blood - Peripheral Venous Blood Culture - Final NO GROWTH AFTER 5 DAYS INCUBATION 09/06/17 17:20 Blood - Peripheral Venous Blood Culture - Final NO GROWTH AFTER 5 DAYS INCUBATION 09/10/17 10:55 Urine - Urine [place] Urine Culture - Final NO GROWTH OBTAINED 09/10/17 00:10 Urine - Urine Clean Catch Urine Culture - Final NO GROWTH OBTAINED 09/06/17 18:51 Urine - Urine Clean Catch Urine Culture - Final Enterococcus Faecalis 09/07/17 15:00 Urine For Antigen Detection Legionella Antigen - Final 09/07/17 15:00 Urine For Antigen Detection Streptococcus pneumoniae Antigen (M - Final PE: per chiarant's note ASSESSMENT AND PLAN: Patient is a 87yo [place] Male who presented with fevers, chills, and lethargy and was found to have Pylonephritis/UTI. # Enterococcal bacteremia/ sepsis secondary to UTI ; Patient was given Ampicillin developed swelling of the tongue without any compromise, stopped ampicillin and started on Vancomycin , echo ordered follow the result. ID on the case # Acute Leukocytosis due to acute pylonephritis improving 25K-->16K -->12.7K today on IV antibiotic continue # Acute UTI/ pyelonephritis , s/p Rocephin 2gm IV, Panculture was ordered ; with Enterococcus Faecalis urine sensitive to IV Vanco. # Acute L Hip Pain/ trochanteric bursitis ; consult appreciated, added Gabapentin, reconsult if needed # Acute Constipation on Senna/Lactulose and glycerin supp. # CALE on CKD continue chino, since patient is retaining Urine improving # Incidental finding of Renal Cysts on CT abdomen outpt f/u # Distended GB incidentally found on CT scan, LFTs WNL DVT Px: Heparin SQ
[2017-09-12] MEDS: SENNOSIDES 8.6MG TABLET (FP) PO SCH (21:24)
[2017-09-12] MEDS: LIDOCAINE PATCH REMOVAL MC SCH (21:24)
--- NOTE | 2017-09-12 22:18 | PN ---
Physical Exam: SUBJECTIVE: Pt continues to have fevers overnight with good response to tylenol. Pt remains with same chronic pain without any change noted. No other complaints OBJECTIVE: Vital Signs Period Temp Pulse Resp BP Sys/Balderas Pulse Ox Last 24 Hr 98.6 F-102.1 F 65-74 18-20 125-168/56-77 95 GENERAL: NAD, awake, alert, and fully oriented, laying on back HEENT: NC/AT, RICCO, sclera anicteric, moist-mucosa, NECK: No JVD, no lymphadenopathy LUNGS: CTA b/l. No overt rhonchi appreciated. No accessory muscle use. 97% RA HEART: RRR, S1, S2 without murmur ABDOMEN: Soft, obese, nontender, nondistended, normoactive bowel sounds, no guarding, no suprapubic tenderness BACK: No CVA tenderness EXTREMITIES: 2+ DP pulses, warm, well-perfused, no edema. Knees symmetrical in size, w/o erythema, no TTP, L knee scar noted MSK: L posteriorly radiating leg pain with passive and active movement. L ankle with more ROM compared to yesterday. R leg mobile w/o pain PSYCH: Normal mood, normal affect. SKIN: Warm, dry, no rashes or lesions noted Laboratory Results - last 24 hr 09/12/17 09/12/17 06:00 06:00 WBC 12.7 H RBC 4.62 Hgb 15.0 Hct 43.1 MCV 93.4 MCH 32.4 MCHC 34.7 RDW 15.4 Plt Count 249 MPV 8.9 Sodium 141 Potassium 4.3 D Chloride 105 Carbon Dioxide 31 Anion Gap 5 L BUN 21 H Creatinine 1.3 Creat Clearance w eGFR 51.98 Random Glucose 106 Calcium 8.7 Phosphorus 1.6 L Magnesium 1.9 Active Medications Generic Name Dose Route Start Last Admin Trade Name Freq PRN Reason Stop Dose Admin Acetaminophen 650 mg 09/07/17 03:52 09/12/17 13:31 Tylenol - PO 650 mg Q6H PRN Administration FEVER Amlodipine Besylate 5 mg 09/10/17 11:04 09/12/17 09:29 Norvasc - PO 5 mg DAILY [facility] Administration Docusate Sodium 100 mg 09/08/17 14:00 09/12/17 21:24 Colace - PO 100 mg TID [facility] Administration Fenofibric Acid 135 mg 09/07/17 10:00 09/12/17 09:30 Trilipix - PO 135 mg DAILY [facility] Administration Gabapentin 300 mg 09/11/17 15:15 09/12/17 21:24 Neurontin - PO 300 mg TID [facility] Administration Heparin Sodium (Porcine) 5,000 unit 09/07/17 06:00 09/12/17 21:23 Heparin - SQ 5,000 unit TID [facility] Administration Vancomycin HCl 1 gm in 200 mls @ 166.667 mls/hr 09/12/17 04:30 09/12/17 16:08 Vancomycin 1 Gm Premix - IVPB 166.667 mls/hr BID@0430,1630 [facility] Administration Protocol Isosorbide Mononitrate 60 mg 09/07/17 10:00 09/12/17 09:27 Imdur - PO 60 mg DAILY [facility] Administration Lidocaine 1 patch 09/07/17 16:15 09/12/17 09:29 Lidoderm Patch - TP 1 patch DAILY [facility] Administration Metoprolol Tartrate 100 mg 09/07/17 10:00 09/12/17 09:29 Lopressor - PO 100 mg DAILY [facility] Administration Miscellaneous 1 each 09/07/17 22:00 09/12/17 21:24 Lidoderm Patch Removal MC 1 each DAILY@2200 [facility] Administration Oxycodone HCl 5 mg 09/11/17 15:19 09/12/17 18:20 Roxicodone - PO 5 mg Q6H PRN Administration Pain 6-10 Rosuvastatin Calcium 10 mg 09/07/17 10:00 09/12/17 09:28 Crestor - PO 10 mg DAILY [facility] Administration Senna 2 tab 09/07/17 22:00 09/12/17 21:24 Senna - PO 2 tab HS [facility] Administration ASSESSMENT/PLAN: 1)Sepsis 2/2 to G+ bacteremia: --Most recent set of Blood cultures growing G+ cocci in chains --Will reculture tomorrow and discuss with ID about new antibiotic tactics --ID on board --Continue Vancomycin --Vanc trough before 4th dose --Echocardiogram revealing no significant thickening or vegetations of valves ; Mild MR --Continue chino --F/u Urine cultures --Concern over L knee replacement; educated pt on warning signs with prosthesis infection 2) L Hip Pain --Continue Gabapentin 300mg TID\ --Continue Lidoderm patch --OXycodone 5mg PRN pain 7-10 breakthrough 3) Urinary Retention --Urology on board --Maintain chino currently --Will trial off catheter once infection resolved --Will need Cystoscopy and possible TURP on outpatient basis once UTI/ infection resolved 4) CALE on CKD --2/2 to retention --Resolved --Back at baseline 5) Lactic Acidosis --Resolved 6) Renal Cysts --Incidentally found on CT scan of abdomen --Most likely benign, however would recommend outpt f/u FEN: Fluids: None indicated; euvolemic and tolerating PO Electrolyte abnormalities: Hypophos (replete Na-K Phos packet) Nutrition: Sodium controlled PPX: DVT - Heparin SQ Dispo: Continue M/S Case discussed with Dr. Case Herrera, DO - IM PGY-1 Visit type - Emergency Visit Emergency Visit: No - New Patient This patient is new to me today: No - Critical Care Critical Care patient: No
[2017-09-13] MEDS: VANCOMYCIN 1 GM PREMIX - 1 GM/200 ML BAG IVPB SCH (05:01)
[2017-09-13] MEDS: DOCUSATE SODIUM 100 MG CAPSULE (FP) PO SCH ×3 (06:47→23:52)
[2017-09-13] MEDS: GABAPENTIN 300 MG CAPSULE (FP) PO SCH ×3 (06:47→23:52)
[2017-09-13] MEDS: HEPARIN NA (PORCINE) 5,000 UNITS/ML 1ML VIAL SQ SCH ×3 (06:47→23:52)
[2017-09-13 07:17] LABS: HEMATOCRIT 41.5 % (35.4-49); HEMOGLOBIN 14.2 GM/dL (11.7-16.9); MCH 31.5 pg (25.7-33.7); MCHC 34.2 g/dl (32.0-35.9); MEAN CELL VOLUME 91.9 fl (80-96); MEAN PLT VOLUME 8.9 fl (7.5-11.1); PLATELET COUNT 284 K/MM3 (134-434); RBC 4.52 M/mm3 (4.00-5.60); RDW 15.3 % (11.9-15.9); WHITE BLOOD COUNT 14.5 K/mm3 (4.0-10.0)
[2017-09-13 08:06] LABS: CHLORIDE 101 mmol/L (98-107); POTASSIUM 3.7 mmol/L (3.5-5.1); SODIUM 139 mmol/L (136-145)
[2017-09-13 08:22] LABS: ANION GAP 10 (8-16); BLOOD UREA NITROGEN 20 mg/dL (7-18); CALCIUM 8.3 mg/dL (8.5-10.1); CO2 28 mmol/L (21-32); GLUCOSE,RANDOM 121 mg/dL (74-106); MAGNESIUM 1.8 mg/dL (1.8-2.4)
[2017-09-13] MEDS: ACETAMINOPHEN 325 MG TABLET (FP) PO PRN ×2 (09:16→16:46)
[2017-09-13] MEDS: ROSUVASTATIN CA 10 MG TABLET (FP) PO SCH (09:17)
[2017-09-13] MEDS: LIDOCAINE 5% TOPICAL PATCH TP SCH (09:17)
[2017-09-13] MEDS: ISOSORBIDE MONONITRATE 60 MG TAB.SR.24H (FP) PO SCH (09:17)
[2017-09-13] MEDS: METOPROLOL TARTRATE 50 MG TABLET (FP) PO SCH (09:17)
[2017-09-13] MEDS: amLODIPine BESYLATE 5 MG TABLET (FP) PO SCH (09:17)
[2017-09-13] MEDS: FENOFIBRIC ACID 135 MG CAP PO SCH (09:19)
[2017-09-13] MEDS: oxyCODONE HCL 5 MG TABLET PO PRN (11:31)
--- NOTE | 2017-09-13 11:44 | PN ---
Progress Note, Physician History of Present Illness: Complains of L groin and LE pain Remains febrile Repeat BC (09/11) + TTE no vegetations - Current Medication List Current Medications: Active Medications Acetaminophen (Tylenol -) 650 mg PO Q6H PRN PRN Reason: FEVER Last Admin: 09/13/17 09:16 Dose: 650 mg Amlodipine Besylate (Norvasc -) 5 mg PO DAILY [facility] Last Admin: 09/13/17 09:17 Dose: 5 mg Docusate Sodium (Colace -) 100 mg PO TID [facility] Last Admin: 09/13/17 06:47 Dose: 100 mg Fenofibric Acid (Trilipix -) 135 mg PO DAILY [facility] Last Admin: 09/13/17 09:19 Dose: 135 mg Gabapentin (Neurontin -) 300 mg PO TID [facility] Last Admin: 09/13/17 06:47 Dose: 300 mg Heparin Sodium (Porcine) (Heparin -) 5,000 unit SQ TID [facility] Last Admin: 09/13/17 06:47 Dose: 5,000 unit Vancomycin HCl (Vancomycin 1 Gm Premix -) 1 gm in 200 mls @ 166.667 mls/hr IVPB BID@0430,1630 [facility]; Protocol Last Admin: 09/13/17 05:01 Dose: 166.667 mls/hr Isosorbide Mononitrate (Imdur -) 60 mg PO DAILY [facility] Last Admin: 09/13/17 09:17 Dose: 60 mg Lidocaine (Lidoderm Patch -) 1 patch TP DAILY [facility] Last Admin: 09/13/17 09:17 Dose: 1 patch Metoprolol Tartrate (Lopressor -) 100 mg PO DAILY [facility] Last Admin: 09/13/17 09:17 Dose: 100 mg Miscellaneous (Lidoderm Patch Removal) 1 each MC DAILY@2200 [facility] Last Admin: 09/12/17 21:24 Dose: 1 each Oxycodone HCl (Roxicodone -) 5 mg PO Q6H PRN PRN Reason: Pain 6-10 Last Admin: 09/13/17 11:31 Dose: 5 mg Rosuvastatin Calcium (Crestor -) 10 mg PO DAILY [facility] Last Admin: 09/13/17 09:17 Dose: 10 mg Senna (Senna -) 2 tab PO HS [facility] Last Admin: 09/12/17 21:24 Dose: 2 tab - Objective Vital Signs: Vital Signs Temperature 102 F H 09/13/17 09:00 Pulse Rate 76 09/13/17 09:00 Respiratory Rate 20 09/13/17 09:00 Blood Pressure 140/71 09/13/17 09:00 O2 Sat by Pulse Oximetry (%) 94 L 09/13/17 09:00 Constitutional: Yes: No Distress Eyes: Yes: Conjunctiva Clear Cardiovascular: Yes: Regular Rate and Rhythm, S1, S2 Respiratory: Yes: CTA Bilaterally Gastrointestinal: Yes: Normal Bowel Sounds, Soft, Abdomen, Obese. No: Tenderness Edema: Yes Labs: CBC, BMP 09/13/17 06:30 09/13/17 06:30 INR, PTT INR 1.09 (0.82-1.09) 09/06/17 17:20 Assessment/Plan Enterococcal bacteremia/ sepsis secondary to UTI Persistant bacteremia ? endocarditis ? L hip septic arthritis ? psoas abscess Major PCN allergy Repeat BC Switch to Daptomycin Re-image L lower abdo/ LE ?MRI ( s/p TKR ) Cardiology consult for DUSTIN
[2017-09-13] MEDS: DAPTOMYCIN 750 MG in SODIUM CHLORIDE 100 ML IVPB SCH (14:35)
--- NOTE | 2017-09-13 14:57 | CON.CARD ---
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 Also severe left hip pain. No chest pain, sob, diaph, orthopnea, pnd or edema. He has been found with persistent enterococcus bacteremia. On Abx. TTE 09/12/17 nlef calcified Aortic valve trace to mild AI, trace MR/TR no veg. - Past Medical History Cardio/Vascular: Yes: CAD, HTN, Hyperlipdemia Renal/: Yes: Renal Inusuff (Stage 3), BPH Musculoskeletal: Yes: Osteoarthritis Rheumatology: Yes: Gout - Past Surgical History Past Surgical History: Yes: CABG - Alcohol/Substance Use Hx Alcohol Use: No History of Substance Use: reports: None - Smoking History Smoking history: Never smoked Have you smoked in the past 12 months: No - Social History ADL: Independent History of Recent Travel: No Home Medications - Allergies Allergies/Adverse Reactions: Allergies Allergy/AdvReac Type Severity Reaction Status Date / Time Penicillins AdvReac Intermediate Swelling Verified 09/11/17 09:29 - Home Medications Home Medications: Ambulatory Orders Fenofibrate 150 mg PO DAILY 03/29/17 Isosorbide Mononitrate [Isosorbide Mononitrate ER] 60 mg PO DAILY 03/29/17 Metoprolol Tartrate 100 mg PO DAILY 03/29/17 Rosuvastatin [Crestor -] 10 mg PO DAILY 03/29/17 Vital Signs: Vital Signs Temperature 99 F 09/13/17 13:40 Pulse Rate 56 L 09/13/17 13:40 Respiratory Rate 20 09/13/17 13:40 Blood Pressure 115/59 09/13/17 13:40 O2 Sat by Pulse Oximetry (%) 94 L 09/13/17 09:00 Constitutional: Yes: No Distress, Calm Eyes: Yes: Conjunctiva Clear, EOM Intact HENT: Yes: Normocephalic Neck: Yes: Supple, Trachea Midline Respiratory: Yes: Regular, CTA Bilaterally Gastrointestinal: Yes: Normal Bowel Sounds, Soft Cardiovascular: Yes: Regular Rate and Rhythm JVD: No Carotid Bruit: No PMI: Non-Displaced Heart Sounds: Yes: S1, S2 Edema: No Peripheral Pulses WNL: Yes - Other Data Labs, Other Data: CBC, BMP 09/13/17 06:30 09/13/17 06:30 INR, PTT INR 1.09 (0.82-1.09) 09/06/17 17:20 Imaging - Results Chest X-ray: Report Reviewed (neal) EKG: Report Reviewed (normal ecg) Problem List - Problems (1) Bacteremia due to Enterococcus Assessment/Plan: I have reviewed the echo and have a low suspicion for endocarditis.However, the sensitivity of TTE is lower than DUSTIN but would not pursue DUSTIN at this time as given the mild valvular abnormalities that were seen it would not bladder changer. He will likely require a prolonged antibiotics course. would continue aggressive abx and ID workup (HIP, psoas and ). He is a poor candidate for valve intervention due to age and comorbidity. Please call us if the clinical situation changes. Code(s): R78.81 - BACTEREMIA; B95.2 - ENTEROCOCCUS THE CAUSE OF DISEASES CLASSIFIED ELSEWHERE
[2017-09-13] MEDS: POLYETHYLENE GLYCOL 3350 119 GM BTL PO SCH (17:33)
[2017-09-13] MEDS: SODIUM CHLORIDE 1,000 ML IV SCH (18:00)
--- NOTE | 2017-09-13 19:24 | PN ---
Teaching Attending Note Name of Resident: Beau Herrera ATTENDING PHYSICIAN STATEMENT I saw and evaluated the patient. I reviewed the resident's note and discussed the case with the resident. I agree with the resident's findings and plan as documented. SUBJECTIVE: No fever or chills . has pain form L hip to L knee. no abd pain . No SOB OBJECTIVE: NAD Cv : RRR Lungs; CTAB Abd: sfot, NT, ND < NL BS MS: TTP in L groin and over lateral trochanter. no erythema or edema over hip joint. no erythema over knees. No effusion felt . surgical scar over L knee. refused to flex the L hip and L knee due to pain. nl range of motion in R hip and R knee ASSESSMENT AND PLAN: 87 y/o man with h/o CAD s/p CABG, HTN, BPH, CKD, OA, and other medical problems who presented with dysuria and chills . he was found to have urinary retention and UTI with bacteremia 1- Complicated UTi /pyelonephritis with E. faecalis bacteremia : did not clear on vanco - appreciate ID help. switched to dapto today - repeat imaging of pelvis / L hip pending. - try to obtain more info about L knee prosthesis. ? MRI compatible - follow repeat cx form today - No DUSTIN indicated by cArd 2- CALE : resolved 3- L hip pain: could be due to OA. - follow repeat imaging to detect any possible effusion 4- renal cysts: f/u as out pt 5- constipation : bowel regimen dispo : HLOC
--- NOTE | 2017-09-13 21:24 | PN ---
Physical Exam: SUBJECTIVE: No temperature spikes overnight. Pt still complaining of pain in L hip without much improvement from yesterday. Pt reports feeling diaphoretic and warm at times. OBJECTIVE: Vital Signs Period Temp Pulse Resp BP Sys/Balderas Pulse Ox Last 24 Hr 98.1 F-102.7 F 56-79 18-20 115-154/59-78 94 GENERAL: Mild distress, diaphoretic, awake, alert, and fully oriented, laying on R side HEENT: NC/AT, RICCO, sclera anicteric, moist-mucosa, NECK: No JVD, no lymphadenopathy LUNGS: CTA b/l. No overt rhonchi appreciated. No accessory muscle use. 97% RA HEART: RRR, S1, S2 without murmur ABDOMEN: Soft, obese, nontender, nondistended, normoactive bowel sounds, no guarding, no suprapubic tenderness BACK: No CVA tenderness EXTREMITIES: 2+ DP pulses, warm, well-perfused, no edema. Knees symmetrical in size, w/o erythema, no TTP, L knee scar noted MSK: L posteriorly radiating leg pain with passive and active movement preventing any ROM testing. R leg mobile w/o pain PSYCH: Normal mood, normal affect. SKIN: Warm, dry, no rashes or lesions noted Laboratory Results - last 24 hr 09/13/17 09/13/17 06:30 06:30 WBC 14.5 H RBC 4.52 Hgb 14.2 Hct 41.5 MCV 91.9 MCH 31.5 MCHC 34.2 RDW 15.3 Plt Count 284 MPV 8.9 Sodium 139 Potassium 3.7 Chloride 101 Carbon Dioxide 28 Anion Gap 10 BUN 20 H Creatinine 1.0 Creat Clearance w eGFR > 60 Random Glucose 121 H Calcium 8.3 L Phosphorus 2.0 L D Magnesium 1.8 Active Medications Generic Name Dose Route Start Last Admin Trade Name Freq PRN Reason Stop Dose Admin Acetaminophen 1,000 mg 09/13/17 17:44 Tylenol - PO Q6H PRN PAIN LEVEL 1 - 3 Amlodipine Besylate 5 mg 09/10/17 11:04 09/13/17 09:17 Norvasc - PO 5 mg DAILY [facility] Administration Docusate Sodium 100 mg 09/08/17 14:00 09/13/17 14:35 Colace - PO 100 mg TID [facility] Administration Fenofibric Acid 135 mg 09/07/17 10:00 09/13/17 09:19 Trilipix - PO 135 mg DAILY [facility] Administration Gabapentin 300 mg 09/11/17 15:15 09/13/17 14:35 Neurontin - PO 300 mg TID [facility] Administration Heparin Sodium (Porcine) 5,000 unit 09/07/17 06:00 09/13/17 14:35 Heparin - SQ 5,000 unit TID [facility] Administration Daptomycin 750 mg/ Sodium 100 mls @ 200 mls/hr 09/13/17 14:00 09/13/17 14:35 Chloride IVPB 200 mls/hr Q24H [facility] Administration Protocol Sodium Chloride 1,000 mls @ 75 mls/hr 09/13/17 18:00 09/13/17 18:00 Normal Saline - IV 75 mls/hr ASDIR [facility] Administration Ibuprofen 600 mg 09/13/17 17:36 Motrin - PO Q6H PRN FEVER Isosorbide Mononitrate 60 mg 09/07/17 10:00 09/13/17 09:17 Imdur - PO 60 mg DAILY [facility] Administration Lidocaine 1 patch 09/07/17 16:15 09/13/17 09:17 Lidoderm Patch - TP 1 patch DAILY [facility] Administration Metoprolol Tartrate 100 mg 09/07/17 10:00 09/13/17 09:17 Lopressor - PO 100 mg DAILY [facility] Administration Miscellaneous 1 each 09/07/17 22:00 09/12/17 21:24 Lidoderm Patch Removal MC 1 each DAILY@2200 [facility] Administration Oxycodone HCl 5 mg 09/11/17 15:19 09/13/17 11:31 Roxicodone - PO 5 mg Q6H PRN Administration Pain 6-10 Polyethylene Glycol 17 gm 09/13/17 14:15 09/13/17 17:33 Miralax (For Daily Use) - PO 17 gm DAILY [facility] Administration Rosuvastatin Calcium 10 mg 09/07/17 10:00 09/13/17 09:17 Crestor - PO 10 mg DAILY [facility] Administration Senna 2 tab 09/07/17 22:00 09/12/17 21:24 Senna - PO 2 tab HS [facility] Administration ASSESSMENT/PLAN: 1)Sepsis 2/2 to enterococcus bacteremia: --Most recent set of Blood cultures growing Enterococcus --ID on board --Switch to Daptomycin for hopefully better effect --Reculture today --Very concerned about possibility of seeding; ddx: Psoas abscess, unseen heart valve vegetations, seeding on L prosthesis --Doubt prosthesis seeding due to physical exam --CT AP w/ contrast to r/o psoas abscess; cannot due MR due to unknown metal type of prosthesis (no previous records in system here re: TKR) --Consult Cardiology for possibility of DUSTIN --Pt temperature taken at bedside during exam and is 102 --Adding Motrin q6h for alternating Tylenol for control of fevers --Tylenol increased to 1000mg PRN (do not exceed 4gm in 24h period) --TTE revealing no significant thickening or vegetations of valves; Mild MR 2) L Hip Pain --Continue Gabapentin 300mg TID --Continue Lidoderm patch --OXycodone 5mg PRN pain 7-10 breakthrough 3) Urinary Retention --Urology on board --Maintain chino currently --Will trial off catheter once infection resolved --Will need Cystoscopy and possible TURP on outpatient basis once UTI/ infection resolved 4) CALE on CKD --2/2 to retention --Resolved --Back at baseline 5) Lactic Acidosis --Resolved 6) Renal Cysts --Incidentally found on CT scan of abdomen --Most likely benign, however would recommend outpt f/u FEN: Fluids: None indicated; euvolemic and tolerating PO Electrolyte abnormalities: Hypophos (replete Na-K Phos packet) Nutrition: Sodium controlled PPX: DVT - Heparin SQ Dispo: Continue M/S Case discussed with Dr. Hu Herrera, DO - IM PGY-1 Visit type - Emergency Visit Emergency Visit: No - New Patient This patient is new to me today: No - Critical Care Critical Care patient: No
[2017-09-13] MEDS: SENNOSIDES 8.6MG TABLET (FP) PO SCH (23:52)
[2017-09-13] MEDS: LIDOCAINE PATCH REMOVAL MC SCH (23:52)
[2017-09-13] MEDS: IBUPROFEN 600 MG TABLET (FP) PO PRN (23:53)
[2017-09-14] MEDS ORDERED: ACETAMINOPHEN 1000 MG/100 ML VIAL (NON FORMULARY) IVPB ONE (02:11)
[2017-09-14] MEDS: HEPARIN NA (PORCINE) 5,000 UNITS/ML 1ML VIAL SQ SCH ×3 (06:25→21:04)
[2017-09-14] MEDS: GABAPENTIN 300 MG CAPSULE (FP) PO SCH ×3 (06:26→21:04)
[2017-09-14] MEDS: DOCUSATE SODIUM 100 MG CAPSULE (FP) PO SCH ×3 (06:26→21:04)
[2017-09-14 07:27] LABS: CHLORIDE 104 mmol/L (98-107); POTASSIUM 3.7 mmol/L (3.5-5.1); SODIUM 142 mmol/L (136-145)
[2017-09-14 07:28] LABS: BASO % 0.6 % (0-2.0); EOS % 1.9 % (0-4.5); HEMATOCRIT 39.6 % (35.4-49); HEMOGLOBIN 13.4 GM/dL (11.7-16.9); LYMPH % 20.1 % (8-40); MCH 31.4 pg (25.7-33.7); MCHC 33.8 g/dl (32.0-35.9); MEAN CELL VOLUME 92.9 fl (80-96); MEAN PLT VOLUME 8.8 fl (7.5-11.1); MONO % 6.2 % (3.8-10.2); NEUT % 71.2 % (42.8-82.8); PLATELET COUNT 313 K/MM3 (134-434); RBC 4.26 M/mm3 (4.00-5.60); RDW 15.6 % (11.9-15.9); WHITE BLOOD COUNT 14.5 K/mm3 (4.0-10.0)
[2017-09-14 07:35] LABS: ANION GAP 7 (8-16); BLOOD UREA NITROGEN 20 mg/dL (7-18); CALCIUM 8.3 mg/dL (8.5-10.1); CO2 31 mmol/L (21-32); GLUCOSE,RANDOM 102 mg/dL (74-106); MAGNESIUM 2.1 mg/dL (1.8-2.4); PHOSPHOROUS 3.2 mg/dL (2.5-4.9)
[2017-09-14] MEDS ORDERED: PT OWN MED DRAWER 7, Y5N ONE ×3 (09:12→18:34)
[2017-09-14] MEDS: LIDOCAINE 5% TOPICAL PATCH TP SCH (09:24)
[2017-09-14] MEDS: ISOSORBIDE MONONITRATE 60 MG TAB.SR.24H (FP) PO SCH (09:25)
[2017-09-14] MEDS: POLYETHYLENE GLYCOL 3350 119 GM BTL PO SCH (09:25)
[2017-09-14] MEDS: ROSUVASTATIN CA 10 MG TABLET (FP) PO SCH (09:25)
[2017-09-14] MEDS: FENOFIBRIC ACID 135 MG CAP PO SCH (09:25)
[2017-09-14] MEDS: METOPROLOL TARTRATE 50 MG TABLET (FP) PO SCH (09:29)
[2017-09-14] MEDS: amLODIPine BESYLATE 5 MG TABLET (FP) PO SCH (09:29)
[2017-09-14] MEDS: SODIUM CHLORIDE 1,000 ML IV SCH ×2 (10:06→21:03)
[2017-09-14 10:38] LABS: ACANTHOCYTES 0; ANISOCYTOSIS 0; HELMET CELLS 0; HOWELL-JOLLY BODIES 0; MACROCYTOSIS 0; OVALOCYTE 0; PLATELET ESTIMATE NORMAL; ROULEAU 0; SICKELED CELLS 0; TARGET CELLS 0; TEAR DROP CELLS 0; TOXIC GRANULATION 0
--- NOTE | 2017-09-14 12:46 | PN ---
Progress Note, Physician History of Present Illness: Complains of L groin and LE pain, but better past 24h Temps down today Repeat BC 09/13 prelim no growth TTE no vegetations - Current Medication List Current Medications: Active Medications Acetaminophen (Tylenol -) 1,000 mg PO Q6H PRN PRN Reason: PAIN LEVEL 1 - 3 Amlodipine Besylate (Norvasc -) 5 mg PO DAILY [facility] Last Admin: 09/14/17 09:29 Dose: 5 mg Aspirin (Ecotrin -) 81 mg PO DAILY [facility] Docusate Sodium (Colace -) 100 mg PO TID [facility] Last Admin: 09/14/17 06:26 Dose: 100 mg Fenofibric Acid (Trilipix -) 135 mg PO DAILY [facility] Last Admin: 09/14/17 09:25 Dose: 135 mg Gabapentin (Neurontin -) 300 mg PO TID [facility] Last Admin: 09/14/17 06:26 Dose: 300 mg Heparin Sodium (Porcine) (Heparin -) 5,000 unit SQ TID [facility] Last Admin: 09/14/17 06:25 Dose: 5,000 unit Daptomycin 750 mg/ Sodium (Chloride) 100 mls @ 200 mls/hr IVPB Q24H [facility]; Protocol Last Admin: 09/13/17 14:35 Dose: 200 mls/hr Sodium Chloride (Normal Saline -) 1,000 mls @ 75 mls/hr IV ASDIR [facility] Last Admin: 09/14/17 10:06 Dose: 75 mls/hr Ibuprofen (Motrin -) 600 mg PO Q6H PRN PRN Reason: FEVER Last Admin: 09/13/17 23:53 Dose: 600 mg Isosorbide Mononitrate (Imdur -) 60 mg PO DAILY [facility] Last Admin: 09/14/17 09:25 Dose: 60 mg Lidocaine (Lidoderm Patch -) 1 patch TP DAILY [facility] Last Admin: 09/14/17 09:24 Dose: 1 patch Metoprolol Tartrate (Lopressor -) 100 mg PO DAILY [facility] Last Admin: 09/14/17 09:29 Dose: 100 mg Miscellaneous (Lidoderm Patch Removal) 1 each MC DAILY@2200 [facility] Last Admin: 09/13/17 23:52 Dose: 1 each Oxycodone HCl (Roxicodone -) 5 mg PO Q6H PRN PRN Reason: Pain 6-10 Last Admin: 09/13/17 11:31 Dose: 5 mg Polyethylene Glycol (Miralax (For Daily Use) -) 17 gm PO DAILY [facility] Last Admin: 09/14/17 09:25 Dose: 17 gm Rosuvastatin Calcium (Crestor -) 10 mg PO DAILY [facility] Last Admin: 09/14/17 09:25 Dose: 10 mg Senna (Senna -) 2 tab PO HS [facility] Last Admin: 09/13/17 23:52 Dose: 2 tab - Objective Vital Signs: Vital Signs Temperature 98.8 F 09/14/17 09:22 Pulse Rate 71 09/14/17 09:22 Respiratory Rate 20 09/14/17 09:22 Blood Pressure 151/69 09/14/17 09:22 O2 Sat by Pulse Oximetry (%) 92 L 09/14/17 09:00 Constitutional: Yes: No Distress Eyes: Yes: Conjunctiva Clear Cardiovascular: Yes: Regular Rate and Rhythm, S1, S2 Respiratory: Yes: CTA Bilaterally Gastrointestinal: Yes: Normal Bowel Sounds, Soft Edema: No Labs: CBC, BMP 09/14/17 06:00 09/14/17 06:00 INR, PTT INR 1.09 (0.82-1.09) 09/06/17 17:20 Assessment/Plan Enterococcal bacteremia/ sepsis secondary to UTI Persistant bacteremia ? endocarditis ? L hip septic arthritis ? psoas abscess Major PCN allergy Repeat BC pending Continue Daptomycin Will review CT
[2017-09-14] MEDS: oxyCODONE HCL 5 MG TABLET PO PRN (13:37)
[2017-09-14] MEDS: ASPIRIN COATED 81 MG TABLET.EC PO SCH (13:38)
[2017-09-14 13:39] VITALS: BMI 34.1
[2017-09-14] MEDS: DAPTOMYCIN 750 MG in SODIUM CHLORIDE 100 ML IVPB SCH (14:29)
[2017-09-14] MEDS ORDERED: SODIUM PHOSPHATE/NA BIPHOS 133 ML ENEMA PR ONE (14:45)
--- NOTE | 2017-09-14 15:39 | PN ---
Teaching Attending Note Name of Resident: Beau Herrera ATTENDING PHYSICIAN STATEMENT I saw and evaluated the patient. I reviewed the resident's note and discussed the case with the resident. I agree with the resident's findings and plan as documented. SUBJECTIVE: No fever or chills . No abd pain . has L hip pain and to a lesser extent in L knee which is chronic , and he reports improvement today OBJECTIVE: NAD Cv : RRR Lungs; CTAB Abd: soft, NT, ND ,NL BS MS: TTP in L groin and over lateral trochanter. no erythema or edema over hip joint. no erythema over knees. No effusion felt on L , has minimla effusionon R knee . surgical scar over L knee. able to lift L leg 20 degrees off the bed ASSESSMENT AND PLAN: 87 y/o man with h/o CAD s/p CABG, HTN, BPH, CKD, OA, cystoscopy 2 days prior to admission , and other medical problems who presented with dysuria and chills . he was found to have urinary retention and UTI with bacteremia 1- Complicated UTI /pyelonephritis with E. Faecalis bacteremia: - Cont dapto day 2 . - CT of abd /pelvis with no abscess - follow repeat blood cx 2- CALE: resolved 3- L hip pain: could be due to OA. 4- Renal cysts: f/u as out pt 5- constipation : bowel regimen dispo : HLOC
[2017-09-14] MEDS: ACETAMINOPHEN 500 MG TABLET (FP) PO PRN (17:52)
--- NOTE | 2017-09-14 19:14 | PN ---
Physical Exam: SUBJECTIVE: Pt reports not feeling well, but states it's only because of his pain and feeling warm with his fever spikes. OBJECTIVE: Vital Signs Period Temp Pulse Resp BP Sys/Balderas Pulse Ox Last 24 Hr 98 F-102.9 F 57-85 18-20 134-159/66-82 92-92 GENERAL:NAD, awake, alert, and fully oriented, laying on back HEENT: NC/AT, RICCO, sclera anicteric, moist-mucosa, NECK: No JVD, no lymphadenopathy LUNGS: Diminished breath sounds at bases L>R?. No overt rhonchi appreciated. No accessory muscle use. HEART: RRR, S1, S2 without murmur ABDOMEN: Soft, obese, nontender, nondistended, normoactive bowel sounds, no guarding, no suprapubic tenderness BACK: No CVA tenderness EXTREMITIES: 2+ DP pulses, warm, well-perfused, no edema. Knees symmetrical in size, w/o erythema, no TTP, L knee scar noted MSK: L leg ROM improved with passive movement. Continues to be limited by pain, but hip flexion improving PSYCH: Normal mood, normal affect. SKIN: Warm, dry, no rashes or lesions noted Laboratory Results - last 24 hr 09/14/17 09/14/17 09/14/17 06:00 06:00 06:00 WBC RBC Hgb Hct MCV MCH MCHC RDW Plt Count MPV Absolute Neuts (auto) Neutrophils % Neutrophils % (Manual) Band Neutrophils % Lymphocytes % Lymphocytes % (Manual) Monocytes % Monocytes % (Manual) Eosinophils % Eosinophils % (Manual) Basophils % Basophils % (Manual) Myelocytes % (Man) Promyelocytes % (Man) Blast Cells % (Manual) Nucleated RBC % Metamyelocytes Hypochromia Toxic Granulation Dohle Bodies Platelet Estimate Polychromasia Poikilocytosis Basophilic Stippling Anisocytosis Microcytosis Macrocytosis Spherocytes Sickle Cells Target Cells Tear Drop Cells Ovalocytes Stomatocytes Helmet Cells Robledo-Bigelow Bodies Vill[place]va Rings Colleen Cells Acanthocytes (Spur) Rouleaux Fragmented RBCs Schistocytes ESR 74 H Sodium 142 Potassium 3.7 Chloride 104 Carbon Dioxide 31 Anion Gap 7 L BUN 20 H Creatinine 1.0 Creat Clearance w eGFR > 60 Random Glucose 102 Calcium 8.3 L Phosphorus 3.2 D Magnesium 2.1 Creatine Kinase 54 C-Reactive Protein Cancelled 17.0 H 09/14/17 06:00 WBC 14.5 H RBC 4.26 Hgb 13.4 Hct 39.6 MCV 92.9 MCH 31.4 MCHC 33.8 RDW 15.6 Plt Count 313 MPV 8.8 Absolute Neuts (auto) 10.3 Neutrophils % 71.2 Neutrophils % (Manual) 68.7 Band Neutrophils % 0.0 Lymphocytes % 20.1 Lymphocytes % (Manual) 12.1 D Monocytes % 6.2 Monocytes % (Manual) 6 Eosinophils % 1.9 Eosinophils % (Manual) 2.0 D Basophils % 0.6 Basophils % (Manual) 0.0 Myelocytes % (Man) 1 D Promyelocytes % (Man) 0 Blast Cells % (Manual) 0 Nucleated RBC % 0 Metamyelocytes 1 D Hypochromia 0 Toxic Granulation 0 Dohle Bodies 0 Platelet Estimate Normal Polychromasia 0 Poikilocytosis 0 Basophilic Stippling 0 Anisocytosis 0 Microcytosis 0 Macrocytosis 0 Spherocytes 0 Sickle Cells 0 Target Cells 0 Tear Drop Cells 0 Ovalocytes 0 Stomatocytes 0 Helmet Cells 0 Robledo-Bigelow Bodies 0 [place] Rings 0 [place] Cells 0 Acanthocytes (Spur) 0 Rouleaux 0 Fragmented RBCs 0 Schistocytes 0 ESR Sodium Potassium Chloride Carbon Dioxide Anion Gap BUN Creatinine Creat Clearance w eGFR Random Glucose Calcium Phosphorus Magnesium Creatine Kinase C-Reactive Protein Active Medications Generic Name Dose Route Start Last Admin Trade Name Freq PRN Reason Stop Dose Admin Acetaminophen 1,000 mg 09/13/17 17:44 09/14/17 17:52 Tylenol - PO 1,000 mg Q6H PRN Administration PAIN LEVEL 1 - 3 Amlodipine Besylate 5 mg 09/10/17 11:04 09/14/17 09:29 Norvasc - PO 5 mg DAILY [facility] Administration Aspirin 81 mg 09/14/17 10:00 09/14/17 13:38 Ecotrin - PO 81 mg DAILY [facility] Administration Docusate Sodium 100 mg 09/08/17 14:00 09/14/17 13:37 Colace - PO 100 mg TID [facility] Administration Fenofibric Acid 135 mg 09/07/17 10:00 09/14/17 09:25 Trilipix - PO 135 mg DAILY [facility] Administration Gabapentin 300 mg 09/11/17 15:15 09/14/17 13:37 Neurontin - PO 300 mg TID [facility] Administration Heparin Sodium (Porcine) 5,000 unit 09/07/17 06:00 09/14/17 13:38 Heparin - SQ 5,000 unit TID [facility] Administration Daptomycin 750 mg/ Sodium 100 mls @ 200 mls/hr 09/13/17 14:00 09/14/17 14:29 Chloride IVPB 200 mls/hr Q24H [facility] Administration Protocol Sodium Chloride 1,000 mls @ 75 mls/hr 09/13/17 18:00 09/14/17 10:06 Normal Saline - IV 75 mls/hr ASDIR [facility] Administration Ibuprofen 600 mg 09/13/17 17:36 09/13/17 23:53 Motrin - PO 600 mg Q6H PRN Administration FEVER Isosorbide Mononitrate 60 mg 09/07/17 10:00 09/14/17 09:25 Imdur - PO 60 mg DAILY [facility] Administration Lidocaine 1 patch 09/07/17 16:15 09/14/17 09:24 Lidoderm Patch - TP 1 patch DAILY [facility] Administration Metoprolol Tartrate 100 mg 09/07/17 10:00 09/14/17 09:29 Lopressor - PO 100 mg DAILY [facility] Administration Miscellaneous 1 each 09/07/17 22:00 09/13/17 23:52 Lidoderm Patch Removal MC 1 each DAILY@2200 [facility] Administration Oxycodone HCl 5 mg 09/11/17 15:19 09/14/17 13:37 Roxicodone - PO 5 mg Q6H PRN Administration Pain 6-10 Polyethylene Glycol 17 gm 09/13/17 14:15 09/14/17 09:25 Miralax (For Daily Use) - PO 17 gm DAILY [facility] Administration Rosuvastatin Calcium 10 mg 09/07/17 10:00 09/14/17 09:25 Crestor - PO 10 mg DAILY [facility] Administration Senna 2 tab 09/07/17 22:00 09/13/17 23:52 Senna - PO 2 tab HS [facility] Administration ASSESSMENT/PLAN: 1)Sepsis 2/2 to enterococcus bacteremia: --Most recent set of Blood cultures cleared!! 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 --CT pelvis with rectal contrast --Discussed with son about cystoscopy results and reportedly was "normal" --Doubt prosthesis seeding due to physical exam --Cardiology recs appreciated: --TTE revealing no significant thickening or vegetations of valves; Mild MR --Not a candidate at the moment for DUSTIN --Motrin 600mg q6h alternating with Tylenol 1000mg q6h for fever control (do not exceed 4gm of Tylenol in 24h period) --Adding Motrin q6h for alternating Tylenol for control of fevers 2) L Hip Pain --Continue Gabapentin 300mg TID --Continue Lidoderm patch apply to L hip please --Oxycodone 5mg PRN pain 7-10 breakthrough 3) Urinary Retention --Urology on board --Maintain chino currently --Will trial off catheter once infection controlled --Will need Cystoscopy and possible TURP on outpatient basis once UTI/ infection resolved 4) CALE on CKD --2/2 to retention --Resolved --Back at baseline 5) Lactic Acidosis --Resolved 6) Renal Cysts --Incidentally found on CT scan of abdomen --Most likely benign, however would recommend outpt f/u FEN: Fluids: None indicated; euvolemic and tolerating PO Electrolyte abnormalities: None today Nutrition: Sodium controlled PPX: DVT - Heparin SQ Dispo: Continue M/S Case discussed with Dr. Hu Herrera, DO - IM PGY-1 Visit type - Emergency Visit Emergency Visit: No - New Patient This patient is new to me today: No - Critical Care Critical Care patient: No
[2017-09-14] MEDS: LIDOCAINE PATCH REMOVAL MC SCH (21:04)
[2017-09-14] MEDS: SENNOSIDES 8.6MG TABLET (FP) PO SCH (21:04)
[2017-09-15] MEDS: ACETAMINOPHEN 500 MG TABLET (FP) PO PRN ×2 (01:43→16:38)
[2017-09-15] MEDS: SODIUM CHLORIDE 1,000 ML IV SCH ×2 (03:34→23:09)
[2017-09-15] MEDS: GABAPENTIN 300 MG CAPSULE (FP) PO SCH ×3 (05:56→23:07)
[2017-09-15] MEDS: DOCUSATE SODIUM 100 MG CAPSULE (FP) PO SCH ×3 (05:56→23:07)
[2017-09-15] MEDS: HEPARIN NA (PORCINE) 5,000 UNITS/ML 1ML VIAL SQ SCH ×3 (05:56→23:07)
[2017-09-15 07:54] LABS: HEMATOCRIT 41.2 % (35.4-49); HEMOGLOBIN 13.8 GM/dL (11.7-16.9); MCH 31.2 pg (25.7-33.7); MCHC 33.5 g/dl (32.0-35.9); MEAN CELL VOLUME 93.2 fl (80-96); MEAN PLT VOLUME 8.7 fl (7.5-11.1); PLATELET COUNT 360 K/MM3 (134-434); RBC 4.42 M/mm3 (4.00-5.60); RDW 15.3 % (11.9-15.9); WHITE BLOOD COUNT 13.6 K/mm3 (4.0-10.0)
[2017-09-15 08:10] LABS: CHLORIDE 104 mmol/L (98-107); POTASSIUM 3.8 mmol/L (3.5-5.1); SODIUM 142 mmol/L (136-145)
[2017-09-15 08:20] LABS: ANION GAP 9 (8-16); BLOOD UREA NITROGEN 18 mg/dL (7-18); CALCIUM 8.4 mg/dL (8.5-10.1); CO2 29 mmol/L (21-32); CREATININE 0.9 mg/dL (0.7-1.3); GLUCOSE,RANDOM 94 mg/dL (74-106); PHOSPHOROUS 2.9 mg/dL (2.5-4.9)
--- NOTE | 2017-09-15 09:25 | PN ---
Progress Note, Physician Chief Complaint: ID Daptomycin for Enterococcal bacteremia ( PCN allergic) with "synergy" screen neg Complains of left ant and medial thigh pain The fact that is is still spiking fevers is indeed concerning - Current Medication List Current Medications: Active Medications Acetaminophen (Tylenol -) 1,000 mg PO Q6H PRN PRN Reason: PAIN LEVEL 1 - 3 Last Admin: 09/15/17 01:43 Dose: 1,000 mg Amlodipine Besylate (Norvasc -) 5 mg PO DAILY [facility] Last Admin: 09/14/17 09:29 Dose: 5 mg Aspirin (Ecotrin -) 81 mg PO DAILY [facility] Last Admin: 09/14/17 13:38 Dose: 81 mg Docusate Sodium (Colace -) 100 mg PO TID [facility] Last Admin: 09/15/17 05:56 Dose: 100 mg Fenofibric Acid (Trilipix -) 135 mg PO DAILY [facility] Last Admin: 09/14/17 09:25 Dose: 135 mg Gabapentin (Neurontin -) 300 mg PO TID [facility] Last Admin: 09/15/17 05:56 Dose: 300 mg Heparin Sodium (Porcine) (Heparin -) 5,000 unit SQ TID [facility] Last Admin: 09/15/17 05:56 Dose: 5,000 unit Daptomycin 750 mg/ Sodium (Chloride) 100 mls @ 200 mls/hr IVPB Q24H [facility]; Protocol Last Admin: 09/14/17 14:29 Dose: 200 mls/hr Sodium Chloride (Normal Saline -) 1,000 mls @ 75 mls/hr IV ASDIR [facility] Last Admin: 09/15/17 03:34 Dose: 75 mls/hr Ibuprofen (Motrin -) 600 mg PO Q6H PRN PRN Reason: FEVER Last Admin: 09/13/17 23:53 Dose: 600 mg Isosorbide Mononitrate (Imdur -) 60 mg PO DAILY [facility] Last Admin: 09/14/17 09:25 Dose: 60 mg Lidocaine (Lidoderm Patch -) 1 patch TP DAILY [facility] Metoprolol Tartrate (Lopressor -) 100 mg PO DAILY [facility] Last Admin: 09/14/17 09:29 Dose: 100 mg Miscellaneous (Lidoderm Patch Removal) 1 each MC DAILY@2200 [facility] Last Admin: 09/14/17 21:04 Dose: 1 each Oxycodone HCl (Roxicodone -) 5 mg PO Q6H PRN PRN Reason: Pain 6-10 Last Admin: 09/14/17 13:37 Dose: 5 mg Polyethylene Glycol (Miralax (For Daily Use) -) 17 gm PO DAILY [facility] Last Admin: 09/14/17 09:25 Dose: 17 gm Rosuvastatin Calcium (Crestor -) 10 mg PO DAILY [facility] Last Admin: 09/14/17 09:25 Dose: 10 mg Senna (Senna -) 2 tab PO HS [facility] Last Admin: 09/14/17 21:04 Dose: 2 tab - Objective Vital Signs: Vital Signs Temperature 99.5 F 09/15/17 05:42 Pulse Rate 70 09/15/17 05:42 Respiratory Rate 20 09/15/17 05:42 Blood Pressure 156/81 09/15/17 05:42 O2 Sat by Pulse Oximetry (%) 97 09/14/17 21:00 Constitutional: Yes: Well Nourished, No Distress HENT: Yes: WNL, Atraumatic Neck: Yes: WNL, Supple Cardiovascular: Yes: Regular Rate and Rhythm, S2 Respiratory: Yes: WNL, Regular, CTA Bilaterally Gastrointestinal: Yes: WNL, Normal Bowel Sounds, Soft. No: Tenderness, Tenderness, Epigastrium Edema: No Labs: CBC, BMP 09/15/17 06:00 09/15/17 06:00 INR, PTT INR 1.09 (0.82-1.09) 09/06/17 17:20 Assessment/Plan Microbiology 09/11/17 11:26 Blood - Peripheral Venous Blood Culture - Final Group D Strep Or Entero Coccus 09/11/17 10:30 Blood - Peripheral Venous Blood Culture - Final Enterococcus Faecalis 09/09/17 17:45 Blood - Peripheral Venous Blood Culture - Final Group D Strep Or Entero Coccus 09/09/17 17:35 Blood - Peripheral Venous Blood Culture - Final Enterococcus Faecalis 09/06/17 18:51 Urine - Urine Clean Catch Urine Culture - Final Enterococcus Faecalis 09/06/17 17:10 Blood - Peripheral Venous Blood Culture - Final NO GROWTH AFTER 5 DAYS INCUBATION 09/13/17 12:55 Blood - Peripheral Venous Blood Culture - Preliminary NO GROWTH OBTAINED AFTER 24 HOURS, INCUBATION TO CONTINUE FOR 4 DAYS. 09/13/17 12:40 Blood - Peripheral Venous Blood Culture - Preliminary NO GROWTH OBTAINED AFTER 24 HOURS, INCUBATION TO CONTINUE FOR 4 DAYS. Laboratory Tests 09/06/17 09/10/17 09/14/17 18:51 00:10 06:00 WBC Hgb Plt Count ESR 74 H Creatinine C-Reactive Protein Ur Leukocyte Esterase Negative Urine WBC (Auto) 6 Urine RBC (Auto) 10 407 09/14/17 09/15/17 09/15/17 06:00 06:00 06:00 WBC 13.6 H Hgb 13.8 Plt Count 360 ESR Creatinine 0.9 C-Reactive Protein 17.0 H Ur Leukocyte Esterase Urine WBC (Auto) Urine RBC (Auto) Assessment Enterococcal bactermia urinary source. 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 Though this does not explain pesistance of fever. Still should consider another as yet unidentified focus ? hip spine ESR and CRP both high Plan LSS CT Check spinal abscess psoas? Await final blood cultures Continue Daptomycin Whole body bone scan Urology f/.u Discussed with ANGIE Camejo MD
[2017-09-15] MEDS: LIDOCAINE 5% TOPICAL PATCH TP SCH (10:28)
[2017-09-15] MEDS: ISOSORBIDE MONONITRATE 60 MG TAB.SR.24H (FP) PO SCH (10:28)
[2017-09-15] MEDS: METOPROLOL TARTRATE 50 MG TABLET (FP) PO SCH (10:29)
[2017-09-15] MEDS: FENOFIBRIC ACID 135 MG CAP PO SCH (10:29)
[2017-09-15] MEDS: POLYETHYLENE GLYCOL 3350 119 GM BTL PO SCH (10:29)
[2017-09-15] MEDS: ROSUVASTATIN CA 10 MG TABLET (FP) PO SCH (10:29)
[2017-09-15] MEDS: ASPIRIN COATED 81 MG TABLET.EC PO SCH (10:29)
[2017-09-15] MEDS: amLODIPine BESYLATE 5 MG TABLET (FP) PO SCH (10:29)
[2017-09-15] MEDS: oxyCODONE HCL 5 MG TABLET PO PRN ×2 (10:49→20:24)
--- NOTE | 2017-09-15 11:55 | CONSULT ---
Consult Consult Specialty:: general surgery Referred by:: Abelardo Reason for Consultation:: Colovesicular fistual - History of Present Illness Chief Complaint: colovesicular fistula History of Present Illness: 87 yo male PMH CABG 15 years ago, HTN, BPH, obesity, CKD, OA that presented to the hospital complaining of weakness, chills and dysuria. History is taken partially from medical records and from the patient. When I saw him, he was in severe pain localized to his left hip, 12/27 that is present for long time but worse tonight. In the past he was told that he needs hip replacement but is not a surgical candidate. The patient also reports chills and weakness. He had cystoscopy 2 days ago and since then he has been complaining of difficulty urinating. He also reports chills but doesn't know how long. He denies cough, chest pain, SOB, recent trauma, fall. He denies nausea, vomiting, diarrhea, hematuria. - History Source History Provided By: Patient, Medical Record Limitations to Obtaining History: No Limitations - Past Medical History Cardio/Vascular: Yes: CAD, HTN, Hyperlipdemia Renal/: Yes: Renal Inusuff (Stage 3), BPH Musculoskeletal: Yes: Osteoarthritis Rheumatology: Yes: Gout - Past Surgical History Past Surgical History: Yes: CABG - Alcohol/Substance Use Hx Alcohol Use: No History of Substance Use: reports: None - Smoking History Smoking history: Never smoked Have you smoked in the past 12 months: No - Social History ADL: Independent History of Recent Travel: No Home Medications - Allergies Allergies/Adverse Reactions: Allergies Allergy/AdvReac Type Severity Reaction Status Date / Time Penicillins AdvReac Intermediate Swelling Verified 09/11/17 09:29 - Home Medications Home Medications: Ambulatory Orders Fenofibrate 150 mg PO DAILY 03/29/17 Isosorbide Mononitrate [Isosorbide Mononitrate ER] 60 mg PO DAILY 03/29/17 Metoprolol Tartrate 100 mg PO DAILY 03/29/17 Rosuvastatin [Crestor -] 10 mg PO DAILY 03/29/17 Review of Systems - Review of Systems Constitutional: reports: Chills Physical Exam Vital Signs: Vital Signs Temperature 98.4 F 09/15/17 09:00 Pulse Rate 83 09/15/17 09:00 Respiratory Rate 20 09/15/17 09:00 Blood Pressure 140/71 09/15/17 09:00 O2 Sat by Pulse Oximetry (%) 97 09/14/17 21:00 Labs: CBC, BMP 09/15/17 06:00 09/15/17 06:00 Problem List - Problems (1) CAD (coronary artery disease) Code(s): I25.10 - ATHSCL HEART DISEASE OF [place] CORONARY ARTERY W/O ANG PCTRS Qualifiers: Coronary Disease-Associated Artery/Lesion type: [place] artery [place] vs. transplanted heart: [place] heart Associated angina: angina presence unspecified Qualified Code(s): I25.10 - Atherosclerotic heart disease of [place] coronary artery without angina pectoris (2) Hypercholesteremia Code(s): E78.0 - PURE HYPERCHOLESTEROLEMIA * DO NOT USE * (3) Hypertension Code(s): I10 - ESSENTIAL (PRIMARY) HYPERTENSION Qualifiers: Hypertension type: essential hypertension Qualified Code(s): I10 - Essential (primary) hypertension (4) Stage III chronic kidney disease Code(s): N18.3 - CHRONIC KIDNEY DISEASE, STAGE 3 (MODERATE) (5) Urinary tract infection Code(s): N39.0 - URINARY TRACT INFECTION, SITE NOT SPECIFIED Qualifiers: Urinary tract infection type: acute cystitis Hematuria presence: without hematuria Qualified Code(s): N30.00 - Acute cystitis without hematuria
[2017-09-15] MEDS: fentaNYL 12mcg/hr PATCH.TD72 TD SCH (14:18)
[2017-09-15] MEDS: DAPTOMYCIN 750 MG in SODIUM CHLORIDE 100 ML IVPB SCH (14:18)
[2017-09-15] MEDS: IBUPROFEN 600 MG TABLET (FP) PO PRN (14:18)
--- NOTE | 2017-09-15 18:17 | PN ---
Teaching Attending Note Name of Resident: Beau Herrera ATTENDING PHYSICIAN STATEMENT I saw and evaluated the patient. I reviewed the resident's note and discussed the case with the resident. I agree with the resident's findings and plan as documented. SUBJECTIVE: No fever or chills . No abd pain. cont to have L hip pain OBJECTIVE: NAD Cv : RRR Lungs; CTAB Abd: soft, NT, ND ,NL BS MS: TTP in L groin and over lateral trochanter. no erythema or edema over hip joint. no erythema over knees. No effusion felt on L , has minimal effusion on R knee . surgical scar over L knee. No TTP over L spine ASSESSMENT AND PLAN: 87 y/o man with h/o CAD s/p CABG, HTN, BPH, CKD, OA, cystoscopy 2 days prior to admission , and other medical problems who presented with dysuria and chills . he was found to have urinary retention and UTI with bacteremia 1- Complicated UTI /pyelonephritis with E. 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 - Cont dapto day 3 . - blood cx neg x 48 hrs - surgery consult for colovesicular fistula. cystogram - D/w ID , CT of L spine and Bone scan 2- CALE: resolved 3- L hip pain: could be due to OA. Bone scan to evaluate add low dose fentanyl patch to pain regimen 4- Renal cysts: f/u as out pt 5- constipation : bowel regimen dispo : HLOC
--- NOTE | 2017-09-15 21:15 | PN ---
Physical Exam: SUBJECTIVE: Pt feels unchanged from yesterday. OBJECTIVE: Vital Signs Period Temp Pulse Resp BP Sys/Balderas Pulse Ox Last 24 Hr 98.4 F-100.5 F 70-83 18-20 116-172/54-81 96 GENERAL:NAD, awake, alert, and fully oriented, laying on back HEENT: NC/AT, RICCO, sclera anicteric, moist-mucosa, NECK: No JVD, no lymphadenopathy LUNGS: Diminished breath sounds at bases. No overt rhonchi appreciated. No accessory muscle use. HEART: RRR, S1, S2 without murmur ABDOMEN: Soft, obese, nontender, nondistended, normoactive bowel sounds, no guarding, no suprapubic tenderness BACK: No CVA tenderness EXTREMITIES: 2+ DP pulses, warm, well-perfused, no edema. Knees symmetrical in size, w/o erythema, no TTP, L knee scar noted MSK: L leg ROM improved with passive movement. Continues to be limited by pain, but hip flexion improving PSYCH: Normal mood, normal affect. SKIN: Warm, dry, no rashes or lesions noted Laboratory Results - last 24 hr 09/15/17 09/15/17 06:00 06:00 WBC 13.6 H RBC 4.42 Hgb 13.8 Hct 41.2 MCV 93.2 MCH 31.2 MCHC 33.5 RDW 15.3 Plt Count 360 MPV 8.7 Sodium 142 Potassium 3.8 Chloride 104 Carbon Dioxide 29 Anion Gap 9 BUN 18 Creatinine 0.9 Creat Clearance w eGFR > 60 Random Glucose 94 Calcium 8.4 L Phosphorus 2.9 Magnesium 2.0 Active Medications Generic Name Dose Route Start Last Admin Trade Name Freq PRN Reason Stop Dose Admin Acetaminophen 1,000 mg 09/13/17 17:44 09/15/17 16:38 Tylenol - PO 1,000 mg Q6H PRN Administration PAIN LEVEL 1 - 3 Amlodipine Besylate 5 mg 09/10/17 11:04 09/15/17 10:29 Norvasc - PO 5 mg DAILY [facility] Administration Aspirin 81 mg 09/14/17 10:00 09/15/17 10:29 Ecotrin - PO 81 mg DAILY [facility] Administration Docusate Sodium 100 mg 09/08/17 14:00 09/15/17 14:18 Colace - PO 100 mg TID [facility] Administration Fenofibric Acid 135 mg 09/07/17 10:00 09/15/17 10:29 Trilipix - PO 135 mg DAILY [facility] Administration Fentanyl 1 patch 09/15/17 12:15 09/15/17 14:18 Duragesic 12mcg Patch - TD 09/22/17 12:04 1 patch Q72H [facility] Administration Gabapentin 300 mg 09/11/17 15:15 09/15/17 14:17 Neurontin - PO 300 mg TID [facility] Administration Heparin Sodium (Porcine) 5,000 unit 09/07/17 06:00 09/15/17 14:18 Heparin - SQ 5,000 unit TID [facility] Administration Daptomycin 750 mg/ Sodium 100 mls @ 200 mls/hr 09/13/17 14:00 09/15/17 14:18 Chloride IVPB 200 mls/hr Q24H [facility] Administration Protocol Sodium Chloride 1,000 mls @ 75 mls/hr 09/13/17 18:00 09/15/17 03:34 Normal Saline - IV 75 mls/hr ASDIR [facility] Administration Ibuprofen 600 mg 09/13/17 17:36 09/15/17 14:18 Motrin - PO 600 mg Q6H PRN Administration FEVER Isosorbide Mononitrate 60 mg 09/07/17 10:00 09/15/17 10:28 Imdur - PO 60 mg DAILY [facility] Administration Lidocaine 1 patch 09/14/17 19:21 09/15/17 10:28 Lidoderm Patch - TP 1 patch DAILY [facility] Administration Metoprolol Tartrate 100 mg 09/07/17 10:00 09/15/17 10:29 Lopressor - PO 100 mg DAILY [facility] Administration Miscellaneous 1 each 09/07/17 22:00 09/14/17 21:04 Lidoderm Patch Removal MC 1 each DAILY@2200 [facility] Administration Miscellaneous 1 each 09/15/17 12:03 Duragesic Patch Waste MC PRN PRN PAIN Oxycodone HCl 5 mg 09/11/17 15:19 09/15/17 20:24 Roxicodone - PO 5 mg Q6H PRN Administration Pain 6-10 Polyethylene Glycol 17 gm 09/13/17 14:15 09/15/17 10:29 Miralax (For Daily Use) - PO 17 gm DAILY [facility] Administration Rosuvastatin Calcium 10 mg 09/07/17 10:00 09/15/17 10:29 Crestor - PO 10 mg DAILY [facility] Administration Senna 2 tab 09/07/17 22:00 09/14/17 21:04 Senna - PO 2 tab HS [facility] Administration ASSESSMENT/PLAN: 1)Sepsis 2/2 to enterococcus bacteremia: --Most recent set of Blood cultures cleared!! 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 Bolanos of Gen surgery --Cardiology recs appreciated: --TTE revealing no significant thickening or vegetations of valves; Mild MR --Not a candidate at the moment for DUSTIN --Motrin 600mg q6h alternating with Tylenol 1000mg q6h for fever control (do not exceed 4gm of Tylenol in 24h period) --Adding Motrin q6h for alternating Tylenol for control of fevers 2) L Hip Pain --Continue Gabapentin 300mg TID --Continue Lidoderm patch apply to L hip please --Oxycodone 5mg PRN pain 7-10 breakthrough --Start fentanyl patch today due to unbearable 3) Urinary Retention --Urology on board --Maintain chino currently --Will trial off catheter once infection controlled --Will need Cystoscopy and possible TURP on outpatient basis once UTI/ infection resolved 4) CALE on CKD --2/2 to retention --Resolved --Back at baseline 5) Lactic Acidosis --Resolved 6) Renal Cysts --Incidentally found on CT scan of abdomen --Most likely benign, however would recommend outpt f/u FEN: Fluids: None indicated; euvolemic and tolerating PO Electrolyte abnormalities: None today Nutrition: Sodium controlled PPX: DVT - Heparin SQ Dispo: Continue M/S Case discussed with Dr. Hu Herrera, DO - IM PGY-1 Visit type - Emergency Visit Emergency Visit: No - New Patient This patient is new to me today: No - Critical Care Critical Care patient: No
[2017-09-15] MEDS: LIDOCAINE PATCH REMOVAL MC SCH (23:07)
[2017-09-15] MEDS: SENNOSIDES 8.6MG TABLET (FP) PO SCH (23:07)
[2017-09-16] MEDS: GABAPENTIN 300 MG CAPSULE (FP) PO SCH ×3 (05:57→22:13)
[2017-09-16] MEDS: HEPARIN NA (PORCINE) 5,000 UNITS/ML 1ML VIAL SQ SCH ×3 (05:57→22:14)
[2017-09-16] MEDS: DOCUSATE SODIUM 100 MG CAPSULE (FP) PO SCH ×3 (05:57→22:13)
--- NOTE | 2017-09-16 07:56 | PN ---
Physical Exam: SUBJECTIVE: Yesterday changed pain control with fentanyl patch add-on. Pt today is sitting in bed smiling because his pain is much better controlled. Pt has no other complaints at this time. He continues to spike fevers overnight, however overall fever trend is towards more normal temperatures. OBJECTIVE: Vital Signs Period Temp Pulse Resp BP Sys/Balderas Pulse Ox Last 24 Hr 98.4 F-101.5 F 66-83 18-20 134-153/55-75 96-97 GENERAL:NAD, awake, alert, and fully oriented, laying on back HEENT: NC/AT, RICCO, sclera anicteric, moist-mucosa, NECK: No JVD, no lymphadenopathy LUNGS: Diminished breath sounds at bases. No overt rhonchi appreciated. No accessory muscle use. HEART: RRR, S1, S2 without murmur ABDOMEN: Soft, obese, nontender, nondistended, normoactive bowel sounds, no guarding, no suprapubic tenderness BACK: No CVA tenderness EXTREMITIES: 2+ DP pulses, warm, well-perfused, no edema. Knees symmetrical in size, w/o erythema, no TTP, L knee scar noted MSK: L leg ROM improved with passive movement (no can flex L knee and hip about 5-8 more degrees). Continues to be limited by pain PSYCH: Normal mood, normal affect. SKIN: Warm, dry, no rashes or lesions noted Laboratory Results - last 24 hr 09/15/17 09/15/17 06:00 06:00 WBC 13.6 H RBC 4.42 Hgb 13.8 Hct 41.2 MCV 93.2 MCH 31.2 MCHC 33.5 RDW 15.3 Plt Count 360 MPV 8.7 Sodium 142 Potassium 3.8 Chloride 104 Carbon Dioxide 29 Anion Gap 9 BUN 18 Creatinine 0.9 Creat Clearance w eGFR > 60 Random Glucose 94 Calcium 8.4 L Phosphorus 2.9 Magnesium 2.0 Active Medications Generic Name Dose Route Start Last Admin Trade Name Freq PRN Reason Stop Dose Admin Acetaminophen 1,000 mg 09/13/17 17:44 09/15/17 16:38 Tylenol - PO 1,000 mg Q6H PRN Administration PAIN LEVEL 1 - 3 Amlodipine Besylate 5 mg 09/10/17 11:04 09/15/17 10:29 Norvasc - PO 5 mg DAILY [facility] Administration Aspirin 81 mg 09/14/17 10:00 09/15/17 10:29 Ecotrin - PO 81 mg DAILY [facility] Administration Docusate Sodium 100 mg 09/08/17 14:00 09/16/17 05:57 Colace - PO 100 mg TID [facility] Administration Fenofibric Acid 135 mg 09/07/17 10:00 09/15/17 10:29 Trilipix - PO 135 mg DAILY [facility] Administration Fentanyl 1 patch 09/15/17 12:15 09/15/17 14:18 Duragesic 12mcg Patch - TD 09/22/17 12:04 1 patch Q72H [facility] Administration Gabapentin 300 mg 09/11/17 15:15 09/16/17 05:57 Neurontin - PO 300 mg TID [facility] Administration Heparin Sodium (Porcine) 5,000 unit 09/07/17 06:00 09/16/17 05:57 Heparin - SQ 5,000 unit TID [facility] Administration Daptomycin 750 mg/ Sodium 100 mls @ 200 mls/hr 09/13/17 14:00 09/15/17 14:18 Chloride IVPB 200 mls/hr Q24H [facility] Administration Protocol Sodium Chloride 1,000 mls @ 75 mls/hr 09/13/17 18:00 09/15/17 23:09 Normal Saline - IV 75 mls/hr ASDIR [facility] Administration Ibuprofen 600 mg 09/13/17 17:36 09/15/17 14:18 Motrin - PO 600 mg Q6H PRN Administration FEVER Isosorbide Mononitrate 60 mg 09/07/17 10:00 09/15/17 10:28 Imdur - PO 60 mg DAILY [facility] Administration Lidocaine 1 patch 09/14/17 19:21 09/15/17 10:28 Lidoderm Patch - TP 1 patch DAILY [facility] Administration Metoprolol Tartrate 100 mg 09/07/17 10:00 09/15/17 10:29 Lopressor - PO 100 mg DAILY [facility] Administration Miscellaneous 1 each 09/07/17 22:00 09/15/17 23:07 Lidoderm Patch Removal MC 1 each DAILY@2200 [facility] Administration Miscellaneous 1 each 09/15/17 12:03 Duragesic Patch Waste MC PRN PRN PAIN Oxycodone HCl 5 mg 09/11/17 15:19 09/15/17 20:24 Roxicodone - PO 5 mg Q6H PRN Administration Pain 6-10 Polyethylene Glycol 17 gm 09/13/17 14:15 09/15/17 10:29 Miralax (For Daily Use) - PO 17 gm DAILY [facility] Administration Rosuvastatin Calcium 10 mg 09/07/17 10:00 09/15/17 10:29 Crestor - PO 10 mg DAILY [facility] Administration Senna 2 tab 09/07/17 22:00 09/15/17 23:07 Senna - PO 2 tab HS [facility] Administration ASSESSMENT/PLAN: 1)Sepsis 2/2 to enterococcus bacteremia: --Most recent set of Blood cultures cleared!! 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 Hu Herrera, DO - IM PGY-1 Visit type - Emergency Visit Emergency Visit: No - New Patient This patient is new to me today: No - Critical Care Critical Care patient: No
[2017-09-16 08:31] LABS: HEMOGLOBIN 14.1 GM/dL (11.7-16.9); MCH 31.4 pg (25.7-33.7); MCHC 33.7 g/dl (32.0-35.9); MEAN CELL VOLUME 93.1 fl (80-96); MEAN PLT VOLUME 8.6 fl (7.5-11.1); PLATELET COUNT 401 K/MM3 (134-434); RBC 4.51 M/mm3 (4.00-5.60); RDW 15.4 % (11.9-15.9); WHITE BLOOD COUNT 13.2 K/mm3 (4.0-10.0)
--- NOTE | 2017-09-16 10:06 | PN ---
Progress Note, Physician Chief Complaint: urinary retention/ UTI/ colovesical fistula? History of Present Illness: 87 yo male PMH CABG 15 years ago, HTN, BPH, obesity, CKD, OA that presented to the hospital complaining of weakness, chills and dysuria. no acute events, chino in place and draining. - Current Medication List Current Medications: Active Medications Acetaminophen (Tylenol -) 1,000 mg PO Q6H PRN PRN Reason: PAIN LEVEL 1 - 3 Last Admin: 09/15/17 16:38 Dose: 1,000 mg Amlodipine Besylate (Norvasc -) 5 mg PO DAILY [facility] Last Admin: 09/15/17 10:29 Dose: 5 mg Aspirin (Ecotrin -) 81 mg PO DAILY [facility] Last Admin: 09/15/17 10:29 Dose: 81 mg Docusate Sodium (Colace -) 100 mg PO TID [facility] Last Admin: 09/16/17 05:57 Dose: 100 mg Fenofibric Acid (Trilipix -) 135 mg PO DAILY [facility] Last Admin: 09/15/17 10:29 Dose: 135 mg Fentanyl (Duragesic 12mcg Patch -) 1 patch TD Q72H [facility] Stop: 09/22/17 12:04 Last Admin: 09/15/17 14:18 Dose: 1 patch Gabapentin (Neurontin -) 300 mg PO TID [facility] Last Admin: 09/16/17 05:57 Dose: 300 mg Heparin Sodium (Porcine) (Heparin -) 5,000 unit SQ TID [facility] Last Admin: 09/16/17 05:57 Dose: 5,000 unit Daptomycin 750 mg/ Sodium (Chloride) 100 mls @ 200 mls/hr IVPB Q24H [facility]; Protocol Last Admin: 09/15/17 14:18 Dose: 200 mls/hr Sodium Chloride (Normal Saline -) 1,000 mls @ 75 mls/hr IV ASDIR [facility] Last Admin: 09/15/17 23:09 Dose: 75 mls/hr Ibuprofen (Motrin -) 600 mg PO Q6H PRN PRN Reason: FEVER Last Admin: 09/15/17 14:18 Dose: 600 mg Isosorbide Mononitrate (Imdur -) 60 mg PO DAILY [facility] Last Admin: 09/15/17 10:28 Dose: 60 mg Lidocaine (Lidoderm Patch -) 1 patch TP DAILY [facility] Last Admin: 09/15/17 10:28 Dose: 1 patch Metoprolol Tartrate (Lopressor -) 100 mg PO DAILY [facility] Last Admin: 09/15/17 10:29 Dose: 100 mg Miscellaneous (Lidoderm Patch Removal) 1 each MC DAILY@2200 [facility] Last Admin: 09/15/17 23:07 Dose: 1 each Miscellaneous (Duragesic Patch Waste) 1 each MC PRN PRN PRN Reason: PAIN Oxycodone HCl (Roxicodone -) 5 mg PO Q6H PRN PRN Reason: Pain 6-10 Last Admin: 09/15/17 20:24 Dose: 5 mg Polyethylene Glycol (Miralax (For Daily Use) -) 17 gm PO DAILY [facility] Last Admin: 09/15/17 10:29 Dose: 17 gm Rosuvastatin Calcium (Crestor -) 10 mg PO DAILY [facility] Last Admin: 09/15/17 10:29 Dose: 10 mg Senna (Senna -) 2 tab PO HS [facility] Last Admin: 09/15/17 23:07 Dose: 2 tab - Objective Vital Signs: Vital Signs Temperature 99.8 F H 09/16/17 06:13 Pulse Rate 70 09/16/17 06:13 Respiratory Rate 20 09/16/17 06:13 Blood Pressure 137/63 09/16/17 06:13 O2 Sat by Pulse Oximetry (%) 97 09/15/17 21:00 Constitutional: Yes: No Distress, Calm, Obese Eyes: Yes: Conjunctiva Clear, EOM Intact HENT: Yes: Atraumatic, Normocephalic Neck: Yes: Supple, Trachea Midline Respiratory: Yes: Regular, CTA Bilaterally Gastrointestinal: Yes: Normal Bowel Sounds, Soft. No: Tenderness ...Rectal Exam: Yes: Deferred Genitourinary: Yes: Ch[place] Present. 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 transplanted heart: [place] heart Associated angina: angina presence unspecified Qualified Code(s): I25.10 - Atherosclerotic heart disease of [place] coronary artery without angina pectoris (3) Hypercholesteremia Code(s): E78.0 - PURE HYPERCHOLESTEROLEMIA * DO NOT USE * (4) Hypertension Code(s): I10 - ESSENTIAL (PRIMARY) HYPERTENSION Qualifiers: Hypertension type: essential hypertension Qualified Code(s): I10 - Essential (primary) hypertension (5) Stage III chronic kidney disease Code(s): N18.3 - CHRONIC KIDNEY DISEASE, STAGE 3 (MODERATE) (6) Urinary tract infection Code(s): N39.0 - URINARY TRACT INFECTION, SITE NOT SPECIFIED Qualifiers: Urinary tract infection type: acute cystitis Hematuria presence: without hematuria Qualified Code(s): N30.00 - Acute cystitis without hematuria
[2017-09-16] MEDS: IBUPROFEN 600 MG TABLET (FP) PO PRN ×2 (10:26→17:48)
[2017-09-16] MEDS: METOPROLOL TARTRATE 50 MG TABLET (FP) PO SCH (10:27)
[2017-09-16] MEDS: ROSUVASTATIN CA 10 MG TABLET (FP) PO SCH (10:27)
[2017-09-16] MEDS: oxyCODONE HCL 5 MG TABLET PO PRN ×2 (10:28→17:48)
[2017-09-16] MEDS: ISOSORBIDE MONONITRATE 60 MG TAB.SR.24H (FP) PO SCH (10:28)
[2017-09-16] MEDS: amLODIPine BESYLATE 5 MG TABLET (FP) PO SCH (10:29)
[2017-09-16] MEDS: LIDOCAINE 5% TOPICAL PATCH TP SCH (10:29)
[2017-09-16] MEDS: ASPIRIN COATED 81 MG TABLET.EC PO SCH (10:29)
[2017-09-16] MEDS: POLYETHYLENE GLYCOL 3350 119 GM BTL PO SCH (10:30)
[2017-09-16] MEDS: FENOFIBRIC ACID 135 MG CAP PO SCH (10:30)
[2017-09-16] MEDS: SODIUM CHLORIDE 1,000 ML IV SCH ×2 (10:36→18:09)
--- NOTE | 2017-09-16 11:46 | PN ---
Progress Note (short form) - Note Progress Note: fever curve trending down still with pain left leg Vital Signs Period Temp Pulse Resp BP Sys/Balderas Pulse Ox Last 24 Hr 99.1 F-101.5 F 66-85 18-20 134-153/55-75 97 cor-rrr llungs clear abd firm, nt +chino ext trace edema CBC, BMP 09/16/17 06:00 09/15/17 06:00 Microbiology 09/13/17 12:55 Blood - Peripheral Venous Blood Culture - Preliminary NO GROWTH OBTAINED AFTER 48 HOURS, INCUBATION TO CONTINUE FOR 3 DAYS. 09/13/17 12:40 Blood - Peripheral Venous Blood Culture - Preliminary NO GROWTH OBTAINED AFTER 48 HOURS, INCUBATION TO CONTINUE FOR 3 DAYS. 09/11/17 11:26 Blood - Peripheral Venous Blood Culture - Final Group D Strep Or Entero Coccus 09/11/17 10:30 Blood - Peripheral Venous Blood Culture - Final Enterococcus Faecalis 09/09/17 17:45 Blood - Peripheral Venous Blood Culture - Final Group D Strep Or Entero Coccus 09/09/17 17:35 Blood - Peripheral Venous Blood Culture - Final Enterococcus Faecalis 09/06/17 17:10 Blood - Peripheral Venous Blood Culture - Final NO GROWTH AFTER 5 DAYS INCUBATION 09/06/17 17:20 Blood - Peripheral Venous Blood Culture - Final NO GROWTH AFTER 5 DAYS INCUBATION 09/10/17 10:55 Urine - Urine [place] Urine Culture - Final NO GROWTH OBTAINED 09/10/17 00:10 Urine - Urine Clean Catch Urine Culture - Final NO GROWTH OBTAINED 09/06/17 18:51 Urine - Urine Clean Catch Urine Culture - Final Enterococcus Faecalis 09/07/17 15:00 Urine For Antigen Detection Legionella Antigen - Final 09/07/17 15:00 Urine For Antigen Detection Streptococcus pneumoniae Antigen (M - Final a/p notes reviewed Day #4 daptomycin for enterococcal bacteremia/UTI penicillin allergy no aminoglycoside synergy for further imaging today blood cultures 09/13 negative repeat blood cultures in am ?colovesical fistula
--- NOTE | 2017-09-16 13:46 | PN ---
Teaching Attending Note Name of Resident: Beau Herrera ATTENDING PHYSICIAN STATEMENT I saw and evaluated the patient. I reviewed the resident's note and discussed the case with the resident. I agree with the resident's findings and plan as documented. SUBJECTIVE: Eating. refused interview and exam ASSESSMENT AND PLAN: 87 y/o man with h/o CAD s/p CABG, HTN, BPH, CKD, OA, cystoscopy 2 days prior to admission , and other medical problems who presented with dysuria and chills . he was found to have urinary retention and UTI with bacteremia 1- Complicated UTI /pyelonephritis with E. 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 fever improved . - Cont dapto day 4 . - blood cx neg x 72 hrs - cystogram to evaluate colovesicular fistula. - CT of L spine and Bone scan pending 2- CALE: resolved 3- L hip pain: could be due to OA. Bone scan to evaluate cont fentanyl patch to pain regimen 4- Renal cysts: f/u as out pt 5- constipation : bowel regimen dispo : HLOC
[2017-09-16] MEDS: DAPTOMYCIN 750 MG in SODIUM CHLORIDE 100 ML IVPB SCH (15:00)
[2017-09-16] MEDS: ACETAMINOPHEN 500 MG TABLET (FP) PO PRN (22:13)
[2017-09-16] MEDS: SENNOSIDES 8.6MG TABLET (FP) PO SCH (22:13)
[2017-09-16] MEDS: LIDOCAINE PATCH REMOVAL MC SCH (22:14)
[2017-09-17] MEDS: SODIUM CHLORIDE 1,000 ML IV SCH ×2 (02:40→22:11)
[2017-09-17] MEDS: HEPARIN NA (PORCINE) 5,000 UNITS/ML 1ML VIAL SQ SCH ×3 (06:55→22:12)
[2017-09-17] MEDS: DOCUSATE SODIUM 100 MG CAPSULE (FP) PO SCH ×3 (06:55→22:12)
[2017-09-17] MEDS: GABAPENTIN 300 MG CAPSULE (FP) PO SCH ×3 (06:55→22:12)
[2017-09-17 08:31] LABS: HEMATOCRIT 42.6 % (35.4-49); HEMOGLOBIN 14.3 GM/dL (11.7-16.9); MCH 31.5 pg (25.7-33.7); MCHC 33.5 g/dl (32.0-35.9); MEAN PLT VOLUME 8.6 fl (7.5-11.1); PLATELET COUNT 447 K/MM3 (134-434); RBC 4.53 M/mm3 (4.00-5.60); RDW 15.4 % (11.9-15.9); WHITE BLOOD COUNT 13.2 K/mm3 (4.0-10.0)
[2017-09-17 08:50] LABS: CHLORIDE 105 mmol/L (98-107); POTASSIUM 4.4 mmol/L (3.5-5.1); SODIUM 141 mmol/L (136-145)
[2017-09-17 09:08] LABS: ANION GAP 10 (8-16); BLOOD UREA NITROGEN 19 mg/dL (7-18); CALCIUM 8.8 mg/dL (8.5-10.1); CO2 26 mmol/L (21-32); GLUCOSE,RANDOM 90 mg/dL (74-106)
[2017-09-17] MEDS ORDERED: PT OWN MED DRAWER 7, Y5N ONE (09:40)
[2017-09-17] MEDS: LIDOCAINE 5% TOPICAL PATCH TP SCH (09:43)
[2017-09-17] MEDS: ISOSORBIDE MONONITRATE 60 MG TAB.SR.24H (FP) PO SCH (09:43)
[2017-09-17] MEDS: ASPIRIN COATED 81 MG TABLET.EC PO SCH (09:43)
[2017-09-17] MEDS: ROSUVASTATIN CA 10 MG TABLET (FP) PO SCH (09:43)
[2017-09-17] MEDS: amLODIPine BESYLATE 5 MG TABLET (FP) PO SCH (09:43)
[2017-09-17] MEDS: POLYETHYLENE GLYCOL 3350 119 GM BTL PO SCH (09:43)
[2017-09-17] MEDS: FENOFIBRIC ACID 135 MG CAP PO SCH (09:43)
[2017-09-17] MEDS: METOPROLOL TARTRATE 50 MG TABLET (FP) PO SCH (09:43)
--- NOTE | 2017-09-17 09:47 | PN ---
Progress Note (short form) - Note Progress Note: afebrile stilll with severe left hip pain Vital Signs Period Temp Pulse Resp BP Sys/Balderas Pulse Ox Last 24 Hr 98.4 F-99.4 F 59-85 20-20 110-153/58-72 97 cor-rrr lungs clear abd firm,protuberant, NT ext no edema +chino CBC, BMP 09/17/17 07:00 09/17/17 07:30 Microbiology 09/13/17 12:55 Blood - Peripheral Venous Blood Culture - Preliminary NO GROWTH OBTAINED AFTER 72 HOURS, INCUBATION TO CONTINUE FOR 2 DAYS. 09/13/17 12:40 Blood - Peripheral Venous Blood Culture - Preliminary NO GROWTH OBTAINED AFTER 72 HOURS, INCUBATION TO CONTINUE FOR 2 DAYS. 09/11/17 11:26 Blood - Peripheral Venous Blood Culture - Final Group D Strep Or Entero Coccus 09/11/17 10:30 Blood - Peripheral Venous Blood Culture - Final Enterococcus Faecalis 09/09/17 17:45 Blood - Peripheral Venous Blood Culture - Final Group D Strep Or Entero Coccus 09/09/17 17:35 Blood - Peripheral Venous Blood Culture - Final Enterococcus Faecalis 09/06/17 17:10 Blood - Peripheral Venous Blood Culture - Final NO GROWTH AFTER 5 DAYS INCUBATION 09/06/17 17:20 Blood - Peripheral Venous Blood Culture - Final NO GROWTH AFTER 5 DAYS INCUBATION 09/10/17 10:55 Urine - Urine [place] Urine Culture - Final NO GROWTH OBTAINED 09/10/17 00:10 Urine - Urine Clean Catch Urine Culture - Final NO GROWTH OBTAINED 09/06/17 18:51 Urine - Urine Clean Catch Urine Culture - Final Enterococcus Faecalis 09/07/17 15:00 Urine For Antigen Detection Legionella Antigen - Final 09/07/17 15:00 Urine For Antigen Detection Streptococcus pneumoniae Antigen (M - Final a/p notes reviewed Day #5 daptomycin for enterococcal bacteremia/UTI penicillin allergy no aminoglycoside synergy called radiology to request reading on ct scan done yesterday blood cultures 09/13 negative repeat blood cultures sne today ?colovesical fistula-urology f/u
[2017-09-17] MEDS: oxyCODONE HCL 5 MG TABLET PO PRN (11:52)
[2017-09-17] MEDS: DAPTOMYCIN 750 MG in SODIUM CHLORIDE 100 ML IVPB SCH (15:33)
--- NOTE | 2017-09-17 18:02 | PN ---
Physical Exam: SUBJECTIVE: Patient seen and examined at bedside. No acute events overnight. Patient complained of persistent L hip pain that was controlled with pain meds. Denied headaches, fever, chills, nausea/vomiting, urinary or bowel symptoms. Admits to good PO intake. OBJECTIVE: Vital Signs Period Temp Pulse Resp BP Sys/Balderas Pulse Ox Last 24 Hr 98 F-98.9 F 59-76 16-20 122-155/58-78 97-98 GENERAL: The patient is awake, alert, and fully oriented, in no acute distress. HEAD: Normal with no signs of trauma. EYES: PERRL, extraocular movements intact, sclera anicteric, conjunctiva clear. No ptosis. ENT: Ears normal, nares patent, oropharynx clear without exudates, moist mucous membranes. NECK: Supple, no lymphadenopathy. LUNGS: Breath sounds equal, clear to auscultation bilaterally, no wheezes, no crackles, no accessory muscle use. HEART: Regular rate and rhythm, S1, S2 without murmur, rub or gallop. ABDOMEN: Soft, nontender, nondistended, normoactive bowel sounds, no guarding, no rebound, no hepatosplenomegaly, no masses. EXTREMITIES: 2+ pulses, warm, well-perfused, no edema. NEUROLOGICAL: Cranial nerves II through XII grossly intact. Normal speech, gait not observed. PSYCH: Normal mood, normal affect. SKIN: Warm, dry, normal turgor, no rashes or lesions noted Laboratory Results - last 24 hr 09/17/17 09/17/17 07:00 07:30 WBC 13.2 H RBC 4.53 Hgb 14.3 Hct 42.6 MCV 94.0 MCH 31.5 MCHC 33.5 RDW 15.4 Plt Count 447 H MPV 8.6 Sodium 141 Potassium 4.4 Chloride 105 Carbon Dioxide 26 Anion Gap 10 BUN 19 H Creatinine 1.0 Creat Clearance w eGFR > 60 Random Glucose 90 Calcium 8.8 Active Medications Generic Name Dose Route Start Last Admin Trade Name Freq PRN Reason Stop Dose Admin Acetaminophen 1,000 mg 09/13/17 17:44 09/16/17 22:13 Tylenol - PO 1,000 mg Q6H PRN Administration PAIN LEVEL 1 - 3 Amlodipine Besylate 5 mg 09/10/17 11:04 09/17/17 09:43 Norvasc - PO 5 mg DAILY [facility] Administration Aspirin 81 mg 09/14/17 10:00 09/17/17 09:43 Ecotrin - PO 81 mg DAILY [facility] Administration Docusate Sodium 100 mg 09/08/17 14:00 09/17/17 13:49 Colace - PO 100 mg TID [facility] Administration Fenofibric Acid 135 mg 09/07/17 10:00 09/17/17 09:43 Trilipix - PO 135 mg DAILY [facility] Administration Fentanyl 1 patch 09/15/17 12:15 09/15/17 14:18 Duragesic 12mcg Patch - TD 09/22/17 12:04 1 patch Q72H [facility] Administration Gabapentin 300 mg 09/11/17 15:15 09/17/17 13:50 Neurontin - PO 300 mg TID [facility] Administration Heparin Sodium (Porcine) 5,000 unit 09/07/17 06:00 09/17/17 13:49 Heparin - SQ 5,000 unit TID [facility] Administration Daptomycin 750 mg/ Sodium 100 mls @ 200 mls/hr 09/13/17 14:00 09/17/17 15:33 Chloride IVPB 200 mls/hr Q24H [facility] Administration Protocol Sodium Chloride 1,000 mls @ 75 mls/hr 09/13/17 18:00 09/17/17 02:40 Normal Saline - IV 75 mls/hr ASDIR [facility] Administration Ibuprofen 600 mg 09/13/17 17:36 09/16/17 17:48 Motrin - PO 600 mg Q6H PRN Administration FEVER Isosorbide Mononitrate 60 mg 09/07/17 10:00 09/17/17 09:43 Imdur - PO 60 mg DAILY [facility] Administration Lidocaine 1 patch 09/14/17 19:21 09/17/17 09:43 Lidoderm Patch - TP 1 patch DAILY [facility] Administration Metoprolol Tartrate 100 mg 09/07/17 10:00 09/17/17 09:43 Lopressor - PO 100 mg DAILY [facility] Administration Miscellaneous 1 each 09/07/17 22:00 09/16/17 22:14 Lidoderm Patch Removal MC 1 each DAILY@2200 [facility] Administration Miscellaneous 1 each 09/15/17 12:03 Duragesic Patch Waste MC PRN PRN PAIN Oxycodone HCl 5 mg 09/11/17 15:19 09/17/17 11:52 Roxicodone - PO 5 mg Q6H PRN Administration Pain 6-10 Polyethylene Glycol 17 gm 09/13/17 14:15 09/17/17 09:43 Miralax (For Daily Use) - PO 17 gm DAILY [facility] Administration Rosuvastatin Calcium 10 mg 09/07/17 10:00 09/17/17 09:43 Crestor - PO 10 mg DAILY [facility] Administration Senna 2 tab 09/07/17 22:00 09/16/17 22:13 Senna - PO 2 tab HS [facility] Administration ASSESSMENT/PLAN: This is an 87 year old male with pmhx of HTN, BPH, CKD, OA, and s/p CABG x15 years ago who is currently being treated for UTI with pyelonephritis. #UTI w/ pyelonephritis - blood cx (+) for E. faecalis bacteremia - Cont Daptomycin 750 mg/NS 100cc @ 200cc/hr IVPB (Day 5) - CT scan: (+) for colovesicula fistula. Uro consult ordered with Dr. Narvaez for evaluation and possible cystogram. Follow up report. #CALE - resolved. #L hip pain 2/2 OA - f/u bone scan - cont Fentanyl patch 12 mcg TD q72h - cont Oxycodone 5 mg PO q6h PRN - cont Ibuprofen 600 mg PO q6h #Renal cysts - f/u outpatient #Constipation - Cont bowel regimen: Docusate 100 mg PO TID, Miralax 17 gm PO QD, Senna 2 tab PO HS #HTN - BP stable, cont to monitor. - cont Lopressor 100 mg PO QD - cont Amlodipine 5 mg PO QD #HLD - cont Rosuvastatin 10 mg PO QD - cont Fenofibrate 135 mg PO QD #CAD - cont Isosorbide mononitrate 60 mg PO QD - cont Aspirin 81 mg PO QD #DVT prophylaxis - cont Heparin 5,000U SQ TID - SCDs #FEN - NS 1000 cc @ 75cc/hr - check lytes in AM - sodium controlled diet Visit type - Emergency Visit Emergency Visit: No - New Patient This patient is new to me today: Yes Date on this admission: 09/17/17 - Critical Care Critical Care patient: No
--- NOTE | 2017-09-17 18:42 | PN ---
Teaching Attending Note Name of Resident: Vane June ATTENDING PHYSICIAN STATEMENT I saw and evaluated the patient. I reviewed the resident's note and discussed the case with the resident. I agree with the resident's findings and plan as documented. SUBJECTIVE: No fever or chills . feels better . OBJECTIVE: A/P : 87 y/o man with h/o CAD s/p CABG, HTN, BPH, CKD, OA, cystoscopy 2 days prior to admission , and other medical problems who presented with dysuria and chills. he was found to have urinary retention and UTI with bacteremia 1- Complicated UTI /pyelonephritis with E. 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 fever improved . - Cont dapto day 5. - repeat blood cx neg so far - cystogram to evaluate colovesicular fistula. -uro consult again as dr. Trinh is away for a week - CT of L spine with no psoas abscess. Bone scan pending 2- CALE: resolved 3- L hip pain: could be due to OA. Bone scan to evaluate cont fentanyl patch ( helped pain ) and lidocaine patch 4- Renal cysts: f/u as out pt 5- constipation : bowel regimen dispo : [facility]LOC
[2017-09-17] MEDS: LIDOCAINE PATCH REMOVAL MC SCH (22:12)
[2017-09-17] MEDS: SENNOSIDES 8.6MG TABLET (FP) PO SCH (22:12)
[2017-09-17] MEDS: ACETAMINOPHEN 500 MG TABLET (FP) PO PRN (22:12)
[2017-09-18] MEDS: DOCUSATE SODIUM 100 MG CAPSULE (FP) PO SCH ×3 (06:43→21:10)
[2017-09-18] MEDS: HEPARIN NA (PORCINE) 5,000 UNITS/ML 1ML VIAL SQ SCH ×3 (06:43→21:09)
[2017-09-18] MEDS: GABAPENTIN 300 MG CAPSULE (FP) PO SCH ×3 (06:43→21:10)
[2017-09-18 07:48] LABS: BASO % 0.8 % (0-2.0); EOS % 1.5 % (0-4.5); HEMATOCRIT 42.8 % (35.4-49); HEMOGLOBIN 14.4 GM/dL (11.7-16.9); LYMPH % 21.9 % (8-40); MCH 31.4 pg (25.7-33.7); MCHC 33.7 g/dl (32.0-35.9); MEAN PLT VOLUME 8.5 fl (7.5-11.1); NEUT % 70.8 % (42.8-82.8); PLATELET COUNT 510 K/MM3 (134-434); RDW 15.3 % (11.9-15.9); WHITE BLOOD COUNT 13.3 K/mm3 (4.0-10.0)
[2017-09-18 07:50] LABS: ALBUMIN 2.4 g/dl (3.4-5.0); ALK PHOS 72 U/L (45-117); ANION GAP 6 (8-16); BILIRUBIN,TOTAL 0.8 mg/dL (0.2-1.0); BLOOD UREA NITROGEN 18 mg/dL (7-18); CALCIUM 8.9 mg/dL (8.5-10.1); CHLORIDE 104 mmol/L (98-107); CO2 30 mmol/L (21-32); GLUCOSE,RANDOM 94 mg/dL (74-106); POTASSIUM 4.4 mmol/L (3.5-5.1); SGOT/AST 36 U/L (15-37); SGPT/ALT 26 U/L (12-78); SODIUM 140 mmol/L (136-145); TOT PROT 6.3 g/dl (6.4-8.2)
[2017-09-18] MEDS: SODIUM CHLORIDE 1,000 ML IV SCH ×2 (09:24→18:05)
[2017-09-18] MEDS: ISOSORBIDE MONONITRATE 60 MG TAB.SR.24H (FP) PO SCH (09:24)
[2017-09-18] MEDS: LIDOCAINE 5% TOPICAL PATCH TP SCH (09:24)
[2017-09-18] MEDS: ROSUVASTATIN CA 10 MG TABLET (FP) PO SCH (09:24)
[2017-09-18] MEDS: METOPROLOL TARTRATE 50 MG TABLET (FP) PO SCH (09:24)
[2017-09-18] MEDS: amLODIPine BESYLATE 5 MG TABLET (FP) PO SCH (09:25)
[2017-09-18] MEDS: ASPIRIN COATED 81 MG TABLET.EC PO SCH (09:25)
[2017-09-18] MEDS: POLYETHYLENE GLYCOL 3350 119 GM BTL PO SCH (09:26)
[2017-09-18] MEDS ORDERED: PT OWN MED DRAWER 7, Y5N ONE (09:28)
[2017-09-18] MEDS: FENOFIBRIC ACID 135 MG CAP PO SCH (09:29)
--- NOTE | 2017-09-18 10:12 | PN ---
Progress Note, Physician Chief Complaint: urinary retention/ UTI/ colovesical fistula? History of Present Illness: 87 yo male PMH CABG 15 years ago, HTN, BPH, obesity, CKD, OA that presented to the hospital complaining of weakness, chills and dysuria. no acute events, chino in place and draining. - Current Medication List Current Medications: Active Medications Acetaminophen (Tylenol -) 1,000 mg PO Q6H PRN PRN Reason: PAIN LEVEL 1 - 3 Last Admin: 09/17/17 22:12 Dose: 1,000 mg Amlodipine Besylate (Norvasc -) 5 mg PO DAILY [facility] Last Admin: 09/18/17 09:25 Dose: 5 mg Aspirin (Ecotrin -) 81 mg PO DAILY [facility] Last Admin: 09/18/17 09:25 Dose: 81 mg Docusate Sodium (Colace -) 100 mg PO TID [facility] Last Admin: 09/18/17 06:43 Dose: 100 mg Fenofibric Acid (Trilipix -) 135 mg PO DAILY [facility] Last Admin: 09/18/17 09:29 Dose: 135 mg Fentanyl (Duragesic 12mcg Patch -) 1 patch TD Q72H [facility] Stop: 09/22/17 12:04 Last Admin: 09/15/17 14:18 Dose: 1 patch Gabapentin (Neurontin -) 300 mg PO TID [facility] Last Admin: 09/18/17 06:43 Dose: 300 mg Heparin Sodium (Porcine) (Heparin -) 5,000 unit SQ TID [facility] Last Admin: 09/18/17 06:43 Dose: 5,000 unit Daptomycin 750 mg/ Sodium (Chloride) 100 mls @ 200 mls/hr IVPB Q24H [facility]; Protocol Last Admin: 09/17/17 15:33 Dose: 200 mls/hr Sodium Chloride (Normal Saline -) 1,000 mls @ 75 mls/hr IV ASDIR [facility] Last Admin: 09/18/17 09:24 Dose: 75 mls/hr Ibuprofen (Motrin -) 600 mg PO Q6H PRN PRN Reason: FEVER Last Admin: 09/16/17 17:48 Dose: 600 mg Isosorbide Mononitrate (Imdur -) 60 mg PO DAILY [facility] Last Admin: 09/18/17 09:24 Dose: 60 mg Lidocaine (Lidoderm Patch -) 1 patch TP DAILY [facility] Last Admin: 09/18/17 09:24 Dose: 1 patch Metoprolol Tartrate (Lopressor -) 100 mg PO DAILY [facility] Last Admin: 09/18/17 09:24 Dose: 100 mg Miscellaneous (Lidoderm Patch Removal) 1 each MC DAILY@2200 [facility] Last Admin: 09/17/17 22:12 Dose: 1 each Miscellaneous (Duragesic Patch Waste) 1 each MC PRN PRN PRN Reason: PAIN Oxycodone HCl (Roxicodone -) 5 mg PO Q6H PRN PRN Reason: Pain 6-10 Last Admin: 09/17/17 11:52 Dose: 5 mg Polyethylene Glycol (Miralax (For Daily Use) -) 17 gm PO DAILY [facility] Last Admin: 09/18/17 09:26 Dose: 17 gm Rosuvastatin Calcium (Crestor -) 10 mg PO DAILY [facility] Last Admin: 09/18/17 09:24 Dose: 10 mg Senna (Senna -) 2 tab PO HS [facility] Last Admin: 09/17/17 22:12 Dose: 2 tab - Objective Vital Signs: Vital Signs Temperature 98.8 F 09/18/17 06:00 Pulse Rate 75 09/18/17 06:00 Respiratory Rate 20 09/18/17 06:00 Blood Pressure 155/72 09/18/17 06:00 O2 Sat by Pulse Oximetry (%) 98 09/17/17 21:00 Vital Signs Period Temp Pulse Resp BP Sys/Balderas Pulse Ox Last 24 Hr 98.1 F-100.6 F 63-82 19-22 127-155/66-78 98 Constitutional: Yes: Well Nourished, No Distress, Calm Eyes: Yes: Conjunctiva Clear, EOM Intact HENT: Yes: Atraumatic, Normocephalic Neck: Yes: Supple, Trachea Midline Cardiovascular: Yes: Regular Rate and Rhythm, S1, S2 Respiratory: Yes: Regular, CTA Bilaterally Gastrointestinal: Yes: Normal Bowel Sounds, Soft, Abdomen, Obese. 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 Prado) Tuesday 09/19 Urology consult will follow Code(s): N32.1 - VESICOINTESTINAL FISTULA (2) CAD (coronary artery disease) Code(s): I25.10 - ATHSCL HEART DISEASE OF [place] CORONARY ARTERY W/O ANG PCTRS Qualifiers: Coronary Disease-Associated Artery/Lesion type: [place] artery [place] vs. transplanted heart: [place] heart Associated angina: angina presence unspecified Qualified Code(s): I25.10 - Atherosclerotic heart disease of [place] coronary artery without angina pectoris (3) Hypercholesteremia Code(s): E78.0 - PURE HYPERCHOLESTEROLEMIA * DO NOT USE * (4) Hypertension Code(s): I10 - ESSENTIAL (PRIMARY) HYPERTENSION Qualifiers: Hypertension type: essential hypertension Qualified Code(s): I10 - Essential (primary) hypertension (5) Stage III chronic kidney disease Code(s): N18.3 - CHRONIC KIDNEY DISEASE, STAGE 3 (MODERATE) (6) Urinary tract infection Code(s): N39.0 - URINARY TRACT INFECTION, SITE NOT SPECIFIED Qualifiers: Urinary tract infection type: acute cystitis Hematuria presence: without hematuria Qualified Code(s): N30.00 - Acute cystitis without hematuria
[2017-09-18] MEDS ORDERED: SODIUM PHOSPHATE/NA BIPHOS 133 ML ENEMA PR ONE (12:39)
--- NOTE | 2017-09-18 13:55 | PN ---
Progress Note, Physician History of Present Illness: Complains of L hip pain Low grade temp Repeat BC 09/13 , 09/17 no growth - Current Medication List Current Medications: Active Medications Acetaminophen (Tylenol -) 1,000 mg PO Q6H PRN PRN Reason: PAIN LEVEL 1 - 3 Last Admin: 09/17/17 22:12 Dose: 1,000 mg Amlodipine Besylate (Norvasc -) 5 mg PO DAILY [facility] Last Admin: 09/18/17 09:25 Dose: 5 mg Aspirin (Ecotrin -) 81 mg PO DAILY [facility] Last Admin: 09/18/17 09:25 Dose: 81 mg Docusate Sodium (Colace -) 100 mg PO TID [facility] Last Admin: 09/18/17 06:43 Dose: 100 mg Fenofibric Acid (Trilipix -) 135 mg PO DAILY [facility] Last Admin: 09/18/17 09:29 Dose: 135 mg Fentanyl (Duragesic 12mcg Patch -) 1 patch TD Q72H [facility] Stop: 09/22/17 12:04 Last Admin: 09/15/17 14:18 Dose: 1 patch Gabapentin (Neurontin -) 300 mg PO TID [facility] Last Admin: 09/18/17 06:43 Dose: 300 mg Heparin Sodium (Porcine) (Heparin -) 5,000 unit SQ TID [facility] Last Admin: 09/18/17 06:43 Dose: 5,000 unit Daptomycin 750 mg/ Sodium (Chloride) 100 mls @ 200 mls/hr IVPB Q24H [facility]; Protocol Last Admin: 09/17/17 15:33 Dose: 200 mls/hr Sodium Chloride (Normal Saline -) 1,000 mls @ 75 mls/hr IV ASDIR [facility] Last Admin: 09/18/17 09:24 Dose: 75 mls/hr Ibuprofen (Motrin -) 600 mg PO Q6H PRN PRN Reason: FEVER Last Admin: 09/16/17 17:48 Dose: 600 mg Isosorbide Mononitrate (Imdur -) 60 mg PO DAILY [facility] Last Admin: 09/18/17 09:24 Dose: 60 mg Lidocaine (Lidoderm Patch -) 1 patch TP DAILY [facility] Last Admin: 09/18/17 09:24 Dose: 1 patch Metoprolol Tartrate (Lopressor -) 100 mg PO DAILY [facility] Last Admin: 09/18/17 09:24 Dose: 100 mg Miscellaneous (Lidoderm Patch Removal) 1 each MC DAILY@2200 [facility] Last Admin: 09/17/17 22:12 Dose: 1 each Miscellaneous (Duragesic Patch Waste) 1 each [facility] PRN PRN PRN Reason: PAIN Oxycodone HCl (Roxicodone -) 5 mg PO Q6H PRN PRN Reason: Pain 6-10 Last Admin: 09/17/17 11:52 Dose: 5 mg Polyethylene Glycol (Miralax (For Daily Use) -) 17 gm PO DAILY [facility] Last Admin: 09/18/17 09:26 Dose: 17 gm Rosuvastatin Calcium (Crestor -) 10 mg PO DAILY [facility] Last Admin: 09/18/17 09:24 Dose: 10 mg Senna (Senna -) 2 tab PO HS [facility] Last Admin: 09/17/17 22:12 Dose: 2 tab - Objective Vital Signs: Vital Signs Temperature 98.8 F 09/18/17 06:00 Pulse Rate 75 09/18/17 06:00 Respiratory Rate 20 09/18/17 06:00 Blood Pressure 155/72 09/18/17 06:00 O2 Sat by Pulse Oximetry (%) 98 09/17/17 21:00 Constitutional: Yes: No Distress Eyes: Yes: Conjunctiva Clear Cardiovascular: Yes: Regular Rate and Rhythm, S1, S2 Respiratory: Yes: CTA Bilaterally Gastrointestinal: Yes: Normal Bowel Sounds, Soft, Abdomen, Obese. No: Tenderness Labs: CBC, BMP 09/18/17 06:00 09/18/17 06:20 INR, PTT INR 1.09 (0.82-1.09) 09/06/17 17:20 Assessment/Plan Enterococcal bacteremia/ sepsis secondary to UTI Major PCN allergy Continue L hip pain Repeat BC no growth Continue Daptomycin Ortho follow up re L hip pain
--- NOTE | 2017-09-18 14:11 | PN ---
Physical Exam: SUBJECTIVE: Patient seen and examined at bedside. Pt has no complaints overnight. As per nurse, pt had 100.6 fever overnight and was given Tylenol. Denies headaches, nausea/vomiting, bowel symptoms. OBJECTIVE: Vital Signs Period Temp Pulse Resp BP Sys/Balderas Pulse Ox Last 24 Hr 98.1 F-100.6 F 63-82 19-22 127-155/66-78 98 General: NAD, AAOx3. HEENT: AT/NC. Non-icteric sclera. Nares patent. Neck: Supple. No JVD. No LAD. Lungs: CTA B/L. Symmetric chest rise. No wheezes, rhonchi, or rales appreciated. Heart: RRR. Normal S1, S2. No murmurs, rubs, or gallops appreciated. Abd: Soft NT/ND. Normoactive bowel sounds in all 4Qs. : [place] in place. MSK: 5/5 ROM in U/L ext bilaterally. No peripheral edema noted. Neuro: CN II-XII intact. Laboratory Results - last 24 hr 09/18/17 09/18/17 06:00 06:20 WBC 13.3 H RBC 4.60 Hgb 14.4 Hct 42.8 MCV 93.0 MCH 31.4 MCHC 33.7 RDW 15.3 Plt Count 510 H MPV 8.5 Absolute Neuts (auto) 9.4 Neutrophils % 70.8 Lymphocytes % 21.9 Monocytes % 5.0 Eosinophils % 1.5 Basophils % 0.8 Nucleated RBC % 0 Sodium 140 Potassium 4.4 Chloride 104 Carbon Dioxide 30 Anion Gap 6 L BUN 18 Creatinine 1.0 Creat Clearance w eGFR > 60 Random Glucose 94 Calcium 8.9 Magnesium 2.0 Total Bilirubin 0.8 AST 36 ALT 26 Alkaline Phosphatase 72 D Total Protein 6.3 L Albumin 2.4 L Active Medications Generic Name Dose Route Start Last Admin Trade Name Freq PRN Reason Stop Dose Admin Acetaminophen 1,000 mg 09/13/17 17:44 09/17/17 22:12 Tylenol - PO 1,000 mg Q6H PRN Administration PAIN LEVEL 1 - 3 Amlodipine Besylate 5 mg 09/10/17 11:04 09/18/17 09:25 Norvasc - PO 5 mg DAILY [facility] Administration Aspirin 81 mg 09/14/17 10:00 09/18/17 09:25 Ecotrin - PO 81 mg DAILY [facility] Administration Docusate Sodium 100 mg 09/08/17 14:00 09/18/17 14:22 Colace - PO 100 mg TID [facility] Administration Fenofibric Acid 135 mg 09/07/17 10:00 09/18/17 09:29 Trilipix - PO 135 mg DAILY [facility] Administration Fentanyl 1 patch 09/15/17 12:15 09/18/17 14:25 Duragesic 12mcg Patch - TD 09/22/17 12:04 1 patch Q72H [facility] Administration Gabapentin 300 mg 09/11/17 15:15 09/18/17 14:24 Neurontin - PO 300 mg TID [facility] Administration Heparin Sodium (Porcine) 5,000 unit 09/07/17 06:00 09/18/17 14:22 Heparin - SQ 5,000 unit TID [facility] Administration Daptomycin 750 mg/ Sodium 100 mls @ 200 mls/hr 09/13/17 14:00 09/18/17 14:25 Chloride IVPB 200 mls/hr Q24H [facility] Administration Protocol Sodium Chloride 1,000 mls @ 75 mls/hr 09/13/17 18:00 09/18/17 09:24 Normal Saline - IV 75 mls/hr ASDIR [facility] Administration Ibuprofen 600 mg 09/13/17 17:36 09/16/17 17:48 Motrin - PO 600 mg Q6H PRN Administration FEVER Isosorbide Mononitrate 60 mg 09/07/17 10:00 09/18/17 09:24 Imdur - PO 60 mg DAILY [facility] Administration Lidocaine 1 patch 09/14/17 19:21 09/18/17 09:24 Lidoderm Patch - TP 1 patch DAILY [facility] Administration Metoprolol Tartrate 100 mg 09/07/17 10:00 09/18/17 09:24 Lopressor - PO 100 mg DAILY [facility] Administration Miscellaneous 1 each 09/07/17 22:00 09/17/17 22:12 Lidoderm Patch Removal MC 1 each DAILY@2200 [facility] Administration Miscellaneous 1 each 09/15/17 12:03 Duragesic Patch Waste MC PRN PRN PAIN Oxycodone HCl 5 mg 09/11/17 15:19 09/18/17 14:22 Roxicodone - PO 5 mg Q6H PRN Administration Pain 6-10 Polyethylene Glycol 17 gm 09/13/17 14:15 09/18/17 09:26 Miralax (For Daily Use) - PO 17 gm DAILY [facility] Administration Rosuvastatin Calcium 10 mg 09/07/17 10:00 09/18/17 09:24 Crestor - PO 10 mg DAILY [facility] Administration Senna 2 tab 09/07/17 22:00 09/17/17 22:12 Senna - PO 2 tab HS [facility] Administration Tamsulosin HCl 0.4 mg 09/18/17 15:00 Flomax - PO DAILY@0830 [facility] ASSESSMENT/PLAN: 87M with pmhx of HTN, BPH, CKD, OA, and s/p CABG x15 years ago who is currently being treated for UTI with pyelonephritis. #UTI w/ pyelonephritis; Patient is currently asymptomatic and clinically stable. - blood cx (+) for E. 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 Flomax 0.4 mg PO QD started. F/u voiding trial in AM. - As per surg note, gastrografin enema scheduled for 09/19/17. #CALE - resolved. #L hip pain 04/21 OA - Bone scan (09/18/17): nonspecific findings of increased blood flow, blood pool and delayed increased uptake throughout L hip joint. can be seen w/ septic arthritis or severe degenerative/inflammatory arthritis. Possible MRI? if possible w/ pt's prosthesis. - cont Fentanyl patch 12 mcg TD q72h - cont Oxycodone 5 mg PO q6h PRN - cont Ibuprofen 600 mg PO q6h - cont Gabapentin 300 mg PO TID - cont Tylenol 1000 mg PO q6h - d/w patient of rehab after discharge #Renal cysts - f/u outpatient #Constipation - Cont bowel regimen: Docusate 100 mg PO TID, Miralax 17 gm PO QD, Senna 2 tab PO HS #HTN - BP stable, cont to monitor. - cont Lopressor 100 mg PO QD - cont Amlodipine 5 mg PO QD #HLD - cont Rosuvastatin 10 mg PO QD - cont Fenofibrate 135 mg PO QD #CAD - cont Isosorbide mononitrate 60 mg PO QD - cont Aspirin 81 mg PO QD #DVT prophylaxis - cont Heparin 5,000U SQ TID - SCDs #FEN - NS 1000 cc @ 75cc/hr - check lytes in AM - sodium controlled diet dispo - d/w pt discharge to rehab Visit type - Emergency Visit Emergency Visit: No - New Patient This patient is new to me today: No - Critical Care Critical Care patient: No
[2017-09-18] MEDS: oxyCODONE HCL 5 MG TABLET PO PRN ×2 (14:22→21:10)
[2017-09-18] MEDS: DAPTOMYCIN 750 MG in SODIUM CHLORIDE 100 ML IVPB SCH (14:25)
[2017-09-18] MEDS: fentaNYL 12mcg/hr PATCH.TD72 TD SCH (14:25)
--- NOTE | 2017-09-18 14:27 | PN ---
Progress Note (short form) - Note Progress Note: no evidence of colovesical fistula open prostatic urethra on cysto flomax started voiding trial in am
[2017-09-18] MEDS: IBUPROFEN 600 MG TABLET (FP) PO PRN (14:43)
[2017-09-18] MEDS: FENTANYL PATCH WASTE MC PRN (14:57)
--- NOTE | 2017-09-18 17:34 | PN ---
Teaching Attending Note Name of Resident: Beau Patel ATTENDING PHYSICIAN STATEMENT I saw and evaluated the patient. I reviewed the resident's note and discussed the case with the resident. I agree with the resident's findings and plan as documented. SUBJECTIVE: No fever or chills. No abd pain. has L hip pain still OBJECTIVE: NAD CV; RRR Lungs: CATB Abd; soft, NT, ND , NL BS . Ext : no edema L hip tenderness. A/P 87 y/o man with h/o CAD s/p CABG, HTN, BPH, CKD, OA, cystoscopy 2 days prior to admission , and other medical problems who presented with dysuria and chills. he was found to have urinary retention and UTI with bacteremia 1- Complicated UTI /pyelonephritis with E. 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 fever improved . - Cont dapto day 6. - Bone scan noted. ? septic arthritis vs severe arthritis . ? will communicate withhis orthopedic surgeon to see if MRI could be done - repeat blood cx neg - cystogram did not show a fistula - dc chino in am for voiding trial 2- CALE: resolved 3- L hip pain: as above cont fentanyl patch and lidocaine patch 4- Renal cysts: f/u as out pt 5- Constipation : bowel regimen Dispo : [facility]LOC
[2017-09-18] MEDS: TAMSULOSIN HCL 0.4 MG CAP.ER.24H (FP) PO SCH (18:06)
[2017-09-18] MEDS: SENNOSIDES 8.6MG TABLET (FP) PO SCH (21:09)
[2017-09-18] MEDS: LIDOCAINE PATCH REMOVAL MC SCH (21:11)
[2017-09-19] MEDS: HEPARIN NA (PORCINE) 5,000 UNITS/ML 1ML VIAL SQ SCH ×3 (06:21→22:46)
[2017-09-19] MEDS: GABAPENTIN 300 MG CAPSULE (FP) PO SCH ×3 (06:22→22:47)
[2017-09-19] MEDS: DOCUSATE SODIUM 100 MG CAPSULE (FP) PO SCH ×3 (06:22→22:42)
[2017-09-19 07:26] LABS: HEMATOCRIT 40.6 % (35.4-49); HEMOGLOBIN 13.4 GM/dL (11.7-16.9); MCH 30.9 pg (25.7-33.7); MEAN CELL VOLUME 93.6 fl (80-96); MEAN PLT VOLUME 8.5 fl (7.5-11.1); PLATELET COUNT 496 K/MM3 (134-434); RBC 4.33 M/mm3 (4.00-5.60); RDW 15.1 % (11.9-15.9); WHITE BLOOD COUNT 12.1 K/mm3 (4.0-10.0)
[2017-09-19 07:57] LABS: CHLORIDE 103 mmol/L (98-107); POTASSIUM 4.6 mmol/L (3.5-5.1); SODIUM 139 mmol/L (136-145)
[2017-09-19 08:22] LABS: ALBUMIN 2.3 g/dl (3.4-5.0); ALK PHOS 62 U/L (45-117); ANION GAP 8 (8-16); BILIRUBIN,TOTAL 0.6 mg/dL (0.2-1.0); BLOOD UREA NITROGEN 20 mg/dL (7-18); CALCIUM 8.6 mg/dL (8.5-10.1); CO2 28 mmol/L (21-32); GLUCOSE,RANDOM 95 mg/dL (74-106); SGOT/AST 34 U/L (15-37); SGPT/ALT 22 U/L (12-78); TOT PROT 5.9 g/dl (6.4-8.2)
--- NOTE | 2017-09-19 09:37 | PN ---
Progress Note, Physician Chief Complaint: urinary retention/ UTI/ colovesical fistula? History of Present Illness: 87 yo male PMH CABG 15 years ago, HTN, BPH, obesity, CKD, OA that presented to the hospital complaining of weakness, chills and dysuria. no acute events, chino in place and draining. Having fevers Tmax 101.6, No complaints - Current Medication List Current Medications: Active Medications Acetaminophen (Tylenol -) 1,000 mg PO Q6H PRN PRN Reason: PAIN LEVEL 1 - 3 Last Admin: 09/17/17 22:12 Dose: 1,000 mg Amlodipine Besylate (Norvasc -) 5 mg PO DAILY [facility] Last Admin: 09/18/17 09:25 Dose: 5 mg Aspirin (Ecotrin -) 81 mg PO DAILY [facility] Last Admin: 09/18/17 09:25 Dose: 81 mg Docusate Sodium (Colace -) 100 mg PO TID [facility] Last Admin: 09/19/17 06:22 Dose: 100 mg Fenofibric Acid (Trilipix -) 135 mg PO DAILY [facility] Last Admin: 09/18/17 09:29 Dose: 135 mg Fentanyl (Duragesic 12mcg Patch -) 1 patch TD Q72H [facility] Stop: 09/22/17 12:04 Last Admin: 09/18/17 14:25 Dose: 1 patch Gabapentin (Neurontin -) 300 mg PO TID [facility] Last Admin: 09/19/17 06:22 Dose: 300 mg Heparin Sodium (Porcine) (Heparin -) 5,000 unit SQ TID [facility] Last Admin: 09/19/17 06:21 Dose: 5,000 unit Daptomycin 750 mg/ Sodium (Chloride) 100 mls @ 200 mls/hr IVPB Q24H [facility]; Protocol Last Admin: 09/18/17 14:25 Dose: 200 mls/hr Sodium Chloride (Normal Saline -) 1,000 mls @ 75 mls/hr IV ASDIR [facility] Last Admin: 09/18/17 18:05 Dose: Not Given Ibuprofen (Motrin -) 600 mg PO Q6H PRN PRN Reason: FEVER Last Admin: 09/18/17 14:43 Dose: 600 mg Isosorbide Mononitrate (Imdur -) 60 mg PO DAILY [facility] Last Admin: 09/18/17 09:24 Dose: 60 mg Lidocaine (Lidoderm Patch -) 1 patch TP DAILY [facility] Last Admin: 09/18/17 09:24 Dose: 1 patch Metoprolol Tartrate (Lopressor -) 100 mg PO DAILY [facility] Last Admin: 09/18/17 09:24 Dose: 100 mg Miscellaneous (Lidoderm Patch Removal) 1 each MC DAILY@2200 [facility] Last Admin: 09/18/17 21:11 Dose: 1 each Miscellaneous (Duragesic Patch Waste) 1 each MC PRN PRN PRN Reason: PAIN Last Admin: 09/18/17 14:57 Dose: 1 each Oxycodone HCl (Roxicodone -) 5 mg PO Q6H PRN PRN Reason: Pain 6-10 Last Admin: 09/18/17 21:10 Dose: 5 mg Polyethylene Glycol (Miralax (For Daily Use) -) 17 gm PO DAILY [facility] Last Admin: 09/18/17 09:26 Dose: 17 gm Rosuvastatin Calcium (Crestor -) 10 mg PO DAILY [facility] Last Admin: 09/18/17 09:24 Dose: 10 mg Senna (Senna -) 2 tab PO HS [facility] Last Admin: 09/18/17 21:09 Dose: 2 tab Tamsulosin HCl (Flomax -) 0.4 mg PO DAILY@0830 [facility] Last Admin: 09/18/17 18:06 Dose: 0.4 mg - Objective Vital Signs: Vital Signs Temperature 99.2 F 09/19/17 06:12 Pulse Rate 73 09/19/17 06:12 Respiratory Rate 20 09/19/17 06:12 Blood Pressure 139/69 09/19/17 06:12 O2 Sat by Pulse Oximetry (%) 99 09/18/17 21:00 Vital Signs Period Temp Pulse Resp BP Sys/Balderas Pulse Ox Last 24 Hr 98.2 F-101.6 F 66-75 20-20 122-139/62-80 99 Intake & Output 09/18/17 09/19/17 09/19/17 23:59 07:59 15:59 Intake Total 1275 600 Output Total 800 800 Balance 475 -200 Intake: IV 975 600 Normal Saline - 1,000 ml 975 600 @ 75 mls/hr IV ASDIR [facility] Rx#:[id number] IVPB 100 Oral 200 Output: Urine 800 800 Chino 800 800 Other: Voiding Method Indwelling Catheter Indwelling Catheter Bowel Movement No No Constitutional: Yes: No Distress, Calm, Obese Eyes: Yes: Conjunctiva Clear, EOM Intact HENT: Yes: Atraumatic, Normocephalic Neck: Yes: Supple, Trachea Midline Cardiovascular: Yes: Regular Rate and Rhythm, S1, S2 Respiratory: Yes: Regular, CTA Bilaterally Gastrointestinal: Yes: Normal Bowel Sounds, Soft, Abdomen, Obese. No: Tenderness ...Rectal Exam: No: Deferred Genitourinary: Yes: Chino Present. 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 Management per primary team ID and Urology followup recall as needed Thank you for the opportunity to participate in the care of this patient. Code(s): N32.1 - VESICOINTESTINAL FISTULA (2) CAD (coronary artery disease) Code(s): I25.10 - ATHSCL HEART DISEASE OF [place] CORONARY ARTERY W/O ANG PCTRS Qualifiers: Coronary Disease-Associated Artery/Lesion type: [place] artery [place] vs. transplanted heart: [place] heart Associated angina: angina presence unspecified Qualified Code(s): I25.10 - Atherosclerotic heart disease of [place] coronary artery without angina pectoris (3) Hypercholesteremia Code(s): E78.0 - PURE HYPERCHOLESTEROLEMIA * DO NOT USE * (4) Hypertension Code(s): I10 - ESSENTIAL (PRIMARY) HYPERTENSION Qualifiers: Hypertension type: essential hypertension Qualified Code(s): I10 - Essential (primary) hypertension (5) Stage III chronic kidney disease Code(s): N18.3 - CHRONIC KIDNEY DISEASE, STAGE 3 (MODERATE) (6) Urinary tract infection Code(s): N39.0 - URINARY TRACT INFECTION, SITE NOT SPECIFIED Qualifiers: Urinary tract infection type: acute cystitis Hematuria presence: without hematuria Qualified Code(s): N30.00 - Acute cystitis without hematuria
[2017-09-19] MEDS ORDERED: PT OWN MED DRAWER 7, Y5N ONE (10:51)
[2017-09-19] MEDS: ISOSORBIDE MONONITRATE 60 MG TAB.SR.24H (FP) PO SCH (10:59)
[2017-09-19] MEDS: LIDOCAINE 5% TOPICAL PATCH TP SCH (10:59)
[2017-09-19] MEDS: ASPIRIN COATED 81 MG TABLET.EC PO SCH (10:59)
[2017-09-19] MEDS: amLODIPine BESYLATE 5 MG TABLET (FP) PO SCH (10:59)
[2017-09-19] MEDS: ROSUVASTATIN CA 10 MG TABLET (FP) PO SCH (10:59)
[2017-09-19] MEDS: FENOFIBRIC ACID 135 MG CAP PO SCH (10:59)
[2017-09-19] MEDS: METOPROLOL TARTRATE 50 MG TABLET (FP) PO SCH (10:59)
[2017-09-19] MEDS: TAMSULOSIN HCL 0.4 MG CAP.ER.24H (FP) PO SCH (11:00)
[2017-09-19] MEDS: POLYETHYLENE GLYCOL 3350 119 GM BTL PO SCH (11:01)
[2017-09-19] MEDS: oxyCODONE HCL 5 MG TABLET PO PRN ×2 (11:12→22:49)
--- NOTE | 2017-09-19 11:21 | PN ---
Progress Note (short form) - Note Progress Note: Pt undergoing voiding trial [place] d/c ed at 6 am no pain and has not voidied cont voiding trial
--- NOTE | 2017-09-19 13:29 | PN ---
Progress Note, Physician History of Present Illness: Continues to complain of L hip pain Elevated temp noted 101.6 Repeat BC 09/13 , 09/17 no growth Bone scan suggestive of septic arhtritis L hip - Current Medication List Current Medications: Active Medications Acetaminophen (Tylenol -) 1,000 mg PO Q6H PRN PRN Reason: PAIN LEVEL 1 - 3 Last Admin: 09/17/17 22:12 Dose: 1,000 mg Amlodipine Besylate (Norvasc -) 5 mg PO DAILY [facility] Last Admin: 09/19/17 10:59 Dose: 5 mg Aspirin (Ecotrin -) 81 mg PO DAILY [facility] Last Admin: 09/19/17 10:59 Dose: 81 mg Docusate Sodium (Colace -) 100 mg PO TID [facility] Last Admin: 09/19/17 06:22 Dose: 100 mg Fenofibric Acid (Trilipix -) 135 mg PO DAILY [facility] Last Admin: 09/19/17 10:59 Dose: 135 mg Fentanyl (Duragesic 12mcg Patch -) 1 patch TD Q72H [facility] Stop: 09/22/17 12:04 Last Admin: 09/18/17 14:25 Dose: 1 patch Gabapentin (Neurontin -) 300 mg PO TID [facility] Last Admin: 09/19/17 06:22 Dose: 300 mg Heparin Sodium (Porcine) (Heparin -) 5,000 unit SQ TID [facility] Last Admin: 09/19/17 06:21 Dose: 5,000 unit Daptomycin 750 mg/ Sodium (Chloride) 100 mls @ 200 mls/hr IVPB Q24H [facility]; Protocol Last Admin: 09/18/17 14:25 Dose: 200 mls/hr Sodium Chloride (Normal Saline -) 1,000 mls @ 75 mls/hr IV ASDIR [facility] Last Admin: 09/18/17 18:05 Dose: Not Given Ibuprofen (Motrin -) 600 mg PO Q6H PRN PRN Reason: FEVER Last Admin: 09/18/17 14:43 Dose: 600 mg Isosorbide Mononitrate (Imdur -) 60 mg PO DAILY [facility] Last Admin: 09/19/17 10:59 Dose: 60 mg Lidocaine (Lidoderm Patch -) 1 patch TP DAILY [facility] Last Admin: 09/19/17 10:59 Dose: 1 patch Metoprolol Tartrate (Lopressor -) 100 mg PO DAILY [facility] Last Admin: 09/19/17 10:59 Dose: 100 mg Miscellaneous (Lidoderm Patch Removal) 1 each MC DAILY@2200 [facility] Last Admin: 09/18/17 21:11 Dose: 1 each Miscellaneous (Duragesic Patch Waste) 1 each MC PRN PRN PRN Reason: PAIN Last Admin: 09/18/17 14:57 Dose: 1 each Oxycodone HCl (Roxicodone -) 5 mg PO Q6H PRN PRN Reason: Pain 6-10 Last Admin: 09/19/17 11:12 Dose: 5 mg Polyethylene Glycol (Miralax (For Daily Use) -) 17 gm PO DAILY [facility] Last Admin: 09/19/17 11:01 Dose: 17 gm Rosuvastatin Calcium (Crestor -) 10 mg PO DAILY [facility] Last Admin: 09/19/17 10:59 Dose: 10 mg Senna (Senna -) 2 tab PO HS [facility] Last Admin: 09/18/17 21:09 Dose: 2 tab Tamsulosin HCl (Flomax -) 0.4 mg PO DAILY@0830 [facility] Last Admin: 09/19/17 11:00 Dose: 0.4 mg - Objective Vital Signs: Vital Signs Temperature 99.2 F 09/19/17 06:12 Pulse Rate 73 09/19/17 06:12 Respiratory Rate 20 09/19/17 06:12 Blood Pressure 139/69 09/19/17 06:12 O2 Sat by Pulse Oximetry (%) 99 09/18/17 21:00 Constitutional: Yes: No Distress, Obese Cardiovascular: Yes: Regular Rate and Rhythm, S1, S2 Respiratory: Yes: CTA Bilaterally Gastrointestinal: Yes: Normal Bowel Sounds, Soft. No: Tenderness Labs: CBC, BMP 09/19/17 06:15 09/19/17 06:15 INR, PTT INR 1.09 (0.82-1.09) 09/06/17 17:20 Assessment/Plan Enterococcal bacteremia/ sepsis secondary to UTI R/O septic arthritis L hip Major PCN allergy Continue Daptomycin MRI ordered Ortho follow up re L hip pain
[2017-09-19] MEDS: DAPTOMYCIN 750 MG in SODIUM CHLORIDE 100 ML IVPB SCH (13:39)
--- NOTE | 2017-09-19 14:13 | PN ---
Physical Exam: SUBJECTIVE: Patient seen and examined at bedside. Admits to eating and sleeping well. Afebrile overnight. Denies headaches/dizziness, fever/chills, nausea/ vomiting, and urinary/bowel symptoms. As per nurse, chino taken out this AM to start voiding trial. Pt still complains of L hip pain. OBJECTIVE: Vital Signs Period Temp Pulse Resp BP Sys/Balderas Pulse Ox Last 24 Hr 98.2 F-101.6 F 66-75 20-20 122-139/62-80 99 General: NAD, AAOx3. HEENT: AT/NC. EOMI. Neck: Supple. No JVD. No LAD. Lungs: CTA B/L. Symmetric chest rise. No wheezes, rhonchi, or rales appreciated. Heart: RRR. Normal S1, S2. No murmurs, rubs, or gallops appreciated. Abd: Soft NT/ND. Normoactive bowel sounds in all 4Qs. : Chino in place. MSK: 5/5 ROM in U/L ext bilaterally. No peripheral edema noted. Neuro: CN II-XII intact. Laboratory Results - last 24 hr 09/19/17 09/19/17 06:15 06:15 WBC 12.1 H RBC 4.33 Hgb 13.4 Hct 40.6 MCV 93.6 MCH 30.9 MCHC 33.0 RDW 15.1 Plt Count 496 H MPV 8.5 Sodium 139 Potassium 4.6 Chloride 103 Carbon Dioxide 28 Anion Gap 8 BUN 20 H Creatinine 1.0 Creat Clearance w eGFR > 60 Random Glucose 95 Calcium 8.6 Total Bilirubin 0.6 AST 34 ALT 22 Alkaline Phosphatase 62 D Total Protein 5.9 L Albumin 2.3 L Active Medications Generic Name Dose Route Start Last Admin Trade Name Freq PRN Reason Stop Dose Admin Acetaminophen 1,000 mg 09/13/17 17:44 09/17/17 22:12 Tylenol - PO 1,000 mg Q6H PRN Administration PAIN LEVEL 1 - 3 Amlodipine Besylate 5 mg 09/10/17 11:04 09/19/17 10:59 Norvasc - PO 5 mg DAILY [facility] Administration Aspirin 81 mg 09/14/17 10:00 09/19/17 10:59 Ecotrin - PO 81 mg DAILY [facility] Administration Docusate Sodium 100 mg 09/08/17 14:00 09/19/17 13:43 Colace - PO 100 mg TID [facility] Administration Fenofibric Acid 135 mg 09/07/17 10:00 09/19/17 10:59 Trilipix - PO 135 mg DAILY [facility] Administration Fentanyl 1 patch 09/15/17 12:15 09/18/17 14:25 Duragesic 12mcg Patch - TD 09/22/17 12:04 1 patch Q72H [facility] Administration Gabapentin 300 mg 09/11/17 15:15 09/19/17 13:43 Neurontin - PO 300 mg TID [facility] Administration Heparin Sodium (Porcine) 5,000 unit 09/07/17 06:00 09/19/17 13:43 Heparin - SQ 5,000 unit TID [facility] Administration Daptomycin 750 mg/ Sodium 100 mls @ 200 mls/hr 09/13/17 14:00 09/19/17 13:39 Chloride IVPB 200 mls/hr Q24H [facility] Administration Protocol Sodium Chloride 1,000 mls @ 75 mls/hr 09/13/17 18:00 09/18/17 18:05 Normal Saline - IV Not Given ASDIR [facility] Ibuprofen 600 mg 09/13/17 17:36 09/18/17 14:43 Motrin - PO 600 mg Q6H PRN Administration FEVER Isosorbide Mononitrate 60 mg 09/07/17 10:00 09/19/17 10:59 Imdur - PO 60 mg DAILY [facility] Administration Lidocaine 1 patch 09/14/17 19:21 09/19/17 10:59 Lidoderm Patch - TP 1 patch DAILY [facility] Administration Metoprolol Tartrate 100 mg 09/07/17 10:00 09/19/17 10:59 Lopressor - PO 100 mg DAILY [facility] Administration Miscellaneous 1 each 09/07/17 22:00 09/18/17 21:11 Lidoderm Patch Removal MC 1 each DAILY@2200 [facility] Administration Miscellaneous 1 each 09/15/17 12:03 09/18/17 14:57 Duragesic Patch Waste MC 1 each PRN PRN Administration PAIN Oxycodone HCl 5 mg 09/11/17 15:19 09/19/17 11:12 Roxicodone - PO 5 mg Q6H PRN Administration Pain 6-10 Polyethylene Glycol 17 gm 09/13/17 14:15 09/19/17 11:01 Miralax (For Daily Use) - PO 17 gm DAILY [facility] Administration Rosuvastatin Calcium 10 mg 09/07/17 10:00 09/19/17 10:59 Crestor - PO 10 mg DAILY [facility] Administration Senna 2 tab 09/07/17 22:00 09/18/17 21:09 Senna - PO 2 tab HS [facility] Administration Tamsulosin HCl 0.4 mg 09/18/17 15:00 09/19/17 11:00 Flomax - PO 0.4 mg DAILY@0830 [facility] Administration ASSESSMENT/PLAN: 87M with pmhx of HTN, BPH, CKD, OA, and s/p CABG x15 years ago who is currently being treated for UTI with pyelonephritis. #UTI w/ pyelonephritis; Patient is currently asymptomatic and clinically stable. - blood cx (+) for E. faecalis bacteremia - Cont Daptomycin 750 mg/NS 100cc @ 200cc/hr IVPB (Day 7); consult ID regarding duration of abx tx - As per uro, no evidence of colovesicula fistula noted; open prostatic urethra seen on cysto. Flomax 0.4 mg PO QD started. Voiding trial started, cont to monitor for urine output - As per surg note, gastrografin enema scheduled for 09/19/17. #CALE - resolved. #L hip pain 2/ OA - Bone scan (09/18/17): nonspecific findings of increased blood flow, blood pool and delayed increased uptake throughout L hip joint. can be seen w/ septic arthritis or severe degenerative/inflammatory arthritis. Possible MRI if possible w/ pt's prosthesis. Pt's ortho contacted to determine type of knee prothesis; need to have pt sign record release form, but will only do so with son's approval to obtain records from [facility]. Call radiology to decide if MRI can be done on patient to evaluate MRI. - cont Fentanyl patch 12 mcg TD q72h - cont Oxycodone 5 mg PO q6h PRN - cont Ibuprofen 600 mg PO q6h - cont Gabapentin 300 mg PO TID - cont Tylenol 1000 mg PO q6h - d/w patient of rehab after discharge #Renal cysts - f/u outpatient #Constipation - Cont bowel regimen: Docusate 100 mg PO TID, Miralax 17 gm PO QD, Senna 2 tab PO HS #HTN - BP stable, cont to monitor. - cont Lopressor 100 mg PO QD - cont Amlodipine 5 mg PO QD #HLD - cont Rosuvastatin 10 mg PO QD - cont Fenofibrate 135 mg PO QD #CAD - cont Isosorbide mononitrate 60 mg PO QD - cont Aspirin 81 mg PO QD #DVT prophylaxis - cont Heparin 5,000U SQ TID - SCDs #FEN - NS 1000 cc @ 75cc/hr - check lytes in AM - sodium controlled diet dispo - d/w pt discharge to rehab Visit type - Emergency Visit Emergency Visit: No - New Patient This patient is new to me today: No - Critical Care Critical Care patient: No
--- NOTE | 2017-09-19 17:17 | PN ---
Teaching Attending Note Name of Resident: Tia Grimaldo ATTENDING PHYSICIAN STATEMENT I saw and evaluated the patient. I reviewed the resident's note and discussed the case with the resident. I agree with the resident's findings and plan as documented. ASSESSMENT AND PLAN: 87 y/o man with h/o CAD s/p CABG, HTN, BPH, CKD, OA, cystoscopy 2 days prior to admission , and other medical problems who presented with dysuria and chills. he was found to have urinary retention and UTI with bacteremia 1- Complicated UTI /pyelonephritis with E. Faecalis bacteremia: - colovesicular fistula was not seen on further imaging - Bone scan can't r/o Septic joint. will obtain MRI of joint. tring to obtain records regarding type of KNee prosthesis . - Cont dapto day 7. - repeat blood cx neg - cont voiding trials 2- CALE: resolved 3- L hip pain: as above cont fentanyl patch and lidocaine patch 4- Renal cysts: f/u as out pt 5- Constipation : bowel regimen Dispo : HLOC
[2017-09-19] MEDS: ACETAMINOPHEN 500 MG TABLET (FP) PO PRN (17:39)
[2017-09-19] MEDS: SODIUM CHLORIDE 1,000 ML IV SCH ×2 (18:10→22:49)
[2017-09-19] MEDS: SENNOSIDES 8.6MG TABLET (FP) PO SCH (22:42)
[2017-09-19] MEDS: LIDOCAINE PATCH REMOVAL MC SCH (22:47)
[2017-09-20] MEDS: DOCUSATE SODIUM 100 MG CAPSULE (FP) PO SCH ×3 (05:42→21:41)
[2017-09-20] MEDS: HEPARIN NA (PORCINE) 5,000 UNITS/ML 1ML VIAL SQ SCH ×3 (05:42→21:41)
[2017-09-20] MEDS: GABAPENTIN 300 MG CAPSULE (FP) PO SCH ×3 (05:42→21:42)
[2017-09-20 07:33] LABS: HEMATOCRIT 40.3 % (35.4-49); HEMOGLOBIN 13.6 GM/dL (11.7-16.9); MCH 31.4 pg (25.7-33.7); MCHC 33.8 g/dl (32.0-35.9); MEAN CELL VOLUME 92.9 fl (80-96); MEAN PLT VOLUME 8.4 fl (7.5-11.1); PLATELET COUNT 534 K/MM3 (134-434); RBC 4.34 M/mm3 (4.00-5.60); RDW 15.1 % (11.9-15.9); WHITE BLOOD COUNT 11.9 K/mm3 (4.0-10.0)
[2017-09-20 08:13] LABS: CHLORIDE 102 mmol/L (98-107); POTASSIUM 4.5 mmol/L (3.5-5.1); SODIUM 139 mmol/L (136-145)
[2017-09-20] MEDS: TAMSULOSIN HCL 0.4 MG CAP.ER.24H (FP) PO SCH (08:24)
[2017-09-20 08:26] LABS: ALBUMIN 2.4 g/dl (3.4-5.0); ALK PHOS 61 U/L (45-117); ANION GAP 11 (8-16); BILIRUBIN,TOTAL 0.8 mg/dL (0.2-1.0); BLOOD UREA NITROGEN 18 mg/dL (7-18); CALCIUM 8.5 mg/dL (8.5-10.1); CO2 26 mmol/L (21-32); CREATININE 0.9 mg/dL (0.7-1.3); GLUCOSE,RANDOM 91 mg/dL (74-106); SGOT/AST 31 U/L (15-37); SGPT/ALT 21 U/L (12-78); TOT PROT 6.2 g/dl (6.4-8.2)
--- NOTE | 2017-09-20 10:15 | PN ---
Teaching Attending Note Name of Resident: Mari Cruz ATTENDING PHYSICIAN STATEMENT I saw and evaluated the patient. I reviewed the resident's note and discussed the case with the resident. I agree with the resident's findings and plan as documented. SUBJECTIVE: OBJECTIVE: Vital Signs Temperature 99.9 F H 09/20/17 05:44 Pulse Rate 76 09/20/17 05:44 Respiratory Rate 20 09/20/17 05:44 Blood Pressure 156/86 09/20/17 05:44 O2 Sat by Pulse Oximetry (%) 95 09/19/17 21:00 CBCD WBC 11.9 K/mm3 (4.0-10.0) H 09/20/17 06:00 RBC 4.34 M/mm3 (4.00-5.60) 09/20/17 06:00 Hgb 13.6 GM/dL (11.7-16.9) 09/20/17 06:00 Hct 40.3 % (35.4-49) 09/20/17 06:00 MCV 92.9 fl (80-96) 09/20/17 06:00 MCHC 33.8 g/dl (32.0-35.9) 09/20/17 06:00 RDW 15.1 % (11.9-15.9) 09/20/17 06:00 Plt Count 534 K/MM3 (134-434) H 09/20/17 06:00 MPV 8.4 fl (7.5-11.1) 09/20/17 06:00 CMP Sodium 139 mmol/L (136-145) 09/20/17 06:00 Potassium 4.5 mmol/L (3.5-5.1) 09/20/17 06:00 Chloride 102 mmol/L (98-107) 09/20/17 06:00 Carbon Dioxide 26 mmol/L (21-32) 09/20/17 06:00 Anion Gap 11 (8-16) 09/20/17 06:00 BUN 18 mg/dL (7-18) 09/20/17 06:00 Creatinine 0.9 mg/dL (0.7-1.3) 09/20/17 06:00 Creat Clearance w eGFR > 60 (>60) 09/20/17 06:00 Random Glucose 91 mg/dL (74-106) 09/20/17 06:00 Calcium 8.5 mg/dL (8.5-10.1) 09/20/17 06:00 Total Bilirubin 0.8 mg/dL (0.2-1.0) 09/20/17 06:00 AST 31 U/L (15-37) 09/20/17 06:00 ALT 21 U/L (12-78) 09/20/17 06:00 Alkaline Phosphatase 61 U/L (45-117) 09/20/17 06:00 Total Protein 6.2 g/dl (6.4-8.2) L 09/20/17 06:00 Albumin 2.4 g/dl (3.4-5.0) L 09/20/17 06:00 CARDIAC ENZYMES Creatine Kinase 54 IU/L (39-308) 09/14/17 06:00 Troponin I < 0.02 ng/ml (0.00-0.05) 09/06/17 17:20 Current Medications Generic Name Dose Route Start Last Admin Trade Name Freq PRN Reason Stop Dose Admin Acetaminophen 1,000 mg 09/13/17 17:44 09/19/17 17:39 Tylenol - PO 1,000 mg Q6H PRN Administration PAIN LEVEL 1 - 3 Amlodipine Besylate 5 mg 09/10/17 11:04 09/19/17 10:59 Norvasc - PO 5 mg DAILY [facility] Administration Aspirin 81 mg 09/14/17 10:00 09/19/17 10:59 Ecotrin - PO 81 mg DAILY [facility] Administration Docusate Sodium 100 mg 09/08/17 14:00 09/20/17 05:42 Colace - PO 100 mg TID [facility] Administration Fenofibric Acid 135 mg 09/07/17 10:00 09/19/17 10:59 Trilipix - PO 135 mg DAILY [facility] Administration Fentanyl 1 patch 09/15/17 12:15 09/18/17 14:25 Duragesic 12mcg Patch - TD 09/22/17 12:04 1 patch Q72H [facility] Administration Gabapentin 300 mg 09/11/17 15:15 09/20/17 05:42 Neurontin - PO 300 mg TID [facility] Administration Heparin Sodium (Porcine) 5,000 unit 09/07/17 06:00 09/20/17 05:42 Heparin - SQ 5,000 unit TID [facility] Administration Daptomycin 750 mg/ Sodium 100 mls @ 200 mls/hr 09/13/17 14:00 09/19/17 13:39 Chloride IVPB 200 mls/hr Q24H [facility] Administration Protocol Sodium Chloride 1,000 mls @ 75 mls/hr 09/13/17 18:00 09/19/17 22:49 Normal Saline - IV 75 mls/hr ASDIR [facility] Administration Ibuprofen 600 mg 09/13/17 17:36 09/18/17 14:43 Motrin - PO 600 mg Q6H PRN Administration FEVER Isosorbide Mononitrate 60 mg 09/07/17 10:00 09/19/17 10:59 Imdur - PO 60 mg DAILY [facility] Administration Lidocaine 1 patch 09/14/17 19:21 09/19/17 10:59 Lidoderm Patch - TP 1 patch DAILY [facility] Administration Metoprolol Tartrate 100 mg 09/07/17 10:00 09/19/17 10:59 Lopressor - PO 100 mg DAILY [facility] Administration Miscellaneous 1 each 09/07/17 22:00 09/19/17 22:47 Lidoderm Patch Removal MC 1 each DAILY@2200 [facility] Administration Miscellaneous 1 each 09/15/17 12:03 09/18/17 14:57 Duragesic Patch Waste MC 1 each PRN PRN Administration PAIN Oxycodone HCl 5 mg 09/11/17 15:19 09/19/17 22:49 Roxicodone - PO 5 mg Q6H PRN Administration Pain 6-10 Polyethylene Glycol 17 gm 09/13/17 14:15 09/19/17 11:01 Miralax (For Daily Use) - PO 17 gm DAILY [facility] Administration Rosuvastatin Calcium 10 mg 09/07/17 10:00 09/19/17 10:59 Crestor - PO 10 mg DAILY [facility] Administration Senna 2 tab 09/07/17 22:00 09/19/17 22:42 Senna - PO Not Given HS [facility] Tamsulosin HCl 0.4 mg 09/18/17 15:00 09/20/17 08:24 Flomax - PO 0.4 mg DAILY@0830 [facility] Administration Home Medications Medication Instructions Recorded Fenofibrate 150 mg PO DAILY 03/29/17 Isosorbide Mononitrate [Isosorbide 60 mg PO DAILY 03/29/17 Mononitrate ER] Metoprolol Tartrate 100 mg PO DAILY 03/29/17 Rosuvastatin [Crestor -] 10 mg PO DAILY 03/29/17 ASSESSMENT AND PLAN: Patient is a 87 y/o man with h/o CAD s/p CABG, HTN, BPH, CKD, OA, s/p cystoscopy 2 days prior to admission , who presented with dysuria and chills. he was found to have urinary retention and UTI with bacteremia #Enterococcal bacteremia/ sepsis secondary to UTI R/O septic arthritis L hip, patient is allergic to PCN # Acute Complicated UTI /pyelonephritis with E. Faecalis bacteremia: colovesicular fistula was not seen on further imaging on IV Daptomycin day 8, wiil get MRI to r/o Osteo of his left hip pain. # CALE: resolved # L hip pain: as above cont fentanyl patch and lidocaine patch . # Renal cysts: f/u as out pt # Constipation : bowel regimen Ortho follow up re L hip pain
[2017-09-20] MEDS ORDERED: PT OWN MED DRAWER 7, Y5N ONE ×3 (10:42→15:45)
--- NOTE | 2017-09-20 10:49 | PN ---
Progress Note, Physician History of Present Illness: Continues to complain of L hip pain, but improved Low grade temp Repeat BC 09/13 , 09/17, 09/19 no growth Bone scan suggestive of septic arhtritis L hip - Current Medication List Current Medications: Active Medications Acetaminophen (Tylenol -) 1,000 mg PO Q6H PRN PRN Reason: PAIN LEVEL 1 - 3 Last Admin: 09/19/17 17:39 Dose: 1,000 mg Amlodipine Besylate (Norvasc -) 5 mg PO DAILY [facility] Last Admin: 09/19/17 10:59 Dose: 5 mg Aspirin (Ecotrin -) 81 mg PO DAILY [facility] Last Admin: 09/19/17 10:59 Dose: 81 mg Docusate Sodium (Colace -) 100 mg PO TID [facility] Last Admin: 09/20/17 05:42 Dose: 100 mg Fenofibric Acid (Trilipix -) 135 mg PO DAILY [facility] Last Admin: 09/19/17 10:59 Dose: 135 mg Fentanyl (Duragesic 12mcg Patch -) 1 patch TD Q72H [facility] Stop: 09/22/17 12:04 Last Admin: 09/18/17 14:25 Dose: 1 patch Gabapentin (Neurontin -) 300 mg PO TID [facility] Last Admin: 09/20/17 05:42 Dose: 300 mg Heparin Sodium (Porcine) (Heparin -) 5,000 unit SQ TID [facility] Last Admin: 09/20/17 05:42 Dose: 5,000 unit Daptomycin 750 mg/ Sodium (Chloride) 100 mls @ 200 mls/hr IVPB Q24H [facility]; Protocol Last Admin: 09/19/17 13:39 Dose: 200 mls/hr Sodium Chloride (Normal Saline -) 1,000 mls @ 75 mls/hr IV ASDIR [facility] Last Admin: 09/19/17 22:49 Dose: 75 mls/hr Ibuprofen (Motrin -) 600 mg PO Q6H PRN PRN Reason: FEVER Last Admin: 09/18/17 14:43 Dose: 600 mg Isosorbide Mononitrate (Imdur -) 60 mg PO DAILY [facility] Last Admin: 09/19/17 10:59 Dose: 60 mg Lidocaine (Lidoderm Patch -) 1 patch TP DAILY [facility] Last Admin: 09/19/17 10:59 Dose: 1 patch Metoprolol Tartrate (Lopressor -) 100 mg PO DAILY [facility] Last Admin: 09/19/17 10:59 Dose: 100 mg Miscellaneous (Lidoderm Patch Removal) 1 each MC DAILY@2200 [facility] Last Admin: 09/19/17 22:47 Dose: 1 each Miscellaneous (Duragesic Patch Waste) 1 each [facility] PRN PRN PRN Reason: PAIN Last Admin: 09/18/17 14:57 Dose: 1 each Oxycodone HCl (Roxicodone -) 5 mg PO Q6H PRN PRN Reason: Pain 6-10 Last Admin: 09/19/17 22:49 Dose: 5 mg Polyethylene Glycol (Miralax (For Daily Use) -) 17 gm PO DAILY [facility] Last Admin: 09/19/17 11:01 Dose: 17 gm Rosuvastatin Calcium (Crestor -) 10 mg PO DAILY [facility] Last Admin: 09/19/17 10:59 Dose: 10 mg Senna (Senna -) 2 tab PO HS [facility] Last Admin: 09/19/17 22:42 Dose: Not Given Tamsulosin HCl (Flomax -) 0.4 mg PO DAILY@0830 [facility] Last Admin: 09/20/17 08:24 Dose: 0.4 mg - Objective Vital Signs: Vital Signs Temperature 99.9 F H 09/20/17 05:44 Pulse Rate 76 09/20/17 05:44 Respiratory Rate 20 09/20/17 05:44 Blood Pressure 156/86 09/20/17 05:44 O2 Sat by Pulse Oximetry (%) 95 09/19/17 21:00 Constitutional: Yes: No Distress Eyes: Yes: Conjunctiva Clear Cardiovascular: Yes: Regular Rate and Rhythm, S1, S2 Respiratory: Yes: CTA Bilaterally Gastrointestinal: Yes: Normal Bowel Sounds, Soft. No: Tenderness Edema: No Labs: CBC, BMP 09/20/17 06:00 09/20/17 06:00 INR, PTT INR 1.09 (0.82-1.09) 09/06/17 17:20 Assessment/Plan Enterococcal bacteremia/ sepsis secondary to UTI R/O septic arthritis L hip Major PCN allergy Continue Daptomycin MRI ordered Ortho follow up re L hip pain
[2017-09-20] MEDS ORDERED: CELECOXIB 200 MG CAPSULE PO ONE (12:25)
[2017-09-20] MEDS: ROSUVASTATIN CA 10 MG TABLET (FP) PO SCH (12:31)
[2017-09-20] MEDS: ASPIRIN COATED 81 MG TABLET.EC PO SCH (12:31)
[2017-09-20] MEDS: amLODIPine BESYLATE 5 MG TABLET (FP) PO SCH (12:31)
[2017-09-20] MEDS: ISOSORBIDE MONONITRATE 60 MG TAB.SR.24H (FP) PO SCH (12:31)
[2017-09-20] MEDS: METOPROLOL TARTRATE 50 MG TABLET (FP) PO SCH (12:31)
[2017-09-20] MEDS: LIDOCAINE 5% TOPICAL PATCH TP SCH (12:32)
[2017-09-20] MEDS: FENOFIBRIC ACID 135 MG CAP PO SCH (12:32)
[2017-09-20] MEDS: POLYETHYLENE GLYCOL 3350 119 GM BTL PO SCH (12:32)
[2017-09-20] MEDS: SODIUM CHLORIDE 1,000 ML IV SCH ×2 (14:11→21:40)
[2017-09-20] MEDS: DAPTOMYCIN 750 MG in SODIUM CHLORIDE 100 ML IVPB SCH (15:50)
[2017-09-20] MEDS: SENNOSIDES 8.6MG TABLET (FP) PO SCH (21:42)
[2017-09-20] MEDS: LIDOCAINE PATCH REMOVAL MC SCH (21:42)
[2017-09-20] MEDS: ACETAMINOPHEN 500 MG TABLET (FP) PO PRN (21:43)
[2017-09-20] MEDS: oxyCODONE HCL 5 MG TABLET PO PRN (23:19)
--- NOTE | 2017-09-20 23:50 | PN ---
Physical Exam: SUBJECTIVE: Patient seen and examined at bedside. no new complaints. states right hip hurts him. OBJECTIVE: Vital Signs Period Temp Pulse Resp BP Sys/Balderas Pulse Ox Last 24 Hr 98.6 F-99.9 F 58-85 20-20 118-170/71-86 95 GENERAL: The patient is awake, alert, and fully oriented, in no acute distress. HEAD: Normal with no signs of trauma. LUNGS: Breath sounds equal, clear to auscultation bilaterally, no wheezes, no crackles, no accessory muscle use. HEART: Regular rate and rhythm, S1, S2 without murmur, rub or gallop. ABDOMEN: Soft, nontender, nondistended, normoactive bowel sounds, no guarding, no rebound, no hepatosplenomegaly, no masses. EXTREMITIES: 2+ pulses, warm, well-perfused, no edema. NEUROLOGICAL: Cranial nerves II through X grossly intact. SKIN: Warm, dry, normal turgor, no rashes or lesions noted Laboratory Results - last 24 hr 09/20/17 09/20/17 06:00 06:00 WBC 11.9 H RBC 4.34 Hgb 13.6 Hct 40.3 MCV 92.9 MCH 31.4 MCHC 33.8 RDW 15.1 Plt Count 534 H MPV 8.4 Sodium 139 Potassium 4.5 Chloride 102 Carbon Dioxide 26 Anion Gap 11 BUN 18 Creatinine 0.9 Creat Clearance w eGFR > 60 Random Glucose 91 Calcium 8.5 Total Bilirubin 0.8 AST 31 ALT 21 Alkaline Phosphatase 61 Total Protein 6.2 L Albumin 2.4 L Active Medications Generic Name Dose Route Start Last Admin Trade Name Freq PRN Reason Stop Dose Admin Acetaminophen 1,000 mg 09/13/17 17:44 09/20/17 21:43 Tylenol - PO 1,000 mg Q6H PRN Administration PAIN LEVEL 1 - 3 Amlodipine Besylate 5 mg 09/10/17 11:04 09/20/17 12:31 Norvasc - PO 5 mg DAILY [facility] Administration Aspirin 81 mg 09/14/17 10:00 09/20/17 12:31 Ecotrin - PO 81 mg DAILY [facility] Administration Docusate Sodium 100 mg 09/08/17 14:00 09/20/17 21:41 Colace - PO 100 mg TID [facility] Administration Fenofibric Acid 135 mg 09/07/17 10:00 09/20/17 12:32 Trilipix - PO 135 mg DAILY [facility] Administration Fentanyl 1 patch 09/15/17 12:15 09/18/17 14:25 Duragesic 12mcg Patch - TD 09/22/17 12:04 1 patch Q72H [facility] Administration Gabapentin 300 mg 09/11/17 15:15 09/20/17 21:42 Neurontin - PO 300 mg TID [facility] Administration Heparin Sodium (Porcine) 5,000 unit 09/20/17 22:00 09/20/17 21:41 Heparin - SQ 5,000 unit TID [facility] Administration Daptomycin 750 mg/ Sodium 100 mls @ 200 mls/hr 09/13/17 14:00 09/20/17 15:50 Chloride IVPB 200 mls/hr Q24H [facility] Administration Protocol Sodium Chloride 1,000 mls @ 75 mls/hr 09/13/17 18:00 09/20/17 21:40 Normal Saline - IV Not Given ASDIR [facility] Isosorbide Mononitrate 60 mg 09/07/17 10:00 09/20/17 12:31 Imdur - PO 60 mg DAILY [facility] Administration Lidocaine 1 patch 09/14/17 19:21 09/20/17 12:32 Lidoderm Patch - TP 1 patch DAILY [facility] Administration Metoprolol Tartrate 100 mg 09/07/17 10:00 09/20/17 12:31 Lopressor - PO 100 mg DAILY [facility] Administration Miscellaneous 1 each 09/07/17 22:00 09/20/17 21:42 Lidoderm Patch Removal MC 1 each DAILY@2200 [facility] Administration Miscellaneous 1 each 09/15/17 12:03 09/18/17 14:57 Duragesic Patch Waste MC 1 each PRN PRN Administration PAIN Oxycodone HCl 5 mg 09/11/17 15:19 09/20/17 23:19 Roxicodone - PO 5 mg Q6H PRN Administration Pain 6-10 Polyethylene Glycol 17 gm 09/13/17 14:15 09/20/17 12:32 Miralax (For Daily Use) - PO Not Given DAILY [facility] Rosuvastatin Calcium 10 mg 09/07/17 10:00 09/20/17 12:31 Crestor - PO 10 mg DAILY [facility] Administration Senna 2 tab 09/07/17 22:00 09/20/17 21:42 Senna - PO 2 tab HS [facility] Administration Tamsulosin HCl 0.4 mg 09/18/17 15:00 09/20/17 08:24 Flomax - PO 0.4 mg DAILY@0830 [facility] Administration ASSESSMENT/PLAN: The patient is an 87 yo M w/ PMH HTN, BPH, CKD, OA admitted for sepsis 2/2 pyelonephritis. #Pyelonephritis -blood cx (+) for E. faecalis bacteremia -c/w Daptomycin 750 mg (Day 8) -c/w Flomax 0.4 mg daily #L hip pain 2/2 OA -bone scan showing possible septic srthritis vs inflammatory arthritis -f/w MRI rt hip -gave 200mg celebrex today for pn ctrl -D/C prn ibuprofen -c/w fentanyl patch 12 mcg -c/w Oxy 5 mg q6h PRN -c/w Gabapentin 300 mg PO TID #Constipation - Cont bowel regimen: Docusate 100 mg PO TID, Miralax 17 gm PO QD, Senna 2 tab PO HS #HTN -c/w home Lopressor 100 mg daily -c/w home Amlodipine 5 mg daily #HLD -c/w home Rosuvastatin 10 mg HS -c/w home Fenofibrate 135 mg daily #CAD -c/w home Imdur 60 mg daily -c/w home ASA 81 #prophylaxis -Heparin SQ 5k units TID #FEN - NS @ 75 - lytes WNL, replete PRN - sodium controlled diet dispo -admit med surg -patient will need rehab on DC Visit type - Emergency Visit Emergency Visit: Yes ED Registration Date: 09/07/17 Care time: The patient presented to the Emergency Department on the above date and was hospitalized for further evaluation of their emergent condition. - New Patient This patient is new to me today: Yes Date on this admission: 09/20/17 - Critical Care Critical Care patient: No
[2017-09-21] MEDS: DOCUSATE SODIUM 100 MG CAPSULE (FP) PO SCH ×3 (05:41→21:26)
[2017-09-21] MEDS: oxyCODONE HCL 5 MG TABLET PO PRN (05:41)
[2017-09-21] MEDS: GABAPENTIN 300 MG CAPSULE (FP) PO SCH ×3 (05:42→21:26)
[2017-09-21] MEDS: HEPARIN NA (PORCINE) 5,000 UNITS/ML 1ML VIAL SQ SCH ×3 (05:42→21:26)
[2017-09-21] MEDS: SODIUM CHLORIDE 1,000 ML IV SCH ×2 (05:44→18:44)
[2017-09-21 07:00] LABS: HEMATOCRIT 40.3 % (35.4-49); HEMOGLOBIN 13.6 GM/dL (11.7-16.9); MCH 31.5 pg (25.7-33.7); MCHC 33.8 g/dl (32.0-35.9); MEAN CELL VOLUME 93.2 fl (80-96); MEAN PLT VOLUME 8.6 fl (7.5-11.1); PLATELET COUNT 552 K/MM3 (134-434); RBC 4.32 M/mm3 (4.00-5.60); RDW 15.4 % (11.9-15.9); WHITE BLOOD COUNT 9.7 K/mm3 (4.0-10.0)
[2017-09-21 07:30] LABS: ANION GAP 9 (8-16); BLOOD UREA NITROGEN 18 mg/dL (7-18); CHLORIDE 105 mmol/L (98-107); CO2 27 mmol/L (21-32); CREATININE 0.9 mg/dL (0.7-1.3); GLUCOSE,RANDOM 88 mg/dL (74-106); POTASSIUM 4.6 mmol/L (3.5-5.1); SODIUM 141 mmol/L (136-145)
[2017-09-21] MEDS: TAMSULOSIN HCL 0.4 MG CAP.ER.24H (FP) PO SCH (08:52)
--- NOTE | 2017-09-21 09:14 | PN ---
Progress Note (short form) - Note Progress Note: 87 failed voiding trial cont chino to sd July d/c w chino and arrange elective opd bph procedure
[2017-09-21] MEDS: LIDOCAINE 5% TOPICAL PATCH TP SCH (09:35)
[2017-09-21] MEDS: METOPROLOL TARTRATE 50 MG TABLET (FP) PO SCH (09:35)
[2017-09-21] MEDS: amLODIPine BESYLATE 5 MG TABLET (FP) PO SCH (09:35)
[2017-09-21] MEDS: ASPIRIN COATED 81 MG TABLET.EC PO SCH (09:35)
[2017-09-21] MEDS: ISOSORBIDE MONONITRATE 60 MG TAB.SR.24H (FP) PO SCH (09:35)
[2017-09-21] MEDS: ROSUVASTATIN CA 10 MG TABLET (FP) PO SCH (09:35)
[2017-09-21] MEDS: FENOFIBRIC ACID 135 MG CAP PO SCH (09:36)
[2017-09-21] MEDS: POLYETHYLENE GLYCOL 3350 119 GM BTL PO SCH (09:36)
--- NOTE | 2017-09-21 11:25 | PN ---
Progress Note, Physician History of Present Illness: Awake, alert Supine in bed C/O L groin pain, radiating to L thigh Afebrile WBC improved- WNL Repeat BC 09/13 , 09/17, 09/19 no growth Bone scan suggestive of septic arhtritis L hip - Current Medication List Current Medications: Active Medications Acetaminophen (Tylenol -) 1,000 mg PO Q6H PRN PRN Reason: PAIN LEVEL 1 - 3 Last Admin: 09/20/17 21:43 Dose: 1,000 mg Amlodipine Besylate (Norvasc -) 5 mg PO DAILY [facility] Last Admin: 09/21/17 09:35 Dose: 5 mg Aspirin (Ecotrin -) 81 mg PO DAILY [facility] Last Admin: 09/21/17 09:35 Dose: 81 mg Docusate Sodium (Colace -) 100 mg PO TID [facility] Last Admin: 09/21/17 05:41 Dose: 100 mg Fenofibric Acid (Trilipix -) 135 mg PO DAILY [facility] Last Admin: 09/21/17 09:36 Dose: 135 mg Fentanyl (Duragesic 12mcg Patch -) 1 patch TD Q72H [facility] Stop: 09/22/17 12:04 Last Admin: 09/18/17 14:25 Dose: 1 patch Gabapentin (Neurontin -) 300 mg PO TID [facility] Last Admin: 09/21/17 05:42 Dose: 300 mg Heparin Sodium (Porcine) (Heparin -) 5,000 unit SQ TID [facility] Last Admin: 09/21/17 05:42 Dose: 5,000 unit Daptomycin 750 mg/ Sodium (Chloride) 100 mls @ 200 mls/hr IVPB Q24H [facility]; Protocol Last Admin: 09/20/17 15:50 Dose: 200 mls/hr Sodium Chloride (Normal Saline -) 1,000 mls @ 75 mls/hr IV ASDIR [facility] Last Admin: 09/21/17 05:44 Dose: 75 mls/hr Isosorbide Mononitrate (Imdur -) 60 mg PO DAILY [facility] Last Admin: 09/21/17 09:35 Dose: 60 mg Lidocaine (Lidoderm Patch -) 1 patch TP DAILY [facility] Last Admin: 09/21/17 09:35 Dose: 1 patch Metoprolol Tartrate (Lopressor -) 100 mg PO DAILY [facility] Last Admin: 09/21/17 09:35 Dose: 100 mg Miscellaneous (Lidoderm Patch Removal) 1 each MC DAILY@2200 [facility] Last Admin: 09/20/17 21:42 Dose: 1 each Miscellaneous (Duragesic Patch Waste) 1 each [facility] PRN PRN PRN Reason: PAIN Last Admin: 09/18/17 14:57 Dose: 1 each Oxycodone HCl (Roxicodone -) 5 mg PO Q6H PRN PRN Reason: Pain 6-10 Last Admin: 09/21/17 05:41 Dose: 5 mg Polyethylene Glycol (Miralax (For Daily Use) -) 17 gm PO DAILY [facility] Last Admin: 09/21/17 09:36 Dose: 17 gm Rosuvastatin Calcium (Crestor -) 10 mg PO DAILY [facility] Last Admin: 09/21/17 09:35 Dose: 10 mg Senna (Senna -) 2 tab PO HS [facility] Last Admin: 09/20/17 21:42 Dose: 2 tab Tamsulosin HCl (Flomax -) 0.4 mg PO DAILY@0830 [facility] Last Admin: 09/21/17 08:52 Dose: 0.4 mg - Objective Vital Signs: Vital Signs Temperature 99 F 09/21/17 06:04 Pulse Rate 97 H 09/21/17 06:04 Respiratory Rate 20 09/21/17 06:04 Blood Pressure 128/53 09/21/17 06:04 O2 Sat by Pulse Oximetry (%) 95 09/20/17 21:00 Constitutional: Yes: No Distress, Obese Eyes: Yes: Conjunctiva Clear Cardiovascular: Yes: Regular Rate and Rhythm, S1, S2 Respiratory: Yes: CTA Bilaterally Gastrointestinal: Yes: Normal Bowel Sounds, Soft, Abdomen, Obese. No: Tenderness Musculoskeletal: Yes: Other (temdermess L groin) Labs: CBC, BMP 09/21/17 06:00 09/21/17 06:00 INR, PTT INR 1.09 (0.82-1.09) 09/06/17 17:20 Assessment/Plan Enterococcal bacteremia/ sepsis secondary to UTI R/O septic arthritis L hip Major PCN allergy Continue Daptomycin MRI ordered Ortho follow up re L hip pain
[2017-09-21] MEDS: fentaNYL 12mcg/hr PATCH.TD72 TD SCH (13:14)
--- NOTE | 2017-09-21 16:27 | PN ---
Physical Exam: SUBJECTIVE: Patient seen and examined at bedside. Admits to eating and sleeping well. Afebrile overnight. Denies headaches/dizziness, fever/chills, nausea/ vomiting, and urinary/bowel symptoms. Patient complains of urinary retention. Pt also complains of L hip pain that prevents him from ambulating on his own. As per nurse, no acute events overnight. OBJECTIVE: Vital Signs Period Temp Pulse Resp BP Sys/Balderas Pulse Ox Last 24 Hr 98.1 F-99 F 58-97 18-20 107-138/52-79 95-95 General: NAD, AAOx3. HEENT: AT/NC. EOMI. Neck: Supple. No JVD. No LAD. Lungs: CTA B/L. Symmetric chest rise. No wheezes, rhonchi, or rales appreciated. Heart: RRR. Normal S1, S2. No murmurs, rubs, or gallops appreciated. Abd: Soft NT/ND. Normoactive bowel sounds in all 4Qs. : Chino in place. MSK: 5/5 ROM in U/L ext bilaterally. No peripheral edema noted. Neuro: CN II-XII intact. Laboratory Results - last 24 hr 09/21/17 09/21/17 06:00 06:00 WBC 9.7 RBC 4.32 Hgb 13.6 Hct 40.3 MCV 93.2 MCH 31.5 MCHC 33.8 RDW 15.4 Plt Count 552 H MPV 8.6 Sodium 141 Potassium 4.6 Chloride 105 Carbon Dioxide 27 Anion Gap 9 BUN 18 Creatinine 0.9 Creat Clearance w eGFR > 60 Random Glucose 88 Calcium 9.0 Active Medications Generic Name Dose Route Start Last Admin Trade Name Freq PRN Reason Stop Dose Admin Acetaminophen 1,000 mg 09/13/17 17:44 09/20/17 21:43 Tylenol - PO 1,000 mg Q6H PRN Administration PAIN LEVEL 1 - 3 Amlodipine Besylate 5 mg 09/10/17 11:04 09/21/17 09:35 Norvasc - PO 5 mg DAILY [facility] Administration Aspirin 81 mg 09/14/17 10:00 09/21/17 09:35 Ecotrin - PO 81 mg DAILY [facility] Administration Docusate Sodium 100 mg 09/08/17 14:00 09/21/17 05:41 Colace - PO 100 mg TID [facility] Administration Fenofibric Acid 135 mg 09/07/17 10:00 09/21/17 09:36 Trilipix - PO 135 mg DAILY [facility] Administration Fentanyl 1 patch 09/15/17 12:15 09/21/17 13:14 Duragesic 12mcg Patch - TD 09/22/17 12:04 1 patch Q72H [facility] Administration Gabapentin 300 mg 09/11/17 15:15 09/21/17 05:42 Neurontin - PO 300 mg TID [facility] Administration Heparin Sodium (Porcine) 5,000 unit 09/20/17 22:00 09/21/17 05:42 Heparin - SQ 5,000 unit TID [facility] Administration Daptomycin 750 mg/ Sodium 100 mls @ 200 mls/hr 09/13/17 14:00 09/20/17 15:50 Chloride IVPB 200 mls/hr Q24H [facility] Administration Protocol Sodium Chloride 1,000 mls @ 75 mls/hr 09/13/17 18:00 09/21/17 05:44 Normal Saline - IV 75 mls/hr ASDIR [facility] Administration Isosorbide Mononitrate 60 mg 09/07/17 10:00 09/21/17 09:35 Imdur - PO 60 mg DAILY [facility] Administration Lidocaine 1 patch 09/14/17 19:21 09/21/17 09:35 Lidoderm Patch - TP 1 patch DAILY [facility] Administration Metoprolol Tartrate 100 mg 09/07/17 10:00 09/21/17 09:35 Lopressor - PO 100 mg DAILY [facility] Administration Miscellaneous 1 each 09/07/17 22:00 09/20/17 21:42 Lidoderm Patch Removal MC 1 each DAILY@2200 [facility] Administration Miscellaneous 1 each 09/15/17 12:03 09/18/17 14:57 Duragesic Patch Waste MC 1 each PRN PRN Administration PAIN Polyethylene Glycol 17 gm 09/13/17 14:15 09/21/17 09:36 Miralax (For Daily Use) - PO 17 gm DAILY [facility] Administration Rosuvastatin Calcium 10 mg 09/07/17 10:00 09/21/17 09:35 Crestor - PO 10 mg DAILY [facility] Administration Senna 2 tab 09/07/17 22:00 09/20/17 21:42 Senna - PO 2 tab HS [facility] Administration Tamsulosin HCl 0.4 mg 09/18/17 15:00 09/21/17 08:52 Flomax - PO 0.4 mg DAILY@0830 [facility] Administration ASSESSMENT/PLAN: 87M with pmhx of HTN, BPH, CKD, OA, and s/p CABG x15 years ago who is currently being treated for UTI with pyelonephritis. #UTI w/ pyelonephritis; Patient is currently asymptomatic and clinically stable. - blood cx (+) for E. faecalis bacteremia - Cont Daptomycin 750 mg/NS 100cc @ 200cc/hr IVPB (Day 7); consult ID regarding duration of abx tx - As per uro, no evidence of colovesicula fistula noted; open prostatic urethra seen on cysto. cont Flomax 0.4 mg PO QD started. Voiding trial failed. As per uro, pt needs chino upon discharge and outpatient followup for BPH procedure. #CALE - resolved. #L hip pain 2/ OA - Bone scan (09/18/17): nonspecific findings of increased blood flow, blood pool and delayed increased uptake throughout L hip joint. can be seen w/ septic arthritis or severe degenerative/inflammatory arthritis. Possible MRI if possible w/ pt's prosthesis. Pt's ortho contacted to determine type of knee prothesis; need to have pt sign record release form, but will only do so with son's approval to obtain records from [facility]. Call radiology to decide if MRI can be done on patient to evaluate MRI. - cont Fentanyl patch 12 mcg TD q72h - cont Oxycodone 5 mg PO q6h PRN - cont Ibuprofen 600 mg PO q6h - cont Gabapentin 300 mg PO TID - cont Tylenol 1000 mg PO q6h - d/w patient of rehab after discharge - f/u MRI report of L hip #Renal cysts - f/u outpatient #Constipation - Cont bowel regimen: Docusate 100 mg PO TID, Miralax 17 gm PO QD, Senna 2 tab PO HS #HTN - BP stable, cont to monitor. - cont Lopressor 100 mg PO QD - cont Amlodipine 5 mg PO QD #HLD - cont Rosuvastatin 10 mg PO QD - cont Fenofibrate 135 mg PO QD #CAD - cont Isosorbide mononitrate 60 mg PO QD - cont Aspirin 81 mg PO QD #DVT prophylaxis - cont Heparin 5,000U SQ TID - SCDs #FEN - NS 1000 cc @ 75cc/hr - check lytes in AM - sodium controlled diet dispo - d/w pt discharge to rehab Visit type - Emergency Visit Emergency Visit: No - New Patient This patient is new to me today: No - Critical Care Critical Care patient: No
[2017-09-21] MEDS ORDERED: PT OWN MED DRAWER 7, Y5N ONE (16:38)
[2017-09-21] MEDS: DAPTOMYCIN 750 MG in SODIUM CHLORIDE 100 ML IVPB SCH (16:43)
[2017-09-21] MEDS: FENTANYL PATCH WASTE MC PRN (16:45)
[2017-09-21] MEDS: ACETAMINOPHEN 500 MG TABLET (FP) PO PRN (16:48)
--- NOTE | 2017-09-21 20:52 | PN ---
Teaching Attending Note Name of Resident: Jason Bal ATTENDING PHYSICIAN STATEMENT I saw and evaluated the patient. I reviewed the resident's note and discussed the case with the resident. I agree with the resident's findings and plan as documented. SUBJECTIVE: OBJECTIVE: Vital Signs Temperature 99.2 F 09/21/17 18:00 Pulse Rate 73 09/21/17 18:00 Respiratory Rate 18 09/21/17 18:00 Blood Pressure 147/77 09/21/17 18:00 O2 Sat by Pulse Oximetry (%) 95 09/21/17 09:00 CBCD WBC 9.7 K/mm3 (4.0-10.0) 09/21/17 06:00 RBC 4.32 M/mm3 (4.00-5.60) 09/21/17 06:00 Hgb 13.6 GM/dL (11.7-16.9) 09/21/17 06:00 Hct 40.3 % (35.4-49) 09/21/17 06:00 MCV 93.2 fl (80-96) 09/21/17 06:00 MCHC 33.8 g/dl (32.0-35.9) 09/21/17 06:00 RDW 15.4 % (11.9-15.9) 09/21/17 06:00 Plt Count 552 K/MM3 (134-434) H 09/21/17 06:00 MPV 8.6 fl (7.5-11.1) 09/21/17 06:00 CMP Sodium 141 mmol/L (136-145) 09/21/17 06:00 Potassium 4.6 mmol/L (3.5-5.1) 09/21/17 06:00 Chloride 105 mmol/L (98-107) 09/21/17 06:00 Carbon Dioxide 27 mmol/L (21-32) 09/21/17 06:00 Anion Gap 9 (8-16) 09/21/17 06:00 BUN 18 mg/dL (7-18) 09/21/17 06:00 Creatinine 0.9 mg/dL (0.7-1.3) 09/21/17 06:00 Creat Clearance w eGFR > 60 (>60) 09/21/17 06:00 Random Glucose 88 mg/dL (74-106) 09/21/17 06:00 Calcium 9.0 mg/dL (8.5-10.1) 09/21/17 06:00 Total Bilirubin 0.8 mg/dL (0.2-1.0) 09/20/17 06:00 AST 31 U/L (15-37) 09/20/17 06:00 ALT 21 U/L (12-78) 09/20/17 06:00 Alkaline Phosphatase 61 U/L (45-117) 09/20/17 06:00 Total Protein 6.2 g/dl (6.4-8.2) L 09/20/17 06:00 Albumin 2.4 g/dl (3.4-5.0) L 09/20/17 06:00 CARDIAC ENZYMES Creatine Kinase 54 IU/L (39-308) 09/14/17 06:00 Troponin I < 0.02 ng/ml (0.00-0.05) 09/06/17 17:20 Current Medications Generic Name Dose Route Start Last Admin Trade Name Freq PRN Reason Stop Dose Admin Acetaminophen 1,000 mg 09/13/17 17:44 09/21/17 16:48 Tylenol - PO 1,000 mg Q6H PRN Administration PAIN LEVEL 1 - 3 Amlodipine Besylate 5 mg 09/10/17 11:04 09/21/17 09:35 Norvasc - PO 5 mg DAILY [facility] Administration Aspirin 81 mg 09/14/17 10:00 09/21/17 09:35 Ecotrin - PO 81 mg DAILY [facility] Administration Docusate Sodium 100 mg 09/08/17 14:00 09/21/17 16:43 Colace - PO 100 mg TID [facility] Administration Fenofibric Acid 135 mg 09/07/17 10:00 09/21/17 09:36 Trilipix - PO 135 mg DAILY [facility] Administration Fentanyl 1 patch 09/15/17 12:15 09/21/17 13:14 Duragesic 12mcg Patch - TD 09/22/17 12:04 1 patch Q72H [facility] Administration Gabapentin 300 mg 09/11/17 15:15 09/21/17 16:43 Neurontin - PO 300 mg TID [facility] Administration Heparin Sodium (Porcine) 5,000 unit 09/20/17 22:00 09/21/17 16:43 Heparin - SQ 5,000 unit TID [facility] Administration Daptomycin 750 mg/ Sodium 100 mls @ 200 mls/hr 09/13/17 14:00 09/21/17 16:43 Chloride IVPB 200 mls/hr Q24H [facility] Administration Protocol Sodium Chloride 1,000 mls @ 75 mls/hr 09/13/17 18:00 09/21/17 18:44 Normal Saline - IV 75 mls/hr ASDIR [facility] Administration Isosorbide Mononitrate 60 mg 09/07/17 10:00 09/21/17 09:35 Imdur - PO 60 mg DAILY [facility] Administration Lidocaine 1 patch 09/14/17 19:21 09/21/17 09:35 Lidoderm Patch - TP 1 patch DAILY [facility] Administration Metoprolol Tartrate 100 mg 09/07/17 10:00 09/21/17 09:35 Lopressor - PO 100 mg DAILY [facility] Administration Miscellaneous 1 each 09/07/17 22:00 09/20/17 21:42 Lidoderm Patch Removal MC 1 each DAILY@2200 [facility] Administration Miscellaneous 1 each 09/15/17 12:03 09/21/17 16:45 Duragesic Patch Waste MC 1 each PRN PRN Administration PAIN Polyethylene Glycol 17 gm 09/13/17 14:15 09/21/17 09:36 Miralax (For Daily Use) - PO 17 gm DAILY [facility] Administration Rosuvastatin Calcium 10 mg 09/07/17 10:00 09/21/17 09:35 Crestor - PO 10 mg DAILY [facility] Administration Senna 2 tab 09/07/17 22:00 09/20/17 21:42 Senna - PO 2 tab HS [facility] Administration Tamsulosin HCl 0.4 mg 09/18/17 15:00 09/21/17 08:52 Flomax - PO 0.4 mg DAILY@0830 [facility] Administration Home Medications Medication Instructions Recorded Fenofibrate 150 mg PO DAILY 03/29/17 Isosorbide Mononitrate [Isosorbide 60 mg PO DAILY 03/29/17 Mononitrate ER] Metoprolol Tartrate 100 mg PO DAILY 03/29/17 Rosuvastatin [Crestor -] 10 mg PO DAILY 03/29/17 PE: per resident's note ASSESSMENT AND PLAN: Patient is a 87 y/o man with h/o CAD s/p CABG, HTN, BPH, CKD, OA, s/p cystoscopy 2 days prior to admission , who presented with dysuria and chills. he was found to have urinary retention and UTI with bacteremia #Enterococcal bacteremia/ sepsis secondary to UTI R/O septic arthritis L hip, patient is allergic to PCN, patient had an MRI official report is pending. # Acute Complicated UTI /pyelonephritis with E. Faecalis bacteremia: colovesicular fistula was not seen on further imaging on IV Daptomycin day 8, MRI result is pending to r/o Osteo and septic left hip. # CALE: resolved # L hip pain: as above cont fentanyl patch and lidocaine patch . # Renal cysts: f/u as out pt # Constipation : bowel regimen Follow MRI result to r/o Osteo
[2017-09-21] MEDS: SENNOSIDES 8.6MG TABLET (FP) PO SCH (21:26)
[2017-09-21] MEDS: LIDOCAINE PATCH REMOVAL MC SCH (21:27)
[2017-09-22] MEDS: GABAPENTIN 300 MG CAPSULE (FP) PO SCH ×2 (05:14→15:23)
[2017-09-22] MEDS: DOCUSATE SODIUM 100 MG CAPSULE (FP) PO SCH ×2 (05:14→15:20)
[2017-09-22] MEDS: HEPARIN NA (PORCINE) 5,000 UNITS/ML 1ML VIAL SQ SCH ×3 (05:14→15:40)
[2017-09-22] MEDS: ACETAMINOPHEN 500 MG TABLET (FP) PO PRN (06:02)
[2017-09-22 07:02] LABS: HEMATOCRIT 39.1 % (35.4-49); MCHC 33.4 g/dl (32.0-35.9); MEAN CELL VOLUME 92.9 fl (80-96); MEAN PLT VOLUME 8.5 fl (7.5-11.1); PLATELET COUNT 566 K/MM3 (134-434); RBC 4.21 M/mm3 (4.00-5.60); RDW 15.1 % (11.9-15.9); WHITE BLOOD COUNT 11.6 K/mm3 (4.0-10.0)
[2017-09-22 08:22] LABS: ANION GAP 10 (8-16); BLOOD UREA NITROGEN 20 mg/dL (7-18); CHLORIDE 103 mmol/L (98-107); CO2 27 mmol/L (21-32); CREATININE 1.1 mg/dL (0.7-1.3); GLUCOSE,RANDOM 94 mg/dL (74-106); POTASSIUM 4.3 mmol/L (3.5-5.1); SODIUM 140 mmol/L (136-145)
[2017-09-22] MEDS: TAMSULOSIN HCL 0.4 MG CAP.ER.24H (FP) PO SCH (10:21)
[2017-09-22] MEDS: METOPROLOL TARTRATE 50 MG TABLET (FP) PO SCH (10:21)
[2017-09-22] MEDS: ISOSORBIDE MONONITRATE 60 MG TAB.SR.24H (FP) PO SCH (10:21)
[2017-09-22] MEDS: ASPIRIN COATED 81 MG TABLET.EC PO SCH (10:21)
[2017-09-22] MEDS: amLODIPine BESYLATE 5 MG TABLET (FP) PO SCH (10:22)
[2017-09-22] MEDS: ROSUVASTATIN CA 10 MG TABLET (FP) PO SCH (10:22)
[2017-09-22] MEDS: LIDOCAINE 5% TOPICAL PATCH TP SCH (10:29)
[2017-09-22] MEDS: POLYETHYLENE GLYCOL 3350 119 GM BTL PO SCH (10:29)
[2017-09-22] MEDS: FENOFIBRIC ACID 135 MG CAP PO SCH (10:30)
--- NOTE | 2017-09-22 14:12 | PN ---
Physical Exam: SUBJECTIVE: Patient seen and examined at bedside. Still complains of L hip pain. He also complain of urinary retention. As per nurse, pt has been urinating in diaper x3 days. OBJECTIVE: Vital Signs Period Temp Pulse Resp BP Sys/Balderas Pulse Ox Last 24 Hr 76 F-99.3 F 66-106 18-21 127-164/71-95 96 General: NAD, AAOx3. HEENT: AT/NC. EOMI. Neck: Supple. No JVD. No LAD. Lungs: CTA B/L. Symmetric chest rise. No wheezes, rhonchi, or rales appreciated. Heart: RRR. Normal S1, S2. No murmurs, rubs, or gallops appreciated. Abd: Soft NT/ND. Normoactive bowel sounds in all 4Qs. : Chino in place. MSK: 5/5 strength in b/l upper extremities. 2/5 strength L lower extremity. 4/5 strength in R lower extremity. No peripheral edema noted. Neuro: CN II-XII intact. Laboratory Results - last 24 hr 09/22/17 09/22/17 06:20 06:20 WBC 11.6 H RBC 4.21 Hgb 13.0 Hct 39.1 MCV 92.9 MCH 31.0 MCHC 33.4 RDW 15.1 Plt Count 566 H MPV 8.5 Sodium 140 Potassium 4.3 Chloride 103 Carbon Dioxide 27 Anion Gap 10 BUN 20 H Creatinine 1.1 Creat Clearance w eGFR > 60 Random Glucose 94 Calcium 9.0 Active Medications Generic Name Dose Route Start Last Admin Trade Name Freq PRN Reason Stop Dose Admin Acetaminophen 1,000 mg 09/13/17 17:44 09/22/17 06:02 Tylenol - PO 1,000 mg Q6H PRN Administration PAIN LEVEL 1 - 3 Amlodipine Besylate 5 mg 09/10/17 11:04 09/22/17 10:22 Norvasc - PO 5 mg DAILY MERLIN Administration Aspirin 81 mg 09/14/17 10:00 09/22/17 10:21 Ecotrin - PO 81 mg DAILY MERLIN Administration Docusate Sodium 100 mg 09/08/17 14:00 09/22/17 05:14 Colace - PO 100 mg TID MERLIN Administration Fenofibric Acid 135 mg 09/07/17 10:00 09/22/17 10:30 Trilipix - PO 135 mg DAILY MERLIN Administration Gabapentin 300 mg 09/11/17 15:15 09/22/17 05:14 Neurontin - PO 300 mg TID MERLIN Administration Heparin Sodium (Porcine) 5,000 unit 09/20/17 22:00 09/22/17 05:14 Heparin - SQ 5,000 unit TID MERLIN Administration Daptomycin 750 mg/ Sodium 100 mls @ 200 mls/hr 09/13/17 14:00 09/21/17 16:43 Chloride IVPB 200 mls/hr Q24H MERLIN Administration Protocol Sodium Chloride 1,000 mls @ 75 mls/hr 09/13/17 18:00 09/21/17 18:44 Normal Saline - IV 75 mls/hr ASDIR MERLIN Administration Isosorbide Mononitrate 60 mg 09/07/17 10:00 09/22/17 10:21 Imdur - PO 60 mg DAILY MERLIN Administration Lidocaine 1 patch 09/14/17 19:21 09/22/17 10:29 Lidoderm Patch - TP 1 patch DAILY MERLIN Administration Metoprolol Tartrate 100 mg 09/07/17 10:00 09/22/17 10:21 Lopressor - PO 100 mg DAILY MERLIN Administration Miscellaneous 1 each 09/07/17 22:00 09/21/17 21:27 Lidoderm Patch Removal MC 1 each DAILY@2200 MERLIN Administration Miscellaneous 1 each 09/15/17 12:03 09/21/17 16:45 Duragesic Patch Waste MC 1 each PRN PRN Administration PAIN Polyethylene Glycol 17 gm 09/13/17 14:15 09/22/17 10:29 Miralax (For Daily Use) - PO 17 gm DAILY MERLIN Administration Rosuvastatin Calcium 10 mg 09/07/17 10:00 09/22/17 10:22 Crestor - PO 10 mg DAILY MER[facility] Administration Senna 2 tab 09/07/17 22:00 09/21/17 21:26 Senna - PO 2 tab HS MERLIN Administration Tamsulosin HCl 0.4 mg 09/18/17 15:00 09/22/17 10:21 Flomax - PO 0.4 mg DAILY@0830 MERLIN Administration ASSESSMENT/PLAN: 87M with pmhx of HTN, BPH, CKD, OA, and s/p CABG x15 years ago who is currently being treated for UTI with pyelonephritis. #UTI w/ pyelonephritis; Patient is currently asymptomatic and clinically stable. - blood cx (+) for E. faecalis bacteremia - Cont Daptomycin 750 mg/NS 100cc @ 200cc/hr IVPB (Day 11) - As per uro, no evidence of colovesicula fistula noted; open prostatic urethra seen on cysto. cont Flomax 0.4 mg PO QD started. Voiding trial failed. As per uro, pt needs chino upon discharge and outpatient followup for BPH procedure. #L hip pain 2/2 OA - Bone scan (09/18/17): nonspecific findings of increased blood flow, blood pool and delayed increased uptake throughout L hip joint. can be seen w/ septic arthritis or severe degenerative/inflammatory arthritis. Possible MRI if possible w/ pt's prosthesis. Pt's ortho contacted to determine type of knee prothesis; need to have pt sign record release form, but will only do so with son's approval to obtain records from [facility]. Call radiology to decide if MRI can be done on patient to evaluate MRI. - MRI pelvis (09/21/17): Severe osteoarthritic changes of L hip with coxa valga is deformity of the L femoral head neck jxn; Soft tissue swelling in the L iliac fossa and surrounding L hip; Heterogeneous L hip joint effusion; bone marrow edema in L acetabulum and proximal femur, mild osteoarthritic changes of R hip. Findings consistent w/ marked inflammatory process and is suspicious for septic arthritis w/ osteomyelitis of the L hip - Per ID, due to MRI c/w septic arthritis of L hip, pt will need PICC line for halfway outpatient antibiotic tx (6 week course, currently on Day #11) - f/u ortho recs - cont Fentanyl patch 12 mcg TD q72h - cont Oxycodone 5 mg PO q6h PRN - cont Ibuprofen 600 mg PO q6h - cont Gabapentin 300 mg PO TID - cont Tylenol 1000 mg PO q6h #CALE - resolved. - BUN 20, Cr 1.1. #Renal cysts - f/u outpatient #Constipation - Cont bowel regimen: Docusate 100 mg PO TID, Miralax 17 gm PO QD, Senna 2 tab PO HS #HTN - BP stable, cont to monitor. - cont Lopressor 100 mg PO QD - cont Amlodipine 5 mg PO QD #HLD - cont Rosuvastatin 10 mg PO QD - cont Fenofibrate 135 mg PO QD #CAD - cont Isosorbide mononitrate 60 mg PO QD - cont Aspirin 81 mg PO QD #DVT prophylaxis - cont Heparin 5,000U SQ TID - SCDs #FEN - NS 1000 cc @ 75cc/hr - check lytes in AM - sodium controlled diet dispo - d/w pt discharge to rehab
--- NOTE | 2017-09-22 14:43 | PN ---
Progress Note, Physician History of Present Illness: Awake, alert Supine in bed Reports improvement in L hip pain Afebrile WBC improved- WNL Repeat BC 09/13 , 09/17, 09/19 no growth MRI c/w septic arhtritis L hip - Current Medication List Current Medications: Active Medications Acetaminophen (Tylenol -) 1,000 mg PO Q6H PRN PRN Reason: PAIN LEVEL 1 - 3 Last Admin: 09/22/17 06:02 Dose: 1,000 mg Amlodipine Besylate (Norvasc -) 5 mg PO DAILY [facility] Last Admin: 09/22/17 10:22 Dose: 5 mg Aspirin (Ecotrin -) 81 mg PO DAILY [facility] Last Admin: 09/22/17 10:21 Dose: 81 mg Docusate Sodium (Colace -) 100 mg PO TID [facility] Last Admin: 09/22/17 05:14 Dose: 100 mg Fenofibric Acid (Trilipix -) 135 mg PO DAILY [facility] Last Admin: 09/22/17 10:30 Dose: 135 mg Gabapentin (Neurontin -) 300 mg PO TID [facility] Last Admin: 09/22/17 05:14 Dose: 300 mg Heparin Sodium (Porcine) (Heparin -) 5,000 unit SQ TID [facility] Last Admin: 09/22/17 05:14 Dose: 5,000 unit Daptomycin 750 mg/ Sodium (Chloride) 100 mls @ 200 mls/hr IVPB Q24H [facility]; Protocol Last Admin: 09/21/17 16:43 Dose: 200 mls/hr Sodium Chloride (Normal Saline -) 1,000 mls @ 75 mls/hr IV ASDIR [facility] Last Admin: 09/21/17 18:44 Dose: 75 mls/hr Isosorbide Mononitrate (Imdur -) 60 mg PO DAILY [facility] Last Admin: 09/22/17 10:21 Dose: 60 mg Lidocaine (Lidoderm Patch -) 1 patch TP DAILY [facility] Last Admin: 09/22/17 10:29 Dose: 1 patch Metoprolol Tartrate (Lopressor -) 100 mg PO DAILY [facility] Last Admin: 09/22/17 10:21 Dose: 100 mg Miscellaneous (Lidoderm Patch Removal) 1 each MC DAILY@2200 [facility] Last Admin: 09/21/17 21:27 Dose: 1 each Miscellaneous (Duragesic Patch Waste) 1 each MC PRN PRN PRN Reason: PAIN Last Admin: 09/21/17 16:45 Dose: 1 each Polyethylene Glycol (Miralax (For Daily Use) -) 17 gm PO DAILY [facility] Last Admin: 09/22/17 10:29 Dose: 17 gm Rosuvastatin Calcium (Crestor -) 10 mg PO DAILY [facility] Last Admin: 09/22/17 10:22 Dose: 10 mg Senna (Senna -) 2 tab PO HS [facility] Last Admin: 09/21/17 21:26 Dose: 2 tab Tamsulosin HCl (Flomax -) 0.4 mg PO DAILY@0830 [facility] Last Admin: 09/22/17 10:21 Dose: 0.4 mg - Objective Vital Signs: Vital Signs Temperature 98.2 F 09/22/17 14:28 Pulse Rate 67 09/22/17 14:28 Respiratory Rate 20 09/22/17 14:28 Blood Pressure 109/52 09/22/17 14:28 O2 Sat by Pulse Oximetry (%) 96 09/21/17 21:00 Constitutional: Yes: No Distress Eyes: Yes: Conjunctiva Clear Cardiovascular: Yes: Regular Rate and Rhythm, S1, S2 Respiratory: Yes: CTA Bilaterally Gastrointestinal: Yes: Normal Bowel Sounds, Soft, Abdomen, Obese. No: Tenderness Extremities: Yes: Other (no L hip tenderness) Labs: CBC, BMP 09/22/17 06:20 09/22/17 06:20 INR, PTT INR 1.09 (0.82-1.09) 09/06/17 17:20 Assessment/Plan Enterococcal bacteremia/ sepsis secondary to UTI septic arthritis L hip Major PCN allergy Continue Daptomycin Will need PICC for snf outpatient antibiotic tx ( 6 weeks total after last +BC 09/11 - today day# 11) F/U ESR CRP
[2017-09-22] MEDS ORDERED: PICC LINE 8 ML FLUSH PROTOCOL IVPUSH PRN (15:17)
[2017-09-22] MEDS: DAPTOMYCIN 750 MG in SODIUM CHLORIDE 100 ML IVPB SCH (15:20)
[2017-09-22 18:12] VITALS: BP 158/85; PULSE 75; TEMP 98.3
--- NOTE | 2017-09-22 19:36 | DS ---
Physical Exam: SUBJECTIVE: Patient complained of urinary retention and L hip pain. OBJECTIVE: Vital Signs Period Temp Pulse Resp BP Sys/Balderas Pulse Ox Last 24 Hr 98 F-99.3 F 66-106 18-21 109-164/52-95 96 PHYSICAL EXAM General: NAD, AAOx3. HEENT: AT/NC. EOMI. Neck: Supple. No JVD. No LAD. Lungs: CTA B/L. Symmetric chest rise. No wheezes, rhonchi, or rales appreciated. Heart: RRR. Normal S1, S2. No murmurs, rubs, or gallops appreciated. Abd: Soft NT/ND. Normoactive bowel sounds in all 4Qs. : Chino in place. MSK: 5/5 strength in b/l upper extremities. 2/5 strength L lower extremity. 4/5 strength in R lower extremity. No peripheral edema noted. L hip tenderness. Neuro: CN II-XII intact. LABS Laboratory Results - last 24 hr 09/22/17 09/22/17 06:20 06:20 WBC 11.6 H RBC 4.21 Hgb 13.0 Hct 39.1 MCV 92.9 MCH 31.0 MCHC 33.4 RDW 15.1 Plt Count 566 H MPV 8.5 Sodium 140 Potassium 4.3 Chloride 103 Carbon Dioxide 27 Anion Gap 10 BUN 20 H Creatinine 1.1 Creat Clearance w eGFR > 60 Random Glucose 94 Calcium 9.0 HOSPITAL COURSE: 87M with pmhx of CABG 15 years ago, HTN, BPH, CKD, OA that presented to the hospital complaining of weakness, chills and dysuria. He was admitted for UTI with pyelonephritis and blood cultures were positive for Enterococcus and Group D strep. He was started on IV Daptomycin for treatment of UTI with pyelo. He was placed on a chino catheter for urinary retention. A voiding trial was done 4 days later in which the patient failed. Urologist recommended patient to be discharged on a chino and to follow up outpatient for procedure for BPH. Additionally, the patient complained of L hip pain. A lower extremity CT scan was done that showed severe L hip OA with recommendation for MRI followup if there was clinical concern for osteomyelitis. Ortho was consulted and evaluated patient with sciatica in which Gabapentin was recommended as treatment. Patient still complained of persistent worsening L hip pain. For further work up, a bone scan was also done which showed nonspecific findings of increased blood flow, blood pool and delayed increased uptake throughout the L hip joint w/ periarticular distribution which were findings that can be seen w/ septic arthritis or inflammatory processes. A pelvic MRI was then done which was suspicious for septic arthritis and osteomyelitis. The patient was evaluated by ID in which a 6 week course of the pt's current antibiotic treatment was recommended for septic arthritis. Patient was discharged with a PICC line for continuation of IV Daptomycin and sent to subacute rehab facility for physical therapy. Date of Admission:09/07/17 Date of Discharge: 09/22/17 Minutes to complete discharge: 35 Discharge Summary Reason For Visit: PNEUMONIA Current Active Problems Left hip pain (Acute) Urinary retention (Acute) Renal calculi (Chronic) Condition: Good - Instructions Diet, Activity, Other Instructions: You were admitted and treated for a urinary tract infection that had also affected your kidneys. Your blood tested positive for bacteria and you were given an IV antibiotic treatment. A urinary catheter was placed to help you with urination. After 4 days, the catheter was removed to evaluate your urination. Your blood cultures were also repeated and showed no signs of bacteria for 4 days after receiving antibiotic treatment, however you complained of urinary retention. A urologist recommended that upon discharge, you will need to have a urinary chino and to follow up outpatient for further evaluation of your BPH. Additionally, you complained of left hip pain that affected your mobility. You had an MRI that was suspicious of septic arthritis and Osteomyelitis which is infection of your bone at the hip level. The infectious disease doctor recommended to continue your antibiotic treatment with a peripherally inserted central catheter (PICC) line for a total of 6 weeks to treat your septic arthritis of your left hip. MEDICAL RECOMMENDATIONS: Please continue your 6 week course of IV Daptomycin 750 mg and currently on Day #11, which will be October 22, 2017 You will be discharged with a PICC line in place for your IV antibiotic treatment. You will be discharged to a subacute rehab facility. Use 12 mcg of the Fentanyl patch once every 72 hours (3 days) for pain Please followup with a urologist within a week period If you are experiencing fevers, chills, chest pain, worsening shortness of breath, vomiting, diarrhea, please return to your closest emergency department immediately. Referrals: Edgar Loza MD [Primary Care Provider] - [facility] - Home Medications Comprehensive Discharge Medication List: Ambulatory Orders Fenofibrate 150 mg PO DAILY 03/29/17 Isosorbide Mononitrate [Isosorbide Mononitrate ER] 60 mg PO DAILY 03/29/17 Metoprolol Tartrate 100 mg PO DAILY 03/29/17 Rosuvastatin [Crestor -] 10 mg PO DAILY 03/29/17 Daptomycin 750 mg IV DAILY #42 vial 09/22/17 FENTANYL 12mcg PATCH [DURAGESIC 12mcg PATCH -] 1 patch TD Q72H patch.td72 MDD 12 09/22/17 Fentanyl Patch Waste [Duragesic Patch Waste] 1 each MC PRN PRN each 09/22/17 This patient is new to me today: No Emergency Visit: No Critical Care patient: No - Discharge Referral Referred to [facility] No
--- NOTE | 2017-09-22 19:40 | PN ---
Teaching Attending Note Name of Resident: Tia Grimaldo ATTENDING PHYSICIAN STATEMENT I saw and evaluated the patient. I reviewed the resident's note and discussed the case with the resident. I agree with the resident's findings and plan as documented. SUBJECTIVE: OBJECTIVE: Vital Signs Temperature 98.3 F 09/22/17 18:00 Pulse Rate 75 09/22/17 18:00 Respiratory Rate 18 09/22/17 18:00 Blood Pressure 158/85 09/22/17 18:00 O2 Sat by Pulse Oximetry (%) 96 09/21/17 21:00 CBCD WBC 11.6 K/mm3 (4.0-10.0) H 09/22/17 06:20 RBC 4.21 M/mm3 (4.00-5.60) 09/22/17 06:20 Hgb 13.0 GM/dL (11.7-16.9) 09/22/17 06:20 Hct 39.1 % (35.4-49) 09/22/17 06:20 MCV 92.9 fl (80-96) 09/22/17 06:20 MCHC 33.4 g/dl (32.0-35.9) 09/22/17 06:20 RDW 15.1 % (11.9-15.9) 09/22/17 06:20 Plt Count 566 K/MM3 (134-434) H 09/22/17 06:20 MPV 8.5 fl (7.5-11.1) 09/22/17 06:20 CMP Sodium 140 mmol/L (136-145) 09/22/17 06:20 Potassium 4.3 mmol/L (3.5-5.1) 09/22/17 06:20 Chloride 103 mmol/L (98-107) 09/22/17 06:20 Carbon Dioxide 27 mmol/L (21-32) 09/22/17 06:20 Anion Gap 10 (8-16) 09/22/17 06:20 BUN 20 mg/dL (7-18) H 09/22/17 06:20 Creatinine 1.1 mg/dL (0.7-1.3) 09/22/17 06:20 Creat Clearance w eGFR > 60 (>60) 09/22/17 06:20 Random Glucose 94 mg/dL (74-106) 09/22/17 06:20 Calcium 9.0 mg/dL (8.5-10.1) 09/22/17 06:20 Total Bilirubin 0.8 mg/dL (0.2-1.0) 09/20/17 06:00 AST 31 U/L (15-37) 09/20/17 06:00 ALT 21 U/L (12-78) 09/20/17 06:00 Alkaline Phosphatase 61 U/L (45-117) 09/20/17 06:00 Total Protein 6.2 g/dl (6.4-8.2) L 09/20/17 06:00 Albumin 2.4 g/dl (3.4-5.0) L 09/20/17 06:00 CARDIAC ENZYMES Creatine Kinase 54 IU/L (39-308) 09/14/17 06:00 Troponin I < 0.02 ng/ml (0.00-0.05) 09/06/17 17:20 Current Medications Generic Name Dose Route Start Last Admin Trade Name Freq PRN Reason Stop Dose Admin Acetaminophen 1,000 mg 09/13/17 17:44 09/22/17 06:02 Tylenol - PO 1,000 mg Q6H PRN Administration PAIN LEVEL 1 - 3 Amlodipine Besylate 5 mg 09/10/17 11:04 09/22/17 10:22 Norvasc - PO 5 mg DAILY [facility] Administration Aspirin 81 mg 09/14/17 10:00 09/22/17 10:21 Ecotrin - PO 81 mg DAILY [facility] Administration Docusate Sodium 100 mg 09/08/17 14:00 09/22/17 15:20 Colace - PO Not Given TID MERLIN Fenofibric Acid 135 mg 09/07/17 10:00 09/22/17 10:30 Trilipix - PO 135 mg DAILY [facility] Administration Gabapentin 300 mg 09/11/17 15:15 09/22/17 15:23 Neurontin - PO 300 mg TID MERLIN Administration Heparin Sodium (Porcine) 5,000 unit 09/20/17 22:00 09/22/17 15:40 Heparin - SQ Not Given TID MERLIN IV Flush 8 ml 09/22/17 15:17 Picc Line Flush IVPUSH PRN PRN Protocol Daptomycin 750 mg/ Sodium 100 mls @ 200 mls/hr 09/13/17 14:00 09/22/17 15:20 Chloride IVPB 200 mls/hr Q24H MERLIN Administration Protocol Sodium Chloride 1,000 mls @ 75 mls/hr 09/13/17 18:00 09/21/17 18:44 Normal Saline - IV 75 mls/hr ASDIR [facility] Administration Isosorbide Mononitrate 60 mg 09/07/17 10:00 09/22/17 10:21 Imdur - PO 60 mg DAILY [facility] Administration Lidocaine 1 patch 09/14/17 19:21 09/22/17 10:29 Lidoderm Patch - TP 1 patch DAILY [facility] Administration Metoprolol Tartrate 100 mg 09/07/17 10:00 09/22/17 10:21 Lopressor - PO 100 mg DAILY [facility] Administration Miscellaneous 1 each 09/07/17 22:00 09/21/17 21:27 Lidoderm Patch Removal MC 1 each DAILY@2200 [facility] Administration Miscellaneous 1 each 09/15/17 12:03 09/21/17 16:45 Duragesic Patch Waste MC 1 each PRN PRN Administration PAIN Polyethylene Glycol 17 gm 09/13/17 14:15 09/22/17 10:29 Miralax (For Daily Use) - PO 17 gm DAILY MERLIN Administration Rosuvastatin Calcium 10 mg 09/07/17 10:00 09/22/17 10:22 Crestor - PO 10 mg DAILY [facility] Administration Senna 2 tab 09/07/17 22:00 09/21/17 21:26 Senna - PO 2 tab HS MERLIN Administration Tamsulosin HCl 0.4 mg 09/18/17 15:00 09/22/17 10:21 Flomax - PO 0.4 mg DAILY@0830 MERLIN Administration Home Medications Medication Instructions Recorded RX: Fenofibrate 150 mg PO DAILY 03/29/17 RX: Isosorbide Mononitrate 60 mg PO DAILY 03/29/17 [Isosorbide Mononitrate ER] RX: Metoprolol Tartrate 100 mg PO DAILY 03/29/17 RX: Rosuvastatin [Crestor -] 10 mg PO DAILY 03/29/17 RX: Daptomycin 750 mg IV DAILY #42 vial 09/22/17 RX: FENTANYL 12mcg PATCH 1 patch TD Q72H patch.td72 MDD 12 09/22/17 [DURAGESIC 12mcg PATCH -] RX: Fentanyl Patch Waste 1 each MC PRN PRN each 09/22/17 [Duragesic Patch Waste] PE: per resident's note Microbiology 09/19/17 15:00 Blood - Peripheral Venous Blood Culture - Preliminary NO GROWTH OBTAINED AFTER 72 HOURS, INCUBATION TO CONTINUE FOR 2 DAYS. 09/19/17 13:30 Blood - Peripheral Venous Blood Culture - Preliminary NO GROWTH OBTAINED AFTER 72 HOURS, INCUBATION TO CONTINUE FOR 2 DAYS. 09/17/17 07:00 Blood - Peripheral Venous Blood Culture - Final NO GROWTH AFTER 5 DAYS INCUBATION 09/17/17 07:00 Blood - Peripheral Venous Blood Culture - Final NO GROWTH AFTER 5 DAYS INCUBATION 09/13/17 12:55 Blood - Peripheral Venous Blood Culture - Final NO GROWTH AFTER 5 DAYS INCUBATION 09/13/17 12:40 Blood - Peripheral Venous Blood Culture - Final NO GROWTH AFTER 5 DAYS INCUBATION 09/11/17 11:26 Blood - Peripheral Venous Blood Culture - Final Group D Strep Or Entero Coccus 09/11/17 10:30 Blood - Peripheral Venous Blood Culture - Final Enterococcus Faecalis 09/09/17 17:45 Blood - Peripheral Venous Blood Culture - Final Group D Strep Or Entero Coccus 09/09/17 17:35 Blood - Peripheral Venous Blood Culture - Final Enterococcus Faecalis 09/06/17 17:10 Blood - Peripheral Venous Blood Culture - Final NO GROWTH AFTER 5 DAYS INCUBATION 09/06/17 17:20 Blood - Peripheral Venous Blood Culture - Final NO GROWTH AFTER 5 DAYS INCUBATION 09/10/17 10:55 Urine - Urine Cortez Urine Culture - Final NO GROWTH OBTAINED 09/10/17 00:10 Urine - Urine Clean Catch Urine Culture - Final NO GROWTH OBTAINED 09/06/17 18:51 Urine - Urine Clean Catch Urine Culture - Final Enterococcus Faecalis 09/07/17 15:00 Urine For Antigen Detection Legionella Antigen - Final 09/07/17 15:00 Urine For Antigen Detection Streptococcus pneumoniae Antigen (M - Final Exam: MRI of the pelvis/left hip. Clinical indications: Evaluate for left hip septic joint. Coronal T1 and T2 STIR images of the pelvis were obtained. Axial, coronal, and sagittal T1 and fat-suppressed T2-weighted images of the left hip were obtained with a smaller field of view. There is marked joint space narrowing of the left hip with osteophytes of the femoral head and osteophytes of the acetabulum. There is coxa varus deformity of the femoral head neck junction which was seen on a previous CT scan of the abdomen and pelvis of 03/29/2017. There is soft tissue swelling in the iliac fossa and the adjacent soft tissues. There is a moderate heterogeneous left hip joint effusion. There is bone marrow edema of the left acetabulum and proximal femur extending from the level of the femoral head to the lesser trochanter. These findings are consistent with a marked inflammatory process and is suspicious for a septic arthritis. There are mild osteoarthritic changes of the right hip with osteophytes of the right femoral head and acetabulum. There is a multiloculated cystic structure of the inferior aspect of the left kidney. Impression: 1. Severe osteoarthritic changes of the left hip with coxa valga is deformity of the left femoral head neck junction. 2. Soft tissue swelling in the left iliac fossa and surrounding the left hip. 3. Heterogeneous left hip joint effusion. 4. Bone marrow edema the left acetabulum and proximal femur. 5. Mild osteoarthritic changes of the right hip. These findings are consistent with marked inflammatory process and is suspicious for septic arthritis with osteomyelitis of the left hip. Reported By: Kasia Benitez MD 09/22/17 1334 Technologist: Aram Zaldivar Transcribed Date/Time: 09/22/17 1334 Receptionist Doctor'S Office: Kasia Benitez Printed Date/Time: By: Signed by: Kasia Benitez Signed on: 22-Sep-2017 13:35 ASSESSMENT AND PLAN: Patient is a 87 y/o man with h/o CAD s/p CABG, HTN, BPH, CKD, OA, s/p cystoscopy 2 days prior to admission , who presented with dysuria and chills. he was found to have urinary retention and UTI with bacteremia #Enterococcal bacteremia/ sepsis secondary to UTI. # L hip pain: with septic left hip and Osteo as per ID to continue Dapto 750mg daily x 6 weeks , continue fentanyl patch and lidocaine patch . # Acute Complicated UTI /pyelonephritis with E. Faecalis bacteremia: colovesicular fistula was not seen on further imaging on IV Daptomycin day 11 of 6 weeks total ( after last +BC 09/11 ), going to Rehab. also PIcc line was placed today 09/22/2017 # CALE: resolved # Renal cysts: f/u as out pt # Constipation : bowel regimen
== END 2017-09-22 18:45 | DRG 872 ==
LOC: JER 16:35 → JERBED 09-07 01:54 → UNDOADMIN 09-07 02:03 → J7W 09-07 12:22
PROVIDERS: ADMIT Internal Medicine; ATTEND Internal Medicine
PROC: 0T9B70Z Drainage of Bladder with Drainage Device, Via Natural or Artificial Opening (ICD-10-PCS; principal; 2017-09-07)
PROC: 05H533Z Insertion of Infusion Device into Right Subclavian Vein, Percutaneous Approach (ICD-10-PCS; 2017-09-22)
PROC: B516ZZA Fluoroscopy of Right Subclavian Vein, Guidance (ICD-10-PCS; 2017-09-22)
PROC: B546ZZA Ultrasonography of Right Subclavian Vein, Guidance (ICD-10-PCS; 2017-09-22)
DX: A41.81 Sepsis due to Enterococcus (principal); N10 Acute pyelonephritis; N17.9 Acute kidney failure, unspecified; E87.2 Acidosis; M00.852 Arthritis due to other bacteria, left hip; I12.9 Hypertensive chronic kidney disease with stage 1 through stage 4 chronic kidney disease, or unspecified chronic kidney disease; N18.3 Chronic kidney disease, stage 3 (moderate); N40.1 Benign prostatic hyperplasia with lower urinary tract symptoms; R33.8 Other retention of urine; N20.0 Calculus of kidney; E87.6 Hypokalemia; E83.42 Hypomagnesemia; E83.39 Other disorders of phosphorus metabolism; M54.32 Sciatica, left side; E78.5 Hyperlipidemia, unspecified; I25.10 Atherosclerotic heart disease of native coronary artery without angina pectoris; Z95.1 Presence of aortocoronary bypass graft; M16.12 Unilateral primary osteoarthritis, left hip; K59.00 Constipation, unspecified; N28.1 Cyst of kidney, acquired; K82.8 Other specified diseases of gallbladder; M1A.9XX0 Chronic gout, unspecified, without tophus (tophi); Z88.0 Allergy status to penicillin; E66.9 Obesity, unspecified; Z68.34 Body mass index [BMI] 34.0-34.9, adult
CPT/HCPCS: 36415; 36569; 71045-TC-FY; 72132-TC; 72192-TC; 72195-TC; 73700-TC-RT; 74018-TC-FY; 74176-TC; 74177-TC; 74270-TC-FY; 77001-TC-FY; 78315-TC; 80048; 80053; 81003; 81015; 82550; 83605; 83735; 84100; 84484; 85025; 85027; 85610; 85651; 85730; 86140; 87040; 87086; 87186; 87899; 93005; 93010; 93306-TC; 93970-TC; 94010; 94640; 97116-GP; 97161-GP; 99282-25; A9503; C1751; J0131; J0878; J1644; J7030; J7620

== ENCOUNTER 2017-10-18 20:02 | Inpatient (IN) | payer OTHER ==
--- NOTE | 2017-10-18 20:36 | PDOC ---
History of Present Illness <Toney Chaudhry - Last Filed: 10/19/17 02:24> - History of Present Illness Initial Comments: 10/18/17 21:32 The patient is an 87 year old male with a history of CAD, HTN, HLD, Urinary Retention, Pyelonephritis who presents for evaluation of abdominal pain. The patient reports a several day history of poorly described abdominal pain. He notes that he has been having difficulty urinating requiring frequent catheterizations to relieve his retention. The patient also notes that he was unable to have a bowel movement for the past 1 week and was disimpacted today with a bowel movement. The patient otherwise denies fevers, chills, SOB, chest pain, nausea, vomiting or diarrhea. <Jason Pennington - Last Filed: 10/19/17 04:28> - General Chief Complaint: Pain Stated Complaint: ABDOMINAL PAIN Time Seen by Provider: 10/18/17 20:19 Past History <Toney Chaudhry - Last Filed: 10/19/17 02:24> - Past Medical History Cardiac Disorders: Yes COPD: No HTN: Yes Hypercholesterolemia: Yes - Surgical History Cardiac Surgery: Yes (CABG, CARD STENTS) Orthopedic Surgery: Yes (KNEE) - Immunization History Immunization Up to Date: Yes - Suicide/Smoking/Psychosocial Hx Smoking History: Never smoked Have you smoked in the past 12 months: No Hx Alcohol Use: No Drug/Substance Use Hx: No Substance Use Type: None Hx Substance Use Treatment: No <Jason Pennington - Last Filed: 10/19/17 04:28> - Past Medical History Allergies/Adverse Reactions: Allergies Allergy/AdvReac Type Severity Reaction Status Date / Time Penicillins AdvReac Intermediate Swelling Verified 10/18/17 21:00 Home Medications: Ambulatory Orders Fenofibrate 150 mg PO DAILY 03/29/17 Isosorbide Mononitrate [Isosorbide Mononitrate ER] 60 mg PO DAILY 03/29/17 Metoprolol Tartrate 100 mg PO DAILY 03/29/17 Rosuvastatin [Crestor -] 10 mg PO DAILY 03/29/17 Fentanyl Patch Waste [Duragesic Patch Waste] 1 each MC PRN PRN each 09/22/17 Acetaminophen [Tylenol] 650 mg PO QID PRN 10/18/17 Aspirin 81 mg PO DAILY 10/18/17 Docusate Sodium [Colace] 100 mg PO HS 10/18/17 FENTANYL 12mcg PATCH [DURAGESIC 12mcg PATCH -] 25 patch TD Q72H MDD 12 10/18/17 Gabapentin [Neurontin -] 200 mg PO Q8H 10/18/17 Sennosides [Senna] 2 tab PO HS 10/18/17 Tamsulosin HCl [Flomax] 0.4 mg PO DAILY 10/18/17 Vancomycin [Vancocin] 1,000 mg IV BID 10/18/17 Review of Systems - Review of Systems Comments:: 10/18/17 21:34 Constitutional: No fevers, chills, fatigue, malaise HEENT: No Rhinorrhea, nasal congestion, visual changes Cardiovascular: No chest pain, syncope, palpitations, lightheadedness Respiratory: No Cough, SOB, Hemoptysis, Gastrointestinal: Abdominal pain. No Nausea, Vomiting, Diarrhea, Melena Genitourinary: Inability to urinate, increased urgency. No Dysuria, Hematuria, Flank pain Musculoskeletal: No Myalgia, arthralgia Skin: No rashes, itching, bruising, pallor Neurologic: No Headache, Dizziness, Numbness, Weakness, or Tingling Psychiatric: No Hallucinations. No SI or HI <Jason Pennington - Last Filed: 10/19/17 04:28> *Physical Exam - Vital Signs Last Vital Signs Temp Pulse Resp BP Pulse Ox 100 F H 78 20 130/75 95 10/18/17 20:08 10/18/17 20:08 10/18/17 20:08 10/18/17 20:08 10/18/17 20:08 <Toney Chaudhry - Last Filed: 10/19/17 02:24> - Physical Exam Comments: 10/18/17 21:35 General Appearance: Nourished. No Apparent Distress HEENT: No Pharyngeal Erythema, Tonsillar Exudate, Tonsillar Erythema Neck: No Cervical Lymphadenopathy Respiratory/Chest: Lungs Clear, Normal Breath Sounds. No Crackles, Rales, Rhonchi, Wheezing Cardiovascular: Regular Rhythm, Regular Rate. No Murmur, Gallops, Rubs Gastrointestinal/Abdominal: Normal Bowel Sounds, Soft. Diffuse tenderness to palpation worse in the lower quadrants. No Guarding, Rebound, Musculoskeletal: No CVA Tenderness Extremity: Normal Capillary Refill Integumentary: Normal Color, Dry, Warm Neurologic: Fully Oriented, Alert, Normal Mood/Affect, Normal Response, <Jason Pennington - Last Filed: 10/19/17 04:28> ED Treatment Course - LABORATORY CBC & Chemistry Diagram: 10/18/17 22:13 10/18/17 22:13 - ADDITIONAL ORDERS Additional order review: Laboratory Results 10/18/17 10/18/17 22:50 22:13 Sodium 143 Potassium 4.9 Chloride 108 H Carbon Dioxide 28 Anion Gap 7 L BUN 23 H Creatinine 1.6 H Creat Clearance w eGFR 40.90 Random Glucose 107 H Calcium 9.8 Total Bilirubin 0.6 AST 28 ALT 19 Alkaline Phosphatase 54 Total Protein 6.9 Albumin 3.2 L Lipase 156 Urine Color Yellow Urine Appearance Clear Urine pH 7.0 D Ur Specific [place] 1.015 Urine Protein Negative Urine Glucose (UA) Negative Urine Ketones Negative Urine Blood 3+ H Urine Nitrite Negative Urine Bilirubin Negative Urine Urobilinogen 2.0 Ur Leukocyte Esterase Trace Urine WBC (Auto) 11 Urine RBC (Auto) 138 10/18/17 22:13 RBC 4.45 MCV 92.4 MCHC 33.7 RDW 15.0 MPV 8.3 Neutrophils % 68.6 Lymphocytes % 22.5 Monocytes % 5.0 Eosinophils % 2.6 Basophils % 1.3 - Medications Given in the ED: ED Medications Discontinued Medications Generic Name Dose Route Start Last Admin Trade Name Jaydenq PRN Reason Stop Dose Admin Acetaminophen 1,000 mg 10/19/17 01:45 10/19/17 02:00 Ofirmev Injection - IVPB 10/19/17 01:46 1,000 mg ONCE ONE Administration Lactulose 20 gm 10/19/17 00:29 10/19/17 00:42 Cephulac (Oral Use) PO 10/19/17 00:30 20 gm ONCE ONE Administration Sodium Phosphate 133 ml 10/19/17 01:45 10/19/17 02:00 Fleet Adult Rectal Enema - AR 10/19/17 01:46 133 ml ONCE ONE Administration <Toney Chaudhry - Last Filed: 10/19/17 02:24> - LABORATORY CBC & Chemistry Diagram: 10/18/17 22:13 10/18/17 22:13 <Jason Pennington - Last Filed: 10/19/17 04:28> Medical Decision Making - Medical Decision Making 10/18/17 21:36 The patient is an 87 year old male with a history of CAD, HTN, HLD, Urinary Retention, Pyelonephritis who presents for evaluation of abdominal pain. Differential includes but is not limited to: UTI, Retention, Constipation, Pyelonephritis, Intra-abdominal process, Infectious, Metabolic Derangement. Given the patient's history and physical exam, we will obtain a cbc, cmp, lipase , ua, urine culture, abdomen/pelvis ct to evaluate further. We will place a chino catheter in the meantime and continue to monitor and reassess while here in the ED. 10/19/17 04:26 CBC demonstrates an elevated wbc to 13. CMP and lipase are unremarkable. Abdomen/pelvis CT demonstrates significant amount of stool and possible fecal impaction as preliminarily read by our store protection specialist radiologist. The patient reports continued abdominal pain despite medications and chino placement. The patient also notes that he does not wish to return to [facility] for rehab and would like to explore other options. We believe the patient requires observation admission for further management at this time. We discussed the case with the hospitalist team who accepted the patient for admission. <Jason Pennington - Last Filed: 10/19/17 04:28> *DC/Admit/Observation/Transfer - Discharge Dispostion Decision to Admit order: Yes <Toney Chaudhry - Last Filed: 10/19/17 02:24> - Discharge Dispostion Decision to Admit order: Yes <Jason Pennington - Last Filed: 10/19/17 04:28> Diagnosis at time of Disposition: Urinary retention Abdominal pain Qualifiers: Abdominal location: unspecified location Qualified Code(s): R10.9 - Unspecified abdominal pain - Discharge Dispostion Condition at time of disposition: Stable
--- NOTE | 2017-10-18 20:46 | PDOC ---
Attending Attestation - HPI HPI: 10/18/17 20:49 The patient is a 87 year old female, with a significant past medical history of urinary retention, hyperlipidemia, hypertension, and CABG (~15 yrs ago), who presents to the emergency department with a few days of abdominal pain and irregular urinary output. He states his abdominal pain is like his typical pain with his urinary retention. He reports his last BM was 1 weeks ago. He states he was disimpacted today. The patient denies chest pain, shortness of breath, headache and dizziness. The patient denies fever, chills, nausea, vomit, diarrhea. The patient denies dysuria, urgency and hematuria. Son: Brennan Flores - [phone] PCP: Lefty Urologist: Korin Allergies: Penicillins - Medical Decision Making 10/18/17 20:49 Documentation prepared by Desire Villareal, acting as medical insurance collector for Toney Chaudhry DO. <Desire Villareal - Last Filed: 10/18/17 20:49> - Resident Resident Name: Jason Pennington - Physicial Exam PE: 10/19/17 01:03 Physical Exam General Appearance: Yes: Appropriately Dressed. No: Apparent Distress, Intoxicated HEENT: positive: EOMI, JEWEL, Normal ENT Inspection, Normal Voice, TMs Normal, Pharynx Normal. negative: Pale Conjunctivae, Photophobia, Scleral Icterus (R), Scleral Icterus (L) Neck: positive: Trachea midline, Normal Thyroid, Supple. negative: Tender, Rigid, Carotid bruit, Stridor, Lymphadenopathy (R), Lymphadenopathy (L), Thyromegaly Respiratory/Chest: positive: Lungs Clear, Normal Breath Sounds. negative: Chest Tender, Respiratory Distress, Accessory Muscle Use, Labored Respiration, RES, Crackles, Rales, Rhonchi, Stridor, Wheezing, Dullness Cardiovascular: positive: Regular Rhythm, Regular Rate, S1, S2. negative: Edema , JVD, Murmur, Bradycardia, Tachycardia Vascular Pulses: Dorsalis-Pedis (R): 2+, Doralis-Pedis (L): 2+ Gastrointestinal/Abdominal: positive: Normal Bowel Sounds, Flat, Soft. negative : Tender, Organomegaly, Pulsatile Mass, Increased Bowel Sounds, Decreased BS, Distended, Guarding, Rebound, Hernia, Hepatomegaly, Spleenomegaly Lymphatic: negative: Adenopathy, Tenderness Musculoskeletal: positive: Normal Inspection. negative: CVA Tenderness, Decreased Range of Motion Extremity: positive: Normal Capillary Refill, Normal Inspection, Normal Range of Motion, Pelvis Stable. negative: Tender, Pedal Edema, Swelling, Erythema Integumentary: positive: Normal Color, Dry, Warm. negative: Cyanotic, Erythema , Jaundice, Rash Neurologic: positive: air bag curer II-XII NML intact, Fully Oriented, Alert, Normal Mood/ Affect, Motor Strength 5/5. negative: EOM Palsy, Facial Droop, Sensory Deficit - Medical Decision Making 10/19/17 02:20 Pt was not feeling well. Both he and the family didn't want to return to [facility]. Will admit <Toney Chaudhry - Last Filed: 10/19/17 02:26>
[2017-10-18 22:24] LABS: BASO % 1.3 % (0-2.0); EOS % 2.6 % (0-4.5); HEMATOCRIT 41.2 % (35.4-49); HEMOGLOBIN 13.9 GM/dL (11.7-16.9); LYMPH % 22.5 % (8-40); MCH 31.1 pg (25.7-33.7); MCHC 33.7 g/dl (32.0-35.9); MEAN CELL VOLUME 92.4 fl (80-96); MEAN PLT VOLUME 8.3 fl (7.5-11.1); NEUT % 68.6 % (42.8-82.8); PLATELET COUNT 318 K/MM3 (134-434); RBC 4.45 M/mm3 (4.00-5.60)
[2017-10-18 23:00] LABS: ALBUMIN 3.2 g/dl (3.4-5.0); ANION GAP 7 (8-16); BLOOD UREA NITROGEN 23 mg/dL (7-18); CALCIUM 9.8 mg/dL (8.5-10.1); CHLORIDE 108 mmol/L (98-107); CO2 28 mmol/L (21-32); CREATININE 1.6 mg/dL (0.7-1.3); GLUCOSE,RANDOM 107 mg/dL (74-106); LIPASE 156 U/L (73-393); POTASSIUM 4.9 mmol/L (3.5-5.1); SGOT/AST 28 U/L (15-37); SGPT/ALT 19 U/L (12-78); SODIUM 143 mmol/L (136-145)
[2017-10-18 23:02] LABS: ALK PHOS 54 U/L (45-117); BILIRUBIN,TOTAL 0.6 mg/dL (0.2-1.0); TOT PROT 6.9 g/dl (6.4-8.2)
[2017-10-18 23:29] LABS: URINE APPEARANCE CLEAR; URINE BILIRUBIN NEGATIVE (<2.0 mg/dL); URINE COLOR YELLOW; URINE GLUCOSE (UA) NEGATIVE (NEGATIVE); URINE KETONE NEGATIVE (NEGATIVE); URINE LEUK ESTERASE TRACE (NEGATIVE); URINE NITRITE NEGATIVE (NEGATIVE); URINE PROTEIN NEGATIVE (NEGATIVE)
[2017-10-19] MEDS ORDERED: LACTULOSE 20 GM/30 ML UDC (FOR ORAL USE ONLY) PO ONE (00:29)
[2017-10-19] MEDS ORDERED: LACTULOSE 20 GM/30 ML UDC (FOR ORAL USE ONLY) ONE (00:37)
[2017-10-19] MEDS ORDERED: ACETAMINOPHEN 1000 MG/100 ML VIAL (NON FORMULARY) IVPB ONE (01:45)
[2017-10-19] MEDS ORDERED: SODIUM PHOSPHATE/NA BIPHOS 133 ML ENEMA PR ONE (01:45)
[2017-10-19] MEDS ORDERED: ACETAMINOPHEN INJECTION 100 ML IVPB ONE (02:03)
[2017-10-19] MEDS ORDERED: FENTANYL PATCH WASTE TD PRN (02:24)
--- NOTE | 2017-10-19 02:44 | PN ---
Teaching Attending Note Name of Resident: Beau Patel ATTENDING PHYSICIAN STATEMENT I saw and evaluated the patient. I reviewed the resident's note and discussed the case with the resident. I agree with the resident's findings and plan as documented. SUBJECTIVE: Patient is an 87 year old male with a history of CAD, CABG, cardiac stents, HTN , HLD, Urinary retention, and Pyelonephritis who presents for evaluation of abdominal pain. The patient reports a several day history of poorly described abdominal pain. He notes that he has been having difficulty urinating requiring frequent catheterizations to relieve his retention. The patient also notes that he was unable to have a bowel movement for the past 1 week and was disimpacted today with a bowel movement. He is in middle of a 6 week course of IV daptomycin for left hip osteomyelitis. Was recently treated for enteroccocal bacteremia and UTI. The patient otherwise denies fevers, chills, SOB, chest pain , nausea, vomiting or diarrhea. OBJECTIVE: Alert and in no acute distress Vital Signs Period Temp Pulse Resp BP Sys/Balderas Pulse Ox Last 24 Hr 100 F 78 20 130/75 95 HEENT: No Jaundice, eye redness or discharge, PERRLA, EOMI. Normocephalic, atraumatic. External ears are normal and hearing is grossly intact. No nasal discharge. Neck: Supple, nontender. No palpable adenopathy or thyromegaly. No JVD Chest: Good effort. Clear to auscultation and percussion. Heart: Regular. No S3, rub or murmur Abdomen: Not distended, soft, tender RUQ and LLQ and no HSM. No rebound or guarding. Normoactive bowel sounds. Ext: Peripheral pulses intact. No leg edema. Skin: Warm and dry. No petechiae, rash or ecchymosis. Neuro: Alert. Oriented x3. CN 2-12 grossly intact. Sensation grossly intact in all four extremities and DTR are symmetric. Current Medications Generic Name Dose Route Start Last Admin Trade Name Freq PRN Reason Stop Dose Admin Aspirin 81 mg 10/19/17 10:00 Asa - PO DAILY MERLIN Docusate Sodium 100 mg 10/19/17 06:00 Colace - PO TID MERLIN Fentanyl 25 patch 10/19/17 02:30 Duragesic 12mcg Patch - TD Q72H MERLIN Gabapentin 200 mg 10/19/17 06:00 Neurontin - PO TID [facility] Heparin Sodium (Porcine) 5,000 unit 10/19/17 10:00 Heparin - SQ Q8H-IV [facility] Daptomycin 750 mg/ Sodium 50 mls @ 50 mls/hr 10/19/17 11:00 Chloride IVPB 10/19/17 11:59 DAILY ONE Protocol Isosorbide Mononitrate 60 mg 10/19/17 10:00 Imdur - PO DAILY [facility] Miscellaneous 1 each 10/19/17 02:24 Duragesic Patch Waste TD PRN PRN PAIN Non-Formulary Medication 150 mg 10/19/17 10:00 Fenofibrate [Fenofibrate] PO DAILY [facility] Non-Formulary Medication 100 mg 10/19/17 10:00 Metoprolol Tartrate [Metoprolol Tartrate] PO DAILY [facility] Polyethylene Glycol 17 gm 10/19/17 10:00 Miralax (For Daily Use) - PO DAILY [facility] Rosuvastatin Calcium 10 mg 10/19/17 10:00 Crestor - PO DAILY [facility] Tamsulosin HCl 0.4 mg 10/19/17 08:30 Flomax - PO DAILY@0830 [facility] Home Medications Medication Instructions Recorded Fenofibrate 150 mg PO DAILY 03/29/17 Isosorbide Mononitrate [Isosorbide 60 mg PO DAILY 03/29/17 Mononitrate ER] Metoprolol Tartrate 100 mg PO DAILY 03/29/17 Rosuvastatin [Crestor -] 10 mg PO DAILY 03/29/17 Fentanyl Patch Waste [Duragesic 1 each MC PRN PRN each 09/22/17 Patch Waste] Acetaminophen [Tylenol] 650 mg PO QID PRN 10/18/17 Aspirin 81 mg PO DAILY 10/18/17 Docusate Sodium [Colace] 100 mg PO HS 10/18/17 FENTANYL 12mcg PATCH [DURAGESIC 25 patch TD Q72H MDD 12 10/18/17 12mcg PATCH -] Gabapentin [Neurontin -] 200 mg PO Q8H 10/18/17 Sennosides [Senna] 2 tab PO HS 10/18/17 Tamsulosin HCl [Flomax] 0.4 mg PO DAILY 10/18/17 Vancomycin [Vancocin] 1,000 mg IV BID 10/18/17 Abnormal Lab Results 10/18/17 10/18/17 10/18/17 22:13 22:13 22:50 WBC 13.0 H Chloride 108 H Anion Gap 7 L BUN 23 H Creatinine 1.6 H Random Glucose 107 H Albumin 3.2 L Urine Blood 3+ H ASSESSMENT AND PLAN: 1. Abdominal pain - May be due to constipation/fecal impaction noted on CT scan. But kidney stones also noted on CT and/or incompletely treated UTI, urinary retention, may be contributing to abdominal pain. Constipation being addressed by disimpaction, fleet enema, oral laxatives and liberal oral fluids. Urine culture sent - has 10 WBCs in the urine, trace leukocyte esterase and leukocytosis despite daptomycin therapy - consult ID for guidance. Urology consult for further workup of right kidney stone, urinary retention and hematuria. Continue flomax. 2. CALE - Etiology unclear - may be due to outlet obstruction. Consult nephrology to search for stone disease risk factor(s). Avoid nephrotoxic agents such as NSAIDS, aminoglycosides, contrast dyes and certain alternative medicine products. 3. DVT prophylaxis - Heparin 5000u sq tid. 4. Advance directives - Full code
--- NOTE | 2017-10-19 02:57 | HP ---
CHIEF COMPLAINT: constipation PCP: Dr. Loza HISTORY OF PRESENT ILLNESS: 87 year old male hx CAD, HTN, HLD, urinary retention, pyelonephritis, R sided kidney stones and recent septic/osteomyelitis of L hip presenting for abdominal pain and constipation. Patient is Slovak speaker and son is at bedside translating. Reports that patient was at [facility] for helping him walk and giving him his antibiotics IV. States that he has not had a bowel movement for 3 weeks and diffuse 8/10 abdominal pain located in the RUQ and in both RLQ and LLQ. Reports that he felt much better after getting a fleet enema. Denies fevers, chills, nausea, vomiting, chest pain or shortness of breath. Patient is getting [facility] the [facility] for septic arthritis/ osteomyelitis to be finished october 22. Patient reports that his dose was increased to twice a day, but is unsure who increased it or when it was increased. Patient does NOT want to return to [facility] and would like to go to a different home. ER course was notable for: (1) WBC 13 (2) UA + 3+ blood, trace leuk esterase (3) Cre 1.6 Recent Travel: none PAST MEDICAL HISTORY: CAD, HTN, HLD, urinary retention, pyelonephritis, R sided kidney stones and recent septic/osteomyelitis PAST SURGICAL HISTORY: open heart surgery 15 years ago Social History: Smoking: former Alcohol: denies Drugs: denies Family History: Allergies Penicillins Adverse Reaction (Intermediate, Verified 10/18/17 21:00) Swelling HOME MEDICATIONS: Home Medications Medication Instructions Recorded Fenofibrate 150 mg PO DAILY 03/29/17 Isosorbide Mononitrate [Isosorbide 60 mg PO DAILY 03/29/17 Mononitrate ER] Metoprolol Tartrate 100 mg PO DAILY 03/29/17 Rosuvastatin [Crestor -] 10 mg PO DAILY 03/29/17 Fentanyl Patch Waste [Duragesic 1 each MC PRN PRN each 09/22/17 Patch Waste] Acetaminophen [Tylenol] 650 mg PO QID PRN 10/18/17 Aspirin 81 mg PO DAILY 10/18/17 Docusate Sodium [Colace] 100 mg PO HS 10/18/17 FENTANYL 12mcg PATCH [DURAGESIC 25 patch TD Q72H MDD 12 10/18/17 12mcg PATCH -] Gabapentin [Neurontin -] 200 mg PO Q8H 10/18/17 Sennosides [Senna] 2 tab PO HS 10/18/17 Tamsulosin HCl [Flomax] 0.4 mg PO DAILY 10/18/17 Vancomycin [Vancocin] 1,000 mg IV BID 10/18/17 REVIEW OF SYSTEMS CONSTITUTIONAL: Absent: fever, chills, diaphoresis, generalized weakness, malaise, loss of appetite, weight change HEENT: Absent: rhinorrhea, nasal congestion, throat pain, throat swelling, difficulty swallowing, mouth swelling, ear pain, eye pain, visual changes CARDIOVASCULAR: Absent: chest pain, syncope, palpitations, irregular heart rate, lightheadedness , peripheral edema RESPIRATORY: Absent: cough, shortness of breath, dyspnea with exertion, orthopnea, wheezing, stridor, hemoptysis GASTROINTESTINAL:abdominal pain, constipation, Absent: abdominal distension, nausea, vomiting, diarrhea, melena, hematochezia GENITOURINARY: retention Absent: dysuria, frequency, urgency, hesitancy, hematuria, flank pain, genital pain MUSCULOSKELETAL: Absent: myalgia, arthralgia, joint swelling, back pain, neck pain SKIN: Absent: rash, itching, pallor HEMATOLOGIC/IMMUNOLOGIC: Absent: easy bleeding, easy bruising, lymphadenopathy, frequent infections ENDOCRINE: Absent: unexplained weight gain, unexplained weight loss, heat intolerance, cold intolerance NEUROLOGIC: Absent: headache, focal weakness or paresthesias, dizziness, unsteady gait, seizure, mental status changes, bladder or bowel incontinence PSYCHIATRIC: Absent: anxiety, depression, suicidal or homicidal ideation, hallucinations. PHYSICAL EXAMINATION Vital Signs - 24 hr 10/18/17 20:08 Temperature 100 F H Pulse Rate 78 Respiratory 20 Rate Blood Pressure 130/75 O2 Sat by Pulse 95 Oximetry (%) GENERAL: A&Ox3, no acute distress EYES: PERRLA, EOMI ENT: Dry mucus membranes NECK: No JVD LUNGS: CTA, no wheezes HEART: RRR, no murmurs appreciated ABDOMEN: obese, soft, tender to palpation in RUQ and in b/l lower quadrants, BS diminished MUSCULOSKELETAL: No CVA Tenderness EXTREMITIES: 2+ pulses, 1+ pitting edema b/l, PICC line in place in R arm, tenderness to palpation of L hip NEUROLOGICAL: Cranial nerves II-XII intact. : chino in place draining clear yellow urine Laboratory Results - last 24 hr 10/18/17 10/18/17 10/18/17 22:13 22:13 22:50 WBC 13.0 H RBC 4.45 Hgb 13.9 Hct 41.2 MCV 92.4 MCH 31.1 MCHC 33.7 RDW 15.0 Plt Count 318 D MPV 8.3 Absolute Neuts (auto) 8.9 Neutrophils % 68.6 Lymphocytes % 22.5 Monocytes % 5.0 Eosinophils % 2.6 Basophils % 1.3 Nucleated RBC % 0 Sodium 143 Potassium 4.9 Chloride 108 H Carbon Dioxide 28 Anion Gap 7 L BUN 23 H Creatinine 1.6 H Creat Clearance w eGFR 40.90 Random Glucose 107 H Calcium 9.8 Total Bilirubin 0.6 AST 28 ALT 19 Alkaline Phosphatase 54 Total Protein 6.9 Albumin 3.2 L Lipase 156 Urine Color Yellow Urine Appearance Clear Urine pH 7.0 D Ur Specific [place] 1.015 Urine Protein Negative Urine Glucose (UA) Negative Urine Ketones Negative Urine Blood 3+ H Urine Nitrite Negative Urine Bilirubin Negative Urine Urobilinogen 2.0 Ur Leukocyte Esterase Trace Urine WBC (Auto) 11 Urine RBC (Auto) 138 IMAGING: CT shows fecal impaction and b/l kidney stones ASSESSMENT/PLAN: 87 year old male hx CAD, HTN, HLD, urinary retention, pyelonephritis, R sided kidney stones and recent septic/osteomyelitis of L hip admitted for intractable abdominal pain and social work placement #Abdominal Pain: possibly 2/2 fecal impaction vs renal stone vs UTI -abdominal pain slightly improved from fleet enema, repeat fleet enema now -miralax/colace -hematuria, trace LE, 11 WBCs in urine, had enterococcal infection in urine in the past, and has been on daptomycin but still has WBCs in urine -ID and urology consultation appreciated -hold fentanyl due to constipation #R kidney stone: CT reports b/l kidney stones -3+ blood on UA with abdominal pain, need to r/o stone as cause of intractable abdominal pain -fluid hydration w/ 83cc/hr NS -urology consult appreciated -continue flomax #Acute Kidney Injury: possible post-obstructive uropathy vs pre-renal in origin -chino placed and draining significant amount of clear yellow urine -fluid hydration with NS @ 83cc/hr -repeat BMP in AM #UTI/Urinary Retention: has been treated for enterococcal in past, could be contributing to abdominal pain -hematuria, trace LE, 11 WBCs in urine, had enterococcal infection in urine in the past, and has been on daptomycin but still has WBCs in urine -no new antibiotics at the moment -will need ID input on whether this is untreated UTI especially since prior enterococcal UTI sensitive to daptomycin -chino in place -continue flomax #Septic Arthritis/Osteomyelitis: patient has been on daptomycin and was sent to rehab on 750mg daily until October 22 -patient reports being switched to twice daily regimen but does not recall who changed it or what it was changed to -will need to confirm medication changes with Ambrocio Pelletier in AM -ID consultation appreciated -for now continue Daptomycin 750mg IV #Coronary Artery Disease: chronic medical issue -continue isosorbide mononitrate 60mg daily -continue ASA 81mg -continue rosuvastatin 10mg #Hypertension: blood pressure within normal limits now -continue metoprolol 100 mg #Hyperlipidemia -continue rosuvastatin 10mg daily #FEN -NS @ 83cc/hr -lytes wnl -low sodium diet #Prophylaxis -heparin 5000 subq TID #Disposition -admit med surg -patient does not want to return to [facility] -will attempt to find placement for him in AM Visit type - Emergency Visit Emergency Visit: Yes ED Registration Date: 10/19/17 Care time: The patient presented to the Emergency Department on the above date and was hospitalized for further evaluation of their emergent condition. - New Patient This patient is new to me today: Yes Date on this admission: 10/19/17 - Critical Care Critical Care patient: No Hospitalist Screening - Colonoscopy Questionnaire Colonoscopy Questionnaire: Colonoscopy Questionnaire - Patient: 50 - 75 years old and never had a screening colonoscopy: Unknown History of colon or rectal polyps, or CA: Unknown History of IBD, Crohn's disease or UC: Unknown History of abdominal radiation therapy as a child: Unknown - Relative: 1 with colon or rectal CA, or polyps at age 60 or younger: Unknown Colon or rectal CA diagnosed at age 45 or younger: Unknown Multiple relatives with colon or rectal CA: Unknown - Outcome: Screening Result: Negative Screen
[2017-10-19] MEDS ORDERED: fentaNYL 25mcg/hr PATCH.TD72 TD SCH (03:15)
[2017-10-19] MEDS ORDERED: SODIUM CHLORIDE 1,000 ML IV SCH (03:30)
[2017-10-19] MEDS ORDERED: FENTANYL PATCH WASTE TD ONE (06:00)
[2017-10-19 06:41] VITALS: BMI 31.2
[2017-10-19] MEDS: DOCUSATE SODIUM 100 MG CAPSULE (FP) PO SCH ×3 (06:48→21:06)
[2017-10-19] MEDS: GABAPENTIN 100 MG CAPSULE (FP) PO SCH ×3 (06:48→21:05)
[2017-10-19] MEDS: HEPARIN NA (PORCINE) 5,000 UNITS/ML 1ML VIAL SQ SCH ×3 (06:49→21:06)
--- NOTE | 2017-10-19 08:50 | PN ---
Teaching Attending Note Name of Resident: Tia Grimaldo ATTENDING PHYSICIAN STATEMENT I saw and evaluated the patient. I reviewed the resident's note and discussed the case with the resident. I agree with the resident's findings and plan as documented. SUBJECTIVE: OBJECTIVE: Vital Signs Temperature 98.7 F 10/19/17 04:36 Pulse Rate 68 10/19/17 04:36 Respiratory Rate 18 10/19/17 04:36 Blood Pressure 125/76 10/19/17 04:36 O2 Sat by Pulse Oximetry (%) 98 10/19/17 02:58 CBCD WBC 13.0 K/mm3 (4.0-10.0) H 10/18/17 22:13 RBC 4.45 M/mm3 (4.00-5.60) 10/18/17 22:13 Hgb 13.9 GM/dL (11.7-16.9) 10/18/17 22:13 Hct 41.2 % (35.4-49) 10/18/17 22:13 MCV 92.4 fl (80-96) 10/18/17 22:13 MCHC 33.7 g/dl (32.0-35.9) 10/18/17 22:13 RDW 15.0 % (11.9-15.9) 10/18/17 22:13 Plt Count 318 K/MM3 (134-434) D 10/18/17 22:13 MPV 8.3 fl (7.5-11.1) 10/18/17 22:13 CMP Sodium 143 mmol/L (136-145) 10/18/17 22:13 Potassium 4.9 mmol/L (3.5-5.1) 10/18/17 22:13 Chloride 108 mmol/L (98-107) H 10/18/17 22:13 Carbon Dioxide 28 mmol/L (21-32) 10/18/17 22:13 Anion Gap 7 (8-16) L 10/18/17 22:13 BUN 23 mg/dL (7-18) H 10/18/17 22:13 Creatinine 1.6 mg/dL (0.7-1.3) H 10/18/17 22:13 Creat Clearance w eGFR 40.90 (>60) 10/18/17 22:13 Random Glucose 107 mg/dL (74-106) H 10/18/17 22:13 Calcium 9.8 mg/dL (8.5-10.1) 10/18/17 22:13 Total Bilirubin 0.6 mg/dL (0.2-1.0) 10/18/17 22:13 AST 28 U/L (15-37) 10/18/17 22:13 ALT 19 U/L (12-78) 10/18/17 22:13 Alkaline Phosphatase 54 U/L (45-117) 10/18/17 22:13 Total Protein 6.9 g/dl (6.4-8.2) 10/18/17 22:13 Albumin 3.2 g/dl (3.4-5.0) L 10/18/17 22:13 Current Medications Generic Name Dose Route Start Last Admin Trade Name Freq PRN Reason Stop Dose Admin Acetaminophen 650 mg 10/19/17 03:02 Tylenol - PO Q4H PRN PAIN LEVEL 1-5 Aspirin 81 mg 10/19/17 10:00 Asa - PO DAILY [facility] Docusate Sodium 100 mg 10/19/17 06:00 10/19/17 06:48 Colace - PO 100 mg TID [facility] Administration Fenofibric Acid 135 mg 10/19/17 10:00 Trilipix - PO DAILY [facility] Gabapentin 200 mg 10/19/17 06:00 10/19/17 06:48 Neurontin - PO 200 mg TID [facility] Administration Heparin Sodium (Porcine) 5,000 unit 10/19/17 06:00 10/19/17 06:49 Heparin - SQ 5,000 unit TID [facility] Administration Daptomycin 750 mg/ Sodium 50 mls @ 50 mls/hr 10/20/17 10:00 Chloride IVPB DAILY [facility] Protocol Daptomycin 750 mg/ Sodium 50 mls @ 50 mls/hr 10/19/17 11:00 Chloride IVPB 10/19/17 11:59 ONCE ONE Protocol Sodium Chloride 1,000 mls @ 83 mls/hr 10/19/17 03:30 10/19/17 04:05 Normal Saline - IV 10/19/17 15:33 83 mls/hr ASDIR [facility] Administration Isosorbide Mononitrate 60 mg 10/19/17 10:00 Imdur - PO DAILY [facility] Metoprolol Tartrate 100 mg 10/19/17 10:00 Lopressor - PO DAILY [facility] Pneumococcal 13-Valent Conj Vacc 0.5 ml 10/19/17 09:00 Prevnar 13 Syringe - IM 10/19/17 09:01 .ONCE ONE Polyethylene Glycol 17 gm 10/19/17 14:00 Miralax (For Daily Use) - PO TID [facility] Rosuvastatin Calcium 10 mg 10/19/17 10:00 Crestor - PO DAILY [facility] Tamsulosin HCl 0.4 mg 10/19/17 08:30 Flomax - PO DAILY@0830 [facility] Home Medications Medication Instructions Recorded Fenofibrate 150 mg PO DAILY 03/29/17 Isosorbide Mononitrate [Isosorbide 60 mg PO DAILY 03/29/17 Mononitrate ER] Metoprolol Tartrate 100 mg PO DAILY 03/29/17 Rosuvastatin [Crestor -] 10 mg PO DAILY 03/29/17 Fentanyl Patch Waste [Duragesic 1 each [facility] PRN PRN each 09/22/17 Patch Waste] Acetaminophen [Tylenol] 650 mg PO QID PRN 10/18/17 Aspirin 81 mg PO DAILY 10/18/17 Docusate Sodium [Colace] 100 mg PO HS 10/18/17 FENTANYL 12mcg PATCH [DURAGESIC 25 patch TD Q72H MDD 12 10/18/17 12mcg PATCH -] Gabapentin [Neurontin -] 200 mg PO Q8H 10/18/17 Sennosides [Senna] 2 tab PO HS 10/18/17 Tamsulosin HCl [Flomax] 0.4 mg PO DAILY 10/18/17 Vancomycin [Vancocin] 1,000 mg IV BID 10/18/17 IMAGING: CT shows fecal impaction and b/l kidney stones ASSESSMENT AND PLAN: 87 year old male hx CAD, HTN, HLD, urinary retention, pyelonephritis, R sided kidney stones and recent septic/osteomyelitis of L hip admitted for intractable abdominal pain and social work placement #Abdominal Pain: possibly 2/2 fecal impaction vs renal stone vs UTI -abdominal pain slightly improved from fleet enema, repeat fleet enema now -miralax/colace -hematuria, trace LE, 11 WBCs in urine, had enterococcal infection in urine in the past, and has been on daptomycin but still has WBCs in urine -ID and urology consultation appreciated -hold fentanyl due to constipation #R kidney stone: CT reports b/l kidney stones -3+ blood on UA with abdominal pain, need to r/o stone as cause of intractable abdominal pain -fluid hydration w/ 83cc/hr NS -urology consult appreciated -continue flomax #Acute Kidney Injury: possible post-obstructive uropathy vs pre-renal in origin -chino placed and draining significant amount of clear yellow urine -fluid hydration with NS @ 83cc/hr -repeat BMP in AM #UTI/Urinary Retention: has been treated for enterococcal in past, could be contributing to abdominal pain -hematuria, trace LE, 11 WBCs in urine, had enterococcal infection in urine in the past, and has been on daptomycin but still has WBCs in urine -no new antibiotics at the moment -will need ID input on whether this is untreated UTI especially since prior enterococcal UTI sensitive to daptomycin -chino in place -continue flomax #Septic Arthritis/Osteomyelitis: patient has been on daptomycin and was sent to rehab on 750mg daily until October 22 -patient reports being switched to twice daily regimen but does not recall who changed it or what it was changed to -will need to confirm medication changes with [facility] in AM -ID consultation appreciated -for now continue Daptomycin 750mg IV #Coronary Artery Disease: chronic medical issue -continue isosorbide mononitrate 60mg daily -continue ASA 81mg -continue rosuvastatin 10mg #Hypertension: blood pressure within normal limits now -continue metoprolol 100 mg #Hyperlipidemia -continue rosuvastatin 10mg daily #FEN -NS @ 83cc/hr -lytes wnl -low sodium diet #Prophylaxis -heparin 5000 subq TID #Disposition -admit med surg -patient does not want to return to [facility] -will attempt to find placement for him in AM
[2017-10-19] MEDS ORDERED: PNEUMOC 13-VAL CONJ-DIP CRM/PF 0.5 ML DISP.SYRIN IM ONE (09:00)
--- NOTE | 2017-10-19 09:30 | PN ---
Progress Note, Physician Chief Complaint: EVENTS NOTED AND REVIEWED AWAKE ALERT DANISH SPEAKING DENIES CHEST PAIN OR SOB 1 BM OVERNIGHT - Current Medication List Current Medications: Active Medications Acetaminophen (Tylenol -) 650 mg PO Q4H PRN PRN Reason: PAIN LEVEL 1-5 Aspirin (Asa -) 81 mg PO DAILY [facility] Docusate Sodium (Colace -) 100 mg PO TID [facility] Last Admin: 10/19/17 06:48 Dose: 100 mg Fenofibric Acid (Trilipix -) 135 mg PO DAILY [facility] Gabapentin (Neurontin -) 200 mg PO TID [facility] Last Admin: 10/19/17 06:48 Dose: 200 mg Heparin Sodium (Porcine) (Heparin -) 5,000 unit SQ TID [facility] Last Admin: 10/19/17 06:49 Dose: 5,000 unit Daptomycin 750 mg/ Sodium (Chloride) 50 mls @ 50 mls/hr IVPB DAILY [facility]; Protocol Daptomycin 750 mg/ Sodium (Chloride) 50 mls @ 50 mls/hr IVPB ONCE ONE; Protocol Stop: 10/19/17 11:59 Sodium Chloride (Normal Saline -) 1,000 mls @ 83 mls/hr IV ASDIR [facility] Stop: 10/19/17 15:33 Last Admin: 10/19/17 04:05 Dose: 83 mls/hr Isosorbide Mononitrate (Imdur -) 60 mg PO DAILY [facility] Metoprolol Tartrate (Lopressor -) 100 mg PO DAILY [facility] Polyethylene Glycol (Miralax (For Daily Use) -) 17 gm PO TID [facility] Rosuvastatin Calcium (Crestor -) 10 mg PO DAILY [facility] Tamsulosin HCl (Flomax -) 0.4 mg PO DAILY@0830 [facility] - Objective Vital Signs: Vital Signs Temperature 98.7 F 10/19/17 04:36 Pulse Rate 68 10/19/17 04:36 Respiratory Rate 18 10/19/17 04:36 Blood Pressure 125/76 10/19/17 04:36 O2 Sat by Pulse Oximetry (%) 98 10/19/17 02:58 Constitutional: Yes: Mild Distress Eyes: Yes: WNL HENT: Yes: WNL Neck: Yes: WNL Cardiovascular: Yes: WNL Respiratory: Yes: WNL Gastrointestinal: Yes: Tenderness Genitourinary: Yes: Cortez Present Musculoskeletal: Yes: Muscle Pain Extremities: Yes: Deformity Edema: No Peripheral Pulses WNL: Yes Integumentary: Yes: WNL Wound/Incision: Yes: Clean/Dry Neurological: Yes: WNL ...Motor Strength: WNL Psychiatric: Yes: WNL Labs: CBC, BMP 10/18/17 22:13 10/18/17 22:13 Problem List - Problems (1) CALE (acute kidney injury) Code(s): N17.9 - ACUTE KIDNEY FAILURE, UNSPECIFIED (2) Abdominal pain Code(s): R10.9 - UNSPECIFIED ABDOMINAL PAIN Qualifiers: Abdominal location: unspecified location Qualified Code(s): R10.9 - Unspecified abdominal pain (3) Constipation Code(s): K59.00 - CONSTIPATION, UNSPECIFIED (4) Osteomyelitis Code(s): M86.9 - OSTEOMYELITIS, UNSPECIFIED (5) UTI (urinary tract infection) Code(s): N39.0 - URINARY TRACT INFECTION, SITE NOT SPECIFIED (6) Urinary retention Code(s): R33.9 - RETENTION OF URINE, UNSPECIFIED Assessment/Plan ID F/U ON ABX FOR OSTEOMYELITIS WAS SWITCHED FROM DAPTOMYCIN TO VANCO. COMPLETED 3 WEEKS OF DAPTOMYCIN NOW ON VANCO FOR 1 WEEK/ 4 TOTAL WEEKS OF ABX GIVEN AT [facility]. FOLLOW UP FOR URINARY RETENTION CRI WITH RENAL F/U CONSTIPATION IS CHRONIC, ADDING MIRALX
--- NOTE | 2017-10-19 09:32 | CON.GI ---
Consult Consult Specialty:: GI Reason for Consultation:: abdominal pain, constipation - History of Present Illness History of Present Illness: Chart reviewed. Events noted. Pt's son, at bedside, translated PEr initial intake: 87 year old male hx CAD, HTN, HLD, urinary retention, pyelonephritis, R sided kidney stones and recent septic/osteomyelitis of L hip presenting for abdominal pain and constipation. Patient is [place] speaker and son is at bedside translating. Reports that patient was at [facility] for helping him walk and giving him his antibiotics IV. States that he has not had a bowel movement for 3 weeks and diffuse 8/10 abdominal pain located in the RUQ and in both RLQ and LLQ. Reports that he felt much better after getting a fleet enema. Denies fevers, chills, nausea, vomiting , chest pain or shortness of breath. Patient is getting daptomycin IV in the half-way for septic arthritis/ osteomyelitis to be finished october 22. Patient reports that his dose was increased to twice a day, but is unsure who increased it or when it was increased. ER course was notable for: (1) WBC 13 (2) UA + 3+ blood, trace leuk esterase (3) Cre 1.6 At the time of t his encounter, the pt reports marked improvement in abdominal slime after 2 large bms last night. No dysphagia, odynophagia, melena, or hematochezia, fever, chills, jaundice reported. On exam, the abdomen is distended, but soft. No rebound, or guarding. Normal bowel sounds. HGB, lipase, liver chemistry, ALP and bili are normal. CT A/P - formal read- pending - Past Medical History Cardio/Vascular: Yes: CAD, HTN, Hyperlipdemia Renal/: Yes: Renal Inusuff (Stage 3), BPH Musculoskeletal: Yes: Osteoarthritis Rheumatology: Yes: Gout - Past Surgical History Past Surgical History: Yes: CABG - Alcohol/Substance Use Hx Alcohol Use: No History of Substance Use: reports: None - Smoking History Smoking history: Never smoked Have you smoked in the past 12 months: No - Social History ADL: Independent History of Recent Travel: No Home Medications - Allergies Allergies/Adverse Reactions: Allergies Allergy/AdvReac Type Severity Reaction Status Date / Time Penicillins AdvReac Intermediate Swelling Verified 10/18/17 21:00 - Home Medications Home Medications: Ambulatory Orders Fenofibrate 150 mg PO DAILY 03/29/17 Isosorbide Mononitrate [Isosorbide Mononitrate ER] 60 mg PO DAILY 03/29/17 Metoprolol Tartrate 100 mg PO DAILY 03/29/17 Rosuvastatin [Crestor -] 10 mg PO DAILY 03/29/17 Fentanyl Patch Waste [Duragesic Patch Waste] 1 each MC PRN PRN each 09/22/17 Acetaminophen [Tylenol] 650 mg PO QID PRN 10/18/17 Aspirin 81 mg PO DAILY 10/18/17 Docusate Sodium [Colace] 100 mg PO HS 10/18/17 FENTANYL 12mcg PATCH [DURAGESIC 12mcg PATCH -] 25 patch TD Q72H MDD 12 10/18/17 Gabapentin [Neurontin -] 200 mg PO Q8H 10/18/17 Sennosides [Senna] 2 tab PO HS 10/18/17 Tamsulosin HCl [Flomax] 0.4 mg PO DAILY 10/18/17 Vancomycin [Vancocin] 1,000 mg IV BID 10/18/17 Family Disease History - Family Disease History Family History: Unremarkable Review of Systems Findings/Remarks: as per HPI, H&P, ED Physical Exam-GI Vital Signs: Vital Signs Temperature 98.7 F 10/19/17 04:36 Pulse Rate 68 10/19/17 04:36 Respiratory Rate 18 10/19/17 04:36 Blood Pressure 125/76 10/19/17 04:36 O2 Sat by Pulse Oximetry (%) 98 10/19/17 02:58 Constitutional: Yes: Well Nourished, No Distress, Calm Eyes: Yes: Conjunctiva Clear HENT: Yes: Atraumatic Neck: Yes: Supple Cardiovascular: Yes: Regular Rate and Rhythm Respiratory: Yes: Regular Gastrointestinal Inspection: Yes: Distention. No: Ascites ...Palpate: Yes: Soft. No: Firm/Rigid, Guarding, Mass, Tenderness, Tenderness, Epigastium, Tenderness, Rebound Neurological: Yes: Alert, Oriented Labs: CBC, BMP 10/18/17 22:13 10/18/17 22:13 Laboratory Last Values WBC 13.0 K/mm3 (4.0-10.0) H 10/18/17 22:13 RBC 4.45 M/mm3 (4.00-5.60) 10/18/17 22:13 Hgb 13.9 GM/dL (11.7-16.9) 10/18/17 22:13 Hct 41.2 % (35.4-49) 10/18/17 22:13 MCV 92.4 fl (80-96) 10/18/17 22:13 MCH 31.1 pg (25.7-33.7) 10/18/17 22:13 MCHC 33.7 g/dl (32.0-35.9) 10/18/17 22:13 RDW 15.0 % (11.9-15.9) 10/18/17 22:13 Plt Count 318 K/MM3 (134-434) D 10/18/17 22:13 MPV 8.3 fl (7.5-11.1) 10/18/17 22:13 Absolute Neuts (auto) 8.9 # 10/18/17 22:13 Neutrophils % 68.6 % (42.8-82.8) 10/18/17 22:13 Lymphocytes % 22.5 % (8-40) 10/18/17 22:13 Monocytes % 5.0 % (3.8-10.2) 10/18/17 22:13 Eosinophils % 2.6 % (0-4.5) 10/18/17 22:13 Basophils % 1.3 % (0-2.0) 10/18/17 22:13 Nucleated RBC % 0 % (0-0) 10/18/17 22:13 Sodium 143 mmol/L (136-145) 10/18/17 22:13 Potassium 4.9 mmol/L (3.5-5.1) 10/18/17 22:13 Chloride 108 mmol/L (98-107) H 10/18/17 22:13 Carbon Dioxide 28 mmol/L (21-32) 10/18/17 22:13 Anion Gap 7 (8-16) L 10/18/17 22:13 BUN 23 mg/dL (7-18) H 10/18/17 22:13 Creatinine 1.6 mg/dL (0.7-1.3) H 10/18/17 22:13 Creat Clearance w eGFR 40.90 (>60) 10/18/17 22:13 Random Glucose 107 mg/dL (74-106) H 10/18/17 22:13 Calcium 9.8 mg/dL (8.5-10.1) 10/18/17 22:13 Total Bilirubin 0.6 mg/dL (0.2-1.0) 10/18/17 22:13 AST 28 U/L (15-37) 10/18/17 22:13 ALT 19 U/L (12-78) 10/18/17 22:13 Alkaline Phosphatase 54 U/L (45-117) 10/18/17 22:13 Total Protein 6.9 g/dl (6.4-8.2) 10/18/17 22:13 Albumin 3.2 g/dl (3.4-5.0) L 10/18/17 22:13 Lipase 156 U/L (73-393) 10/18/17 22:13 Urine Color Yellow 10/18/17 22:50 Urine Appearance Clear 10/18/17 22:50 Urine pH 7.0 (5.0-8.0) D 10/18/17 22:50 Ur Specific [place] 1.015 (1.001-1.035) 10/18/17 22:50 Urine Protein Negative (NEGATIVE) 10/18/17 22:50 Urine Glucose (UA) Negative (NEGATIVE) 10/18/17 22:50 Urine Ketones Negative (NEGATIVE) 10/18/17 22:50 Urine Blood 3+ (NEGATIVE) H 10/18/17 22:50 Urine Nitrite Negative (NEGATIVE) 10/18/17 22:50 Urine Bilirubin Negative (<2.0 mg/dL) 10/18/17 22:50 Urine Urobilinogen 2.0 mg/dL (0.2-1.0) 10/18/17 22:50 Ur Leukocyte Esterase Trace (NEGATIVE) 10/18/17 22:50 Urine WBC (Auto) 11 /hpf (3-5) 10/18/17 22:50 Urine RBC (Auto) 138 /hpf (0-3) 10/18/17 22:50 Imaging - Results Cat Scan: Pending Problem List - Problems (1) Constipation Code(s): K59.00 - CONSTIPATION, UNSPECIFIED (2) UTI (urinary tract infection) Code(s): N39.0 - URINARY TRACT INFECTION, SITE NOT SPECIFIED (3) Osteomyelitis Code(s): M86.9 - OSTEOMYELITIS, UNSPECIFIED (4) Urinary retention Code(s): R33.9 - RETENTION OF URINE, UNSPECIFIED Assessment/Plan An 87M with the above acute and chronic medical issues presents with lower abdominal pain and history of no bms > 1 week. No history of chronic constipation. Has been [id number] immobile for 3+ weeks. The pain improved after large volume BMs triggered by rectal suppositories. May have a UTI/urine retention component. Recommend aggressive bowel regiment with miralax po tid-qid. OOB to chair, physical therapy. Diet as tolerated. Observe. Discussed with the pt, his son and the resident on the case.
[2017-10-19] MEDS: POLYETHYLENE GLYCOL 3350 119 GM BTL PO SCH ×3 (09:48→21:08)
[2017-10-19] MEDS: TAMSULOSIN HCL 0.4 MG CAP.ER.24H (FP) PO SCH (09:48)
[2017-10-19] MEDS: ASPIRIN 81 MG CHEWABLE TABLETS PO SCH (09:48)
[2017-10-19] MEDS: ROSUVASTATIN CA 10 MG TABLET (FP) PO SCH (09:48)
[2017-10-19] MEDS: FENOFIBRIC ACID 135 MG CAP PO SCH (09:48)
[2017-10-19] MEDS: ISOSORBIDE MONONITRATE 60 MG TAB.SR.24H (FP) PO SCH (09:48)
[2017-10-19] MEDS: METOPROLOL TARTRATE 50 MG TABLET (FP) PO SCH (09:48)
[2017-10-19] MEDS ORDERED: PATIENT'S OWN MEDICATION (NON-FORMULARY) (Vancomycin 1,000 MG) IV SCH (10:00)
[2017-10-19] MEDS ORDERED: POLYETHYLENE GLYCOL 3350 119 GM BTL PO SCH (10:00)
[2017-10-19] MEDS ORDERED: DAPTOMYCIN 750 MG in SODIUM CHLORIDE 50 ML IVPB ONE (11:00)
--- NOTE | 2017-10-19 11:29 | PN ---
Progress Note (short form) - Note Progress Note: ID Consult dictated Enterococcal bacteremia/ L hip septic arthritis Day # 38/42 antibiotic therapy Will repeat BC in light of low grade fever Follow up ESR CRP Continue vancomycin to complete 42d course
--- NOTE | 2017-10-19 12:50 | CONS ---
DATE OF CONSULTATION: DATE OF DICTATION: 10/19/2017 INFECTIOUS DISEASE CONSULTATION An 87-year-old male evaluated for enterococcal sepsis and left hip septic arthritis. Patient known to our service from previous admission for enterococcal bacteremia and left hip septic arthritis. He was admitted to [facility] from September 07 through September 22 at which time he has positive blood cultures for enterococcus. He was also found to have imaging studies consistent with septic arthritis of the left hip. He was transferred to a [facility] facility after a PICC line was inserted to complete a 6-week course of IV antibiotic therapy for enterococcal septic arthritis. He now returns from the [facility] facility with complaints of abdominal pain and acute urinary retention. The patient was evaluated in the emergency room. A CAT SCAN of the abdomen and pelvis were performed. He was found to have nonobstructing nephrolithiasis of the right kidney as well as the left kidney, [id number] amount of fecal residue in the colon consistent with constipation, cannot rule out impaction. His course has been complicated by low-grade fever. At the present time, he is awake and alert. He complains of abdominal discomfort. However, he has had relief since admission. A Cortez catheter was inserted for urinary retention. He has no complaints of fever, chills, chest pain, shortness of breath, cough, or sputum production. He is presently day number 38 of a 42-day regimen for enterococcal septic arthritis. PAST MEDICAL HISTORY: Positive for coronary artery disease, hypertension, hyperlipidemia, history of enterococcal endocarditis, last blood culture positive was on September 11, 2017, history of septic arthritis of the left hip. PAST SURGICAL HISTORY: Status post coronary artery bypass. ALLERGIES: PENICILLIN-PATIENT HAD DEVELOPED TONGUE SWELLING DURING INFUSION OF AMPICILLIN ON HIS LAST HOSPITAL STAY. MEDICATIONS: Include Flomax, Tylenol, Neurontin, Lopressor, Crestor, Imdur, aspirin. SOCIAL HISTORY: He presently is residing at a [facility] facility for [facility]. He is a nonsmoker, nondrinker. SYSTEM REVIEW: Neurologic: No loss of consciousness, seizure activity, focal weakness. Cardiac: Negative for chest pain or palpitations. Respiratory: Negative cough or sputum production. Gastrointestinal: As per HPI. Genitourinary: Positive for urinary retention. LABORATORY DATA: White count 13.0, hematocrit 41.2, platelet count 318. BUN 23, creatinine 1.6. Liver enzymes normal. Urinalysis 11 white cells. Urine culture negative. Liver enzymes normal. PHYSICAL EXAMINATION: General: He is awake and alert. He is not acutely toxic appearing and in no acute distress. Vital Signs: Temperature 98.7, T-max 100, blood pressure 132/69, pulse 63 regular respirations 20 per minute. Eyes: Sclerae anicteric. Heart: Sounds S1, S2. Lungs: Clear. Abdomen: Soft. Slightly distended. No tenderness elicited. No mass, rebound, or rigidity. Extremities: Positive for edema. Negative Fahad sign. IMPRESSION: 1. Enterococcal bacteremia/left hip septic arthritis. Day number 38 of 42 antibiotic therapy. 2. Constipation/fecal impaction. 3. Acute urinary retention. PLAN: Will obtain repeat blood cultures enlight of low-grade fever. Follow C-reactive protein and sedimentation rate, vancomycin trough, complete additional 4 days of antibiotic therapy for septic arthritis of the hip. Thank you for the kind referral. PORTIA ARREAGA M.D. [id number]
[2017-10-19] MEDS: VANCOMYCIN 1 GM PREMIX - 1 GM/200 ML BAG IVPB SCH (13:20)
--- NOTE | 2017-10-19 16:02 | CONSULT ---
Consult Consult Specialty:: Nephrology Reason for Consultation:: CALE - History of Present Illness Chief Complaint: abdominal pain History of Present Illness: Pt is an 87 year old male with pmhx of CAD, HTN, HLD, and urinary retention who presents to the ER with abdominal pain. He was found to have elevated creatinine and I was called to evaluate him. He did have dysuria. He complains of constipation. He denies shortness of breath. He is on chronic antibiotics for enterococcal bacteremia. - History Source History Provided By: Patient, Medical Record - Past Medical History Cardio/Vascular: Yes: CAD, HTN, Hyperlipdemia Renal/: Yes: Renal Inusuff (Stage 3), BPH Musculoskeletal: Yes: Osteoarthritis Rheumatology: Yes: Gout - Past Surgical History Past Surgical History: Yes: CABG - Alcohol/Substance Use Hx Alcohol Use: No History of Substance Use: reports: None - Smoking History Smoking history: Never smoked Have you smoked in the past 12 months: No - Social History ADL: Independent History of Recent Travel: No Home Medications - Allergies Allergies/Adverse Reactions: Allergies Allergy/AdvReac Type Severity Reaction Status Date / Time Penicillins AdvReac Intermediate Swelling Verified 10/18/17 21:00 - Home Medications Home Medications: Ambulatory Orders Fenofibrate 150 mg PO DAILY 03/29/17 Isosorbide Mononitrate [Isosorbide Mononitrate ER] 60 mg PO DAILY 03/29/17 Metoprolol Tartrate 100 mg PO DAILY 03/29/17 Rosuvastatin [Crestor -] 10 mg PO DAILY 03/29/17 Fentanyl Patch Waste [Duragesic Patch Waste] 1 each MC PRN PRN each 09/22/17 Acetaminophen [Tylenol] 650 mg PO QID PRN 10/18/17 Aspirin 81 mg PO DAILY 10/18/17 Docusate Sodium [Colace] 100 mg PO HS 10/18/17 FENTANYL 12mcg PATCH [DURAGESIC 12mcg PATCH -] 25 patch TD Q72H MDD 12 10/18/17 Gabapentin [Neurontin -] 200 mg PO Q8H 10/18/17 Sennosides [Senna] 2 tab PO HS 10/18/17 Tamsulosin HCl [Flomax] 0.4 mg PO DAILY 10/18/17 Vancomycin [Vancocin] 1,000 mg IV BID 10/18/17 Family Disease History - Family Disease History Family History: Denies Review of Systems - Review of Systems Constitutional: reports: Malaise Eyes: reports: No Symptoms HENT: reports: No Symptoms Neck: reports: No Symptoms Cardiovascular: reports: No Symptoms Respiratory: reports: No Symptoms Gastrointestinal: reports: Abdominal Pain Genitourinary: reports: Dysuria Musculoskeletal: reports: No Symptoms Integumentary: reports: No Symptoms Neurological: reports: No Symptoms Endocrine: reports: No Symptoms Hematology/Lymphatic: reports: No Symptoms Physical Exam Vital Signs: Vital Signs Temperature 98.4 F 10/19/17 14:09 Pulse Rate 83 10/19/17 14:09 Respiratory Rate 18 10/19/17 14:09 Blood Pressure 112/55 10/19/17 14:09 O2 Sat by Pulse Oximetry (%) 98 10/19/17 11:00 Constitutional: Yes: Calm Eyes: Yes: Conjunctiva Clear HENT: Yes: Atraumatic Neck: Yes: Supple Cardiovascular: Yes: S1, S2 Respiratory: Yes: CTA Bilaterally Gastrointestinal: Yes: Soft Renal/: Yes: Cortez Present Musculoskeletal: Yes: WNL Edema: No Neurological: Yes: Oriented Psychiatric: Yes: Oriented Labs: CBC, BMP 10/18/17 22:13 10/18/17 22:13 Laboratory Tests 09/20/17 09/21/17 09/22/17 06:00 06:00 06:20 WBC Hgb Sodium Potassium Chloride Carbon Dioxide Anion Gap BUN Creatinine 0.9 0.9 1.1 Urine Protein Urine Blood 10/18/17 10/18/17 10/18/17 22:13 22:13 22:50 WBC 13.0 H Hgb 13.9 Sodium 143 Potassium 4.9 Chloride 108 H Carbon Dioxide 28 Anion Gap 7 L BUN 23 H Creatinine 1.6 H Urine Protein Negative Urine Blood 3+ H Imaging - Results Cat Scan: Report Reviewed Problem List - Problems (1) CALE (acute kidney injury) Code(s): N17.9 - ACUTE KIDNEY FAILURE, UNSPECIFIED (2) Abdominal pain Code(s): R10.9 - UNSPECIFIED ABDOMINAL PAIN Qualifiers: Abdominal location: unspecified location Qualified Code(s): R10.9 - Unspecified abdominal pain (3) Constipation Code(s): K59.00 - CONSTIPATION, UNSPECIFIED Assessment/Plan Current Medications Generic Name Dose Route Start Last Admin Trade Name Freq PRN Reason Stop Dose Admin Acetaminophen 650 mg 10/19/17 03:02 Tylenol - PO Q4H PRN PAIN LEVEL 1-5 Aspirin 81 mg 10/19/17 10:00 10/19/17 09:48 Asa - PO 81 mg DAILY [facility] Administration Docusate Sodium 100 mg 10/19/17 06:00 10/19/17 13:52 Colace - PO 100 mg TID [facility] Administration Fenofibric Acid 135 mg 10/19/17 10:00 10/19/17 09:48 Trilipix - PO 135 mg DAILY [facility] Administration Gabapentin 200 mg 10/19/17 06:00 10/19/17 13:52 Neurontin - PO 200 mg TID [facility] Administration Heparin Sodium (Porcine) 5,000 unit 10/19/17 06:00 10/19/17 13:53 Heparin - SQ 5,000 unit TID [facility] Administration Vancomycin HCl 1 gm in 200 mls @ 133.333 mls/hr 10/19/17 13:00 10/19/17 13:20 Vancomycin 1 Gm Premix - IVPB 133.333 mls/hr DAILY@1300 [facility] Administration Protocol Isosorbide Mononitrate 60 mg 10/19/17 10:00 10/19/17 09:48 Imdur - PO 60 mg DAILY [facility] Administration Metoprolol Tartrate 100 mg 10/19/17 10:00 10/19/17 09:48 Lopressor - PO 100 mg DAILY [facility] Administration Polyethylene Glycol 17 gm 10/19/17 14:00 10/19/17 13:53 Miralax (For Daily Use) - PO 17 grams TID [facility] Administration Rosuvastatin Calcium 10 mg 10/19/17 10:00 10/19/17 09:48 Crestor - PO 10 mg DAILY [facility] Administration Tamsulosin HCl 0.4 mg 10/19/17 08:30 10/19/17 09:48 Flomax - PO 0.4 mg DAILY@0830 [facility] Administration Impression 1. cale 2. urinary retention 3. enterococcal bacteremia 4. constipation 5. bph 6. nephrolithiasis Plan - cont fluids - repaet bmp - urology eval - follow cultures - abdominal pain is improved today per pt - CALE multifactorial - will trend customer engineer Dr Heaton
[2017-10-20] MEDS: HEPARIN NA (PORCINE) 5,000 UNITS/ML 1ML VIAL SQ SCH ×3 (05:22→21:12)
[2017-10-20] MEDS: GABAPENTIN 100 MG CAPSULE (FP) PO SCH ×3 (05:22→21:12)
[2017-10-20] MEDS: DOCUSATE SODIUM 100 MG CAPSULE (FP) PO SCH ×2 (05:22→14:31)
[2017-10-20] MEDS: POLYETHYLENE GLYCOL 3350 119 GM BTL PO SCH ×3 (05:23→21:11)
[2017-10-20 07:21] LABS: HEMATOCRIT 39.4 % (35.4-49); HEMOGLOBIN 13.3 GM/dL (11.7-16.9); MCH 31.5 pg (25.7-33.7); MCHC 33.8 g/dl (32.0-35.9); MEAN CELL VOLUME 93.3 fl (80-96); MEAN PLT VOLUME 8.8 fl (7.5-11.1); PLATELET COUNT 275 K/MM3 (134-434); RBC 4.22 M/mm3 (4.00-5.60); RDW 15.3 % (11.9-15.9); WHITE BLOOD COUNT 9.5 K/mm3 (4.0-10.0)
[2017-10-20 07:55] LABS: CHLORIDE 106 mmol/L (98-107); POTASSIUM 4.5 mmol/L (3.5-5.1); SODIUM 141 mmol/L (136-145)
[2017-10-20 08:02] LABS: ALK PHOS 51 U/L (45-117); ANION GAP 8 (8-16); BILIRUBIN,TOTAL 0.4 mg/dL (0.2-1.0); BLOOD UREA NITROGEN 19 mg/dL (7-18); CALCIUM 9.5 mg/dL (8.5-10.1); CO2 27 mmol/L (21-32); CREATININE 1.2 mg/dL (0.7-1.3); GLUCOSE,RANDOM 87 mg/dL (74-106); MAGNESIUM 2.1 mg/dL (1.8-2.4); SGOT/AST 22 U/L (15-37); SGPT/ALT 18 U/L (12-78); TOT PROT 6.5 g/dl (6.4-8.2)
--- NOTE | 2017-10-20 08:34 | CON.GU ---
Consult Consult Specialty:: urology Reason for Consultation:: urinary retention - History of Present Illness Chief Complaint: urinary retention History of Present Illness: Patient with long-standing history of urinary retention. He was managed with clean intermittent catheterizaion at the [facility]. Patient with history of renal stones without renal colic. Patient is currently comfortable with a chino catheter. - History Source History Provided By: Patient, Medical Record Limitations to Obtaining History: No Limitations - Past Medical History Cardio/Vascular: Yes: CAD, HTN, Hyperlipdemia Renal/: Yes: Renal Inusuff (Stage 3), BPH Musculoskeletal: Yes: Osteoarthritis Rheumatology: Yes: Gout - Past Surgical History Past Surgical History: Yes: CABG - Alcohol/Substance Use Hx Alcohol Use: No History of Substance Use: reports: None - Smoking History Smoking history: Never smoked Have you smoked in the past 12 months: No - Social History ADL: Independent History of Recent Travel: No Home Medications - Allergies Allergies/Adverse Reactions: Allergies Allergy/AdvReac Type Severity Reaction Status Date / Time Penicillins AdvReac Intermediate Swelling Verified 10/18/17 21:00 - Home Medications Home Medications: Ambulatory Orders Fenofibrate 150 mg PO DAILY 03/29/17 Isosorbide Mononitrate [Isosorbide Mononitrate ER] 60 mg PO DAILY 03/29/17 Metoprolol Tartrate 100 mg PO DAILY 03/29/17 Rosuvastatin [Crestor -] 10 mg PO DAILY 03/29/17 Fentanyl Patch Waste [Duragesic Patch Waste] 1 each MC PRN PRN each 09/22/17 Acetaminophen [Tylenol] 650 mg PO QID PRN 10/18/17 Aspirin 81 mg PO DAILY 10/18/17 Docusate Sodium [Colace] 100 mg PO HS 10/18/17 FENTANYL 12mcg PATCH [DURAGESIC 12mcg PATCH -] 25 patch TD Q72H MDD 12 10/18/17 Gabapentin [Neurontin -] 200 mg PO Q8H 10/18/17 Sennosides [Senna] 2 tab PO HS 10/18/17 Tamsulosin HCl [Flomax] 0.4 mg PO DAILY 10/18/17 Vancomycin [Vancocin] 1,000 mg IV BID 10/18/17 Physical Exam- Vital Signs: Vital Signs Temperature 98.7 F 10/20/17 05:00 Pulse Rate 61 10/20/17 05:00 Respiratory Rate 18 08/03/18 05:00 Blood Pressure 147/73 10/20/17 05:00 O2 Sat by Pulse Oximetry (%) 97 10/20/17 03:00 Constitutional: Yes: Well Nourished, No Distress, Calm Eyes: Yes: WNL, Conjunctiva Clear, EOM Intact HENT: Yes: WNL, Atraumatic, Normocephalic Neck: Yes: WNL, Supple, Trachea Midline Gastrointestinal: Yes: WNL, Normal Bowel Sounds, Soft Renal/: Yes: WNL Kidneys: Yes: WNL Pelvis: Yes: WNL, Bladder Non Palpable Testicles: Yes: WNL Scrotum: Yes: WNL Penis: Yes: WNL (3+ prostate) Labs: CBC, BMP 10/20/17 06:00 10/20/17 06:00 Assessment/Plan impression bph urinary retention kidney stones plan the patient may have his flomax elevated to 0.8 mg daily if it is OK with the medical team a trial of voiding may be attempted while continuing clean intermittent catheterization a suprapubic tube vs. TURP may be considered. SPT would be a more prudent choice given his age and health status
[2017-10-20] MEDS ORDERED: PT OWN MED DRAWER 7, Y5N ONE (09:02)
[2017-10-20] MEDS: TAMSULOSIN HCL 0.4 MG CAP.ER.24H (FP) PO SCH (09:20)
[2017-10-20] MEDS: ROSUVASTATIN CA 10 MG TABLET (FP) PO SCH (09:20)
[2017-10-20] MEDS: ISOSORBIDE MONONITRATE 60 MG TAB.SR.24H (FP) PO SCH (09:20)
[2017-10-20] MEDS: ASPIRIN 81 MG CHEWABLE TABLETS PO SCH (09:20)
[2017-10-20] MEDS: METOPROLOL TARTRATE 50 MG TABLET (FP) PO SCH (09:21)
[2017-10-20] MEDS: FENOFIBRIC ACID 135 MG CAP PO SCH (09:21)
[2017-10-20] MEDS: ACETAMINOPHEN 325 MG TABLET (FP) PO PRN ×2 (09:21→21:13)
[2017-10-20] MEDS ORDERED: DAPTOMYCIN 750 MG in SODIUM CHLORIDE 50 ML IVPB SCH (10:00)
--- NOTE | 2017-10-20 10:00 | PN ---
Progress Note, Physician Chief Complaint: AWAKE ALERT SON BEDSIDE C/O CONSTIPATION NO FEVERS - Current Medication List Current Medications: Active Medications Acetaminophen (Tylenol -) 650 mg PO Q4H PRN PRN Reason: PAIN LEVEL 1-5 Last Admin: 10/20/17 09:21 Dose: 650 mg Aspirin (Asa -) 81 mg PO DAILY [facility] Last Admin: 10/20/17 09:20 Dose: 81 mg Docusate Sodium (Colace -) 100 mg PO TID [facility] Last Admin: 10/20/17 05:22 Dose: 100 mg Fenofibric Acid (Trilipix -) 135 mg PO DAILY [facility] Last Admin: 10/20/17 09:21 Dose: 135 mg Gabapentin (Neurontin -) 200 mg PO TID [facility] Last Admin: 10/20/17 05:22 Dose: 200 mg Heparin Sodium (Porcine) (Heparin -) 5,000 unit SQ TID [facility] Last Admin: 10/20/17 05:22 Dose: 5,000 unit Vancomycin HCl (Vancomycin 1 Gm Premix -) 1 gm in 200 mls @ 133.333 mls/hr IVPB DAILY@1300 [facility]; Protocol Last Admin: 10/19/17 13:20 Dose: 133.333 mls/hr Isosorbide Mononitrate (Imdur -) 60 mg PO DAILY [facility] Last Admin: 10/20/17 09:20 Dose: 60 mg Metoprolol Tartrate (Lopressor -) 100 mg PO DAILY [facility] Last Admin: 10/20/17 09:21 Dose: 100 mg Polyethylene Glycol (Miralax (For Daily Use) -) 17 gm PO TID [facility] Last Admin: 10/20/17 05:23 Dose: 17 grams Rosuvastatin Calcium (Crestor -) 10 mg PO DAILY [facility] Last Admin: 10/20/17 09:20 Dose: 10 mg Tamsulosin HCl (Flomax -) 0.4 mg PO DAILY@0830 [facility] Last Admin: 10/20/17 09:20 Dose: 0.4 mg - Objective Vital Signs: Vital Signs Temperature 98.8 F 10/20/17 09:00 Pulse Rate 69 10/20/17 09:00 Respiratory Rate 18 10/20/17 09:00 Blood Pressure 152/72 10/20/17 09:00 O2 Sat by Pulse Oximetry (%) 97 10/20/17 03:00 Constitutional: Yes: Mild Distress Eyes: Yes: WNL HENT: Yes: WNL Neck: Yes: WNL Cardiovascular: Yes: WNL Respiratory: Yes: WNL Gastrointestinal: Yes: Tenderness Genitourinary: Yes: Florentino Present Musculoskeletal: Yes: Muscle Weakness Extremities: Yes: WNL Edema: Yes Edema: LLE: 1+, RLE: 1+ Peripheral Pulses WNL: Yes Integumentary: Yes: WNL Wound/Incision: Yes: Clean/Dry Neurological: Yes: Pre-Existing Deficit ...Motor Strength: LLE Psychiatric: Yes: WNL Labs: CBC, BMP 10/20/17 06:00 10/20/17 06:00 Problem List - Problems (1) CALE (acute kidney injury) Code(s): N17.9 - ACUTE KIDNEY FAILURE, UNSPECIFIED (2) Abdominal pain Code(s): R10.9 - UNSPECIFIED ABDOMINAL PAIN Qualifiers: Abdominal location: unspecified location Qualified Code(s): R10.9 - Unspecified abdominal pain (3) Constipation Code(s): K59.00 - CONSTIPATION, UNSPECIFIED (4) Osteomyelitis Code(s): M86.9 - OSTEOMYELITIS, UNSPECIFIED (5) UTI (urinary tract infection) Code(s): N39.0 - URINARY TRACT INFECTION, SITE NOT SPECIFIED (6) Urinary retention Code(s): R33.9 - RETENTION OF URINE, UNSPECIFIED Assessment/Plan CONTINUE FLORENTINO F/U APPRECIATED CHECK WITH ID ON DURATION OF ABX? 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
[2017-10-20] MEDS ORDERED: SODIUM PHOSPHATE/NA BIPHOS 133 ML ENEMA PR ONE (13:18)
--- NOTE | 2017-10-20 13:22 | PN ---
Progress Note, Physician History of Present Illness: Awake, alert Supine in bed No c/o L hip pain at rest Afebrile - Current Medication List Current Medications: Active Medications Acetaminophen (Tylenol -) 650 mg PO Q4H PRN PRN Reason: PAIN LEVEL 1-5 Last Admin: 10/20/17 09:21 Dose: 650 mg Aspirin (Asa -) 81 mg PO DAILY [facility] Last Admin: 10/20/17 09:20 Dose: 81 mg Docusate Sodium (Colace -) 100 mg PO TID [facility] Last Admin: 10/20/17 05:22 Dose: 100 mg Fenofibric Acid (Trilipix -) 135 mg PO DAILY [facility] Last Admin: 10/20/17 09:21 Dose: 135 mg Gabapentin (Neurontin -) 200 mg PO TID [facility] Last Admin: 10/20/17 05:22 Dose: 200 mg Heparin Sodium (Porcine) (Heparin -) 5,000 unit SQ TID [facility] Last Admin: 10/20/17 05:22 Dose: 5,000 unit Vancomycin HCl (Vancomycin 1 Gm Premix -) 1 gm in 200 mls @ 133.333 mls/hr IVPB DAILY@1300 [facility]; Protocol Last Admin: 10/19/17 13:20 Dose: 133.333 mls/hr Isosorbide Mononitrate (Imdur -) 60 mg PO DAILY [facility] Last Admin: 10/20/17 09:20 Dose: 60 mg Metoprolol Tartrate (Lopressor -) 100 mg PO DAILY [facility] Last Admin: 10/20/17 09:21 Dose: 100 mg Polyethylene Glycol (Miralax (For Daily Use) -) 17 gm PO TID [facility] Last Admin: 10/20/17 05:23 Dose: 17 grams Rosuvastatin Calcium (Crestor -) 10 mg PO DAILY [facility] Last Admin: 10/20/17 09:20 Dose: 10 mg Sodium Phosphate (Fleet Adult Rectal Enema -) 133 ml ID ONCE ONE Stop: 10/20/17 13:19 Tamsulosin HCl (Flomax -) 0.8 mg PO DAILY@0830 [facility] - Objective Vital Signs: Vital Signs Temperature 98.8 F 10/20/17 09:00 Pulse Rate 69 10/20/17 09:00 Respiratory Rate 18 10/20/17 09:00 Blood Pressure 152/72 10/20/17 09:00 O2 Sat by Pulse Oximetry (%) 97 08/03/18 03:00 Constitutional: Yes: No Distress Eyes: Yes: Conjunctiva Clear Cardiovascular: Yes: Regular Rate and Rhythm, S1, S2 Respiratory: Yes: CTA Bilaterally Gastrointestinal: Yes: Normal Bowel Sounds, Soft. No: Tenderness Edema: No Labs: CBC, BMP 10/20/17 06:00 10/20/17 06:00 Assessment/Plan Enterococcal bacteremia/ septic arthritis L hip Urinary retention Constipation Day # 39/42 antibiotic therapy for Enterococcal sepsis/ septic arthritis Clinically improved ESR 74-----> 28 CRP 17-----> 3.5 Complete 42 day course
[2017-10-20] MEDS: VANCOMYCIN 1 GM PREMIX - 1 GM/200 ML BAG IVPB SCH (14:31)
--- NOTE | 2017-10-20 15:41 | PN ---
Progress Note, Physician History of Present Illness: Pt seen and examined at bedside. He is awake and appears comfortable. - Current Medication List Current Medications: Active Medications Acetaminophen (Tylenol -) 650 mg PO Q4H PRN PRN Reason: PAIN LEVEL 1-5 Last Admin: 10/20/17 09:21 Dose: 650 mg Aspirin (Asa -) 81 mg PO DAILY [facility] Last Admin: 10/20/17 09:20 Dose: 81 mg Docusate Sodium (Colace -) 100 mg PO TID [facility] Last Admin: 10/20/17 14:31 Dose: 100 mg Fenofibric Acid (Trilipix -) 135 mg PO DAILY [facility] Last Admin: 10/20/17 09:21 Dose: 135 mg Gabapentin (Neurontin -) 200 mg PO TID [facility] Last Admin: 10/20/17 14:31 Dose: 200 mg Heparin Sodium (Porcine) (Heparin -) 5,000 unit SQ TID [facility] Last Admin: 10/20/17 14:31 Dose: 5,000 unit Vancomycin HCl (Vancomycin 1 Gm Premix -) 1 gm in 200 mls @ 133.333 mls/hr IVPB DAILY@1300 [facility]; Protocol Last Admin: 10/20/17 14:31 Dose: 133.333 mls/hr Isosorbide Mononitrate (Imdur -) 60 mg PO DAILY [facility] Last Admin: 10/20/17 09:20 Dose: 60 mg Metoprolol Tartrate (Lopressor -) 100 mg PO DAILY [facility] Last Admin: 10/20/17 09:21 Dose: 100 mg Polyethylene Glycol (Miralax (For Daily Use) -) 17 gm PO TID [facility] Last Admin: 10/20/17 14:42 Dose: 17 grams Rosuvastatin Calcium (Crestor -) 10 mg PO DAILY [facility] Last Admin: 10/20/17 09:20 Dose: 10 mg Tamsulosin HCl (Flomax -) 0.8 mg PO DAILY@0830 [facility] - Objective Vital Signs: Vital Signs Temperature 98.8 F 10/20/17 09:00 Pulse Rate 69 10/20/17 09:00 Respiratory Rate 18 10/20/17 09:00 Blood Pressure 152/72 10/20/17 09:00 O2 Sat by Pulse Oximetry (%) 97 10/20/17 11:00 Constitutional: Yes: Calm Eyes: Yes: Conjunctiva Clear HENT: Yes: Atraumatic Neck: Yes: Supple Cardiovascular: Yes: S1, S2 Respiratory: Yes: CTA Bilaterally Gastrointestinal: Yes: Soft Genitourinary: Yes: Cortez Present Musculoskeletal: Yes: WNL Extremities: Yes: WNL Edema: No Neurological: Yes: Oriented Labs: CBC, BMP 10/20/17 06:00 10/20/17 06:00 Problem List - Problems (1) CALE (acute kidney injury) Code(s): N17.9 - ACUTE KIDNEY FAILURE, UNSPECIFIED (2) Abdominal pain Code(s): R10.9 - UNSPECIFIED ABDOMINAL PAIN Qualifiers: Abdominal location: unspecified location Qualified Code(s): R10.9 - Unspecified abdominal pain (3) Constipation Code(s): K59.00 - CONSTIPATION, UNSPECIFIED Assessment/Plan Current Medications Generic Name Dose Route Start Last Admin Trade Name Freq PRN Reason Stop Dose Admin Acetaminophen 650 mg 10/19/17 03:02 10/20/17 09:21 Tylenol - PO 650 mg Q4H PRN Administration PAIN LEVEL 1-5 Aspirin 81 mg 10/19/17 10:00 10/20/17 09:20 Asa - PO 81 mg DAILY [facility] Administration Docusate Sodium 100 mg 10/19/17 06:00 10/20/17 14:31 Colace - PO 100 mg TID [facility] Administration Fenofibric Acid 135 mg 10/19/17 10:00 10/20/17 09:21 Trilipix - PO 135 mg DAILY [facility] Administration Gabapentin 200 mg 10/19/17 06:00 10/20/17 14:31 Neurontin - PO 200 mg TID [facility] Administration Heparin Sodium (Porcine) 5,000 unit 10/19/17 06:00 10/20/17 14:31 Heparin - SQ 5,000 unit TID [facility] Administration Vancomycin HCl 1 gm in 200 mls @ 133.333 mls/hr 10/19/17 13:00 10/20/17 14:31 Vancomycin 1 Gm Premix - IVPB 133.333 mls/hr DAILY@1300 [facility] Administration Protocol Isosorbide Mononitrate 60 mg 10/19/17 10:00 10/20/17 09:20 Imdur - PO 60 mg DAILY [facility] Administration Metoprolol Tartrate 100 mg 10/19/17 10:00 10/20/17 09:21 Lopressor - PO 100 mg DAILY [facility] Administration Polyethylene Glycol 17 gm 08/02/18 14:00 10/20/17 14:42 Miralax (For Daily Use) - PO 17 grams TID [facility] Administration Rosuvastatin Calcium 10 mg 10/19/17 10:00 10/20/17 09:20 Crestor - PO 10 mg DAILY [facility] Administration Tamsulosin HCl 0.8 mg 10/21/17 08:30 Flomax - PO DAILY@0830 [facility] Impression 1. cale 2. urinary retention 3. enterococcal bacteremia 4. constipation 5. bph 6. nephrolithiasis Plan - repeat labs in am - creatinine is improving - flomax dose adjusted - urology input appreciated - follow cultures - will trend tool machine setup operator Dr Heaton
[2017-10-20] MEDS: SENNOSIDES 8.6MG TABLET (FP) PO SCH (21:14)
[2017-10-21] MEDS: HEPARIN NA (PORCINE) 5,000 UNITS/ML 1ML VIAL SQ SCH ×3 (05:44→21:20)
[2017-10-21] MEDS: POLYETHYLENE GLYCOL 3350 119 GM BTL PO SCH ×2 (05:44→13:55)
[2017-10-21] MEDS: ACETAMINOPHEN 325 MG TABLET (FP) PO PRN ×2 (05:45→21:21)
[2017-10-21] MEDS: GABAPENTIN 100 MG CAPSULE (FP) PO SCH ×3 (05:45→21:20)
--- NOTE | 2017-10-21 06:39 | HOSP ---
Subjective - Review of Symptoms Events since last encounter: Hospitalist Encounter Notified by the RN that the patient reports having L- sided chest pain x am Arrived to bedside patient is awake and alert speaks Dutch, attempted x3 to use [place] line for spark plug tester, no spark plug tester available. Patient spoke in Yi and reports having L- sided CP squeezing non-radiating , which awoken him for sleep. Patient denies SOB or diaphoresis. Assessment: 87 year old male hx CAD, HTN, HLD, urinary retention, pyelonephritis, R sided kidney stones and recent septic/osteomyelitis of L hip admitted for intractable abdominal pain and social work placement Plan: Stat EKG Troponin I Outcome: EKG showed Sinus Bradycardia no ST or TWI Trop I pending Patient reports CP resolved, resting comfortably at bedside Primary PCP will f/u Trop I, and resume care Cardiovascular: Yes: Chest Pain Physical Examination Vital Signs: Vital Signs Temperature 98.1 F 10/21/17 05:45 Pulse Rate 57 L 10/21/17 05:45 Respiratory Rate 18 10/21/17 05:45 Blood Pressure 150/74 10/21/17 05:45 O2 Sat by Pulse Oximetry (%) 97 10/21/17 03:00 Constitutional: Yes: Well Nourished, No Distress, Calm Eyes: Yes: Conjunctiva Clear, EOM Intact, PERRL HENT: Yes: WNL, Atraumatic, Normocephalic Neck: Yes: WNL, Supple, Trachea Midline Cardiovascular: Yes: Bradycardia, S1, S2. No: Gallop, Murmur, Rub Respiratory: Yes: WNL, Regular, CTA Bilaterally Gastrointestinal: Yes: Normal Bowel Sounds, Soft, Abdomen, Obese Peripheral Pulses WNL: Yes Neurological: Yes: WNL, Alert, Oriented ...Motor Strength: WNL Psychiatric: Yes: WNL, Alert, Oriented Labs: CBC, BMP 10/20/17 06:00 10/20/17 06:00 Laboratory Results - last 24 hr 10/20/17 10/20/17 10/20/17 06:00 06:00 06:00 WBC 9.5 RBC 4.22 Hgb 13.3 Hct 39.4 MCV 93.3 MCH 31.5 MCHC 33.8 RDW 15.3 Plt Count 275 MPV 8.8 ESR Sodium Cancelled Potassium Cancelled Chloride Cancelled Carbon Dioxide Cancelled Anion Gap Cancelled BUN Cancelled Creatinine Cancelled Creat Clearance w eGFR Cancelled Random Glucose Cancelled Calcium Cancelled Magnesium Cancelled Total Bilirubin AST ALT Alkaline Phosphatase C-Reactive Protein Total Protein Albumin Random Vancomycin 16.92 10/20/17 10/20/17 06:00 06:00 WBC RBC Hgb Hct MCV MCH MCHC RDW Plt Count MPV ESR 28 H Sodium 141 Potassium 4.5 Chloride 106 Carbon Dioxide 27 Anion Gap 8 BUN 19 H Creatinine 1.2 Creat Clearance w eGFR 57.01 Random Glucose 87 Calcium 9.5 Magnesium 2.1 Total Bilirubin 0.4 AST 22 D ALT 18 Alkaline Phosphatase 51 C-Reactive Protein 3.5 H Total Protein 6.5 Albumin 3.0 L Random Vancomycin Current Medications Generic Name Dose Route Start Last Admin Trade Name Freq PRN Reason Stop Dose Admin Acetaminophen 650 mg 10/19/17 03:02 10/21/17 05:45 Tylenol - PO 650 mg Q4H PRN Administration PAIN LEVEL 1-5 Aspirin 81 mg 10/19/17 10:00 10/20/17 09:20 Asa - PO 81 mg DAILY [facility] Administration Fenofibric Acid 135 mg 10/19/17 10:00 10/20/17 09:21 Trilipix - PO 135 mg DAILY [facility] Administration Gabapentin 200 mg 10/19/17 06:00 10/21/17 05:45 Neurontin - PO 200 mg TID [facility] Administration Heparin Sodium (Porcine) 5,000 unit 10/19/17 06:00 10/21/17 05:44 Heparin - SQ 5,000 unit TID [facility] Administration Vancomycin HCl 1 gm in 200 mls @ 133.333 mls/hr 10/19/17 13:00 10/20/17 14:31 Vancomycin 1 Gm Premix - IVPB 133.333 mls/hr DAILY@1300 [facility] Administration Protocol Isosorbide Mononitrate 60 mg 10/19/17 10:00 10/20/17 09:20 Imdur - PO 60 mg DAILY [facility] Administration Metoprolol Tartrate 100 mg 10/19/17 10:00 10/20/17 09:21 Lopressor - PO 100 mg DAILY [facility] Administration Polyethylene Glycol 17 gm 10/19/17 14:00 10/21/17 05:44 Miralax (For Daily Use) - PO 17 grams TID [facility] Administration Rosuvastatin Calcium 10 mg 10/19/17 10:00 10/20/17 09:20 Crestor - PO 10 mg DAILY [facility] Administration Senna 1 tab 10/20/17 22:00 10/20/17 21:14 Senna - PO 1 tab HS [facility] Administration Tamsulosin HCl 0.8 mg 10/21/17 08:30 Flomax - PO DAILY@0830 [facility] Intake & Output 10/18/17 10/19/17 10/20/17 10/21/17 23:59 23:59 23:59 23:59 Intake Total 1446 750 100 Output Total 2100 1350 Balance -654 -600 100 Weight 81.647 kg 85.275 kg
[2017-10-21] MEDS: TAMSULOSIN HCL 0.4 MG CAP.ER.24H (FP) PO SCH (09:30)
--- NOTE | 2017-10-21 10:22 | PN ---
Progress Note, Physician Chief Complaint: AWAKE DENIES CHEST PAIN AT THIS MOMENT NO SOB OR DIZZINESS APPETITE IS GOOD +BM LARGE - Current Medication List Current Medications: Active Medications Acetaminophen (Tylenol -) 650 mg PO Q4H PRN PRN Reason: PAIN LEVEL 1-5 Last Admin: 10/21/17 05:45 Dose: 650 mg Aspirin (Asa -) 81 mg PO DAILY [facility] Last Admin: 10/20/17 09:20 Dose: 81 mg Fenofibric Acid (Trilipix -) 135 mg PO DAILY [facility] Last Admin: 10/20/17 09:21 Dose: 135 mg Gabapentin (Neurontin -) 200 mg PO TID [facility] Last Admin: 10/21/17 05:45 Dose: 200 mg Heparin Sodium (Porcine) (Heparin -) 5,000 unit SQ TID [facility] Last Admin: 10/21/17 05:44 Dose: 5,000 unit Vancomycin HCl (Vancomycin 1 Gm Premix -) 1 gm in 200 mls @ 133.333 mls/hr IVPB DAILY@1300 [facility]; Protocol Last Admin: 10/20/17 14:31 Dose: 133.333 mls/hr Isosorbide Mononitrate (Imdur -) 60 mg PO DAILY [facility] Last Admin: 10/20/17 09:20 Dose: 60 mg Metoprolol Tartrate (Lopressor -) 100 mg PO DAILY [facility] Last Admin: 10/20/17 09:21 Dose: 100 mg Polyethylene Glycol (Miralax (For Daily Use) -) 17 gm PO TID [facility] Last Admin: 10/21/17 05:44 Dose: 17 grams Rosuvastatin Calcium (Crestor -) 10 mg PO DAILY [facility] Last Admin: 10/20/17 09:20 Dose: 10 mg Senna (Senna -) 1 tab PO [facility] Last Admin: 10/20/17 21:14 Dose: 1 tab Tamsulosin HCl (Flomax -) 0.8 mg PO DAILY@0830 [facility] - Objective Vital Signs: Vital Signs Temperature 98.1 F 10/21/17 05:45 Pulse Rate 57 L 10/21/17 05:45 Respiratory Rate 18 10/21/17 05:45 Blood Pressure 150/74 10/21/17 05:45 O2 Sat by Pulse Oximetry (%) 97 10/21/17 03:00 Constitutional: Yes: Mild Distress Eyes: Yes: WNL HENT: Yes: WNL Neck: Yes: WNL Cardiovascular: Yes: WNL Respiratory: Yes: WNL Gastrointestinal: Yes: WNL Genitourinary: Yes: Florentino Present Musculoskeletal: Yes: Muscle Weakness Extremities: Yes: WNL Peripheral Pulses WNL: Yes Wound/Incision: Yes: Clean/Dry Neurological: Yes: Pre-Existing Deficit ...Motor Strength: LLE, RLE Psychiatric: Yes: WNL Labs: CBC, BMP 10/20/17 06:00 10/20/17 06:00 Problem List - Problems (1) CALE (acute kidney injury) Code(s): N17.9 - ACUTE KIDNEY FAILURE, UNSPECIFIED (2) Abdominal pain Code(s): R10.9 - UNSPECIFIED ABDOMINAL PAIN Qualifiers: Abdominal location: unspecified location Qualified Code(s): R10.9 - Unspecified abdominal pain (3) Constipation Code(s): K59.00 - CONSTIPATION, UNSPECIFIED (4) Osteomyelitis Code(s): M86.9 - OSTEOMYELITIS, UNSPECIFIED (5) UTI (urinary tract infection) Code(s): N39.0 - URINARY TRACT INFECTION, SITE NOT SPECIFIED (6) Urinary retention Code(s): R33.9 - RETENTION OF URINE, UNSPECIFIED Assessment/Plan CHEST PAIN RESOLVED, TROPONIN NEG CONTINUE FLORENTINO F/U APPRECIATED CHECK WITH ID ON DURATION OF ABX? 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
[2017-10-21] MEDS: ASPIRIN 81 MG CHEWABLE TABLETS PO SCH (10:36)
[2017-10-21] MEDS: FENOFIBRIC ACID 135 MG CAP PO SCH (10:36)
[2017-10-21] MEDS: METOPROLOL TARTRATE 50 MG TABLET (FP) PO SCH (10:36)
[2017-10-21] MEDS: ISOSORBIDE MONONITRATE 60 MG TAB.SR.24H (FP) PO SCH (10:36)
[2017-10-21] MEDS: ROSUVASTATIN CA 10 MG TABLET (FP) PO SCH (10:36)
[2017-10-21] MEDS: VANCOMYCIN 1 GM PREMIX - 1 GM/200 ML BAG IVPB SCH (12:21)
--- NOTE | 2017-10-21 16:32 | PN ---
Progress Note, Physician History of Present Illness: Pt seen and examined at bedside. He is awake and alert. He denies shortness of breath. He had chest pain last night. - Current Medication List Current Medications: Active Medications Acetaminophen (Tylenol -) 650 mg PO Q4H PRN PRN Reason: PAIN LEVEL 1-5 Last Admin: 10/21/17 05:45 Dose: 650 mg Amino Acids (Prosource No Carb Liquid Pkt) 30 ml PO BID@0800,1730 [facility] Aspirin (Asa -) 81 mg PO DAILY [facility] Last Admin: 10/21/17 10:36 Dose: 81 mg Fenofibric Acid (Trilipix -) 135 mg PO DAILY [facility] Last Admin: 10/21/17 10:36 Dose: 135 mg Gabapentin (Neurontin -) 200 mg PO TID [facility] Last Admin: 10/21/17 13:56 Dose: 200 mg Heparin Sodium (Porcine) (Heparin -) 5,000 unit SQ TID [facility] Last Admin: 10/21/17 13:56 Dose: 5,000 unit Vancomycin HCl (Vancomycin 1 Gm Premix -) 1 gm in 200 mls @ 133.333 mls/hr IVPB DAILY@1300 [facility]; Protocol Last Admin: 10/21/17 12:21 Dose: 133.333 mls/hr Isosorbide Mononitrate (Imdur -) 60 mg PO DAILY [facility] Last Admin: 10/21/17 10:36 Dose: 60 mg Metoprolol Tartrate (Lopressor -) 100 mg PO DAILY [facility] Last Admin: 10/21/17 10:36 Dose: 100 mg Rosuvastatin Calcium (Crestor -) 10 mg PO DAILY [facility] Last Admin: 10/21/17 10:36 Dose: 10 mg Senna (Senna -) 1 tab PO HS [facility] Last Admin: 10/20/17 21:14 Dose: 1 tab Tamsulosin HCl (Flomax -) 0.8 mg PO DAILY@0830 [facility] Last Admin: 10/21/17 09:30 Dose: 0.8 mg - Objective Vital Signs: Vital Signs Temperature 98.6 F 10/21/17 13:31 Pulse Rate 61 10/21/17 13:31 Respiratory Rate 18 10/21/17 13:31 Blood Pressure 107/51 10/21/17 13:31 O2 Sat by Pulse Oximetry (%) 96 10/21/17 11:00 Constitutional: Yes: Calm Eyes: Yes: Conjunctiva Clear HENT: Yes: Atraumatic Neck: Yes: Supple Cardiovascular: Yes: S1, S2 Respiratory: Yes: CTA Bilaterally Gastrointestinal: Yes: Soft Genitourinary: Yes: Cortez Present Musculoskeletal: Yes: WNL Extremities: Yes: WNL Edema: No Neurological: Yes: Oriented Labs: CBC, BMP 10/20/17 06:00 10/20/17 06:00 Problem List - Problems (1) CALE (acute kidney injury) Code(s): N17.9 - ACUTE KIDNEY FAILURE, UNSPECIFIED (2) Abdominal pain Code(s): R10.9 - UNSPECIFIED ABDOMINAL PAIN Qualifiers: Abdominal location: unspecified location Qualified Code(s): R10.9 - Unspecified abdominal pain (3) Constipation Code(s): K59.00 - CONSTIPATION, UNSPECIFIED Assessment/Plan Current Medications Generic Name Dose Route Start Last Admin Trade Name Freq PRN Reason Stop Dose Admin Acetaminophen 650 mg 10/19/17 03:02 10/21/17 05:45 Tylenol - PO 650 mg Q4H PRN Administration PAIN LEVEL 1-5 Amino Acids 30 ml 10/21/17 17:30 Prosource No Carb Liquid Pkt PO BID@0800,1730 [facility] Aspirin 81 mg 10/19/17 10:00 10/21/17 10:36 Asa - PO 81 mg DAILY [facility] Administration Fenofibric Acid 135 mg 10/19/17 10:00 10/21/17 10:36 Trilipix - PO 135 mg DAILY [facility] Administration Gabapentin 200 mg 10/19/17 06:00 10/21/17 13:56 Neurontin - PO 200 mg TID [facility] Administration Heparin Sodium (Porcine) 5,000 unit 10/19/17 06:00 10/21/17 13:56 Heparin - SQ 5,000 unit TID [facility] Administration Vancomycin HCl 1 gm in 200 mls @ 133.333 mls/hr 10/19/17 13:00 10/21/17 12:21 Vancomycin 1 Gm Premix - IVPB 133.333 mls/hr DAILY@1300 [facility] Administration Protocol Isosorbide Mononitrate 60 mg 10/19/17 10:00 10/21/17 10:36 Imdur - PO 60 mg DAILY [facility] Administration Metoprolol Tartrate 100 mg 10/19/17 10:00 10/21/17 10:36 Lopressor - PO 100 mg DAILY [facility] Administration Rosuvastatin Calcium 10 mg 10/19/17 10:00 10/21/17 10:36 Crestor - PO 10 mg DAILY [facility] Administration Senna 1 tab 10/20/17 22:00 10/20/17 21:14 Senna - PO 1 tab HS [facility] Administration Tamsulosin HCl 0.8 mg 10/21/17 08:30 10/21/17 09:30 Flomax - PO 0.8 mg DAILY@0830 [facility] Administration Microbiology 10/19/17 12:02 Blood - Peripheral Venous Blood Culture - Preliminary NO GROWTH OBTAINED AFTER 48 HOURS, INCUBATION TO CONTINUE FOR 3 DAYS. 10/19/17 11:55 Blood - Peripheral Venous Blood Culture - Preliminary NO GROWTH OBTAINED AFTER 48 HOURS, INCUBATION TO CONTINUE FOR 3 DAYS. Impression 1. cale 2. urinary retention 3. enterococcal bacteremia 4. constipation 5. bph 6. 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
[2017-10-21] MEDS: AMINO ACIDS/PROTEIN HYDROLYS 30 ML LIQUID.PKT PO SCH (18:30)
[2017-10-21] MEDS: SENNOSIDES 8.6MG TABLET (FP) PO SCH (21:20)
[2017-10-22] MEDS: GABAPENTIN 100 MG CAPSULE (FP) PO SCH ×3 (05:45→21:34)
[2017-10-22] MEDS: HEPARIN NA (PORCINE) 5,000 UNITS/ML 1ML VIAL SQ SCH ×3 (05:46→21:34)
[2017-10-22 08:38] LABS: CHLORIDE 112 mmol/L (98-107); POTASSIUM 4.6 mmol/L (3.5-5.1); SODIUM 147 mmol/L (136-145)
[2017-10-22 08:48] LABS: ANION GAP 9 (8-16); BLOOD UREA NITROGEN 19 mg/dL (7-18); CALCIUM 9.3 mg/dL (8.5-10.1); CO2 26 mmol/L (21-32); CREATININE 1.3 mg/dL (0.7-1.3); GLUCOSE,RANDOM 83 mg/dL (74-106)
[2017-10-22] MEDS: AMINO ACIDS/PROTEIN HYDROLYS 30 ML LIQUID.PKT PO SCH ×2 (08:51→18:32)
[2017-10-22] MEDS: TAMSULOSIN HCL 0.4 MG CAP.ER.24H (FP) PO SCH (08:52)
--- NOTE | 2017-10-22 10:10 | PN ---
Progress Note, Physician Chief Complaint: AWAKE ALERT NO DISTRESS - Current Medication List Current Medications: Active Medications Acetaminophen (Tylenol -) 650 mg PO Q4H PRN PRN Reason: PAIN LEVEL 1-5 Last Admin: 10/21/17 21:21 Dose: 650 mg Amino Acids (Prosource No Carb Liquid Pkt) 30 ml PO BID@0800,1730 [facility] Last Admin: 10/22/17 08:51 Dose: 30 ml Aspirin (Asa -) 81 mg PO DAILY [facility] Last Admin: 10/21/17 10:36 Dose: 81 mg Fenofibric Acid (Trilipix -) 135 mg PO DAILY [facility] Last Admin: 10/21/17 10:36 Dose: 135 mg Gabapentin (Neurontin -) 200 mg PO TID [facility] Last Admin: 10/22/17 05:45 Dose: 200 mg Heparin Sodium (Porcine) (Heparin -) 5,000 unit SQ TID [facility] Last Admin: 10/22/17 05:46 Dose: 5,000 unit Vancomycin HCl (Vancomycin 1 Gm Premix -) 1 gm in 200 mls @ 133.333 mls/hr IVPB DAILY@1300 [facility]; Protocol Last Admin: 10/21/17 12:21 Dose: 133.333 mls/hr Isosorbide Mononitrate (Imdur -) 60 mg PO DAILY [facility] Last Admin: 10/21/17 10:36 Dose: 60 mg Metoprolol Tartrate (Lopressor -) 100 mg PO DAILY [facility] Last Admin: 10/21/17 10:36 Dose: 100 mg Rosuvastatin Calcium (Crestor -) 10 mg PO DAILY [facility] Last Admin: 10/21/17 10:36 Dose: 10 mg Senna (Senna -) 1 tab PO HS [facility] Last Admin: 10/21/17 21:20 Dose: 1 tab Tamsulosin HCl (Flomax -) 0.8 mg PO DAILY@0830 [facility] Last Admin: 10/22/17 08:52 Dose: 0.8 mg - Objective Vital Signs: Vital Signs Temperature 97.5 F L 10/22/17 08:50 Pulse Rate 57 L 10/22/17 08:50 Respiratory Rate 18 10/22/17 08:50 Blood Pressure 150/76 10/22/17 08:50 O2 Sat by Pulse Oximetry (%) 96 10/22/17 03:00 Constitutional: Yes: No Distress Eyes: Yes: WNL HENT: Yes: WNL Neck: Yes: WNL Cardiovascular: Yes: WNL Respiratory: Yes: WNL Gastrointestinal: Yes: WNL Genitourinary: Yes: Florentino Present Musculoskeletal: Yes: Muscle Weakness Extremities: Yes: WNL Edema: Yes Edema: LLE: 1+, RLE: 1+ Integumentary: Yes: WNL Wound/Incision: Yes: Clean/Dry Neurological: Yes: Pre-Existing Deficit ...Motor Strength: LLE Psychiatric: Yes: WNL Labs: CBC, BMP 10/20/17 06:00 10/22/17 06:44 Problem List - Problems (1) CALE (acute kidney injury) Code(s): N17.9 - ACUTE KIDNEY FAILURE, UNSPECIFIED (2) Abdominal pain Code(s): R10.9 - UNSPECIFIED ABDOMINAL PAIN Qualifiers: Abdominal location: unspecified location Qualified Code(s): R10.9 - Unspecified abdominal pain (3) Constipation Code(s): K59.00 - CONSTIPATION, UNSPECIFIED (4) Osteomyelitis Code(s): M86.9 - OSTEOMYELITIS, UNSPECIFIED (5) UTI (urinary tract infection) Code(s): N39.0 - URINARY TRACT INFECTION, SITE NOT SPECIFIED (6) Urinary retention Code(s): R33.9 - RETENTION OF URINE, UNSPECIFIED Assessment/Plan DC PLANNING TOMORROW KI FLORENTINO WHEN AMBULATING MIRALX/SENNA DAILY [facility] NEEDED ABD XRAY BEDSIDE R/O ILEUS SINCE C/O ABD FULLNESS DVT PROPHYLAXIS WILL NEED 2 WEEKS OF VANCO IV, WILL D/W DR ARREAGA [place].
[2017-10-22] MEDS: ROSUVASTATIN CA 10 MG TABLET (FP) PO SCH (10:24)
[2017-10-22] MEDS: ASPIRIN 81 MG CHEWABLE TABLETS PO SCH (10:25)
[2017-10-22] MEDS: ISOSORBIDE MONONITRATE 60 MG TAB.SR.24H (FP) PO SCH (10:25)
[2017-10-22] MEDS: METOPROLOL TARTRATE 50 MG TABLET (FP) PO SCH (10:25)
[2017-10-22] MEDS: FENOFIBRIC ACID 135 MG CAP PO SCH (10:33)
[2017-10-22] MEDS: VANCOMYCIN 1 GM PREMIX - 1 GM/200 ML BAG IVPB SCH (12:53)
[2017-10-22] MEDS: POLYETHYLENE GLYCOL 3350 119 GM BTL PO SCH (14:04)
--- NOTE | 2017-10-22 14:28 | PN ---
Progress Note, Physician History of Present Illness: Pt seen and examined at bedside. He denies shortness of breath. He is awake and alert. - Current Medication List Current Medications: Active Medications Acetaminophen (Tylenol -) 650 mg PO Q4H PRN PRN Reason: PAIN LEVEL 1-5 Last Admin: 10/21/17 21:21 Dose: 650 mg Amino Acids (Prosource No Carb Liquid Pkt) 30 ml PO BID@0800,1730 [facility] Last Admin: 10/22/17 08:51 Dose: 30 ml Aspirin (Asa -) 81 mg PO DAILY [facility] Last Admin: 10/22/17 10:25 Dose: 81 mg Fenofibric Acid (Trilipix -) 135 mg PO DAILY [facility] Last Admin: 10/22/17 10:33 Dose: 135 mg Gabapentin (Neurontin -) 200 mg PO TID [facility] Last Admin: 10/22/17 14:05 Dose: 200 mg Heparin Sodium (Porcine) (Heparin -) 5,000 unit SQ TID [facility] Last Admin: 10/22/17 14:05 Dose: 5,000 unit Vancomycin HCl (Vancomycin 1 Gm Premix -) 1 gm in 200 mls @ 133.333 mls/hr IVPB DAILY@1300 [facility]; Protocol Last Admin: 10/22/17 12:53 Dose: 133.333 mls/hr Isosorbide Mononitrate (Imdur -) 60 mg PO DAILY [facility] Last Admin: 10/22/17 10:25 Dose: 60 mg Metoprolol Tartrate (Lopressor -) 100 mg PO DAILY [facility] Last Admin: 10/22/17 10:25 Dose: 100 mg Polyethylene Glycol (Miralax (For Daily Use) -) 17 gm PO DAILY [facility] Last Admin: 10/22/17 14:04 Dose: 17 gm Rosuvastatin Calcium (Crestor -) 10 mg PO DAILY [facility] Last Admin: 10/22/17 10:24 Dose: 10 mg Senna (Senna -) 1 tab PO HS [facility] Last Admin: 10/21/17 21:20 Dose: 1 tab Tamsulosin HCl (Flomax -) 0.8 mg PO DAILY@0830 [facility] Last Admin: 10/22/17 08:52 Dose: 0.8 mg - Objective Vital Signs: Vital Signs Temperature 97.5 F L 10/22/17 08:50 Pulse Rate 57 L 08/05/18 08:50 Respiratory Rate 18 10/22/17 08:50 Blood Pressure 150/76 10/22/17 08:50 O2 Sat by Pulse Oximetry (%) 96 10/22/17 11:00 Constitutional: Yes: Calm Eyes: Yes: Conjunctiva Clear HENT: Yes: Atraumatic Neck: Yes: Supple Cardiovascular: Yes: Regular Rate and Rhythm, S1, S2 Respiratory: Yes: CTA Bilaterally Gastrointestinal: Yes: Soft Genitourinary: Yes: Cort[place] Present Musculoskeletal: Yes: WNL Edema: No Neurological: Yes: Oriented Psychiatric: Yes: Oriented Labs: CBC, BMP 10/20/17 06:00 10/22/17 06:44 Problem List - Problems (1) CALE (acute kidney injury) Code(s): N17.9 - ACUTE KIDNEY FAILURE, UNSPECIFIED (2) Abdominal pain Code(s): R10.9 - UNSPECIFIED ABDOMINAL PAIN Qualifiers: Abdominal location: unspecified location Qualified Code(s): R10.9 - Unspecified abdominal pain (3) Constipation Code(s): K59.00 - CONSTIPATION, UNSPECIFIED Assessment/Plan Current Medications Generic Name Dose Route Start Last Admin Trade Name Freq PRN Reason Stop Dose Admin Acetaminophen 650 mg 10/19/17 03:02 10/21/17 21:21 Tylenol - PO 650 mg Q4H PRN Administration PAIN LEVEL 1-5 Amino Acids 30 ml 10/21/17 17:30 10/22/17 08:51 Prosource No Carb Liquid Pkt PO 30 ml BID@0800,1730 [facility] Administration Aspirin 81 mg 10/19/17 10:00 10/22/17 10:25 Asa - PO 81 mg DAILY [facility] Administration Fenofibric Acid 135 mg 10/19/17 10:00 10/22/17 10:33 Trilipix - PO 135 mg DAILY [facility] Administration Gabapentin 200 mg 10/19/17 06:00 10/22/17 14:05 Neurontin - PO 200 mg TID [facility] Administration Heparin Sodium (Porcine) 5,000 unit 10/19/17 06:00 10/22/17 14:05 Heparin - SQ 5,000 unit TID [facility] Administration Vancomycin HCl 1 gm in 200 mls @ 133.333 mls/hr 10/19/17 13:00 10/22/17 12:53 Vancomycin 1 Gm Premix - IVPB 133.333 mls/hr DAILY@1300 [facility] Administration Protocol Isosorbide Mononitrate 60 mg 10/19/17 10:00 10/22/17 10:25 Imdur - PO 60 mg DAILY [facility] Administration Metoprolol Tartrate 100 mg 10/19/17 10:00 10/22/17 10:25 Lopressor - PO 100 mg DAILY [facility] Administration Polyethylene Glycol 17 gm 10/22/17 13:15 10/22/17 14:04 Miralax (For Daily Use) - PO 17 gm DAILY [facility] Administration Rosuvastatin Calcium 10 mg 10/19/17 10:00 10/22/17 10:24 Crestor - PO 10 mg DAILY [facility] Administration Senna 1 tab 10/20/17 22:00 10/21/17 21:20 Senna - PO 1 tab HS [facility] Administration Tamsulosin HCl 0.8 mg 10/21/17 08:30 10/22/17 08:52 Flomax - PO 0.8 mg DAILY@0830 [facility] Administration Impression 1. cale 2. urinary retention 3. enterococcal bacteremia 4. constipation 5. bph 6. nephrolithiasis 7. 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
[2017-10-22] MEDS ORDERED: DEXTROSE 5%-1/3 NS - 500 ML IV SCH (14:30)
[2017-10-22] MEDS: DEXTROSE 5%-1/3 NS - 500 ML IV SCH (15:26)
[2017-10-22] MEDS: ACETAMINOPHEN 325 MG TABLET (FP) PO PRN (19:02)
--- NOTE | 2017-10-22 20:02 | EKG ---
Test Reason : Blood Pressure : / mmHG Vent. Rate : 059 BPM Atrial Rate : 059 BPM P-R Int : 182 ms QRS Dur : 096 ms QT Int : 408 ms P-R-T Axes : 015 -05 -03 degrees QTc Int : 403 ms SINUS BRADYCARDIA OTHERWISE NORMAL ECG WHEN COMPARED WITH ECG OF 06-SEP-2017 23:59, NO SIGNIFICANT CHANGE WAS FOUND Confirmed by KALI GRAVES MD ([id number]) on 10/22/2017 8:02:27 PM Referred By: Confirmed By:KALI GRAVES MD
[2017-10-22] MEDS: SENNOSIDES 8.6MG TABLET (FP) PO SCH (21:34)
[2017-10-23] MEDS: DEXTROSE 5%-1/3 NS - 500 ML IV SCH (00:30)
[2017-10-23] MEDS: GABAPENTIN 100 MG CAPSULE (FP) PO SCH ×2 (06:17→14:12)
[2017-10-23] MEDS: ACETAMINOPHEN 325 MG TABLET (FP) PO PRN (06:17)
[2017-10-23] MEDS: HEPARIN NA (PORCINE) 5,000 UNITS/ML 1ML VIAL SQ SCH ×2 (06:20→14:12)
--- NOTE | 2017-10-23 07:29 | DS ---
Physical Examination Vital Signs: Vital Signs Temperature 98.6 F 10/22/17 23:00 Pulse Rate 58 L 10/22/17 23:00 Respiratory Rate 20 10/23/17 03:00 Blood Pressure 140/68 10/22/17 23:00 O2 Sat by Pulse Oximetry (%) 96 10/23/17 03:00 Findings/Remarks: dc chino if still has retention reinsert chino Constitutional: Yes: No Distress Eyes: Yes: WNL HENT: Yes: WNL Neck: Yes: WNL Cardiovascular: Yes: WNL Respiratory: Yes: WNL Gastrointestinal: Yes: WNL Renal/: Yes: [place] Present Musculoskeletal: Yes: Muscle Weakness Extremities: Yes: WNL Edema: No Peripheral Pulses WNL: Yes Integumentary: Yes: WNL Wound/Incision: Yes: Clean/Dry Neurological: Yes: Pre-Existing Deficit ...Motor Strength: LLE, RLE Psychiatric: Yes: WNL Labs: CBC, BMP 10/20/17 06:00 Discharge Summary Reason For Visit: RETENTION OF URINE ABDOMINAL PAIN Current Active Problems CALE (acute kidney injury) (Acute) Abdominal pain (Acute) Constipation (Acute) Osteomyelitis (Acute) UTI (urinary tract infection) (Acute) Urinary retention (Acute) Hospital Course: admitted with leukocytosis, arf, treated ivf, monitored on abx for osteomyelitis , will continue vancomycin 2 weeks pore Condition: Stable - Instructions Diet, Activity, Other Instructions: see urology as outpatient dr kirby id consult dr mcduffie in 2 weeks after completion of vancomycin Referrals: Wai Alex MD [Primary Care Provider] - Disposition: [facility] - Home Medications Comprehensive Discharge Medication List: Ambulatory Orders Fenofibrate 150 mg PO DAILY 03/29/17 Isosorbide Mononitrate [Isosorbide Mononitrate ER] 60 mg PO DAILY 03/29/17 Metoprolol Tartrate 100 mg PO DAILY 03/29/17 Rosuvastatin [Crestor -] 10 mg PO DAILY 03/29/17 Acetaminophen [Tylenol] 650 mg PO QID PRN 10/18/17 Aspirin 81 mg PO DAILY 10/18/17 Gabapentin [Neurontin -] 200 mg PO Q8H 10/18/17 Sennosides [Senna] 2 tab PO HS 10/18/17 Tamsulosin HCl [Flomax -] 0.4 mg PO DAILY 10/18/17 Acetaminophen [Tylenol .Regular Strength -] 650 mg PO Q4H PRN tablet 10/23/17 Amino Acids/Protein Hydrolys [Prosource No Carb Liquid Pkt] 30 ml PO BID@0800, 1730 packet 10/23/17 Polyethylene Glycol 3350 [Miralax 119 gm Btl -] 17 gm PO DAILY bottle 10/23/17 Sennosides [Senna -] 1 tab PO HS tablet 10/23/17 Tamsulosin HCl [Flomax -] 0.8 mg PO DAILY@0830 cap.er.24h 10/23/17 Vancomycin 1,000 mg IV BID #14 bag 10/23/17
[2017-10-23 08:23] LABS: ANION GAP 7 (8-16); BLOOD UREA NITROGEN 19 mg/dL (7-18); CHLORIDE 110 mmol/L (98-107); CO2 28 mmol/L (21-32); GLUCOSE,RANDOM 90 mg/dL (74-106); POTASSIUM 4.5 mmol/L (3.5-5.1); SODIUM 145 mmol/L (136-145)
[2017-10-23 08:24] LABS: CREATININE 1.3 mg/dL (0.7-1.3)
[2017-10-23] MEDS ORDERED: PT OWN MED DRAWER 7, Y5N ONE (09:18)
[2017-10-23] MEDS: ISOSORBIDE MONONITRATE 60 MG TAB.SR.24H (FP) PO SCH (09:23)
[2017-10-23] MEDS: ASPIRIN 81 MG CHEWABLE TABLETS PO SCH (09:23)
[2017-10-23] MEDS: ROSUVASTATIN CA 10 MG TABLET (FP) PO SCH (09:23)
[2017-10-23] MEDS: TAMSULOSIN HCL 0.4 MG CAP.ER.24H (FP) PO SCH (09:23)
[2017-10-23] MEDS: METOPROLOL TARTRATE 50 MG TABLET (FP) PO SCH (09:23)
[2017-10-23] MEDS: AMINO ACIDS/PROTEIN HYDROLYS 30 ML LIQUID.PKT PO SCH (09:24)
[2017-10-23] MEDS: FENOFIBRIC ACID 135 MG CAP PO SCH (09:25)
[2017-10-23] MEDS: VANCOMYCIN 1 GM PREMIX - 1 GM/200 ML BAG IVPB SCH (13:38)
[2017-10-23] MEDS: POLYETHYLENE GLYCOL 3350 119 GM BTL PO SCH (14:13)
[2017-10-23 14:25] VITALS: BP 120/63; PULSE 58; TEMP 98.3
--- NOTE | 2017-10-23 15:20 | PN ---
Progress Note, Physician History of Present Illness: Pt seen and examined at bedside. He is awake and alert. He tolerated the voiding trial. - Current Medication List Current Medications: Active Medications Acetaminophen (Tylenol -) 650 mg PO Q4H PRN PRN Reason: PAIN LEVEL 1-5 Last Admin: 10/23/17 06:17 Dose: 650 mg Amino Acids (Prosource No Carb Liquid Pkt) 30 ml PO BID@0800,1730 [facility] Last Admin: 10/23/17 09:24 Dose: 30 ml Aspirin (Asa -) 81 mg PO DAILY [facility] Last Admin: 10/23/17 09:23 Dose: 81 mg Fenofibric Acid (Trilipix -) 135 mg PO DAILY [facility] Last Admin: 10/23/17 09:25 Dose: 135 mg Gabapentin (Neurontin -) 200 mg PO TID [facility] Last Admin: 10/23/17 14:12 Dose: 200 mg Heparin Sodium (Porcine) (Heparin -) 5,000 unit SQ TID [facility] Last Admin: 10/23/17 14:12 Dose: 5,000 unit Vancomycin HCl (Vancomycin 1 Gm Premix -) 1 gm in 200 mls @ 133.333 mls/hr IVPB DAILY@1300 [facility]; Protocol Last Admin: 10/23/17 13:38 Dose: 133.333 mls/hr Dextrose/Sodium Chloride (D5-1/3ns -) 500 mls @ 60 mls/hr IV ASDIR [facility] Last Admin: 10/23/17 00:30 Dose: 60 mls/hr Isosorbide Mononitrate (Imdur -) 60 mg PO DAILY [facility] Last Admin: 10/23/17 09:23 Dose: 60 mg Metoprolol Tartrate (Lopressor -) 100 mg PO DAILY [facility] Last Admin: 10/23/17 09:23 Dose: 100 mg Polyethylene Glycol (Miralax (For Daily Use) -) 17 gm PO DAILY [facility] Last Admin: 10/23/17 14:13 Dose: 17 gm Rosuvastatin Calcium (Crestor -) 10 mg PO DAILY [facility] Last Admin: 10/23/17 09:23 Dose: 10 mg Senna (Senna -) 1 tab PO HS [facility] Last Admin: 10/22/17 21:34 Dose: 1 tab Tamsulosin HCl (Flomax -) 0.8 mg PO DAILY@0830 [facility] Last Admin: 10/23/17 09:23 Dose: 0.8 mg - Objective Vital Signs: Vital Signs Temperature 98.3 F 10/23/17 14:23 Pulse Rate 58 L 10/23/17 14:23 Respiratory Rate 18 10/23/17 14:23 Blood Pressure 120/63 10/23/17 14:23 O2 Sat by Pulse Oximetry (%) 96 10/23/17 11:00 Constitutional: Yes: Calm Eyes: Yes: Conjunctiva Clear HENT: Yes: Atraumatic Neck: Yes: Supple Cardiovascular: Yes: S1, S2 Respiratory: Yes: CTA Bilaterally Gastrointestinal: Yes: Normal Bowel Sounds, Soft Genitourinary: Yes: Incontinence Musculoskeletal: Yes: WNL Edema: No Neurological: Yes: Oriented Psychiatric: Yes: Oriented Labs: CBC, BMP 10/20/17 06:00 10/23/17 06:00 Problem List - Problems (1) TIARA (acute kidney injury) Code(s): N17.9 - ACUTE KIDNEY FAILURE, UNSPECIFIED (2) Abdominal pain Code(s): R10.9 - UNSPECIFIED ABDOMINAL PAIN Qualifiers: Abdominal location: unspecified location Qualified Code(s): R10.9 - Unspecified abdominal pain (3) Constipation Code(s): K59.00 - CONSTIPATION, UNSPECIFIED Assessment/Plan Current Medications Generic Name Dose Route Start Last Admin Trade Name Jaydenq PRN Reason Stop Dose Admin Acetaminophen 650 mg 10/19/17 03:02 10/23/17 06:17 Tylenol - PO 650 mg Q4H PRN Administration PAIN LEVEL 1-5 Amino Acids 30 ml 10/21/17 17:30 10/23/17 09:24 Prosource No Carb Liquid Pkt PO 30 ml BID@0800,1730 [facility] Administration Aspirin 81 mg 10/19/17 10:00 10/23/17 09:23 Asa - PO 81 mg DAILY [facility] Administration Fenofibric Acid 135 mg 10/19/17 10:00 10/23/17 09:25 Trilipix - PO 135 mg DAILY [facility] Administration Gabapentin 200 mg 10/19/17 06:00 10/23/17 14:12 Neurontin - PO 200 mg TID [facility] Administration Heparin Sodium (Porcine) 5,000 unit 10/19/17 06:00 10/23/17 14:12 Heparin - SQ 5,000 unit TID [facility] Administration Vancomycin HCl 1 gm in 200 mls @ 133.333 mls/hr 10/19/17 13:00 10/23/17 13:38 Vancomycin 1 Gm Premix - IVPB 133.333 mls/hr DAILY@1300 [facility] Administration Protocol Dextrose/Sodium Chloride 500 mls @ 60 mls/hr 10/22/17 14:30 10/23/17 00:30 D5-1/3ns - IV 60 mls/hr ASDIR [facility] Administration Isosorbide Mononitrate 60 mg 10/19/17 10:00 10/23/17 09:23 Imdur - PO 60 mg DAILY [facility] Administration Metoprolol Tartrate 100 mg 10/19/17 10:00 10/23/17 09:23 Lopressor - PO 100 mg DAILY [facility] Administration Polyethylene Glycol 17 gm 10/22/17 13:15 10/23/17 14:13 Miralax (For Daily Use) - PO 17 gm DAILY [facility] Administration Rosuvastatin Calcium 10 mg 10/19/17 10:00 10/23/17 09:23 Crestor - PO 10 mg DAILY [facility] Administration Senna 1 tab 10/20/17 22:00 10/22/17 21:34 Senna - PO 1 tab HS [facility] Administration Tamsulosin HCl 0.8 mg 10/21/17 08:30 10/23/17 09:23 Flomax - PO 0.8 mg DAILY@0830 [facility] Administration Impression 1. tiara 2. urinary retention 3. enterococcal bacteremia 4. constipation 5. bph 6. nephrolithiasis 7. hypernatremia Plan - sodium improved - renal function stable - pt tolerated voiding trial - cont flomax - can see as outpt - encourage free water intake Dr Heaton
== END 2017-10-23 15:36 | DRG 683 ==
LOC: JER 20:02 → JERBED 10-19 02:02 → UNDOADMOB 10-19 02:10 → J7W 10-19 03:34 → OBSVTOIN 10-21 11:41
PROVIDERS: ADMIT Family Medicine; ATTEND Family Medicine
DX: N17.9 Acute kidney failure, unspecified (principal); M00.852 Arthritis due to other bacteria, left hip; M86.8X8 Other osteomyelitis, other site; E87.0 Hyperosmolality and hypernatremia; E78.5 Hyperlipidemia, unspecified; I10 Essential (primary) hypertension; I25.10 Atherosclerotic heart disease of native coronary artery without angina pectoris; Z95.1 Presence of aortocoronary bypass graft; R33.9 Retention of urine, unspecified; Z88.0 Allergy status to penicillin; K59.00 Constipation, unspecified; N20.0 Calculus of kidney; N40.0 Benign prostatic hyperplasia without lower urinary tract symptoms
CPT/HCPCS: 36415; 74018-TC-FY; 74176-TC; 80048; 80053; 81003; 81015; 83690; 83735; 84484; 85025; 85027; 85651; 86140; 87040; 87086; 93005; 93010; 97116-GP; 97161-GP; 99283-25; G0378; G0480; J0131; J1644; J7030